=== PATIENT | female | born 1945 | race Caucasian/White ===

== ENCOUNTER 2017-04-16 16:27 | Inpatient (IN) | payer OTHER ==
--- NOTE | 2017-04-16 17:25 | PDOC ---
History of Present Illness <Antonette Ponce - Last Filed: 04/16/17 21:09> - History of Present Illness Initial Comments: 04/16/17 18:34 71 year old female with a PMHx of asthma, IDDM, HTN, HLD, GERD, hypothyroidism, chronic low back pain, spinal surgery x 3, total abdominal hysterectomy presents to the ED with urinary retention, diarrhea and low back pain for 2 days. Patient reports intermittent fevers. Patient took Tylenol with no relief. Denies chest pain, SOB. Denies nausea, vomiting, constipation. Denies dysuria, hematuria. Denies tobacco use. No known allergies. <Ariela Baca - Last Filed: 04/16/17 23:09> - General Chief Complaint: Urinary Problem Stated Complaint: DIARRHEA/URINARY PROBLEM Time Seen by Provider: 04/16/17 17:24 Past History - Past Medical History Anemia: No Asthma: Yes (2012) Cancer: No Cardiac Disorders: No CVA: Yes (2013,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") COPD: No CHF: No Dementia: No Diabetes: Yes GI Disorders: No Disorders: No HTN: Yes Hypercholesterolemia: No Liver Disease: No Psychiatric Problems: Yes (dementia, depression) Suicide Attempt (Hx): No Seizures: No Thyroid Disease: Yes - Surgical History Abdominal Surgery: No Appendectomy: No Cardiac Surgery: No Cholecystectomy: No Lung Surgery: No Neurologic Surgery: No Orthopedic Surgery: Yes ("BACK SURGERY" STATED BY PT) - Reproductive History Therapeutic (s) & number: No - Psycho/Social/Smoking Cessation Hx Anxiety: No Suicidal Ideation: No Smoking Status: No Smoking History: Never smoked Have you smoked in the past 12 months: No Number of Cigarettes Smoked Daily: 0 Information on smoking cessation initiated: No Hx Alcohol Use: No Drug/Substance Use Hx: No Substance Use Type: None Hx Substance Use Treatment: No <Antonette Ponce - Last Filed: 04/16/17 21:09> <Ariela Baca - Last Filed: 04/16/17 23:09> - Past Medical History Allergies/Adverse Reactions: Allergies Allergy/AdvReac Type Severity Reaction Status Date / Time No Known Drug Allergies Allergy Verified 04/16/17 17:06 Home Medications: Ambulatory Orders Aspirin [ASA -] 81 mg PO DAILY 05/02/16 Buspirone HCl [Buspar -] 5 mg PO BID 05/02/16 Calcium Carbonate/Vitamin D2 [Calcium Oys Shell 250 mg Tab] 1 each PO Q12H 05/02 Escitalopram Oxalate [Lexapro -] 10 mg PO DAILY 05/02/16 Gabapentin 1,200 mg PO HS 05/02/16 Gabapentin 600 mg PO BID 05/02/16 Glimepiride [Amaryl -] 4 mg PO BID 05/02/16 Hydrocodone/Acetaminophen [[place] 7.5-325 Tablet] 1 each PO BID PRN 05/02/16 Insulin Aspart [Novolog] 0 unit SQ ACHS PRN 05/02/16 Levothyroxine [Synthroid -] 50 mcg PO DAILY 05/02/16 Metoprolol Succinate [Toprol XL -] 25 mg PO DAILY 05/02/16 Montelukast Na [Singulair -] 10 mg PO HS 05/02/16 [place]-3 Acid Ethyl Esters 1 gm PO TID 05/02/16 Omeprazole 20 mg PO DAILY 05/02/16 Sennosides [Senna Concentrate] 17.2 mg PO DAILY 05/02/16 Sitagliptin Phosphate [Januvia] 100 mg PO DAILY 05/02/16 Trazodone HCl 200 mg PO HS 05/02/16 Insulin Glargine,Hum.rec.anlog [Lantus (10mL VIAL) -] 25 units SQ BID #10 ml Review of Systems - Review of Systems Comments:: 04/16/17 18:34 CONSTITUTIONAL: Present: fever Absent: chills, diaphoresis, generalized weakness, malaise, loss of appetite HEENT: Absent: rhinorrhea, nasal congestion, throat pain, throat swelling, difficulty swallowing, mouth swelling, ear pain, eye pain, visual changes CARDIOVASCULAR: Absent: chest pain, syncope, palpitations, irregular heart rate, lightheadedness , peripheral edema RESPIRATORY: Absent: cough, shortness of breath, dyspnea with exertion, orthopnea, wheezing, stridor, hemoptysis GASTROINTESTINAL: Present: diarrhea Absent: abdominal pain, abdominal distension, nausea, vomiting, constipation, melena, hematochezia GENITOURINARY: Present: urinary retention Absent: dysuria, frequency, urgency, hematuria, flank pain, genital pain MUSCULOSKELETAL: Present: left sided low back pain above hip Absent: myalgia, arthralgia, joint swelling SKIN: Absent: rash, itching, pallor HEMATOLOGIC/IMMUNOLOGIC: Absent: easy bleeding, easy bruising, lymphadenopathy, frequent infections ENDOCRINE: Absent: unexplained weight gain, unexplained weight loss, heat intolerance, cold intolerance NEUROLOGIC: Absent: headache, focal weakness or paresthesias, dizziness, unsteady gait, seizure, mental status changes, bladder or bowel incontinence PSYCHIATRIC: Absent: anxiety, depression, suicidal or homicidal ideation, hallucinations. <BacaLoriAriela Brittani - Last Filed: 04/16/17 23:09> *Physical Exam - Vital Signs Last Vital Signs Temp Pulse Resp BP Pulse Ox 98.2 F 93 H 16 154/87 98 04/16/17 16:59 04/16/17 16:59 04/16/17 16:59 04/16/17 16:59 04/16/17 16:59 <KrisAntonette Tonya - Last Filed: 04/16/17 21:09> - Vital Signs Last Vital Signs Temp Pulse Resp BP Pulse Ox 98.2 F 93 H 16 154/87 98 04/16/17 16:59 04/16/17 16:59 04/16/17 16:59 04/16/17 16:59 04/16/17 16:59 - Physical Exam Comments: 04/16/17 18:35 GENERAL: Well developed, well nourished. Awake and alert. No acute distress. HEENT: Normocephalic, atraumatic. PERRLA, EOMI. No conjunctival pallor. Sclera are non- icteric. Moist mucous membranes. Oropharynx is clear. NECK: Supple. Full ROM. No JVD. Carotid pulses 2+ and symmetric, without bruits. No thyromegaly. No lymphadenopathy. CARDIOVASCULAR: Regular rate and rhythm. No murmurs, rubs, or gallops. Distal pulses are 2+ and symmetric. PULMONARY: Scant wheeze in the upper left lobe. No rales or rhonchi. ABDOMINAL: Protuberant but soft. Non-tender. No rebound or guarding. No organomegaly. Normoactive bowel sounds. MUSCULOSKELETAL Left back pain above left hip. Normal range of motion at all joints. No bony deformities. No CVA tenderness. EXTREMITIES: Trace pitting edema. No cyanosis. No clubbing. No calf tenderness. SKIN: Warm and dry. Normal capillary refill. No rashes. No jaundice. NEUROLOGICAL: Alert, awake, appropriate. Cranial nerves 2-12 intact. No deficits to light touch and temperature in face, upper extremities and lower extremities. No motor deficits in the in face, upper extremities and lower extremities. Normoreflexic in the upper and lower extremities. Normal speech. Toes are downgoing bilaterally. PSYCHIATRIC: Cooperative. Good eye contact. Appropriate mood and affect. <Ariela Baca - Last Filed: 04/16/17 23:09> ED Treatment Course - LABORATORY CBC & Chemistry Diagram: 04/16/17 18:35 04/16/17 18:35 <Antonette Ponce - Last Filed: 04/16/17 21:09> - LABORATORY CBC & Chemistry Diagram: 04/16/17 18:35 04/16/17 18:35 - RADIOLOGY Radiograph Interpretation: 04/16/17 23:08 Chest X-Ray Reported by Dr. Rich Woo Impression: No significant interval change or acute lung disease is present. <Ariela Baca - Last Filed: 04/16/17 23:09> *DC/Admit/Observation/Transfer - Discharge Dispostion Admit: Yes <Antonette Ponce - Last Filed: 04/16/17 21:09> - Attestations Scribe Attestion: 04/16/17 18:35 Documentation prepared by Ariela Baca, acting as medical director of hospice for Antonette Ponce MD. <Ariela Baca - Last Filed: 04/16/17 23:09> Diagnosis at time of Disposition: Hyponatremia Diabetes mellitus Qualifiers: Diabetes mellitus type: type 1 Diabetes mellitus complication status: with hyperglycemia Qualified Code(s): E10.65 - Type 1 diabetes mellitus with hyperglycemia Back pain Qualifiers: Back pain location: low back pain Chronicity: chronic Back pain laterality: left Sciatica presence: without sciatica Qualified Code(s): M54.5 - Low back pain - Referrals
[2017-04-16] MEDS ORDERED: SODIUM CHLORIDE 1,000 ML IV STA (17:38)
[2017-04-16] MEDS ORDERED: morphine CARPU-JECT 4 MG/1 ML DISP.SYRIN ONE (18:19)
[2017-04-16] MEDS ORDERED: morphine CARPU-JECT 2 MG/1 ML DISP.SYRIN IVPUSH ONE (18:35)
[2017-04-16 19:00] LABS: BASOPHIL 0.6 % (0-2.0); MCH 29.9 pg (25.7-33.7); MCHC 33.9 g/dl (32.0-36.0); MEAN CELL VOLUME 88.2 fl (80-96); MEAN PLT VOLUME 9.5 fl (7.5-11.1); NEUTROPHILS 73.7 % (42.8-82.8); PLATELET COUNT 160 K/MM3 (134-434); RDW 14.7 % (11.6-15.6); WHITE BLOOD COUNT 10.7 K/mm3 (4.0-10.0)
[2017-04-16 19:17] LABS: URINE APPEARANCE CLEAR; URINE BILIRUBIN NEGATIVE (NEGATIVE); URINE BLOOD 1+ (NEGATIVE); URINE COLOR STRAW; URINE GLUCOSE (UA) 3+ (NEGATIVE); URINE KETONE TRACE (NEGATIVE); URINE LEUK ESTERASE NEGATIVE (NEGATIVE); URINE NITRITE NEGATIVE (NEGATIVE); URINE UROBILINOGEN NEGATIVE mg/dL (0.2-1.0)
[2017-04-16 19:20] LABS: URINE PROTEIN 1+ (NEGATIVE)
[2017-04-16 19:23] LABS: ALBUMIN 4.1 g/dl (3.4-5.0); ANION GAP 10 (8-16); BILIRUBIN,TOTAL 0.5 mg/dL (0.2-1.0); CALCIUM 8.8 mg/dL (8.5-10.1); CO2 25 mmol/L (21-32); CREATININE 0.7 mg/dL (0.55-1.02); GLUCOSE,RANDOM 242 mg/dL (74-106); SGOT/AST 35 U/L (15-37); SGPT/ALT 41 U/L (12-78); TOT PROT 7.5 g/dl (6.4-8.2)
[2017-04-16 19:24] LABS: ALK PHOS 90 U/L (45-117)
[2017-04-16 19:27] LABS: URINE BACTERIA RARE /hpf (NONE SEEN); URINE RBC 1 /hpf (0-3); URINE WBC <1 /hpf (3-5)
[2017-04-16] MEDS ORDERED: GABAPENTIN 300 MG CAPSULE (FP) PO SCH (22:00)
[2017-04-16] MEDS: SODIUM CHLORIDE 1,000 ML IV SCH (22:00)
[2017-04-16] MEDS ORDERED: HEPARIN NA (PORCINE) 5,000 UNITS/ML 1ML VIAL ONE (22:58)
[2017-04-16] MEDS ORDERED: MONTELUKAST NA 10 MG TABLET ONE (22:58)
[2017-04-16] MEDS ORDERED: busPIRone HCL 5 MG TABLET ONE (22:59)
[2017-04-16] MEDS: MONTELUKAST NA 10 MG TABLET PO SCH (23:01)
[2017-04-16] MEDS: HEPARIN NA (PORCINE) 5,000 UNITS/ML 1ML VIAL SQ SCH (23:02)
[2017-04-16] MEDS: busPIRone HCL 5 MG TABLET PO SCH (23:02)
[2017-04-16] MEDS: OMEGA-3 ACID ETHYL ESTERS (FATTY-ACIDS) 1 GM CAPSULE (FP) PO SCH (23:47)
[2017-04-16] MEDS: traZODone HCL 100 MG TABLET (FP) PO SCH (23:47)
[2017-04-16] MEDS: GABAPENTIN 300 MG CAPSULE (FP) PO SCH (23:47)
[2017-04-16] MEDS: INSULIN SLIDING SCALE (NOVOLOG) 1 VIAL SQ SCH (23:48)
[2017-04-17] MEDS: oxyCODONE HCL 5 MG TABLET PO PRN ×2 (01:25→17:14)
[2017-04-17] MEDS: SODIUM CHLORIDE 1,000 ML IV SCH ×2 (01:25→09:42)
[2017-04-17] MEDS: ACETAMINOPHEN 325 MG TABLET (FP) PO PRN ×2 (01:26→17:14)
[2017-04-17 02:10] LABS: OSMOLALITY,SERUM 263 mosm/kg (278-305)
[2017-04-17 03:00] VITALS: BMI 26.6
[2017-04-17] MEDS: GLIMEPIRIDE 4 MG TABLET (FP) PO SCH ×2 (06:23→16:35)
[2017-04-17] MEDS: OMEGA-3 ACID ETHYL ESTERS (FATTY-ACIDS) 1 GM CAPSULE (FP) PO SCH ×3 (06:23→21:26)
[2017-04-17] MEDS: GABAPENTIN 300 MG CAPSULE (FP) PO SCH ×3 (06:25→21:28)
[2017-04-17] MEDS: sitaGLIPtin PHOSPHATE 100 MG TABLET (FP) PO SCH (06:25)
[2017-04-17] MEDS: PANTOPRAZOLE 20 MG TABLET (FP) PO SCH (06:26)
[2017-04-17] MEDS: LEVOTHYROXINE NA 50 MCG TABLET (FP) PO SCH (06:26)
[2017-04-17] MEDS: INSULIN SLIDING SCALE (NOVOLOG) 1 VIAL SQ SCH ×4 (06:26→21:26)
[2017-04-17] MEDS: INSULIN DETEMIR 100 UNITS/ML MDV SQ SCH ×2 (06:54→21:25)
[2017-04-17] MEDS ORDERED: INSULIN (NOVOLOG) ASPART 100 UNITS/ML 10ML VIAL ONE ×2 (06:57→11:02)
[2017-04-17 07:53] LABS: MCH 30.7 pg (25.7-33.7); MCHC 34.8 g/dl (32.0-36.0); MEAN CELL VOLUME 88.3 fl (80-96); MEAN PLT VOLUME 9.3 fl (7.5-11.1); PLATELET COUNT 140 K/MM3 (134-434); RDW 14.4 % (11.6-15.6); WHITE BLOOD COUNT 7.4 K/mm3 (4.0-10.0)
[2017-04-17 08:20] LABS: ALBUMIN 3.4 g/dl (3.4-5.0); ANION GAP 10 (8-16); CALCIUM 8.1 mg/dL (8.5-10.1); CO2 26 mmol/L (21-32); CREATININE 0.7 mg/dL (0.55-1.02); GLUCOSE,RANDOM 213 mg/dL (74-106); SGOT/AST 25 U/L (15-37); SGPT/ALT 30 U/L (12-78)
[2017-04-17 08:22] LABS: ALK PHOS 65 U/L (45-117); BILIRUBIN,TOTAL 0.4 mg/dL (0.2-1.0); TOT PROT 6.1 g/dl (6.4-8.2)
[2017-04-17] MEDS ORDERED: PT OWN MED DRAWER 7, Y5N ONE (09:29)
[2017-04-17] MEDS: ASPIRIN 81 MG CHEWABLE TABLETS PO SCH (09:42)
[2017-04-17] MEDS: METOPROLOL SUCCINATE 25 MG TAB.SR.24H (FP) PO SCH (09:42)
[2017-04-17] MEDS: ESCITALOPRAM OXALATE 10 MG TABLET (FP) PO SCH (09:42)
[2017-04-17] MEDS: HEPARIN NA (PORCINE) 5,000 UNITS/ML 1ML VIAL SQ SCH ×2 (09:43→21:27)
[2017-04-17] MEDS: CALCIUM 250MG/VIT-D 125 UNITS 1 COMBO TABLET PO SCH ×2 (09:43→21:29)
[2017-04-17] MEDS: busPIRone HCL 5 MG TABLET PO SCH ×2 (09:43→21:27)
[2017-04-17] MEDS ORDERED: DESMOPRESSIN ACETATE 4 MCG/ML AMP IVPB ONE (09:54)
[2017-04-17] MEDS ORDERED: DEXTROSE 5%-WATER - 1,000 ML IV ONE (10:00)
--- NOTE | 2017-04-17 10:02 | CON.NEP ---
Consult Consult Specialty:: Nephrology (Oscar/Zane) Referred by:: Dr. Ferrera Reason for Consultation:: Hyponatremia - History of Present Illness Chief Complaint: Diarrhea History of Present Illness: This is a 71 year old woman with PMhx of Hypertension, Hyperlipidemia, Depression?, Chronic Hyponatremia who presented with complaints of Diarrhea, lower back pain and found to have Na of 119. Pt had been seen in the past for hyponatremia but previous low was 124. Pt denies excessive water intake and is aware of her hyponatremia. Pt is awake and alert and has no symptoms of hyponatremia. No seizures witnessed. Pt s/p NS in the ED and overnight. No SOB, Chest pain, Fever, chills, N/V. Pt reports diarrhea x 2 days at home. No diuretics listed on the medical record. 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 Cardio/Vascular: Yes: HTN Pulmonary: Yes: Asthma Gastrointestinal: Yes: GERD Renal/: Yes: Other (hyponatremia) Psych: Yes: Depression Endocrine: Yes: Diabetes Mellitus, Hypothyroidism - Alcohol/Substance Use Hx Alcohol Use: No - Smoking History Smoking history: Never smoked Have you smoked in the past 12 months: No Aproximately how many cigarettes per day: 0 Home Medications - Allergies Allergies/Adverse Reactions: Allergies Allergy/AdvReac Type Severity Reaction Status Date / Time No Known Drug Allergies Allergy Verified 04/16/17 17:06 - Home Medications Home Medications: Ambulatory Orders Aspirin [ASA -] 81 mg PO DAILY 05/02/16 Buspirone HCl [Buspar -] 5 mg PO BID 05/02/16 Calcium Carbonate/Vitamin D2 [Calcium Oys Shell 250 mg Tab] 1 each PO Q12H 05/02 Escitalopram Oxalate [Lexapro -] 10 mg PO DAILY 05/02/16 Gabapentin 1,200 mg PO HS 05/02/16 Gabapentin 600 mg PO BID 05/02/16 Glimepiride [Amaryl -] 4 mg PO BID 05/02/16 Hydrocodone/Acetaminophen [[place] 7.5-325 Tablet] 1 each PO BID PRN 05/02/16 Insulin Aspart [Novolog] 0 unit SQ ACHS PRN 05/02/16 Levothyroxine [Synthroid -] 50 mcg PO DAILY 05/02/16 Metoprolol Succinate [Toprol XL -] 25 mg PO DAILY 05/02/16 Montelukast Na [Singulair -] 10 mg PO HS 05/02/16 [place]-3 Acid Ethyl Esters 1 gm PO TID 05/02/16 Omeprazole 20 mg PO DAILY 05/02/16 Sennosides [Senna Concentrate] 17.2 mg PO DAILY 05/02/16 Sitagliptin Phosphate [Januvia] 100 mg PO DAILY 05/02/16 Trazodone HCl 200 mg PO HS 05/02/16 Insulin Glargine,Hum.rec.anlog [Lantus (10mL VIAL) -] 25 units SQ BID #10 ml Family Disease History - Family Disease History Family History: Unremarkable Review of Systems - Review of Systems Constitutional: denies: Chills, Lethargy, Loss of Appetite Eyes: reports: No Symptoms HENT: reports: No Symptoms Neck: reports: No Symptoms Cardiovascular: denies: Chest Pain, Edema, Palpitations, Shortness of Breath Respiratory: denies: Cough, Exercise Intolerance, Hemoptysis, Orthopnea, PND, SOB, SOB on Exertion Gastrointestinal: reports: Abdominal Pain, Diarrhea. denies: Constipation, Melena, Nausea, Vomiting Blood Genitourinary: reports: No Symptoms Musculoskeletal: reports: No Symptoms Integumentary: reports: No Symptoms Neurological: reports: No Symptoms Endocrine: reports: No Symptoms Psychiatric: reports: No Symptoms Nephrology Consult - Height Height: 5 ft 5 in - Weight Weight: 160 lb - BMI Body Mass Index (BMI): 26.6 - Lab Results CBC,BMP: CBC, BMP 04/17/17 05:35 04/17/17 05:35 Anion Gap: Anion Gap Anion Gap 10 (8-16) 04/17/17 05:35 - Imaging Chest X-ray: Report Reviewed - Physical Examination Vital Signs: Vital Signs Temperature 98.2 F 04/17/17 08:50 Pulse Rate 85 04/17/17 08:50 Respiratory Rate 18 04/17/17 08:50 Blood Pressure 132/58 04/17/17 08:50 O2 Sat by Pulse Oximetry (%) 95 04/17/17 01:00 Constitutional: Yes: No Distress, Calm Eyes: Yes: Conjunctiva Clear HENT: Yes: Atraumatic, Normocephalic Neck: Yes: Supple Cardiovascular: Yes: Regular Rate and Rhythm, S1, S2. No: JVD, Murmur, Rub Respiratory: Yes: Regular, CTA Bilaterally Gastrointestinal: Yes: Normal Bowel Sounds, Soft, Abdomen, Obese. No: Tenderness Renal/: No: Anuria, Bladder Distention, CVA Tenderness - Left, CVA Tenderness - Right, Carter Present Edema: No Neurological: Yes: Alert, Oriented Problem List - Problems (1) Hyponatremia Code(s): E87.1 - HYPO-OSMOLALITY AND HYPONATREMIA (2) Diarrhea Code(s): R19.7 - DIARRHEA, UNSPECIFIED (3) Hypothyroidism Code(s): E03.9 - HYPOTHYROIDISM, UNSPECIFIED (4) Proteinuria Code(s): R80.9 - PROTEINURIA, UNSPECIFIED (5) Hematuria Code(s): R31.9 - HEMATURIA, UNSPECIFIED Assessment/Plan 71 year old woman with PMhx of Hypertension, Hyperlipidemia, Depression?, Chronic Hyponatremia who presented with complaints of Diarrhea, lower back pain and found to have Na of 119. #Acute on Chronic hyponatremia Etiology appears to be hypovolemic hyponatremia given rapid correction with NS Urine studies show ADH release given high urine Na Pt on Lexapro and Trazadone but which can contribute to SIADH Pt serum na improved by 11 in 12 hours putting pt at risk for osmotic demyelination syndrome will need to relower serum Na to ~126-128 by 6pm will give D5W 900cc over 2 hours give DDAVP 2mcg repeat Na at 1 pm and 6pm Fluid restriction fo 1L daily because of chronic hyponatremia no indication for 3% saline Check TSH, Cortisol levels #Diarrhea Etiology unclear work up as per primary #Hematuria/Proteinuriea Repeat UA and UPCR in AM Thank you Will follow Austen Degroot DO
--- NOTE | 2017-04-17 11:40 | HP ---
Admitting History and Physical - Primary Care Physician PCP: Mary Alice Carlson - Admission Chief Complaint: I couldnt urinate History of Present Illness: Ms Vu is a 71 year old female who complains of difficulty urinating and diarrhea. She says they both started 2 days ago. She says that the stool is mainly liquid and she has to go frequently. She says she was having difficulty urinating but no pain. She has not had excess intake of fluid secondary to this. She denies fevers, chills, lightheadedness, dizziness, chest pain, shortness of breath, nausea, vomiting, or swelling. 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 Cardiovascular: Yes: HTN Pulmonary: Yes: Asthma Gastrointestinal: Yes: GERD Renal/: Yes: Other (hyponatremia) Psych: Yes: Depression Endocrine: Yes: Diabetes Mellitus, Hypothyroidism - Advance Directives Advance Directives: Yes: Health Care Proxy - Smoking History Smoking history: Never smoked Have you smoked in the past 12 months: No Aproximately how many cigarettes per day: 0 - Alcohol/Substance Use Hx Alcohol Use: No History of Substance Use: reports: None - Social History ADL: Independent History of Recent Travel: No Home Medications - Allergies Allergies/Adverse Reactions: Allergies Allergy/AdvReac Type Severity Reaction Status Date / Time No Known Drug Allergies Allergy Verified 04/16/17 17:06 - Home Medications Home Medications: Ambulatory Orders Aspirin [ASA -] 81 mg PO DAILY 05/02/16 Buspirone HCl [Buspar -] 5 mg PO BID 05/02/16 Calcium Carbonate/Vitamin D2 [Calcium Oys Shell 250 mg Tab] 1 each PO Q12H 05/02 Escitalopram Oxalate [Lexapro -] 10 mg PO DAILY 05/02/16 Gabapentin 1,200 mg PO HS 05/02/16 Gabapentin 600 mg PO BID 05/02/16 Glimepiride [Amaryl -] 4 mg PO BID 05/02/16 Hydrocodone/Acetaminophen [[place] 7.5-325 Tablet] 1 each PO BID PRN 05/02/16 Insulin Aspart [Novolog] 0 unit SQ ACHS PRN 05/02/16 Levothyroxine [Synthroid -] 50 mcg PO DAILY 05/02/16 Metoprolol Succinate [Toprol XL -] 25 mg PO DAILY 05/02/16 Montelukast Na [Singulair -] 10 mg PO HS 05/02/16 [place]-3 Acid Ethyl Esters 1 gm PO TID 05/02/16 Omeprazole 20 mg PO DAILY 05/02/16 Sennosides [Senna Concentrate] 17.2 mg PO DAILY 05/02/16 Sitagliptin Phosphate [Januvia] 100 mg PO DAILY 05/02/16 Trazodone HCl 200 mg PO HS 05/02/16 Insulin Glargine,Hum.rec.anlog [Lantus (10mL VIAL) -] 25 units SQ BID #10 ml Family Disease History - Family Disease History Family History: Unremarkable Review of Systems Findings/Remarks: Full review of systems obtained, as per HPI and otherwise negative Physical Examination Vital Signs: Vital Signs Temperature 98.2 F 04/17/17 08:50 Pulse Rate 85 04/17/17 08:50 Respiratory Rate 18 04/17/17 08:50 Blood Pressure 132/58 04/17/17 08:50 O2 Sat by Pulse Oximetry (%) 95 04/17/17 01:00 Constitutional: Yes: Well Nourished, No Distress, Calm Eyes: Yes: Conjunctiva Clear, EOM Intact, PERRL HENT: Yes: Atraumatic, Normocephalic Cardiovascular: Yes: Regular Rate and Rhythm. No: Gallop, Murmur, Rub Respiratory: Yes: Regular, CTA Bilaterally. No: Rales, Rhonchi, Wheezes Gastrointestinal: Yes: Normal Bowel Sounds, Soft. No: Distention, Tenderness Extremities: Yes: WNL Edema: No Labs: CBC, BMP 04/17/17 05:35 04/17/17 05:35 Imaging - Results Chest X-ray: Report Reviewed, Image Reviewed Problem List - Problems (1) Hyponatremia Assessment/Plan: -patient presents with hyponatremia -corrected by NS, hypovolemic hyponatremia -seen by nephrology and note reviewed -concern for overcorrection -DDAVP and D5W to be administered -fluid restriction Code(s): E87.1 - HYPO-OSMOLALITY AND HYPONATREMIA (2) Diarrhea Assessment/Plan: -suspect most likely viral -currently no further bowel movements -order stool studies Code(s): R19.7 - DIARRHEA, UNSPECIFIED (3) Diabetes mellitus Assessment/Plan: -continue januvia, amaryl, and levemir -may elevate since receiving D5W Code(s): E11.9 - TYPE 2 DIABETES MELLITUS WITHOUT COMPLICATIONS Qualifiers: Diabetes mellitus type: type 1 Diabetes mellitus complication status: with hyperglycemia Qualified Code(s): E10.65 - Type 1 diabetes mellitus with hyperglycemia (4) Hypothyroidism Assessment/Plan: -continue synthroid Code(s): E03.9 - HYPOTHYROIDISM, UNSPECIFIED (5) HTN (hypertension) Assessment/Plan: -continue toprol xl Code(s): I10 - ESSENTIAL (PRIMARY) HYPERTENSION
--- NOTE | 2017-04-17 13:03 | EKG ---
Test Reason : Blood Pressure : / mmHG Vent. Rate : 087 BPM Atrial Rate : 087 BPM P-R Int : 166 ms QRS Dur : 076 ms QT Int : 404 ms P-R-T Axes : 052 006 047 degrees QTc Int : 486 ms NORMAL SINUS RHYTHM NORMAL ECG WHEN COMPARED WITH ECG OF 02-MAY-2016 11:29, NO SIGNIFICANT CHANGE WAS FOUND Confirmed by MARV VIDAL MD ([id number]) on 04/17/2017 1:02:32 PM Referred By: Confirmed By:MARV VIDAL MD
[2017-04-17 14:01] LABS: ANION GAP 11 (8-16); CALCIUM 8.5 mg/dL (8.5-10.1); CO2 24 mmol/L (21-32); CREATININE 0.8 mg/dL (0.55-1.02)
[2017-04-17 14:44] LABS: GLUCOSE,RANDOM 350 mg/dL (74-106)
[2017-04-17 17:05] LABS: ANION GAP 12 (8-16); CALCIUM 8.5 mg/dL (8.5-10.1); CO2 25 mmol/L (21-32); CREATININE 0.8 mg/dL (0.55-1.02); GLUCOSE,RANDOM 286 mg/dL (74-106)
[2017-04-17] MEDS: traZODone HCL 100 MG TABLET (FP) PO SCH (21:26)
[2017-04-17] MEDS: SENNOSIDES 8.6MG TABLET (FP) PO SCH (21:29)
[2017-04-17] MEDS: MONTELUKAST NA 10 MG TABLET PO SCH (21:29)
[2017-04-18] MEDS: sitaGLIPtin PHOSPHATE 100 MG TABLET (FP) PO SCH (06:34)
[2017-04-18] MEDS: OMEGA-3 ACID ETHYL ESTERS (FATTY-ACIDS) 1 GM CAPSULE (FP) PO SCH ×3 (06:34→22:12)
[2017-04-18] MEDS: GABAPENTIN 300 MG CAPSULE (FP) PO SCH ×3 (06:34→22:12)
[2017-04-18] MEDS: GLIMEPIRIDE 4 MG TABLET (FP) PO SCH ×2 (06:34→17:31)
[2017-04-18] MEDS: PANTOPRAZOLE 20 MG TABLET (FP) PO SCH (06:35)
[2017-04-18] MEDS: INSULIN SLIDING SCALE (NOVOLOG) 1 VIAL SQ SCH ×4 (06:35→22:17)
[2017-04-18] MEDS: LEVOTHYROXINE NA 50 MCG TABLET (FP) PO SCH (06:35)
[2017-04-18] MEDS: INSULIN DETEMIR 100 UNITS/ML MDV SQ SCH ×2 (06:35→22:13)
[2017-04-18 07:56] LABS: BASOPHIL 0.6 % (0-2.0); EOSINOPHIL 2.4 % (0-4.5); MCH 30.7 pg (25.7-33.7); MCHC 34.5 g/dl (32.0-36.0); MEAN PLT VOLUME 9.3 fl (7.5-11.1); NEUTROPHILS 60.5 % (42.8-82.8); PLATELET COUNT 125 K/MM3 (134-434); RDW 14.8 % (11.6-15.6)
[2017-04-18 08:21] LABS: ANION GAP 11 (8-16); CALCIUM 8.7 mg/dL (8.5-10.1); CO2 23 mmol/L (21-32); CREATININE 0.6 mg/dL (0.55-1.02); GLUCOSE,RANDOM 218 mg/dL (74-106); MAGNESIUM 1.7 mg/dL (1.8-2.4); PHOSPHOROUS 3.1 mg/dL (2.5-4.9)
[2017-04-18] MEDS ORDERED: SODIUM CHLORIDE 1,000 ML IV SCH (10:00)
[2017-04-18] MEDS: HEPARIN NA (PORCINE) 5,000 UNITS/ML 1ML VIAL SQ SCH ×2 (10:49→22:15)
[2017-04-18] MEDS: ASPIRIN 81 MG CHEWABLE TABLETS PO SCH (10:49)
[2017-04-18] MEDS: ESCITALOPRAM OXALATE 10 MG TABLET (FP) PO SCH (10:49)
[2017-04-18] MEDS: METOPROLOL SUCCINATE 25 MG TAB.SR.24H (FP) PO SCH (10:50)
[2017-04-18] MEDS: CALCIUM 250MG/VIT-D 125 UNITS 1 COMBO TABLET PO SCH ×2 (10:52→22:11)
[2017-04-18] MEDS: busPIRone HCL 5 MG TABLET PO SCH ×2 (10:52→22:10)
--- NOTE | 2017-04-18 11:18 | PN ---
Progress Note (short form) - Note Progress Note: Renal Follow up for Hyponatremia Pt seen and examined at the bedside awake and alert no sob, chest pain, abd pain, N/V/D has a mild NAQVI, and cough Vital Signs Temperature 97.6 F 04/18/17 06:00 Pulse Rate 84 04/18/17 06:00 Respiratory Rate 20 04/18/17 06:00 Blood Pressure 134/76 04/18/17 06:00 O2 Sat by Pulse Oximetry (%) 96 04/17/17 20:45 Intake & Output 04/15/17 04/16/17 04/17/17 04/18/17 23:59 23:59 23:59 23:59 Intake Total 1495 120 Output Total 350 Balance 1145 120 Weight 160 lb 160 lb Gen: NAD, awake and alert CVS: RRR, No M/R Lungs: CTA Abd: soft NT/ND ext: no edema CBC, BMP 04/18/17 06:00 04/18/17 06:00 Current Medications Acetaminophen (Tylenol -) 325 mg PO Q4H PRN PRN Reason: PAIN Stop: 04/19/17 22:46 Last Admin: 04/17/17 17:14 Dose: 325 mg Aspirin (Asa -) 81 mg PO DAILY [facility] Last Admin: 04/18/17 10:49 Dose: 81 mg Buspirone HCl (Buspar -) 5 mg PO BID [facility] Last Admin: 04/18/17 10:52 Dose: 5 mg Calcium/Vitamin D (Oscal 250 Mg+D -) 1 tab PO BID [facility] Last Admin: 04/18/17 10:52 Dose: 1 tab Escitalopram Oxalate (Lexapro -) 10 mg PO DAILY [facility] Last Admin: 04/18/17 10:49 Dose: 10 mg Gabapentin (Neurontin -) 1,200 mg PO HS [facility] Last Admin: 04/17/17 21:28 Dose: 1,200 mg Gabapentin (Neurontin -) 600 mg PO BIDAC [facility] Last Admin: 04/18/17 06:34 Dose: 600 mg Glimepiride (Amaryl -) 4 mg PO BIDAC [facility] Last Admin: 04/18/17 06:34 Dose: 4 mg Heparin Sodium (Porcine) (Heparin -) 5,000 unit SQ BID [facility] Last Admin: 04/18/17 10:49 Dose: 5,000 unit Sodium Chloride (Normal Saline -) 1,000 mls @ 50 mls/hr IV ASDIR [facility] Stop: 04/19/17 09:55 Insulin Aspart (Novolog Vial Sliding Scale -) 1 vial SQ ACHS [facility] PRN Reason: Protocol Last Admin: 04/18/17 06:35 Dose: 2 units Insulin Detemir (Levemir Vial) 25 units SQ BID@07,22 [facility] Last Admin: 04/18/17 06:35 Dose: 25 unit Levothyroxine Sodium (Synthroid -) 50 mcg PO DAILY@0700 [facility] Last Admin: 04/18/17 06:35 Dose: 50 mcg Metoprolol Succinate (Toprol Xl -) 25 mg PO DAILY [facility] Last Admin: 04/18/17 10:50 Dose: 25 mg Montelukast Sodium (Singulair -) 10 mg PO [facility] Last Admin: 04/17/17 21:29 Dose: 10 mg [id number] Ethyl Esters (Lovaza -) 1 gm PO TID [facility] Last Admin: 04/18/17 06:34 Dose: 1 gm Oxycodone HCl (Roxicodone -) 5 mg PO Q4H PRN PRN Reason: PAIN Last Admin: 04/17/17 17:14 Dose: 5 mg Pantoprazole Sodium (Protonix -) 20 mg PO AM [facility] Last Admin: 04/18/17 06:35 Dose: 20 mg Senna (Senna -) 2 tab PO [facility] Last Admin: 04/17/17 21:29 Dose: 2 tab Sitagliptin Phosphate (Januvia -) 100 mg PO DAILY@0700 [facility] Last Admin: 04/18/17 06:34 Dose: 100 mg Sodium Chloride (Sodium Chloride Tablet -) 1 gm PO BID [facility] Trazodone HCl (Desyrel -) 200 mg PO [facility] Last Admin: 04/17/17 21:26 Dose: 200 mg A/P 71 year old woman with PMhx of Hypertension, Hyperlipidemia, Depression?, Chronic Hyponatremia who presented with complaints of Diarrhea, lower back pain and found to have Na of 119. #Acute on Chronic hyponatremia Etiology appears to be hypovolemic hyponatremia given rapid correction with NS but pt likey with component of excess ADH release given downtrending of NA Intial Urine studies show ADH release given high urine Na Pt on Lexapro and Trazadone but which can contribute to SIADH Restart NS at 50cc per hour and start salt tabs 1g BID Trend Na Q8H no acute indication for 3% saline at this time Repeat urine studies today Austen Estevez DO Problem List - Problems (1) Hyponatremia Code(s): E87.1 - HYPO-OSMOLALITY AND HYPONATREMIA (2) Diarrhea Code(s): R19.7 - DIARRHEA, UNSPECIFIED (3) Hypothyroidism Code(s): E03.9 - HYPOTHYROIDISM, UNSPECIFIED (4) Proteinuria Code(s): R80.9 - PROTEINURIA, UNSPECIFIED (5) Hematuria Code(s): R31.9 - HEMATURIA, UNSPECIFIED
[2017-04-18] MEDS ORDERED: INSULIN (NOVOLOG) ASPART 100 UNITS/ML 10ML VIAL ONE ×2 (11:52→21:08)
[2017-04-18] MEDS: SODIUM CHLORIDE 1 GM TABLET PO SCH ×2 (12:55→22:10)
[2017-04-18 13:40] LABS: URINE APPEARANCE CLOUDY; URINE BILIRUBIN NEGATIVE (NEGATIVE); URINE BLOOD NEGATIVE (NEGATIVE); URINE COLOR DKYELLOW; URINE GLUCOSE (UA) 2+ (NEGATIVE); URINE KETONE NEGATIVE (NEGATIVE); URINE NITRITE NEGATIVE (NEGATIVE); URINE PROTEIN NEGATIVE (NEGATIVE); URINE UROBILINOGEN NEGATIVE mg/dL (0.2-1.0)
[2017-04-18 13:45] LABS: URINE LEUK ESTERASE 2+ (NEGATIVE)
[2017-04-18 13:49] LABS: URINE BACTERIA MANY /hpf (NONE SEEN); URINE MUCUS FEW; URINE RBC 2 /hpf (0-3); URINE WBC 23 /hpf (3-5)
--- NOTE | 2017-04-18 16:41 | PN ---
Progress Note, Physician Chief Complaint: Ms Vu is without complaint. No cp, sob, n/v. - Current Medication List Current Medications: Active Medications Acetaminophen (Tylenol -) 325 mg PO Q4H PRN PRN Reason: PAIN Stop: 04/19/17 22:46 Last Admin: 04/17/17 17:14 Dose: 325 mg Aspirin (Asa -) 81 mg PO DAILY [facility] Last Admin: 04/18/17 10:49 Dose: 81 mg Buspirone HCl (Buspar -) 5 mg PO BID [facility] Last Admin: 04/18/17 10:52 Dose: 5 mg Calcium/Vitamin D (Oscal 250 Mg+D -) 1 tab PO BID [facility] Last Admin: 04/18/17 10:52 Dose: 1 tab Escitalopram Oxalate (Lexapro -) 10 mg PO DAILY [facility] Last Admin: 04/18/17 10:49 Dose: 10 mg Gabapentin (Neurontin -) 1,200 mg PO HS [facility] Last Admin: 04/17/17 21:28 Dose: 1,200 mg Gabapentin (Neurontin -) 600 mg PO BIDAC [facility] Last Admin: 04/18/17 06:34 Dose: 600 mg Glimepiride (Amaryl -) 4 mg PO BIDAC [facility] Last Admin: 04/18/17 06:34 Dose: 4 mg Heparin Sodium (Porcine) (Heparin -) 5,000 unit SQ BID [facility] Last Admin: 04/18/17 10:49 Dose: 5,000 unit Sodium Chloride (Normal Saline -) 1,000 mls @ 50 mls/hr IV ASDIR [facility] Stop: 04/19/17 09:55 Last Admin: 04/18/17 11:50 Dose: 50 mls/hr Insulin Aspart (Novolog Vial Sliding Scale -) 1 vial SQ ACHS [facility] PRN Reason: Protocol Last Admin: 04/18/17 11:53 Dose: 4 units Insulin Detemir (Levemir Vial) 25 units SQ BID@07,22 [facility] Last Admin: 04/18/17 06:35 Dose: 25 unit Levothyroxine Sodium (Synthroid -) 50 mcg PO DAILY@0700 [facility] Last Admin: 04/18/17 06:35 Dose: 50 mcg Metoprolol Succinate (Toprol Xl -) 25 mg PO DAILY [facility] Last Admin: 04/18/17 10:50 Dose: 25 mg Montelukast Sodium (Singulair -) 10 mg PO HS [facility] Last Admin: 04/17/17 21:29 Dose: 10 mg Gqacp-4-Tbkr Ethyl Esters (Lovaza -) 1 gm PO TID [facility] Last Admin: 04/18/17 13:00 Dose: 1 gm Oxycodone HCl (Roxicodone -) 5 mg PO Q4H PRN PRN Reason: PAIN Last Admin: 04/17/17 17:14 Dose: 5 mg Pantoprazole Sodium (Protonix -) 20 mg PO AM [facility] Last Admin: 04/18/17 06:35 Dose: 20 mg Senna (Senna -) 2 tab PO HS [facility] Last Admin: 04/17/17 21:29 Dose: 2 tab Sitagliptin Phosphate (Januvia -) 100 mg PO DAILY@0700 [facility] Last Admin: 04/18/17 06:34 Dose: 100 mg Sodium Chloride (Sodium Chloride Tablet -) 1 gm PO BID [facility] Last Admin: 04/18/17 12:55 Dose: 1 gm Trazodone HCl (Desyrel -) 200 mg PO [facility] Last Admin: 04/17/17 21:26 Dose: 200 mg - Objective Vital Signs: Vital Signs Temperature 99.2 F 04/18/17 15:15 Pulse Rate 88 04/18/17 15:15 Respiratory Rate 20 04/18/17 15:15 Blood Pressure 165/90 04/18/17 15:15 O2 Sat by Pulse Oximetry (%) 96 04/18/17 09:00 Constitutional: Yes: Well Nourished, No Distress, Calm Cardiovascular: Yes: Regular Rate and Rhythm. No: Gallop, Murmur, Rub Respiratory: Yes: Regular, CTA Bilaterally. No: Rales, Rhonchi, Wheezes Gastrointestinal: Yes: Normal Bowel Sounds, Soft. No: Distention, Tenderness Extremities: Yes: WNL Edema: No Labs: CBC, BMP 04/18/17 06:00 04/18/17 06:00 Problem List - Problems (1) Hyponatremia Code(s): E87.1 - HYPO-OSMOLALITY AND HYPONATREMIA (2) Diarrhea Code(s): R19.7 - DIARRHEA, UNSPECIFIED (3) Diabetes mellitus Code(s): E11.9 - TYPE 2 DIABETES MELLITUS WITHOUT COMPLICATIONS Qualifiers: Diabetes mellitus type: type 1 Diabetes mellitus complication status: with hyperglycemia Qualified Code(s): E10.65 - Type 1 diabetes mellitus with hyperglycemia (4) Hypothyroidism Code(s): E03.9 - HYPOTHYROIDISM, UNSPECIFIED (5) HTN (hypertension) Code(s): I10 - ESSENTIAL (PRIMARY) HYPERTENSION Assessment/Plan (1) Hyponatremia Assessment/Plan: -hypovolemic hyponatremia -over corrected with IVF on admission -reversed, now at 123 -case d/w nephrology -begin salt tablets -NS -monitor Code(s): E87.1 - HYPO-OSMOLALITY AND HYPONATREMIA (2) Diarrhea Assessment/Plan: -currently resolved Code(s): R19.7 - DIARRHEA, UNSPECIFIED (3) Diabetes mellitus Assessment/Plan: -continue januvia, amaryl, and levemir -monitor, D5W stopped Code(s): E11.9 - TYPE 2 DIABETES MELLITUS WITHOUT COMPLICATIONS Qualifiers: Diabetes mellitus type: type 1 Diabetes mellitus complication status: with hyperglycemia Qualified Code(s): E10.65 - Type 1 diabetes mellitus with hyperglycemia (4) Hypothyroidism Assessment/Plan: -continue synthroid Code(s): E03.9 - HYPOTHYROIDISM, UNSPECIFIED (5) HTN (hypertension) Assessment/Plan: -continue toprol xl Code(s): I10 - ESSENTIAL (PRIMARY) HYPERTENSION
[2017-04-18] MEDS: ACETAMINOPHEN 325 MG TABLET (FP) PO PRN (19:00)
[2017-04-18] MEDS: oxyCODONE HCL 5 MG TABLET PO PRN (19:01)
[2017-04-18] MEDS ORDERED: traZODone HCL 50 MG TABLET (FP) ONE (21:07)
[2017-04-18] MEDS: traZODone HCL 100 MG TABLET (FP) PO SCH (22:10)
[2017-04-18] MEDS: SENNOSIDES 8.6MG TABLET (FP) PO SCH (22:14)
[2017-04-18] MEDS: MONTELUKAST NA 10 MG TABLET PO SCH (22:14)
[2017-04-19] MEDS: sitaGLIPtin PHOSPHATE 100 MG TABLET (FP) PO SCH (06:46)
[2017-04-19] MEDS: GABAPENTIN 300 MG CAPSULE (FP) PO SCH ×3 (06:46→21:40)
[2017-04-19] MEDS: INSULIN DETEMIR 100 UNITS/ML MDV SQ SCH ×2 (06:46→21:48)
[2017-04-19] MEDS: LEVOTHYROXINE NA 50 MCG TABLET (FP) PO SCH (06:46)
[2017-04-19] MEDS: OMEGA-3 ACID ETHYL ESTERS (FATTY-ACIDS) 1 GM CAPSULE (FP) PO SCH ×3 (06:46→21:39)
[2017-04-19] MEDS: GLIMEPIRIDE 4 MG TABLET (FP) PO SCH ×2 (06:46→17:38)
[2017-04-19] MEDS: PANTOPRAZOLE 20 MG TABLET (FP) PO SCH (06:47)
[2017-04-19] MEDS: INSULIN SLIDING SCALE (NOVOLOG) 1 VIAL SQ SCH ×4 (06:47→21:47)
[2017-04-19] MEDS ORDERED: INSULIN (NOVOLOG) ASPART 100 UNITS/ML 10ML VIAL ONE ×3 (06:53→20:41)
[2017-04-19 08:22] LABS: ANION GAP 8 (8-16); CALCIUM 8.5 mg/dL (8.5-10.1); CO2 26 mmol/L (21-32); CREATININE 0.7 mg/dL (0.55-1.02); GLUCOSE,RANDOM 253 mg/dL (74-106); MAGNESIUM 1.8 mg/dL (1.8-2.4); PHOSPHOROUS 3.3 mg/dL (2.5-4.9)
[2017-04-19 08:24] LABS: BASOPHIL 0.5 % (0-2.0); EOSINOPHIL 2.6 % (0-4.5); MCH 30.6 pg (25.7-33.7); MCHC 34.1 g/dl (32.0-36.0); MEAN CELL VOLUME 89.8 fl (80-96); MEAN PLT VOLUME 9.8 fl (7.5-11.1); NEUTROPHILS 59.2 % (42.8-82.8); PLATELET COUNT 119 K/MM3 (134-434); RDW 14.1 % (11.6-15.6); WHITE BLOOD COUNT 4.6 K/mm3 (4.0-10.0)
[2017-04-19] MEDS: ASPIRIN 81 MG CHEWABLE TABLETS PO SCH (11:14)
[2017-04-19] MEDS: METOPROLOL SUCCINATE 25 MG TAB.SR.24H (FP) PO SCH (11:14)
[2017-04-19] MEDS: ESCITALOPRAM OXALATE 10 MG TABLET (FP) PO SCH (11:14)
[2017-04-19] MEDS: SODIUM CHLORIDE 1 GM TABLET PO SCH ×2 (11:15→21:41)
[2017-04-19] MEDS: CALCIUM 250MG/VIT-D 125 UNITS 1 COMBO TABLET PO SCH ×2 (11:15→21:35)
[2017-04-19] MEDS: busPIRone HCL 5 MG TABLET PO SCH ×2 (11:16→21:42)
[2017-04-19] MEDS: HEPARIN NA (PORCINE) 5,000 UNITS/ML 1ML VIAL SQ SCH ×2 (11:17→21:38)
[2017-04-19] MEDS ORDERED: guaiFENesin/D-METHORPHAN HB 10 ML UNIT-DOSE CUPS PO PRN (12:14)
--- NOTE | 2017-04-19 12:18 | PN ---
Progress Note, Physician Chief Complaint: Ms Vu complains of coughing, says it is productive. no cp, sob, n/v - Current Medication List Current Medications: Active Medications Acetaminophen (Tylenol -) 325 mg PO Q4H PRN PRN Reason: PAIN Stop: 04/19/17 22:46 Last Admin: 04/18/17 19:00 Dose: 325 mg Aspirin (Asa -) 81 mg PO DAILY [facility] Last Admin: 04/19/17 11:14 Dose: 81 mg Buspirone HCl (Buspar -) 5 mg PO BID [facility] Last Admin: 04/19/17 11:16 Dose: 5 mg Calcium/Vitamin D (Oscal 250 Mg+D -) 1 tab PO BID [facility] Last Admin: 04/19/17 11:15 Dose: 1 tab Cephalexin HCl (Keflex -) 500 mg PO BID [facility] Stop: 04/23/17 22:01 Escitalopram Oxalate (Lexapro -) 10 mg PO DAILY [facility] Last Admin: 04/19/17 11:14 Dose: 10 mg Gabapentin (Neurontin -) 1,200 mg PO HS [facility] Last Admin: 04/18/17 22:12 Dose: 1,200 mg Gabapentin (Neurontin -) 600 mg PO BIDAC [facility] Last Admin: 04/19/17 06:46 Dose: 600 mg Glimepiride (Amaryl -) 4 mg PO BIDAC [facility] Last Admin: 04/19/17 06:46 Dose: 4 mg Guaifenesin (Robitussin Dm -) 10 ml PO Q6H PRN PRN Reason: COUGH Heparin Sodium (Porcine) (Heparin -) 5,000 unit SQ BID [facility] Last Admin: 04/19/17 11:17 Dose: 5,000 unit Insulin Aspart (Novolog Vial Sliding Scale -) 1 vial SQ ACHS [facility] PRN Reason: Protocol Last Admin: 04/19/17 06:47 Dose: 4 units Insulin Detemir (Levemir Vial) 30 units SQ BID@07,22 [facility] Lactobacillus Acidophilus (Bacid -) 1 tab PO DAILY [facility] Levothyroxine Sodium (Synthroid -) 50 mcg PO DAILY@0700 [facility] Last Admin: 04/19/17 06:46 Dose: 50 mcg Metoprolol Succinate (Toprol Xl -) 25 mg PO DAILY [facility] Last Admin: 04/19/17 11:14 Dose: 25 mg Montelukast Sodium (Singulair -) 10 mg PO [facility] Last Admin: 04/18/17 22:14 Dose: 10 mg Zkoyr-7-Tnxp Ethyl Esters (Lovaza -) 1 gm PO TID [facility] Last Admin: 04/19/17 06:46 Dose: 1 gm Oxycodone HCl (Roxicodone -) 5 mg PO Q4H PRN PRN Reason: PAIN Last Admin: 04/18/17 19:01 Dose: 5 mg Pantoprazole Sodium (Protonix -) 20 mg PO AM [facility] Last Admin: 04/19/17 06:47 Dose: 20 mg Senna (Senna -) 2 tab PO [facility] Last Admin: 04/18/17 22:14 Dose: 2 tab Sitagliptin Phosphate (Januvia -) 100 mg PO DAILY@0700 [facility] Last Admin: 04/19/17 06:46 Dose: 100 mg Sodium Chloride (Sodium Chloride Tablet -) 1 gm PO BID [facility] Last Admin: 04/19/17 11:15 Dose: 1 gm Trazodone HCl (Desyrel -) 200 mg PO [facility] Last Admin: 04/18/17 22:10 Dose: 200 mg - Objective Vital Signs: Vital Signs Temperature 98.3 F 04/18/17 22:00 Pulse Rate 84 04/18/17 22:00 Respiratory Rate 20 04/18/17 22:00 Blood Pressure 161/74 04/18/17 22:00 O2 Sat by Pulse Oximetry (%) 97 04/18/17 21:00 Constitutional: Yes: Well Nourished, No Distress, Calm Cardiovascular: Yes: Regular Rate and Rhythm. No: Gallop, Murmur, Rub Respiratory: Yes: Regular, Cough, Other (difficult to hear breath sounds as patient coughs with every breath). No: Rales, Rhonchi, Wheezes Gastrointestinal: Yes: Normal Bowel Sounds, Soft. No: Distention, Tenderness Extremities: Yes: WNL Edema: No Labs: CBC, BMP 04/19/17 06:10 04/19/17 06:10 Problem List - Problems (1) Hyponatremia Code(s): E87.1 - HYPO-OSMOLALITY AND HYPONATREMIA (2) Diarrhea Code(s): R19.7 - DIARRHEA, UNSPECIFIED (3) Diabetes mellitus Code(s): E11.9 - TYPE 2 DIABETES MELLITUS WITHOUT COMPLICATIONS Qualifiers: Diabetes mellitus type: type 1 Diabetes mellitus complication status: with hyperglycemia Qualified Code(s): E10.65 - Type 1 diabetes mellitus with hyperglycemia (4) Hypothyroidism Code(s): E03.9 - HYPOTHYROIDISM, UNSPECIFIED (5) HTN (hypertension) Code(s): I10 - ESSENTIAL (PRIMARY) HYPERTENSION Assessment/Plan (1) Hyponatremia Assessment/Plan: -case d/w nephrology -continue IVF and salt tablets -recheck in afternoon -if continues to increase, continue salt tablets and IVF -if stable, stop IVF -possible discharge tomorrow Code(s): E87.1 - HYPO-OSMOLALITY AND HYPONATREMIA (2) Diarrhea Assessment/Plan: -currently resolved Code(s): R19.7 - DIARRHEA, UNSPECIFIED (3) Diabetes mellitus Assessment/Plan: -continue januvia, amaryl, -increase levemir today Code(s): E11.9 - TYPE 2 DIABETES MELLITUS WITHOUT COMPLICATIONS Qualifiers: Diabetes mellitus type: type 1 Diabetes mellitus complication status: with hyperglycemia Qualified Code(s): E10.65 - Type 1 diabetes mellitus with hyperglycemia (4) Hypothyroidism Assessment/Plan: -continue synthroid Code(s): E03.9 - HYPOTHYROIDISM, UNSPECIFIED (5) HTN (hypertension) Assessment/Plan: -continue toprol xl Code(s): I10 - ESSENTIAL (PRIMARY) HYPERTENSION (7) UTI -begin keflex (8) Cough -chest x-ray -robitussin prn
--- NOTE | 2017-04-19 12:31 | PN ---
Progress Note (short form) - Note Progress Note: Renal Follow up for Hyponatremia Pt seen and examined at the bedside reports some cough and congestion in throat no fever, chills no confusion, lethargy, seizures Vital Signs Temperature 98.3 F 04/18/17 22:00 Pulse Rate 84 04/18/17 22:00 Respiratory Rate 20 04/18/17 22:00 Blood Pressure 161/74 04/18/17 22:00 O2 Sat by Pulse Oximetry (%) 97 04/18/17 21:00 Intake & Output 04/16/17 04/17/17 04/18/17 04/19/17 23:59 23:59 23:59 23:59 Intake Total 1495 270 600 Output Total 350 800 Balance 1145 -530 600 Weight 160 lb 160 lb Gen: NAD, awake and alert CVS: RRR, No M/R Lungs: CTA Abd: soft NT/ND ext: no edema CBC, BMP 04/19/17 06:10 04/19/17 06:10 Laboratory Tests 04/19/17 06:10 Calcium 8.5 Phosphorus 3.3 Magnesium 1.8 Current Medications Acetaminophen (Tylenol -) 325 mg PO Q4H PRN PRN Reason: PAIN Stop: 04/19/17 22:46 Last Admin: 04/18/17 19:00 Dose: 325 mg Aspirin (Asa -) 81 mg PO DAILY [facility] Last Admin: 04/19/17 11:14 Dose: 81 mg Buspirone HCl (Buspar -) 5 mg PO BID [facility] Last Admin: 04/19/17 11:16 Dose: 5 mg Calcium/Vitamin D (Oscal 250 Mg+D -) 1 tab PO BID [facility] Last Admin: 04/19/17 11:15 Dose: 1 tab Cephalexin HCl (Keflex -) 500 mg PO BID [facility] Stop: 04/23/17 22:01 Escitalopram Oxalate (Lexapro -) 10 mg PO DAILY [facility] Last Admin: 04/19/17 11:14 Dose: 10 mg Gabapentin (Neurontin -) 1,200 mg PO HS [facility] Last Admin: 04/18/17 22:12 Dose: 1,200 mg Gabapentin (Neurontin -) 600 mg PO BIDAC [facility] Last Admin: 04/19/17 06:46 Dose: 600 mg Glimepiride (Amaryl -) 4 mg PO BIDAC [facility] Last Admin: 04/19/17 06:46 Dose: 4 mg Guaifenesin (Robitussin Dm -) 10 ml PO Q6H PRN PRN Reason: COUGH Heparin Sodium (Porcine) (Heparin -) 5,000 unit SQ BID [facility] Last Admin: 04/19/17 11:17 Dose: 5,000 unit Insulin Aspart (Novolog Vial Sliding Scale -) 1 vial SQ ACHS [facility] PRN Reason: Protocol Last Admin: 04/19/17 06:47 Dose: 4 units Insulin Detemir (Levemir Vial) 30 units SQ BID@ [facility] Lactobacillus Acidophilus (Bacid -) 1 tab PO DAILY [facility] Levothyroxine Sodium (Synthroid -) 50 mcg PO DAILY@0700 [facility] Last Admin: 04/19/17 06:46 Dose: 50 mcg Metoprolol Succinate (Toprol Xl -) 25 mg PO DAILY [facility] Last Admin: 04/19/17 11:14 Dose: 25 mg Montelukast Sodium (Singulair -) 10 mg PO [facility] Last Admin: 04/18/17 22:14 Dose: 10 mg Eisqg-7-Ilkl Ethyl Esters (Lovaza -) 1 gm PO TID [facility] Last Admin: 04/19/17 06:46 Dose: 1 gm Oxycodone HCl (Roxicodone -) 5 mg PO Q4H PRN PRN Reason: PAIN Last Admin: 04/18/17 19:01 Dose: 5 mg Pantoprazole Sodium (Protonix -) 20 mg PO AM [facility] Last Admin: 04/19/17 06:47 Dose: 20 mg Senna (Senna -) 2 tab PO [facility] Last Admin: 04/18/17 22:14 Dose: 2 tab Sitagliptin Phosphate (Januvia -) 100 mg PO DAILY@0700 [facility] Last Admin: 04/19/17 06:46 Dose: 100 mg Sodium Chloride (Sodium Chloride Tablet -) 1 gm PO BID [facility] Last Admin: 04/19/17 11:15 Dose: 1 gm Trazodone HCl (Desyrel -) 200 mg PO [facility] Last Admin: 04/18/17 22:10 Dose: 200 mg A/P 71 year old woman with PMhx of Hypertension, Hyperlipidemia, Depression?, Chronic Hyponatremia who presented with complaints of Diarrhea, lower back pain and found to have Na of 119. 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
[2017-04-19] MEDS: CEPHALEXIN MONOHYDRATE 500 MG CAPSULE (UD) PO SCH ×2 (13:04→21:39)
[2017-04-19] MEDS: LACTOBACILLUS ACIDOPHILUS 1 EACH TAB (FP) PO SCH (13:04)
[2017-04-19 19:42] LABS: ANION GAP 8 (8-16); CALCIUM 8.7 mg/dL (8.5-10.1); CO2 25 mmol/L (21-32); CREATININE 0.8 mg/dL (0.55-1.02)
[2017-04-19 20:05] LABS: GLUCOSE,RANDOM 321 mg/dL (74-106)
[2017-04-19] MEDS ORDERED: traZODone HCL 50 MG TABLET (FP) ONE (20:44)
[2017-04-19] MEDS ORDERED: PT OWN MED DRAWER 7, Y5N ONE (20:45)
[2017-04-19] MEDS: traZODone HCL 100 MG TABLET (FP) PO SCH (21:37)
[2017-04-19] MEDS: SENNOSIDES 8.6MG TABLET (FP) PO SCH (21:40)
[2017-04-19] MEDS: MONTELUKAST NA 10 MG TABLET PO SCH (21:41)
[2017-04-19] MEDS ORDERED: MICONAZOLE NITRATE 2% VAGINAL CREAM 45 GM TUBE VG SCH (22:00)
[2017-04-19] MEDS ORDERED: NYSTATIN/TRIAMCINOLONE TOPICAL CREAM 15 GM TUBE TP SCH (22:00)
[2017-04-19] MEDS: oxyCODONE HCL 5 MG TABLET PO PRN (22:33)
[2017-04-19] MEDS: ACETAMINOPHEN 325 MG TABLET (FP) PO PRN (22:35)
[2017-04-20] MEDS ORDERED: PT OWN MED DRAWER 7, Y5N ONE ×3 (06:04→17:00)
[2017-04-20] MEDS: GLIMEPIRIDE 4 MG TABLET (FP) PO SCH (06:51)
[2017-04-20] MEDS: OMEGA-3 ACID ETHYL ESTERS (FATTY-ACIDS) 1 GM CAPSULE (FP) PO SCH ×2 (06:51→14:59)
[2017-04-20] MEDS: sitaGLIPtin PHOSPHATE 100 MG TABLET (FP) PO SCH (06:51)
[2017-04-20] MEDS: LEVOTHYROXINE NA 50 MCG TABLET (FP) PO SCH (06:51)
[2017-04-20] MEDS: INSULIN SLIDING SCALE (NOVOLOG) 1 VIAL SQ SCH ×2 (06:52→12:16)
[2017-04-20] MEDS: GABAPENTIN 300 MG CAPSULE (FP) PO SCH (06:52)
[2017-04-20] MEDS: PANTOPRAZOLE 20 MG TABLET (FP) PO SCH (06:52)
[2017-04-20] MEDS: INSULIN DETEMIR 100 UNITS/ML MDV SQ SCH (06:53)
[2017-04-20 07:42] LABS: BASOPHIL 0.5 % (0-2.0); EOSINOPHIL 2.8 % (0-4.5); MCH 30.5 pg (25.7-33.7); MEAN CELL VOLUME 89.7 fl (80-96); MEAN PLT VOLUME 9.3 fl (7.5-11.1); NEUTROPHILS 59.8 % (42.8-82.8); PLATELET COUNT 122 K/MM3 (134-434); RDW 14.7 % (11.6-15.6); WHITE BLOOD COUNT 6.2 K/mm3 (4.0-10.0)
[2017-04-20 08:06] LABS: ANION GAP 10 (8-16); CO2 29 mmol/L (21-32); CREATININE 0.8 mg/dL (0.55-1.02); GLUCOSE,RANDOM 226 mg/dL (74-106); MAGNESIUM 2.1 mg/dL (1.8-2.4); PHOSPHOROUS 3.4 mg/dL (2.5-4.9)
[2017-04-20] MEDS ORDERED: IBUPROFEN 600 MG TABLET (FP) PO ONE (10:07)
[2017-04-20] MEDS: LACTOBACILLUS ACIDOPHILUS 1 EACH TAB (FP) PO SCH (10:30)
[2017-04-20] MEDS: SODIUM CHLORIDE 1 GM TABLET PO SCH (10:30)
[2017-04-20] MEDS: CEPHALEXIN MONOHYDRATE 500 MG CAPSULE (UD) PO SCH (10:30)
[2017-04-20] MEDS: ESCITALOPRAM OXALATE 10 MG TABLET (FP) PO SCH (10:30)
[2017-04-20] MEDS: METOPROLOL SUCCINATE 25 MG TAB.SR.24H (FP) PO SCH (10:30)
[2017-04-20] MEDS: ASPIRIN 81 MG CHEWABLE TABLETS PO SCH (10:30)
[2017-04-20] MEDS: HEPARIN NA (PORCINE) 5,000 UNITS/ML 1ML VIAL SQ SCH (10:31)
[2017-04-20] MEDS: CALCIUM 250MG/VIT-D 125 UNITS 1 COMBO TABLET PO SCH (10:31)
[2017-04-20] MEDS: busPIRone HCL 5 MG TABLET PO SCH (10:31)
--- NOTE | 2017-04-20 10:37 | PN ---
Progress Note (short form) - Note Progress Note: Renal Follow up for Hyponatremia Pt seen and examined at the bedside complains of discomfort in the neck and left check no fever, chills, N/V/D no confusion, lethargy or weakness Vital Signs Temperature 98.1 F 04/20/17 10:27 Pulse Rate 83 04/20/17 10:27 Respiratory Rate 18 04/20/17 10:27 Blood Pressure 116/55 04/20/17 10:27 O2 Sat by Pulse Oximetry (%) 97 04/19/17 21:00 Intake & Output 04/17/17 04/18/17 04/19/17 04/20/17 23:59 23:59 23:59 23:59 Intake Total 0611 405 1693 150 Output Total 350 800 Balance 1145 -530 1100 150 Weight 160 lb Gen: NAD, awake and alert CVS: RRR, No M/R Lungs: CTA Abd: soft NT/ND ext: no edema CBC, BMP 04/20/17 06:00 04/20/17 06:00 Laboratory Tests 04/20/17 06:00 Calcium 9.0 Phosphorus 3.4 Magnesium 2.1 Current Medications Aspirin (Asa -) 81 mg PO DAILY [facility] Last Admin: 04/19/17 11:14 Dose: 81 mg Buspirone HCl (Buspar -) 5 mg PO BID [facility] Last Admin: 04/19/17 21:42 Dose: 5 mg Calcium/Vitamin D (Oscal 250 Mg+D -) 1 tab PO BID [facility] Last Admin: 04/19/17 21:35 Dose: 1 tab Cephalexin HCl (Keflex -) 500 mg PO BID [facility] Stop: 04/23/17 22:01 Last Admin: 04/19/17 21:39 Dose: 500 mg Escitalopram Oxalate (Lexapro -) 10 mg PO DAILY [facility] Last Admin: 04/19/17 11:14 Dose: 10 mg Gabapentin (Neurontin -) 1,200 mg PO HS [facility] Last Admin: 04/19/17 21:40 Dose: 1,200 mg Gabapentin (Neurontin -) 600 mg PO BIDAC [facility] Last Admin: 04/20/17 06:52 Dose: 600 mg Glimepiride (Amaryl -) 4 mg PO BIDAC [facility] Last Admin: 04/20/17 06:51 Dose: 4 mg Guaifenesin (Robitussin Dm -) 10 ml PO Q6H PRN PRN Reason: COUGH Heparin Sodium (Porcine) (Heparin -) 5,000 unit SQ BID [facility] Last Admin: 04/19/17 21:38 Dose: 5,000 unit Insulin Aspart (Novolog Vial Sliding Scale -) 1 vial SQ ACHS [facility] PRN Reason: Protocol Last Admin: 04/20/17 06:52 Dose: 2 units Insulin Detemir (Levemir Vial) 30 units SQ BID@07,22 [facility] Last Admin: 04/20/17 06:53 Dose: 30 units Lactobacillus Acidophilus (Bacid -) 1 tab PO DAILY [facility] Last Admin: 04/19/17 13:04 Dose: 1 tab Levothyroxine Sodium (Synthroid -) 50 mcg PO DAILY@0700 [facility] Last Admin: 04/20/17 06:51 Dose: 50 mcg Metoprolol Succinate (Toprol Xl -) 25 mg PO DAILY [facility] Last Admin: 04/19/17 11:14 Dose: 25 mg Miconazole Nitrate (Monistat-7 Vaginal Cream -) 1 applic VG [facility] Stop: 04/25/17 22:01 Last Admin: 04/19/17 22:28 Dose: 1 applic Montelukast Sodium (Singulair -) 10 mg PO [facility] Last Admin: 04/19/17 21:41 Dose: 10 mg Gnejf-1-Frch Ethyl Esters (Lovaza -) 1 gm PO TID [facility] Last Admin: 04/20/17 06:51 Dose: 1 gm Oxycodone HCl (Roxicodone -) 5 mg PO Q4H PRN PRN Reason: PAIN Last Admin: 04/19/17 22:33 Dose: 5 mg Pantoprazole Sodium (Protonix -) 20 mg PO AM [facility] Last Admin: 04/20/17 06:52 Dose: 20 mg Senna (Senna -) 2 tab PO [facility] Last Admin: 04/19/17 21:40 Dose: 2 tab Sitagliptin Phosphate (Januvia -) 100 mg PO DAILY@0700 [facility] Last Admin: 04/20/17 06:51 Dose: 100 mg Sodium Chloride (Sodium Chloride Tablet -) 1 gm PO BID [facility] Last Admin: 04/19/17 21:41 Dose: 1 gm Trazodone HCl (Desyrel -) 200 mg PO [facility] Last Admin: 04/19/17 21:37 Dose: 200 mg A/P 71 year old woman with PMhx of Hypertension, Hyperlipidemia, Depression?, Chronic Hyponatremia who presented with complaints of Diarrhea, lower back pain and found to have Na of 119. #Acute on Chronic hyponatremia Serum sodium improved and stable continue Salt tabs BID as pt with evidence of excessive ADH release even after hypovolemia corrected Trend na daily Austen Degroot DO Problem List - Problems (1) Hyponatremia Code(s): E87.1 - HYPO-OSMOLALITY AND HYPONATREMIA (2) Diarrhea Code(s): R19.7 - DIARRHEA, UNSPECIFIED (3) Hypothyroidism Code(s): E03.9 - HYPOTHYROIDISM, UNSPECIFIED (4) Proteinuria Code(s): R80.9 - PROTEINURIA, UNSPECIFIED (5) Hematuria Code(s): R31.9 - HEMATURIA, UNSPECIFIED
--- NOTE | 2017-04-20 11:16 | PN ---
Progress Note, Physician History of Present Illness: Notes pain to left neck, coughing, sinus congestion. Started on keflex for UTI yesterday. Sodium continues to improve on blood work - Current Medication List Current Medications: Active Medications Aspirin (Asa -) 81 mg PO DAILY [facility] Last Admin: 04/20/17 10:30 Dose: 81 mg Buspirone HCl (Buspar -) 5 mg PO BID [facility] Last Admin: 04/20/17 10:31 Dose: 5 mg Calcium/Vitamin D (Oscal 250 Mg+D -) 1 tab PO BID [facility] Last Admin: 04/20/17 10:31 Dose: 1 tab Cephalexin HCl (Keflex -) 500 mg PO BID [facility] Stop: 04/23/17 22:01 Last Admin: 04/20/17 10:30 Dose: 500 mg Escitalopram Oxalate (Lexapro -) 10 mg PO DAILY [facility] Last Admin: 04/20/17 10:30 Dose: 10 mg Gabapentin (Neurontin -) 1,200 mg PO HS [facility] Last Admin: 04/19/17 21:40 Dose: 1,200 mg Gabapentin (Neurontin -) 600 mg PO BIDAC [facility] Last Admin: 04/20/17 06:52 Dose: 600 mg Glimepiride (Amaryl -) 4 mg PO BIDAC [facility] Last Admin: 04/20/17 06:51 Dose: 4 mg Guaifenesin (Robitussin Dm -) 10 ml PO Q6H PRN PRN Reason: COUGH Heparin Sodium (Porcine) (Heparin -) 5,000 unit SQ BID [facility] Last Admin: 04/20/17 10:31 Dose: 5,000 unit Insulin Aspart (Novolog Vial Sliding Scale -) 1 vial SQ [facility] PRN Reason: Protocol Last Admin: 04/20/17 06:52 Dose: 2 units Insulin Detemir (Levemir Vial) 30 units SQ BID@07,22 [facility] Last Admin: 04/20/17 06:53 Dose: 30 units Lactobacillus Acidophilus (Bacid -) 1 tab PO DAILY [facility] Last Admin: 04/20/17 10:30 Dose: 1 tab Levothyroxine Sodium (Synthroid -) 50 mcg PO DAILY@0700 [facility] Last Admin: 04/20/17 06:51 Dose: 50 mcg Metoprolol Succinate (Toprol Xl -) 25 mg PO DAILY [facility] Last Admin: 08/05/17 10:30 Dose: 25 mg Miconazole Nitrate (Monistat-7 Vaginal Cream -) 1 applic VG [facility] Stop: 04/25/17 22:01 Last Admin: 04/19/17 22:28 Dose: 1 applic Montelukast Sodium (Singulair -) 10 mg PO [facility] Last Admin: 04/19/17 21:41 Dose: 10 mg Succw-4-Rhgm Ethyl Esters (Lovaza -) 1 gm PO TID [facility] Last Admin: 04/20/17 06:51 Dose: 1 gm Oxycodone HCl (Roxicodone -) 5 mg PO Q4H PRN PRN Reason: PAIN Last Admin: 04/19/17 22:33 Dose: 5 mg Pantoprazole Sodium (Protonix -) 20 mg PO AM [facility] Last Admin: 04/20/17 06:52 Dose: 20 mg Senna (Senna -) 2 tab PO [facility] Last Admin: 04/19/17 21:40 Dose: 2 tab Sitagliptin Phosphate (Januvia -) 100 mg PO DAILY@0700 [facility] Last Admin: 04/20/17 06:51 Dose: 100 mg Sodium Chloride (Sodium Chloride Tablet -) 1 gm PO BID [facility] Last Admin: 04/20/17 10:30 Dose: 1 gm Trazodone HCl (Desyrel -) 200 mg PO [facility] Last Admin: 04/19/17 21:37 Dose: 200 mg - Objective Vital Signs: Vital Signs Temperature 98.1 F 04/20/17 10:27 Pulse Rate 83 04/20/17 10:27 Respiratory Rate 18 04/20/17 10:27 Blood Pressure 116/55 04/20/17 10:27 O2 Sat by Pulse Oximetry (%) 97 04/19/17 21:00 Neck: Yes: Tenderness (left neck, more so posteriorly, ?adenopathy felt) Cardiovascular: Yes: Regular Rate and Rhythm, S1, S2. No: Murmur Respiratory: Yes: Regular, CTA Bilaterally. No: Rales, Rhonchi, Wheezes Gastrointestinal: Yes: Normal Bowel Sounds, Soft. No: Distention, Tenderness Edema: No Labs: CBC, BMP 04/20/17 06:00 04/20/17 06:00 Assessment/Plan Current Active Problems Back pain (Acute)/ neck pain Diabetes mellitus (Acute) Diarrhea (Acute) HTN (hypertension) (Acute) Hematuria (Acute) Hyponatremia (Acute) Hypothyroidism (Acute) Proteinuria (Acute) -check xray neck, US soft tissue (?r/o mass) -discussed with patient's dtr that pain may due to tender adenopathy from recent illness (possible viral infection with sinus congestion, recent diarrhea) -if xray and ultrasound without acute findings, can d/c home today
--- NOTE | 2017-04-20 14:40 | DS ---
Physical Examination Vital Signs: Vital Signs Temperature 98.1 F 04/20/17 10:27 Pulse Rate 83 04/20/17 10:27 Respiratory Rate 18 04/20/17 10:27 Blood Pressure 116/55 04/20/17 10:27 O2 Sat by Pulse Oximetry (%) 97 04/20/17 10:33 Labs: CBC, BMP 04/20/17 06:00 04/20/17 06:00 Discharge Summary Reason For Visit: HYPONATREMIA, DIABETES MELLITUS, BACK PAIN Current Active Problems Back pain (Acute) Diabetes mellitus (Acute) Diarrhea (Acute) HTN (hypertension) (Acute) Hematuria (Acute) Hyponatremia (Acute) Hypothyroidism (Acute) Proteinuria (Acute) Hospital Course: (see note from earlier today) -71 yo female presented with diarrhea, malaise, found to have hyponatremia (119 mmol/L). Hyponatremia likely due to volume depletion as well as some chronic hyponatremia, improved with IVF, starting NaCl tabs as well. Found to have UTI and started on Keflex, also noting sinus congestion and some neck apin ( negative xrays and US of neck to r/o mass). Likely a lot of her symptoms ( malaise, diarrhea, sinus congestion) viral related. To be discharged today with NaCl tabs, to f/u in office for follow-up of hyponatremia Condition: Fair - Instructions Referrals: Mary Alice Carlson MD [Primary Care Provider] - Disposition: HOME - Home Medications Comprehensive Discharge Medication List: Ambulatory Orders Aspirin [ASA -] 81 mg PO DAILY 05/02/16 Buspirone HCl [Buspar -] 5 mg PO BID 05/02/16 Calcium Carbonate/Vitamin D2 [Calcium Oys Shell 250 mg Tab] 1 each PO Q12H 05/02 Escitalopram Oxalate [Lexapro -] 10 mg PO DAILY 05/02/16 Gabapentin 1,200 mg PO HS 05/02/16 Gabapentin 600 mg PO BID 05/02/16 Glimepiride [Amaryl -] 4 mg PO BID 05/02/16 Hydrocodone/Acetaminophen [[place] 7.5-325 Tablet] 1 each PO BID PRN 05/02/16 Insulin Aspart [Novolog] 0 unit SQ ACHS PRN 05/02/16 Levothyroxine [Synthroid -] 50 mcg PO DAILY 05/02/16 Metoprolol Succinate [Toprol XL -] 25 mg PO DAILY 05/02/16 Montelukast Na [Singulair -] 10 mg PO HS 05/02/16 [place]-3 Acid Ethyl Esters 1 gm PO TID 05/02/16 Omeprazole 20 mg PO DAILY 05/02/16 Sennosides [Senna Concentrate] 17.2 mg PO DAILY 05/02/16 Sitagliptin Phosphate [Januvia] 100 mg PO DAILY 05/02/16 Trazodone HCl 200 mg PO HS 05/02/16 Insulin Glargine,Hum.rec.anlog [Lantus (10mL VIAL) -] 25 units SQ BID #10 ml Acetaminophen [Tylenol .Regular Strength -] 325 mg PO Q4H PRN #0 tablet Cephalexin Monohydrate [Keflex -] 500 mg PO BID #18 cap 04/20/17 Guaifenesin Dm [Robitussin Dm -] 10 ml PO Q6H PRN #240 ml 04/20/17 Miconazole Nitrate [Monistat-7 -] 1 applic VG HS tube 04/20/17 Sodium Chloride Tablet - 1 gm PO BID #60 tablet 04/20/17
[2017-04-20 15:16] VITALS: BP 132/58; PULSE 88; TEMP 97.5
== END 2017-04-20 17:30 | disposition home or self-care (01) | DRG 641 ==
LOC: JER 16:27 → JERBED 21:10 → J7W 04-17 00:50
PROVIDERS: ADMIT Specialist; ATTEND Specialist
DX: E87.1 Hypo-osmolality and hyponatremia (principal); N39.0 Urinary tract infection, site not specified; I10 Essential (primary) hypertension; R31.9 Hematuria, unspecified; E03.9 Hypothyroidism, unspecified; R80.9 Proteinuria, unspecified; E78.5 Hyperlipidemia, unspecified; R19.7 Diarrhea, unspecified; K21.9 Gastro-esophageal reflux disease without esophagitis; M54.5 Low back pain; E86.9 Volume depletion, unspecified; Z79.4 Long term (current) use of insulin
CPT/HCPCS: 36415; 71010-TC; 72050-TC; 76536-TC; 80048; 80053; 81003; 81015; 82533; 82570; 83735; 83930; 83935; 84100; 84133; 84156; 84300; 84443; 85025; 85027; 85730; 87086; 87186; 93005; 93010; 97116-GP; 97161-GP; 99284-25; J1644; J2597

== ENCOUNTER 2017-04-28 14:46 | Inpatient (IN) | payer OTHER ==
[2017-04-28] MEDS ORDERED: SODIUM CHLORIDE 500 ML IV STA ×2 (15:30→16:26)
--- NOTE | 2017-04-28 15:36 | PDOC ---
History of Present Illness - General Chief Complaint: Urinary Problem Stated Complaint: URINE RETENTION, BLEEDING Time Seen by Provider: 04/28/17 15:14 History Source: Patient, Family - History of Present Illness Timing/Duration: reports: constant Past History - Past Medical History Allergies/Adverse Reactions: Allergies Allergy/AdvReac Type Severity Reaction Status Date / Time No Known Drug Allergies Allergy Verified 04/28/17 15:05 Home Medications: Ambulatory Orders Aspirin [ASA -] 81 mg PO DAILY 05/02/16 Buspirone HCl [Buspar -] 5 mg PO BID 05/02/16 Escitalopram Oxalate [Lexapro -] 10 mg PO DAILY 05/02/16 Gabapentin 1,200 mg PO HS 05/02/16 Gabapentin 600 mg PO TID 05/02/16 Glimepiride [Amaryl -] 4 mg PO BID 05/02/16 Hydrocodone/Acetaminophen [[place] 7.5-325 Tablet] 1 each PO BID PRN 05/02/16 Insulin Aspart [Novolog] 0 unit SQ ACHS PRN 05/02/16 [place]-3 Acid Ethyl Esters 1 gm PO TID 05/02/16 Omeprazole 20 mg PO DAILY 05/02/16 Sitagliptin Phosphate [Januvia] 100 mg PO DAILY 05/02/16 Trazodone HCl 200 mg PO HS 05/02/16 Insulin Glargine,Hum.rec.anlog [Lantus (10mL VIAL) -] 25 units SQ BID #10 ml Sodium Chloride Tablet - 1 gm PO BID #60 tablet 04/20/17 Levothyroxine Sodium [Levo-T] 50 mcg PO DAILY 04/28/17 Anemia: No Asthma: Yes (2012) Cancer: No Cardiac Disorders: No CVA: Yes (2013,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") COPD: No CHF: No Dementia: No Diabetes: Yes GI Disorders: No Disorders: No HTN: Yes Hypercholesterolemia: No Liver Disease: No Psychiatric Problems: Yes (dementia, depression) Suicide Attempt (Hx): No Seizures: No Thyroid Disease: Yes - Surgical History Abdominal Surgery: No Appendectomy: No Cardiac Surgery: No Cholecystectomy: No Lung Surgery: No Neurologic Surgery: No Orthopedic Surgery: Yes ("BACK SURGERY" STATED BY PT) - Reproductive History Therapeutic (s) & number: No - Psycho/Social/Smoking Cessation Hx Anxiety: No Suicidal Ideation: No Smoking Status: No Smoking History: Never smoked Have you smoked in the past 12 months: No Number of Cigarettes Smoked Daily: 0 Hx Alcohol Use: No Drug/Substance Use Hx: No Substance Use Type: None Hx Substance Use Treatment: No Review of Systems - Review of Systems Constitutional: Yes: Malaise. No: Chills, Fever ABD/GI: No: Nausea, Vomiting : Yes: Hematuria, Other (retention). No: Flank Pain Musculoskeletal: Yes: Back Pain *Physical Exam - Vital Signs Last Vital Signs Temp Pulse Resp BP Pulse Ox 98.4 F 98 H 16 169/85 97 04/28/17 15:01 04/28/17 15:01 04/28/17 15:01 04/28/17 15:01 04/28/17 15:01 - Physical Exam General Appearance: Yes: Appropriately Dressed. No: Apparent Distress HEENT: positive: Normal Voice Neck: positive: Supple Respiratory/Chest: positive: Lungs Clear, Normal Breath Sounds. negative: Respiratory Distress Cardiovascular: positive: Regular Rate, S1, S2 Gastrointestinal/Abdominal: positive: Normal Bowel Sounds, Tender (mild ttp to suprapubic area), Soft. negative: Distended, Guarding, Rebound Musculoskeletal: negative: CVA Tenderness Integumentary: positive: Dry, Warm Neurologic: positive: Fully Oriented, Alert, Normal Mood/Affect ED Treatment Course - LABORATORY CBC & Chemistry Diagram: 04/28/17 15:35 04/28/17 15:35 Medical Decision Making - Medical Decision Making 04/28/17 15:36 71 yo F, h/o depression, hypothyroid, hypertension, hyperlipidemia, GERD, insulin-dependent diabetic, chronic lower back pain, status post multiple spinal surgeries, hysterectomy, chronic hyponatremia, currently on NaCl here with urinary retention. Patient reports that since yesterday has had very little urine output and now having some suprapubic discomfort and does not feel well. As per patient's daughter, noticed some ? hematuria today. Patient denies flank pain, nausea, vomiting, fever or chills. Of note, patient was recently admitted for acute on chronic hyponatremia and was seen by renal who deemed source to be hypovolemic hyponatremia and notes that patient is on lexapro and trazodone which can contribute to SIADH and plan was to send patient home on NACL tabs and gave pt instructions for fluid restriction. At the time, patient also had some urinary retention w/ hematuria, was diagnosed with UTI and treated with Keflex. Of note, urine culture was positive for Klebsiella oxytoca which was ramos-sensitive and only resistant to ampicillin. See exam Urinary retention w/ malaise Recently tx for UTI (keflex sen on ucx) H/o chronic hyponatremia, on NACL tabs w/ fluid restriction Stable in ED and appears slightly dry Possibly worsening hyponatremia/dehydration vs recurrent uti -IVF -labs -ua -anticipate admission 04/28/17 16:17 NA 120. Pt denies AMS, headache, dizziness, visual changes or n/v. IVF in progress. Ua neg for le or nit. Ucx sent. Will admit at this time 04/28/17 16:44 04/28/17 16:49 04/28/17 17:45 Case d/w hospitalist service who recommend admitting pt to Dr Coulter *DC/Admit/Observation/Transfer Diagnosis at time of Disposition: Hyponatremia, Urinary retention - Discharge Dispostion Condition at time of disposition: Fair Admit: Yes - Referrals
[2017-04-28 15:42] LABS: BASOPHIL 0.8 % (0-2.0); EOSINOPHIL 1.6 % (0-4.5); MCH 31.2 pg (25.7-33.7); MEAN PLT VOLUME 10.2 fl (7.5-11.1); NEUTROPHILS 79.8 % (42.8-82.8); PLATELET COUNT 161 K/MM3 (134-434); RDW 14.3 % (11.6-15.6); WHITE BLOOD COUNT 10.8 K/mm3 (4.0-10.0)
[2017-04-28 15:51] LABS: PH,URINE 5.5 (5.0-8.0); URINE APPEARANCE CLEAR; URINE BILIRUBIN NEGATIVE (NEGATIVE); URINE BLOOD 3+ (NEGATIVE); URINE COLOR LT. YELLOW; URINE GLUCOSE (UA) 3+ (NEGATIVE); URINE KETONE NEGATIVE (NEGATIVE); URINE LEUK ESTERASE NEGATIVE (NEGATIVE); URINE NITRITE NEGATIVE (NEGATIVE); URINE UROBILINOGEN 0.2 mg/dL (0.2-1.0)
[2017-04-28 15:54] LABS: URINE PROTEIN 1+ (NEGATIVE)
[2017-04-28 15:55] LABS: URINE RBC 9 /hpf (0-3); URINE WBC 6 /hpf (3-5)
[2017-04-28 16:06] LABS: ALBUMIN 4.4 g/dl (3.4-5.0); BILIRUBIN,TOTAL 0.7 mg/dL (0.2-1.0); CALCIUM 9.6 mg/dL (8.5-10.1); CO2 26 mmol/L (21-32); CREATININE 0.8 mg/dL (0.55-1.02); GLUCOSE,RANDOM 294 mg/dL (74-106); SGOT/AST 18 U/L (15-37); SGPT/ALT 33 U/L (12-78); TOT PROT 7.9 g/dl (6.4-8.2)
[2017-04-28 16:09] LABS: ALK PHOS 92 U/L (45-117); CPK 168 IU/L (26-192); TROPONIN I < 0.02 ng/ml (0.00-0.05)
[2017-04-28 16:13] LABS: ANION GAP 10 (8-16)
[2017-04-28] MEDS ORDERED: PATIENT'S OWN MEDICATION (NON-FORMULARY) (Hydrocodone/Acetaminophen [Norco 7.5-325 Tablet] PO PRN (20:19)
[2017-04-28] MEDS ORDERED: ACETAMINOPHEN 325 MG TABLET (FP) PO PRN (20:22)
[2017-04-28 21:35] LABS: ANION GAP 10 (8-16); CALCIUM 9.5 mg/dL (8.5-10.1); CO2 27 mmol/L (21-32); CREATININE 0.7 mg/dL (0.55-1.02); GLUCOSE,RANDOM 263 mg/dL (74-106)
[2017-04-28] MEDS ORDERED: traZODone HCL 50 MG TABLET (FP) ONE (21:44)
[2017-04-28] MEDS: GABAPENTIN 300 MG CAPSULE (FP) PO SCH (21:53)
[2017-04-28] MEDS ORDERED: PATIENT'S OWN MEDICATION (NON-FORMULARY) (Insulin Glargine,Hum.Rec.Anlog 25 UNITS) SQ SCH (22:00)
[2017-04-28] MEDS: CEFTRIAXONE 50 ML IVPB SCH (22:00)
[2017-04-28] MEDS: oxyCODONE HCL 5 MG TABLET PO PRN (22:16)
[2017-04-28] MEDS: METOPROLOL SUCCINATE 25 MG TAB.SR.24H (FP) PO SCH (22:16)
[2017-04-28] MEDS: traZODone HCL 100 MG TABLET (FP) PO SCH (22:45)
[2017-04-28] MEDS: INSULIN SLIDING SCALE (NOVOLOG) 1 VIAL SQ SCH (23:02)
[2017-04-28] MEDS: SODIUM CHLORIDE 1 GM TABLET PO SCH (23:03)
[2017-04-28] MEDS: OMEGA-3 ACID ETHYL ESTERS (FATTY-ACIDS) 1 GM CAPSULE (FP) PO SCH (23:04)
[2017-04-28] MEDS: busPIRone HCL 5 MG TABLET PO SCH (23:04)
[2017-04-29] MEDS: OMEGA-3 ACID ETHYL ESTERS (FATTY-ACIDS) 1 GM CAPSULE (FP) PO SCH ×3 (06:04→22:13)
[2017-04-29] MEDS: GABAPENTIN 300 MG CAPSULE (FP) PO SCH ×3 (06:04→22:12)
[2017-04-29] MEDS: LEVOTHYROXINE NA 50 MCG TABLET (FP) PO SCH (06:13)
[2017-04-29] MEDS: GLIMEPIRIDE 4 MG TABLET (FP) PO SCH ×2 (06:13→17:13)
[2017-04-29] MEDS: sitaGLIPtin PHOSPHATE 100 MG TABLET (FP) PO SCH (06:13)
[2017-04-29] MEDS: INSULIN SLIDING SCALE (NOVOLOG) 1 VIAL SQ SCH ×4 (06:15→22:15)
[2017-04-29] MEDS: INSULIN DETEMIR 100 UNITS/ML MDV SQ SCH ×2 (06:51→17:09)
[2017-04-29] MEDS ORDERED: INSULIN (NOVOLOG) ASPART 100 UNITS/ML 10ML VIAL ONE (07:05)
[2017-04-29 07:59] LABS: BASOPHIL 0.4 % (0-2.0); EOSINOPHIL 3.1 % (0-4.5); MCH 30.5 pg (25.7-33.7); MCHC 34.6 g/dl (32.0-36.0); MEAN CELL VOLUME 88.2 fl (80-96); MEAN PLT VOLUME 9.6 fl (7.5-11.1); NEUTROPHILS 66.9 % (42.8-82.8); PLATELET COUNT 156 K/MM3 (134-434); RDW 14.4 % (11.6-15.6); WHITE BLOOD COUNT 7.9 K/mm3 (4.0-10.0)
[2017-04-29 08:11] LABS: ANION GAP 8 (8-16); CALCIUM 9.1 mg/dL (8.5-10.1); CO2 27 mmol/L (21-32)
[2017-04-29 08:19] LABS: CREATININE 0.7 mg/dL (0.55-1.02); GLUCOSE,RANDOM 192 mg/dL (74-106)
[2017-04-29] MEDS: oxyCODONE HCL 5 MG TABLET PO PRN (08:47)
[2017-04-29] MEDS: ACETAMINOPHEN 325 MG TABLET (FP) PO PRN (08:48)
--- NOTE | 2017-04-29 09:48 | CONSULT ---
Consultation: REQUESTING PROVIDER: CONSULT REQUEST: We have been asked to medically evaluate this patient for ( Nephrology). HISTORY OF PRESENT ILLNESS: History obtained from her daughter 71 yo F, h/o depression, hypothyroid, hypertension, hyperlipidemia, GERD, insulin-dependent diabetic, chronic lower back pain, chronic hyponatremia on NaCl came to hospital with a complaint of urinary retention and haematuria. Patient daughter states that she has a urinary problem from many weeks some time she passes urine normally and some time she had difficulty in passing urine. since yesterday has had very little urine output and now having some suprapubic discomfort and does not feel well. Yesterday she has also seen some blood in urine blood it got clear after getting IV fluid s in ED. She also reports that she was discharged from hospital on 04/20 for same problem ie hyponatremia and UTI. Patient daughter also states that yesterday when she called her mother many times and she didn't respond to it and she just kept on staring a wall. Denies flank pain, nausea, vomiting, diarrhoea, fever or chills. Denies cheat pain, sob. At the time, patient also had some urinary retention w/ hematuria, was diagnosed with UTI and treated with Keflex. PMH: depression, hypothyroidsm, hld, gerd, iddm, hyponatremia, ch back pain PSH: multiple spinal surgeries, hystrectomy Family: father: skin cancer grand mother: breast cancer. Allergies: NKDA Social: non smoker, non alcoholic REVIEW OF SYSTEMS: CONSTITUTIONAL: Absent: fever, chills, diaphoresis, generalized weakness, malaise, loss of appetite, weight change HEENT: Absent: rhinorrhea, nasal congestion, throat pain, throat swelling, CARDIOVASCULAR: Absent: chest pain, syncope, palpitations, peripheral edema RESPIRATORY: Absent: cough, shortness of breath, orthopnea, GASTROINTESTINAL: Present: abdominal discomfort Absent: abdominal pain, abdominal distension, nausea, vomiting, diarrhea, constipation, melena, hematochezia MUSCULOSKELETAL: Absent: myalgia, arthralgia, joint swelling, back pain, neck pain PHYSICAL EXAMINATION Vital Signs - 24 hr 04/28/17 04/28/17 04/28/17 17:21 19:30 21:40 Temperature 97.4 F L 97.8 F Pulse Rate 92 H 92 H Pulse Rate [ 88 Apical] Respiratory 20 20 20 Rate Blood Pressure 187/88 177/102 Blood Pressure 150/80 [Right Arm] O2 Sat by Pulse 98 Oximetry (%) 04/28/17 04/29/17 04/29/17 23:00 00:41 05:50 Temperature Pulse Rate 74 74 Pulse Rate [ Apical] Respiratory 18 18 Rate Blood Pressure 124/62 155/80 Blood Pressure [Right Arm] O2 Sat by Pulse 98 Oximetry (%) 04/29/17 06:00 Temperature 96.3 F L Pulse Rate 70 Pulse Rate [ Apical] Respiratory 18 Rate Blood Pressure 140/68 Blood Pressure [Right Arm] O2 Sat by Pulse Oximetry (%) GENERAL: Awake, alert, HEAD: Normal with no signs of trauma. EYES: Pupils equal, round and reactive to light, EARS, NOSE, THROAT: Moist mucous membranes. NECK: Normal range of motion, no JVD, LUNGS: Breath sounds equal, clear to auscultation bilaterally. No wheezes, and no crackles. No accessory muscle use. HEART: Regular rate and rhythm, normal S1 and S2 ABDOMEN: Soft, nontender, not distended, normoactive bowel sounds, no guarding, no rebound, no masses. No hepatomegaly or splenomegaly. UPPER EXTREMITIES: 2+ pulses, warm, well-perfused. No cyanosis. LOWER EXTREMITIES: warm, No calf tenderness. No peripheral edema. SKIN: Warm, dry, Laboratory Results - last 24 hr 04/28/17 04/28/17 04/29/17 20:45 22:59 05:44 WBC RBC Hgb Hct MCV MCH MCHC RDW Plt Count MPV Neutrophils % Lymphocytes % Monocytes % Eosinophils % Basophils % Sodium 126 L Potassium 4.3 Chloride 89 L Carbon Dioxide 27 Anion Gap 10 BUN 6 L D Creatinine 0.7 POC Glucometer 234 209 Random Glucose 263 H Calcium 9.5 B-Natriuretic Peptide 04/29/17 04/29/17 06:00 06:00 WBC 7.9 RBC 4.09 Hgb 12.5 Hct 36.1 MCV 88.2 MCH 30.5 MCHC 34.6 RDW 14.4 Plt Count 156 MPV 9.6 Neutrophils % 66.9 Lymphocytes % 22.1 D Monocytes % 7.5 Eosinophils % 3.1 D Basophils % 0.4 Sodium 128 L Potassium 3.8 Chloride 93 L Carbon Dioxide 27 Anion Gap 8 BUN 9 D Creatinine 0.7 POC Glucometer Random Glucose 192 H D Calcium 9.1 B-Natriuretic Peptide 115.10 CBCD WBC 7.9 K/mm3 (4.0-10.0) 04/29/17 06:00 RBC 4.09 M/mm3 (3.60-5.2) 04/29/17 06:00 Hgb 12.5 GM/dL (10.7-15.3) 04/29/17 06:00 Hct 36.1 % (32.4-45.2) 04/29/17 06:00 MCV 88.2 fl (80-96) 04/29/17 06:00 MCHC 34.6 g/dl (32.0-36.0) 04/29/17 06:00 RDW 14.4 % (11.6-15.6) 04/29/17 06:00 Plt Count 156 K/MM3 (134-434) 04/29/17 06:00 MPV 9.6 fl (7.5-11.1) 04/29/17 06:00 CMP Sodium 128 mmol/L (136-145) L 04/29/17 06:00 Potassium 3.8 mmol/L (3.5-5.1) 04/29/17 06:00 Chloride 93 mmol/L (98-107) L 04/29/17 06:00 Carbon Dioxide 27 mmol/L (21-32) 04/29/17 06:00 Anion Gap 8 (8-16) 04/29/17 06:00 BUN 9 mg/dL (7-18) D 04/29/17 06:00 Creatinine 0.7 mg/dL (0.55-1.02) 04/29/17 06:00 Creat Clearance w eGFR > 60 (>60) 04/28/17 15:35 Random Glucose 192 mg/dL (74-106) H D 04/29/17 06:00 Calcium 9.1 mg/dL (8.5-10.1) 04/29/17 06:00 Total Bilirubin 0.7 mg/dL (0.2-1.0) D 04/28/17 15:35 AST 18 U/L (15-37) D 04/28/17 15:35 ALT 33 U/L (12-78) 04/28/17 15:35 Alkaline Phosphatase 92 U/L (45-117) D 04/28/17 15:35 Total Protein 7.9 g/dl (6.4-8.2) D 04/28/17 15:35 Albumin 4.4 g/dl (3.4-5.0) D 04/28/17 15:35 CARDIAC ENZYMES Creatine Kinase 168 IU/L (26-192) 04/28/17 15:35 Troponin I < 0.02 ng/ml (0.00-0.05) 04/28/17 15:35 Active Medications Generic Name Dose Route Start Last Admin Trade Name Freq PRN Reason Stop Dose Admin Acetaminophen 650 mg 04/28/17 20:22 Tylenol - PO Q6H PRN FEVER OR PAIN Acetaminophen 325 mg 04/28/17 20:59 04/29/17 08:48 Tylenol - PO 325 mg BID PRN Administration PAIN Aspirin 81 mg 04/29/17 10:00 Asa - PO DAILY SERGIO Buspirone HCl 5 mg 04/28/17 22:00 04/28/17 23:04 Buspar - PO 5 mg BID SERGIO Administration Escitalopram Oxalate 10 mg 04/29/17 10:00 Lexapro - PO DAILY SERGIO Gabapentin 600 mg 04/28/17 22:00 04/29/17 06:04 Neurontin - PO 600 mg TID SERGIO Administration Glimepiride 4 mg 04/29/17 07:00 04/29/17 06:13 Amaryl - PO 4 mg BIDI SERGIO Administration Ceftriaxone Sodium 50 mls @ 100 mls/hr 04/28/17 21:00 04/28/17 22:00 Rocephin 1gm Ivpb (Pre-Docked) IVPB 100 mls/hr DAILY SERGIO Administration Insulin Aspart 1 vial 04/28/17 22:00 04/29/17 06:15 Novolog Vial Sliding Scale - SQ 4 units ACHS SERGIO Administration Protocol Insulin Detemir 25 units 04/29/17 07:00 04/29/17 06:51 Levemir Vial SQ 22 units BIDI SERGIO Administration Levothyroxine Sodium 50 mcg 04/29/17 07:00 04/29/17 06:13 Synthroid - PO 50 mcg ACBK SERGIO Administration Metoprolol Succinate 25 mg 04/28/17 22:15 04/28/17 22:16 Toprol Xl - PO 25 mg BID SERGIO Administration [id number] Ethyl Esters 1 gm 04/28/17 22:00 04/29/17 06:04 Lovaza - PO 1 gm TID SERGIO Administration Oxycodone HCl 5 mg 04/28/17 20:58 04/29/17 08:47 Roxicodone - PO 5 mg BID PRN Administration PAIN Pantoprazole Sodium 20 mg 04/29/17 10:00 Protonix - PO DAILY SERGIO Sitagliptin Phosphate 100 mg 04/29/17 07:00 04/29/17 06:13 Januvia - PO 100 mg ACBK SERGIO Administration Sodium Chloride 1 gm 04/28/17 22:00 04/28/17 23:03 Sodium Chloride Tablet - PO 1 gm BID SERGIO Administration Trazodone HCl 200 mg 04/28/17 22:00 04/28/17 22:45 Desyrel - PO 200 mg HS SERGIO Administration ASSESSMENT/PLAN: Hyponatremia Urinary retention Chronic back pain Depression Hypothyroidsm HLD GERD IDDM Plan: Get urine osmolality serum osmolality,urine electrolytes, renal and bladder scan. Sr sodium improved from 120 to 128, Patient has recived 1L of NS in ER and is on NaCl 1gm bid. Trazadone and lexapro can contribute SIADH. Restrict free water intake to 1 L. Monitor intake and output. Last TSH from 04/17 is 2.12 and T4 1.65. on synthroid 50mcg daily Serum cortisole 7.8 from 04/17 urine culture pending. Dispo: We will continue to follow the patient. Thank you for this consultative opportunity. Visit type - Emergency Visit Emergency Visit: Yes ED Registration Date: 04/28/17 Care time: The patient presented to the Emergency Department on the above date and was hospitalized for further evaluation of their emergent condition. - New Patient This patient is new to me today: Yes Date on this admission: 04/29/17 - Critical Care Critical Care patient: No
[2017-04-29] MEDS ORDERED: PATIENT'S OWN MEDICATION (NON-FORMULARY) (Omeprazole 20 MG) PO SCH (10:00)
[2017-04-29] MEDS ORDERED: PT OWN MED DRAWER 7, Y5N ONE ×2 (10:01→21:22)
[2017-04-29] MEDS: METOPROLOL SUCCINATE 25 MG TAB.SR.24H (FP) PO SCH ×2 (10:04→22:14)
[2017-04-29] MEDS: PANTOPRAZOLE 20 MG TABLET (FP) PO SCH (10:04)
[2017-04-29] MEDS: ESCITALOPRAM OXALATE 10 MG TABLET (FP) PO SCH (10:04)
[2017-04-29] MEDS: ASPIRIN 81 MG CHEWABLE TABLETS PO SCH (10:04)
[2017-04-29] MEDS: SODIUM CHLORIDE 1 GM TABLET PO SCH ×2 (10:05→22:14)
[2017-04-29] MEDS: CEFTRIAXONE 50 ML IVPB SCH (10:05)
[2017-04-29] MEDS: busPIRone HCL 5 MG TABLET PO SCH ×2 (10:06→22:13)
[2017-04-29 11:35] LABS: OSMOLALITY,SERUM 270 mosm/kg (278-305)
--- NOTE | 2017-04-29 12:12 | HP ---
Admitting History and Physical - Primary Care Physician PCP: Mary Alice Carlson - Admission Chief Complaint: My sodium is low History of Present Illness: Ms Vu is a 71 year old female who comes in with blood in her urine and was found to have hyponatremia. She was recently discharged after being treated for hyponatremia and UTI. She says she was at home and doing well, however she noted some blood in her urine and she came in to have it evaluated. She denies fevers, chills, lightheadedness, dizziness, chest pain, shortness of breath, nausea, vomiting, abdominal pain, diarrhea, constipation, pain or difficulty urinating, or swelling. She says the hematuria has resolved and now she feels tired. She says she feels depressed and has had decreased appetite History Source: Patient Limitations to Obtaining History: No Limitations - Past Medical History [employer]INE [employer]: Yes: CVA, Dementia Cardiovascular: Yes: HTN Pulmonary: Yes: Asthma Gastrointestinal: Yes: GERD Renal/: Yes: Other (hyponatremia) Psych: Yes: Depression Endocrine: Yes: Diabetes Mellitus, Hypothyroidism - Smoking History Smoking history: Never smoked Have you smoked in the past 12 months: No Aproximately how many cigarettes per day: 0 - Alcohol/Substance Use Hx Alcohol Use: No History of Substance Use: reports: None - Social History ADL: Independent History of Recent Travel: No Home Medications - Allergies Allergies/Adverse Reactions: Allergies Allergy/AdvReac Type Severity Reaction Status Date / Time No Known Drug Allergies Allergy Verified 04/28/17 15:05 - Home Medications Home Medications: Ambulatory Orders Aspirin [ASA -] 81 mg PO DAILY 05/02/16 Buspirone HCl [Buspar -] 5 mg PO BID 05/02/16 Escitalopram Oxalate [Lexapro -] 10 mg PO DAILY 05/02/16 Gabapentin 1,200 mg PO HS 05/02/16 Gabapentin 600 mg PO TID 05/02/16 Glimepiride [Amaryl -] 4 mg PO BID 05/02/16 Hydrocodone/Acetaminophen [[place] 7.5-325 Tablet] 1 each PO BID PRN 05/02/16 Insulin Aspart [Novolog] 0 unit SQ ACHS PRN 05/02/16 [place]-3 Acid Ethyl Esters 1 gm PO TID 05/02/16 Omeprazole 20 mg PO DAILY 05/02/16 Sitagliptin Phosphate [Januvia] 100 mg PO DAILY 05/02/16 Trazodone HCl 200 mg PO HS 05/02/16 Insulin Glargine,Hum.rec.anlog [Lantus (10mL VIAL) -] 25 units SQ BID #10 ml Sodium Chloride Tablet - 1 gm PO BID #60 tablet 04/20/17 Levothyroxine Sodium [Levo-T] 50 mcg PO DAILY 04/28/17 Family Disease History - Family Disease History Family History: Unremarkable Review of Systems Findings/Remarks: full review of systems obtained, as per HPI and otherwise negative Physical Examination Vital Signs: Vital Signs Temperature 35.7 C L 04/29/17 06:00 Pulse Rate 70 04/29/17 06:00 Respiratory Rate 18 04/29/17 06:00 Blood Pressure 140/68 04/29/17 06:00 O2 Sat by Pulse Oximetry (%) 98 04/28/17 23:00 Constitutional: Yes: Well Nourished, No Distress, Calm Eyes: Yes: Conjunctiva Clear, EOM Intact, PERRL HENT: Yes: Atraumatic, Normocephalic Cardiovascular: Yes: Regular Rate and Rhythm. No: Gallop, Murmur, Rub Respiratory: Yes: Regular, CTA Bilaterally. No: Rales, Rhonchi, Wheezes Gastrointestinal: Yes: Normal Bowel Sounds, Soft. No: Distention, Tenderness Extremities: Yes: WNL Edema: No Labs: CBC, BMP 04/29/17 06:00 04/29/17 06:00 Imaging - Results Chest X-ray: Report Reviewed, Image Reviewed Ultrasound: Report Reviewed Problem List - Problems (1) Hyponatremia Assessment/Plan: -patient presents with hyponatremia -was taking salt tablets as prescribed -however had increase po intake -received IVF, now stopped -continue salt tablets -nephrology following -sodium improving Code(s): E87.1 - HYPO-OSMOLALITY AND HYPONATREMIA (2) Hematuria Assessment/Plan: -currently patient says resolved -monitor urine -follow up urine cultures -if urine culture positive, continue rocephin -if negative, stop rocephin -urine RBCs minimal Code(s): R31.9 - HEMATURIA, UNSPECIFIED (3) Diabetes mellitus Assessment/Plan: -continue januvia, levemir, and amaryl Code(s): E11.9 - TYPE 2 DIABETES MELLITUS WITHOUT COMPLICATIONS Qualifiers: Diabetes mellitus type: type 1 Diabetes mellitus complication status: with hyperglycemia Qualified Code(s): E10.65 - Type 1 diabetes mellitus with hyperglycemia (4) HTN (hypertension) Assessment/Plan: -continue toprol xl -controlled Code(s): I10 - ESSENTIAL (PRIMARY) HYPERTENSION (5) Hypothyroidism Assessment/Plan: -continue synthroid Code(s): E03.9 - HYPOTHYROIDISM, UNSPECIFIED (6) Depression Assessment/Plan: -consult psychiatry -continue trazadone and lexapro currently Code(s): F32.9 - MAJOR DEPRESSIVE DISORDER, SINGLE EPISODE, UNSPECIFIED
[2017-04-29 12:49] LABS: ANION GAP 11 (8-16); CALCIUM 9.2 mg/dL (8.5-10.1); CO2 26 mmol/L (21-32); CREATININE 0.7 mg/dL (0.55-1.02); GLUCOSE,RANDOM 199 mg/dL (74-106)
[2017-04-29 16:00] VITALS: BMI 28.4
--- NOTE | 2017-04-29 16:00 | CON.NEP ---
Consult Consult Specialty:: Nephrology Referred by:: Dr. Coulter Reason for Consultation:: Hyponatremia - History of Present Illness Chief Complaint: Urianry Retention History of Present Illness: This is a 71 year old woman with PMhx of Depression, Hypothyrodism, Hypertension , Hyperlipidemia, GERD, IDDM, Hx of Hyponatremia who presents with complaints of uinary retention and hematuriea who was found to have a serum Na of 120. Pt was seen with the manager medical writing. - History Source History Provided By: Patient Limitations to Obtaining History: No Limitations - Past Medical History KILNMAN: Yes: CVA, Dementia Cardio/Vascular: Yes: HTN Pulmonary: Yes: Asthma Gastrointestinal: Yes: GERD Renal/: Yes: Other (hyponatremia) Psych: Yes: Depression Endocrine: Yes: Diabetes Mellitus, Hypothyroidism - Alcohol/Substance Use Hx Alcohol Use: No History of Substance Use: reports: None - Smoking History Smoking history: Never smoked Have you smoked in the past 12 months: No Aproximately how many cigarettes per day: 0 - Social History ADL: Independent History of Recent Travel: No Home Medications - Allergies Allergies/Adverse Reactions: Allergies Allergy/AdvReac Type Severity Reaction Status Date / Time No Known Drug Allergies Allergy Verified 04/28/17 15:05 - Home Medications Home Medications: Ambulatory Orders Aspirin [ASA -] 81 mg PO DAILY 05/02/16 Buspirone HCl [Buspar -] 5 mg PO BID 05/02/16 Escitalopram Oxalate [Lexapro -] 10 mg PO DAILY 05/02/16 Gabapentin 1,200 mg PO HS 05/02/16 Gabapentin 600 mg PO TID 05/02/16 Glimepiride [Amaryl -] 4 mg PO BID 05/02/16 Hydrocodone/Acetaminophen [[place] 7.5-325 Tablet] 1 each PO BID PRN 05/02/16 Insulin Aspart [Novolog] 0 unit SQ ACHS PRN 05/02/16 [place]-3 Acid Ethyl Esters 1 gm PO TID 05/02/16 Omeprazole 20 mg PO DAILY 05/02/16 Sitagliptin Phosphate [Januvia] 100 mg PO DAILY 05/02/16 Trazodone HCl 200 mg PO HS 05/02/16 Insulin Glargine,Hum.rec.anlog [Lantus (10mL VIAL) -] 25 units SQ BID #10 ml 08/ 19/16 Sodium Chloride Tablet - 1 gm PO BID #60 tablet 04/20/17 Levothyroxine Sodium [Levo-T] 50 mcg PO DAILY 04/28/17 Family Disease History - Family Disease History Family History: Unremarkable Review of Systems - Review of Systems Constitutional: reports: Lethargy, Loss of Appetite, Malaise Eyes: reports: No Symptoms HENT: reports: No Symptoms Neck: reports: No Symptoms Cardiovascular: reports: No Symptoms Respiratory: reports: No Symptoms Gastrointestinal: reports: No Symptoms Genitourinary: reports: Hematuria Musculoskeletal: reports: No Symptoms Integumentary: reports: No Symptoms Neurological: reports: No Symptoms Endocrine: reports: No Symptoms Psychiatric: reports: Depression Nephrology Consult - Height Height: 5 ft 2 in - Weight Weight: 155 lb 8 oz - BMI Body Mass Index (BMI): 28.4 - Lab Results CBC,BMP: CBC, BMP 04/29/17 06:00 04/29/17 12:00 Anion Gap: Anion Gap Anion Gap 11 (8-16) 04/29/17 12:00 - Imaging Chest X-ray: Report Reviewed - Physical Examination Vital Signs: Vital Signs Temperature 97.5 F L 04/29/17 14:31 Pulse Rate 72 04/29/17 14:31 Respiratory Rate 20 04/29/17 14:31 Blood Pressure 114/48 04/29/17 14:31 O2 Sat by Pulse Oximetry (%) 98 04/28/17 23:00 Constitutional: Yes: No Distress Eyes: Yes: Conjunctiva Clear HENT: Yes: Atraumatic Neck: Yes: Supple Cardiovascular: Yes: Regular Rate and Rhythm, S1, S2. No: JVD, Murmur, Rub Respiratory: Yes: Regular, CTA Bilaterally Gastrointestinal: Yes: Normal Bowel Sounds, Soft. No: Tenderness Extremities: No: Cold, Cool, Cyanosis Edema: No Problem List - Problems (1) Depression Code(s): F32.9 - MAJOR DEPRESSIVE DISORDER, SINGLE EPISODE, UNSPECIFIED (2) Hyponatremia Code(s): E87.1 - HYPO-OSMOLALITY AND HYPONATREMIA (3) Urinary retention Code(s): R33.9 - RETENTION OF URINE, UNSPECIFIED (4) Abdominal pain Code(s): R10.9 - UNSPECIFIED ABDOMINAL PAIN (5) Diabetes mellitus Code(s): E11.9 - TYPE 2 DIABETES MELLITUS WITHOUT COMPLICATIONS Qualifiers: Diabetes mellitus type: type 1 Diabetes mellitus complication status: with hyperglycemia Qualified Code(s): E10.65 - Type 1 diabetes mellitus with hyperglycemia (6) HTN (hypertension) Code(s): I10 - ESSENTIAL (PRIMARY) HYPERTENSION (7) Hematuria Code(s): R31.9 - HEMATURIA, UNSPECIFIED (8) Hyponatremia Code(s): E87.1 - HYPO-OSMOLALITY AND HYPONATREMIA Assessment/Plan 71 year old woman with PMhx of Depression, Hypothyrodism, Hypertension, Hyperlipidemia, GERD, IDDM, Hx of Hyponatremia who presents with complaints of uinary retention and hematuriea who was found to have a serum Na of 120. #Hypovolemic hyponatremia Serum na improved from 120 to 128 with IVF pt currently off IVF Urine studies s/p IVF repletion showed a high urine na and high urine osm that is consistent with excess adh release pt is on trazadone and lexapro that can contribute to siadh repeat Na level this evening f/u repeat tsh levels free water restriction of 1L daily off IVF at the present time #Depression pt with anoxreix and reports deep sadness all the time depression and poor oral intake can contribute to poor solute intake and hypvolemic hyponatremia recommend psych evaluation #Hypertension continue metoprolol BP is at goal #Hematuria/Urinary Retention f/u urine culture Thank you Austen Degroot DO
--- NOTE | 2017-04-29 17:29 | CONSULT ---
Consult - text type - Consultation Consultation Note: Neurology HPI: The patient is a is a 71 year old female who comes in with reported blood in her urine and was found to have hyponatremia. She was recently discharged after being treated for hyponatremia and UTI. She says she was at home and doing well , however she noted some blood in her urine and she came in to have it evaluated. She denies fevers, chills, lightheadedness, dizziness, chest pain, shortness of breath, nausea, vomiting, abdominal pain, diarrhea, constipation, pain or difficulty urinating, or swelling. She says the hematuria has resolved and now she feels tired. She says she feels depressed and has had decreased appetite. She accompanied at bedside with her daughter and recently had seen another neurologist, Dr. Paul. They would like to change their care and there was question of possible Parkinson's symptoms as the patient has a flat affect and the daughter was concerned about jerking movements she had seen. - Past Medical History [employer]USEUM [employer]: Yes: CVA, Dementia Cardiovascular: Yes: HTN Pulmonary: Yes: Asthma Gastrointestinal: Yes: GERD Renal/: Yes: Other (hyponatremia) Psych: Yes: Depression Endocrine: Yes: Diabetes Mellitus, Hypothyroidism - Smoking History Smoking history: Never smoked Have you smoked in the past 12 months: No Aproximately how many cigarettes per day: 0 - Alcohol/Substance Use Hx Alcohol Use: No History of Substance Use: reports: None - Social History ADL: Independent History of Recent Travel: No Home Medications - Allergies Allergies/Adverse Reactions: Allergies Allergy/AdvReac Type Severity Reaction Status Date / Time No Known Drug Allergies Allergy Verified 04/28/17 15:05 - Home Medications Home Medications: Ambulatory Orders Aspirin [ASA -] 81 mg PO DAILY 05/02/16 Buspirone HCl [Buspar -] 5 mg PO BID 05/02/16 Escitalopram Oxalate [Lexapro -] 10 mg PO DAILY 05/02/16 Gabapentin 1,200 mg PO HS 05/02/16 Gabapentin 600 mg PO TID 05/02/16 Glimepiride [Amaryl -] 4 mg PO BID 05/02/16 Hydrocodone/Acetaminophen [[place] 7.5-325 Tablet] 1 each PO BID PRN 05/02/16 Insulin Aspart [Novolog] 0 unit SQ ACHS PRN 05/02/16 [place]-3 Acid Ethyl Esters 1 gm PO TID 05/02/16 Omeprazole 20 mg PO DAILY 05/02/16 Sitagliptin Phosphate [Januvia] 100 mg PO DAILY 05/02/16 Trazodone HCl 200 mg PO HS 05/02/16 Insulin Glargine,Hum.rec.anlog [Lantus (10mL VIAL) -] 25 units SQ BID #10 ml Sodium Chloride Tablet - 1 gm PO BID #60 tablet 04/20/17 Levothyroxine Sodium [Levo-T] 50 mcg PO DAILY 04/28/17 Family Disease History - Family Disease History Family History: Unremarkable Review of Systems Findings/Remarks: full review of systems obtained, as per HPI and otherwise negative Physical Examination Vital Signs: Vital Signs Temperature 35.7 C L 04/29/17 06:00 Pulse Rate 70 04/29/17 06:00 Respiratory Rate 18 04/29/17 06:00 Blood Pressure 140/68 04/29/17 06:00 O2 Sat by Pulse Oximetry (%) 98 04/28/17 23:00 Constitutional: Yes: Well Nourished, No Distress, Calm Eyes: Yes: Conjunctiva Clear, EOM Intact, PERRL HENT: Yes: Atraumatic, Normocephalic Cardiovascular: Yes: Regular Rate and Rhythm. No: Gallop, Murmur, Rub Respiratory: Yes: Regular, CTA Bilaterally. No: Rales, Rhonchi, Wheezes Gastrointestinal: Yes: Normal Bowel Sounds, Soft. No: Distention, Tenderness Extremities: Yes: WNL Edema: No Labs: CBCD WBC 7.9 K/mm3 (4.0-10.0) 04/29/17 06:00 RBC 4.09 M/mm3 (3.60-5.2) 04/29/17 06:00 Hgb 12.5 GM/dL (10.7-15.3) 04/29/17 06:00 Hct 36.1 % (32.4-45.2) 04/29/17 06:00 MCV 88.2 fl (80-96) 04/29/17 06:00 MCHC 34.6 g/dl (32.0-36.0) 04/29/17 06:00 RDW 14.4 % (11.6-15.6) 04/29/17 06:00 Plt Count 156 K/MM3 (134-434) 04/29/17 06:00 MPV 9.6 fl (7.5-11.1) 04/29/17 06:00 CMP Sodium 128 mmol/L (136-145) L 04/29/17 12:00 Potassium 3.9 mmol/L (3.5-5.1) 04/29/17 12:00 Chloride 91 mmol/L (98-107) L 04/29/17 12:00 Carbon Dioxide 26 mmol/L (21-32) 04/29/17 12:00 Anion Gap 11 (8-16) 04/29/17 12:00 BUN 12 mg/dL (7-18) D 04/29/17 12:00 Creatinine 0.7 mg/dL (0.55-1.02) 04/29/17 12:00 Creat Clearance w eGFR > 60 (>60) 04/28/17 15:35 Calcium 9.2 mg/dL (8.5-10.1) 04/29/17 12:00 Total Bilirubin 0.7 mg/dL (0.2-1.0) D 04/28/17 15:35 AST 18 U/L (15-37) D 04/28/17 15:35 ALT 33 U/L (12-78) 04/28/17 15:35 Alkaline Phosphatase 92 U/L (45-117) D 04/28/17 15:35 Total Protein 7.9 g/dl (6.4-8.2) D 04/28/17 15:35 Albumin 4.4 g/dl (3.4-5.0) D 04/28/17 15:35 Imaging 71 year old female who comes in with reported blood in her urine and was found to have hyponatremia. She was recently discharged after being treated for hyponatremia and UTI. She says she was at home and doing well, however she noted some blood in her urine and she came in to have it evaluated. She denies fevers, chills, lightheadedness, dizziness, chest pain, shortness of breath, nausea, vomiting, abdominal pain, diarrhea, constipation, pain or difficulty urinating, or swelling. She says the hematuria has resolved and now she feels tired. She says she feels depressed and has had decreased appetite. She accompanied at bedside with her daughter and recently had seen another neurologist, Dr. Paul. They would like to change their care and there was question of possible Parkinson's symptoms as the patient has a flat affect and the daughter was concerned about jerking movements she had seen. Recommend treatment of acute active issues. Correct hyponatremia- salt tabs, d/c fluids, nephro follow up. Would address possile depression- psych consult, on Trazadone and Lexapro. Would also address possible UTI and hypothyroidism. Any of these can present with symptoms of fatigue, minimal movement, and would prefer more thorough evaluation for Parkinson's as outpatient.
[2017-04-29] MEDS ORDERED: traZODone HCL 50 MG TABLET (FP) ONE (21:21)
[2017-04-29] MEDS: traZODone HCL 100 MG TABLET (FP) PO SCH (22:13)
[2017-04-29] MEDS: POLYETHYLENE GLYCOL 3350 119 GM BTL PO SCH (22:14)
[2017-04-30] MEDS: OMEGA-3 ACID ETHYL ESTERS (FATTY-ACIDS) 1 GM CAPSULE (FP) PO SCH ×3 (06:43→22:51)
[2017-04-30] MEDS: GLIMEPIRIDE 4 MG TABLET (FP) PO SCH ×2 (06:43→17:37)
[2017-04-30] MEDS: sitaGLIPtin PHOSPHATE 100 MG TABLET (FP) PO SCH (06:43)
[2017-04-30] MEDS: LEVOTHYROXINE NA 50 MCG TABLET (FP) PO SCH (06:43)
[2017-04-30] MEDS: GABAPENTIN 300 MG CAPSULE (FP) PO SCH ×3 (06:43→22:52)
[2017-04-30] MEDS: INSULIN SLIDING SCALE (NOVOLOG) 1 VIAL SQ SCH ×4 (06:48→22:56)
[2017-04-30] MEDS: INSULIN DETEMIR 100 UNITS/ML MDV SQ SCH ×2 (06:49→17:38)
[2017-04-30 08:28] LABS: BASOPHIL 0.4 % (0-2.0); EOSINOPHIL 3.2 % (0-4.5); MCH 30.6 pg (25.7-33.7); MCHC 34.2 g/dl (32.0-36.0); MEAN CELL VOLUME 89.6 fl (80-96); MEAN PLT VOLUME 9.3 fl (7.5-11.1); NEUTROPHILS 66.3 % (42.8-82.8); PLATELET COUNT 142 K/MM3 (134-434); RDW 14.4 % (11.6-15.6); WHITE BLOOD COUNT 7.4 K/mm3 (4.0-10.0)
[2017-04-30 08:53] LABS: MAGNESIUM 1.8 mg/dL (1.8-2.4)
[2017-04-30 08:55] LABS: PHOSPHOROUS 3.7 mg/dL (2.5-4.9)
[2017-04-30] MEDS ORDERED: PT OWN MED DRAWER 7, Y5N ONE ×3 (09:06→22:47)
[2017-04-30] MEDS: METOPROLOL SUCCINATE 25 MG TAB.SR.24H (FP) PO SCH ×2 (09:15→22:52)
[2017-04-30] MEDS: ESCITALOPRAM OXALATE 10 MG TABLET (FP) PO SCH (09:15)
[2017-04-30] MEDS: PANTOPRAZOLE 20 MG TABLET (FP) PO SCH (09:16)
[2017-04-30] MEDS: ASPIRIN 81 MG CHEWABLE TABLETS PO SCH (09:16)
[2017-04-30] MEDS: SODIUM CHLORIDE 1 GM TABLET PO SCH ×2 (09:16→22:52)
[2017-04-30] MEDS: POLYETHYLENE GLYCOL 3350 119 GM BTL PO SCH ×2 (09:17→22:52)
[2017-04-30] MEDS: CEFTRIAXONE 50 ML IVPB SCH (09:17)
[2017-04-30] MEDS: busPIRone HCL 5 MG TABLET PO SCH ×2 (09:17→22:52)
--- NOTE | 2017-04-30 09:52 | PN ---
Progress Note (short form) - Note Progress Note: Neurology HPI: The patient is a is a 71 year old female who comes in with reported blood in her urine and was found to have hyponatremia. She was recently discharged after being treated for hyponatremia and UTI. She says she was at home and doing well , however she noted some blood in her urine and she came in to have it evaluated. She denies fevers, chills, lightheadedness, dizziness, chest pain, shortness of breath, nausea, vomiting, abdominal pain, diarrhea, constipation, pain or difficulty urinating, or swelling. She says the hematuria has resolved and now she feels tired. She says she feels depressed and has had decreased appetite. She accompanied at bedside with her daughter and recently had seen another neurologist, Dr. Paul. They would like to change their care and there was question of possible Parkinson's symptoms as the patient has a flat affect and the daughter was concerned about jerking movements she had seen. No jerking or abnormal motor activity seen during my visit. Patient stable appearing and without new complaints. Active Medications Acetaminophen (Tylenol -) 650 mg PO Q6H PRN PRN Reason: FEVER OR PAIN Last Admin: 04/29/17 19:22 Dose: 650 mg Acetaminophen (Tylenol -) 325 mg PO BID PRN PRN Reason: PAIN Last Admin: 04/29/17 08:48 Dose: 325 mg Aspirin (Asa -) 81 mg PO DAILY [facility] Last Admin: 04/30/17 09:16 Dose: 81 mg Buspirone HCl (Buspar -) 5 mg PO BID [facility] Last Admin: 04/30/17 09:17 Dose: 5 mg Escitalopram Oxalate (Lexapro -) 10 mg PO DAILY [facility] Last Admin: 04/30/17 09:15 Dose: 10 mg Gabapentin (Neurontin -) 600 mg PO TID [facility] Last Admin: 04/30/17 06:43 Dose: 600 mg Glimepiride (Amaryl -) 4 mg PO BIDI [facility] Last Admin: 04/30/17 06:43 Dose: 4 mg Ceftriaxone Sodium (Rocephin 1gm Ivpb (Pre-Docked)) 50 mls @ 100 mls/hr IVPB DAILY [facility] Last Admin: 04/30/17 09:17 Dose: 100 mls/hr Insulin Aspart (Novolog Vial Sliding Scale -) 1 vial SQ ACHS [facility] PRN Reason: Protocol Last Admin: 04/30/17 06:48 Dose: 2 units Insulin Detemir (Levemir Vial) 25 units SQ BIDI [facility] Last Admin: 04/30/17 06:49 Dose: 25 units Levothyroxine Sodium (Synthroid -) 50 mcg PO ACBK [facility] Last Admin: 04/30/17 06:43 Dose: 50 mcg Metoprolol Succinate (Toprol Xl -) 25 mg PO BID [facility] Last Admin: 04/30/17 09:15 Dose: 25 mg [id number] Ethyl Esters (Lovaza -) 1 gm PO TID [facility] Last Admin: 04/30/17 06:43 Dose: 1 gm Oxycodone HCl (Roxicodone -) 5 mg PO BID PRN PRN Reason: PAIN Last Admin: 04/29/17 08:47 Dose: 5 mg Pantoprazole Sodium (Protonix -) 20 mg PO DAILY [facility] Last Admin: 04/30/17 09:16 Dose: 20 mg Polyethylene Glycol (Miralax (For Daily Use) -) 17 gm PO BID [facility] Last Admin: 04/30/17 09:17 Dose: 17 gm Sitagliptin Phosphate (Januvia -) 100 mg PO ACBK [facility] Last Admin: 04/30/17 06:43 Dose: 100 mg Sodium Chloride (Sodium Chloride Tablet -) 1 gm PO BID [facility] Last Admin: 04/30/17 09:16 Dose: 1 gm Trazodone HCl (Desyrel -) 200 mg PO HS [facility] Last Admin: 04/29/17 22:13 Dose: 200 mg Physical Examination Vital Signs Temperature 98.0 F 04/30/17 06:00 Pulse Rate 72 04/30/17 06:00 Respiratory Rate 18 04/30/17 06:00 Blood Pressure 124/92 04/30/17 06:00 O2 Sat by Pulse Oximetry (%) 98 04/29/17 21:00 Constitutional: Yes: Well Nourished, No Distress, Calm Eyes: Yes: Conjunctiva Clear, EOM Intact, PERRL HENT: Yes: Atraumatic, Normocephalic Cardiovascular: Yes: Regular Rate and Rhythm. No: Gallop, Murmur, Rub Respiratory: Yes: Regular, CTA Bilaterally. No: Rales, Rhonchi, Wheezes Gastrointestinal: Yes: Normal Bowel Sounds, Soft. No: Distention, Tenderness Extremities: Yes: WNL Edema: c Neuro: [facility] *LIVE* Consult (text) Patient Name: SANDY FOREMAN Date of : 1945 Patient Status: Inpatient Attending Provider: Alen Coulter Date: 04/29/17 17:23 Initialization Date: 04/29/17 17:23 Consult - text type - Consultation Consultation Note: Neurology HPI: The patient is a is a 71 year old female who comes in with reported blood in her urine and was found to have hyponatremia. She was recently discharged after being treated for hyponatremia and UTI. She says she was at home and doing well , however she noted some blood in her urine and she came in to have it evaluated. She denies fevers, chills, lightheadedness, dizziness, chest pain, shortness of breath, nausea, vomiting, abdominal pain, diarrhea, constipation, pain or difficulty urinating, or swelling. She says the hematuria has resolved and now she feels tired. She says she feels depressed and has had decreased appetite. She accompanied at bedside with her daughter and recently had seen another neurologist, Dr. Paul. They would like to change their care and there was question of possible Parkinson's symptoms as the patient has a flat affect and the daughter was concerned about jerking movements she had seen. 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 Cardiovascular: Yes: HTN Pulmonary: Yes: Asthma Gastrointestinal: Yes: GERD Renal/: Yes: Other (hyponatremia) Psych: Yes: Depression Endocrine: Yes: Diabetes Mellitus, Hypothyroidism - Smoking History Smoking history: Never smoked Have you smoked in the past 12 months: No Aproximately how many cigarettes per day: 0 - Alcohol/Substance Use Hx Alcohol Use: No History of Substance Use: reports: None - Social History ADL: Independent History of Recent Travel: No Home Medications - Allergies Allergies/Adverse Reactions: Allergies Allergy/AdvReac Type Severity Reaction Status Date / Time No Known Drug Allergies Allergy Verified 04/28/17 15:05 - Home Medications Home Medications: Ambulatory Orders Aspirin [ASA -] 81 mg PO DAILY 05/02/16 Buspirone HCl [Buspar -] 5 mg PO BID 05/02/16 Escitalopram Oxalate [Lexapro -] 10 mg PO DAILY 05/02/16 Gabapentin 1,200 mg PO HS 05/02/16 Gabapentin 600 mg PO TID 05/02/16 Glimepiride [Amaryl -] 4 mg PO BID 05/02/16 Hydrocodone/Acetaminophen [[place] 7.5-325 Tablet] 1 each PO BID PRN 05/02/16 Insulin Aspart [Novolog] 0 unit SQ ACHS PRN 05/02/16 [place]-3 Acid Ethyl Esters 1 gm PO TID 05/02/16 Omeprazole 20 mg PO DAILY 05/02/16 Sitagliptin Phosphate [Januvia] 100 mg PO DAILY 05/02/16 Trazodone HCl 200 mg PO HS 05/02/16 Insulin Glargine,Hum.rec.anlog [Lantus (10mL VIAL) -] 25 units SQ BID #10 ml Sodium Chloride Tablet - 1 gm PO BID #60 tablet 04/20/17 Levothyroxine Sodium [Levo-T] 50 mcg PO DAILY 04/28/17 Family Disease History - Family Disease History Family History: Unremarkable Review of Systems Findings/Remarks: full review of systems obtained, as per HPI and otherwise negative Physical Examination Vital Signs: Vital Signs Temperature 35.7 C L 04/29/17 06:00 Pulse Rate 70 04/29/17 06:00 Respiratory Rate 18 04/29/17 06:00 Blood Pressure 140/68 04/29/17 06:00 O2 Sat by Pulse Oximetry (%) 98 04/28/17 23:00 Constitutional: Yes: Well Nourished, No Distress, Calm Eyes: Yes: Conjunctiva Clear, EOM Intact, PERRL HENT: Yes: Atraumatic, Normocephalic Cardiovascular: Yes: Regular Rate and Rhythm. No: Gallop, Murmur, Rub Respiratory: Yes: Regular, CTA Bilaterally. No: Rales, Rhonchi, Wheezes Gastrointestinal: Yes: Normal Bowel Sounds, Soft. No: Distention, Tenderness Extremities: Yes: WNL Edema: No Labs: [facility] *LIVE* Consult (text) Patient Name: SANDY FOREMAN Date of : 1945 Patient Status: Inpatient Attending Provider: Alen Coulter Date: 04/29/17 17:23 Initialization Date: 04/29/17 17:23 Consult - text type - Consultation Consultation Note: Neurology HPI: The patient is a is a 71 year old female who comes in with reported blood in her urine and was found to have hyponatremia. She was recently discharged after being treated for hyponatremia and UTI. She says she was at home and doing well , however she noted some blood in her urine and she came in to have it evaluated. She denies fevers, chills, lightheadedness, dizziness, chest pain, shortness of breath, nausea, vomiting, abdominal pain, diarrhea, constipation, pain or difficulty urinating, or swelling. She says the hematuria has resolved and now she feels tired. She says she feels depressed and has had decreased appetite. She accompanied at bedside with her daughter and recently had seen another neurologist, Dr. Paul. They would like to change their care and there was question of possible Parkinson's symptoms as the patient has a flat affect and the daughter was concerned about jerking movements she had seen. 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 Cardiovascular: Yes: HTN Pulmonary: Yes: Asthma Gastrointestinal: Yes: GERD Renal/: Yes: Other (hyponatremia) Psych: Yes: Depression Endocrine: Yes: Diabetes Mellitus, Hypothyroidism - Smoking History Smoking history: Never smoked Have you smoked in the past 12 months: No Aproximately how many cigarettes per day: 0 - Alcohol/Substance Use Hx Alcohol Use: No History of Substance Use: reports: None - Social History ADL: Independent History of Recent Travel: No Home Medications - Allergies Allergies/Adverse Reactions: Allergies Allergy/AdvReac Type Severity Reaction Status Date / Time No Known Drug Allergies Allergy Verified 04/28/17 15:05 - Home Medications Home Medications: Ambulatory Orders Aspirin [ASA -] 81 mg PO DAILY 05/02/16 Buspirone HCl [Buspar -] 5 mg PO BID 05/02/16 Escitalopram Oxalate [Lexapro -] 10 mg PO DAILY 05/02/16 Gabapentin 1,200 mg PO HS 05/02/16 Gabapentin 600 mg PO TID 05/02/16 Glimepiride [Amaryl -] 4 mg PO BID 05/02/16 Hydrocodone/Acetaminophen [[place] 7.5-325 Tablet] 1 each PO BID PRN 05/02/16 Insulin Aspart [Novolog] 0 unit SQ ACHS PRN 05/02/16 [place]-3 Acid Ethyl Esters 1 gm PO TID 05/02/16 Omeprazole 20 mg PO DAILY 05/02/16 Sitagliptin Phosphate [Januvia] 100 mg PO DAILY 05/02/16 Trazodone HCl 200 mg PO HS 05/02/16 Insulin Glargine,Hum.rec.anlog [Lantus (10mL VIAL) -] 25 units SQ BID #10 ml Sodium Chloride Tablet - 1 gm PO BID #60 tablet 04/20/17 Levothyroxine Sodium [Levo-T] 50 mcg PO DAILY 04/28/17 Family Disease History - Family Disease History Family History: Unremarkable Review of Systems Findings/Remarks: full review of systems obtained, as per HPI and otherwise negative Physical Examination Vital Signs: Vital Signs Temperature 35.7 C L 04/29/17 06:00 Pulse Rate 70 04/29/17 06:00 Respiratory Rate 18 04/29/17 06:00 Blood Pressure 140/68 04/29/17 06:00 O2 Sat by Pulse Oximetry (%) 98 04/28/17 23:00 Constitutional: Yes: Well Nourished, No Distress, Calm Eyes: Yes: Conjunctiva Clear, EOM Intact, PERRL HENT: Yes: Atraumatic, Normocephalic Cardiovascular: Yes: Regular Rate and Rhythm. No: Gallop, Murmur, Rub Respiratory: Yes: Regular, CTA Bilaterally. No: Rales, Rhonchi, Wheezes Gastrointestinal: Yes: Normal Bowel Sounds, Soft. No: Distention, Tenderness Extremities: Yes: WNL Edema: No Neuro: CN intact, no speech deficits, moving all extremities equally, sensory intact, no cogwheeling, finger to nose normal, no abnormal movements CBCD WBC 7.9 K/mm3 (4.0-10.0) 04/29/17 06:00 RBC 4.09 M/mm3 (3.60-5.2) 04/29/17 06:00 Hgb 12.5 GM/dL (10.7-15.3) 04/29/17 06:00 Hct 36.1 % (32.4-45.2) 04/29/17 06:00 MCV 88.2 fl (80-96) 04/29/17 06:00 MCHC 34.6 g/dl (32.0-36.0) 04/29/17 06:00 RDW 14.4 % (11.6-15.6) 04/29/17 06:00 Plt Count 156 K/MM3 (134-434) 04/29/17 06:00 MPV 9.6 fl (7.5-11.1) 04/29/17 06:00 CMP Sodium 128 mmol/L (136-145) L 04/29/17 12:00 Potassium 3.9 mmol/L (3.5-5.1) 04/29/17 12:00 Chloride 91 mmol/L (98-107) L 04/29/17 12:00 Carbon Dioxide 26 mmol/L (21-32) 04/29/17 12:00 Anion Gap 11 (8-16) 04/29/17 12:00 BUN 12 mg/dL (7-18) D 04/29/17 12:00 Creatinine 0.7 mg/dL (0.55-1.02) 04/29/17 12:00 Creat Clearance w eGFR > 60 (>60) 04/28/17 15:35 Calcium 9.2 mg/dL (8.5-10.1) 04/29/17 12:00 Total Bilirubin 0.7 mg/dL (0.2-1.0) D 04/28/17 15:35 AST 18 U/L (15-37) D 04/28/17 15:35 ALT 33 U/L (12-78) 04/28/17 15:35 Alkaline Phosphatase 92 U/L (45-117) D 04/28/17 15:35 Total Protein 7.9 g/dl (6.4-8.2) D 04/28/17 15:35 Albumin 4.4 g/dl (3.4-5.0) D 04/28/17 15:35 Imaging 71 year old female who comes in with reported blood in her urine and was found to have hyponatremia. She was recently discharged after being treated for hyponatremia and UTI. She says she was at home and doing well, however she noted some blood in her urine and she came in to have it evaluated. She denies fevers, chills, lightheadedness, dizziness, chest pain, shortness of breath, nausea, vomiting, abdominal pain, diarrhea, constipation, pain or difficulty urinating, or swelling. She says the hematuria has resolved and now she feels tired. She says she feels depressed and has had decreased appetite. She accompanied at bedside with her daughter and recently had seen another neurologist, Dr. Paul. They would like to change their care and there was question of possible Parkinson's symptoms as the patient has a flat affect and the daughter was concerned about jerking movements she had seen. Recommend treatment of acute active issues. Correct hyponatremia- salt tabs, d/c fluids, nephro follow up. Would address possile depression- psych consult, on Trazadone and Lexapro. Would also address possible UTI and hypothyroidism. Any of these can present with symptoms of fatigue, minimal movement, and would prefer more thorough evaluation for Parkinson's as outpatient. Neurologically stable at this time
[2017-04-30 10:31] LABS: ANION GAP 11 (8-16); CALCIUM 8.7 mg/dL (8.5-10.1); CO2 24 mmol/L (21-32); CREATININE 0.7 mg/dL (0.55-1.02); GLUCOSE,RANDOM 150 mg/dL (74-106)
[2017-04-30] MEDS: oxyCODONE HCL 5 MG TABLET PO PRN (11:40)
[2017-04-30] MEDS: ACETAMINOPHEN 325 MG TABLET (FP) PO PRN (11:40)
--- NOTE | 2017-04-30 12:30 | PN ---
Physical Exam: SUBJECTIVE: Patient seen and examined. Lying comfortably in chair. Denies diziness, chest pain, sob. States she had finished her full breakfast. Her Sr Na has improved . OBJECTIVE: Vital Signs Period Temp Pulse Resp BP Sys/Up Pulse Ox Last 24 Hr 97.5 F-98.2 F 72-74 18-20 114-153/48-92 98 GENERAL: Awake, alert, HEAD: Normal with no signs of trauma. EYES: Pupils equal, round and reactive to light, EARS, NOSE, THROAT: Moist mucous membranes. NECK: Normal range of motion, no JVD, LUNGS: Breath sounds equal, clear to auscultation bilaterally. No wheezes, and no crackles. No accessory muscle use. HEART: Regular rate and rhythm, normal S1 and S2 ABDOMEN: Soft, nontender, not distended, normoactive bowel sounds, no guarding, no rebound, no masses. No hepatomegaly or splenomegaly. UPPER EXTREMITIES: 2+ pulses, warm, well-perfused. No cyanosis. LOWER EXTREMITIES: warm, No calf tenderness. No peripheral edema. SKIN: Warm, dry, Laboratory Results - last 24 hr 04/29/17 04/29/17 04/29/17 10:30 10:30 10:30 WBC RBC Hgb Hct MCV MCH MCHC RDW Plt Count MPV Neutrophils % Lymphocytes % Monocytes % Eosinophils % Basophils % Sodium Potassium Chloride Carbon Dioxide Anion Gap BUN Creatinine POC Glucometer Random Glucose Serum Osmolality Cancelled Calcium Phosphorus Magnesium Urine Protein Urine Osmolality 556 D Ur Random Sodium Cancelled Ur Random Potassium Cancelled Ur Random Chloride Cancelled Ur Random Urea Nitrogn Urine Creatinine Cancelled 04/29/17 04/29/17 04/29/17 10:30 12:00 12:19 WBC RBC Hgb Hct MCV MCH MCHC RDW Plt Count MPV Neutrophils % Lymphocytes % Monocytes % Eosinophils % Basophils % Sodium 128 L Potassium 3.9 Chloride 91 L Carbon Dioxide 26 Anion Gap 11 BUN 12 D Creatinine 0.7 POC Glucometer 190 Random Glucose 199 H Serum Osmolality Calcium 9.2 Phosphorus Magnesium Urine Protein 33 Urine Osmolality Ur Random Sodium 58 Ur Random Potassium 35.4 Ur Random Chloride 48 Ur Random Urea Nitrogn 775 Urine Creatinine 110.0 04/29/17 04/29/17 04/29/17 17:06 18:30 22:07 WBC RBC Hgb Hct MCV MCH MCHC RDW Plt Count MPV Neutrophils % Lymphocytes % Monocytes % Eosinophils % Basophils % Sodium 127 L Potassium Chloride Carbon Dioxide Anion Gap BUN Creatinine POC Glucometer 208 162 Random Glucose Serum Osmolality Calcium Phosphorus Magnesium Urine Protein Urine Osmolality Ur Random Sodium Ur Random Potassium Ur Random Chloride Ur Random Urea Nitrogn Urine Creatinine 04/30/17 04/30/17 04/30/17 06:46 08:05 08:05 WBC 7.4 RBC 3.78 Hgb 11.6 Hct 33.9 MCV 89.6 MCH 30.6 MCHC 34.2 RDW 14.4 Plt Count 142 MPV 9.3 Neutrophils % 66.3 Lymphocytes % 22.4 Monocytes % 7.7 Eosinophils % 3.2 Basophils % 0.4 Sodium 131 L Potassium 4.0 Chloride 96 L Carbon Dioxide 24 Anion Gap 11 BUN 13 Creatinine 0.7 POC Glucometer 172 Random Glucose 150 H D Serum Osmolality Calcium 8.7 Phosphorus 3.7 Magnesium 1.8 Urine Protein Urine Osmolality Ur Random Sodium Ur Random Potassium Ur Random Chloride Ur Random Urea Nitrogn Urine Creatinine 04/30/17 04/30/17 08:05 11:31 WBC RBC Hgb Hct MCV MCH MCHC RDW Plt Count MPV Neutrophils % Lymphocytes % Monocytes % Eosinophils % Basophils % Sodium Cancelled Potassium Cancelled Chloride Cancelled Carbon Dioxide Cancelled Anion Gap Cancelled BUN Cancelled Creatinine Cancelled POC Glucometer 221 Random Glucose Cancelled Serum Osmolality Calcium Cancelled Phosphorus Magnesium Urine Protein Urine Osmolality Ur Random Sodium Ur Random Potassium Ur Random Chloride Ur Random Urea Nitrogn Urine Creatinine Active Medications Generic Name Dose Route Start Last Admin Trade Name Olvinq PRN Reason Stop Dose Admin Acetaminophen 650 mg 04/28/17 20:22 04/29/17 19:22 Tylenol - PO 650 mg Q6H PRN Administration FEVER OR PAIN Acetaminophen 325 mg 04/28/17 20:59 04/30/17 11:40 Tylenol - PO 325 mg BID PRN Administration PAIN Aspirin 81 mg 04/29/17 10:00 04/30/17 09:16 Asa - PO 81 mg DAILY [facility] Administration Buspirone HCl 5 mg 04/28/17 22:00 04/30/17 09:17 Buspar - PO 5 mg BID [facility] Administration Escitalopram Oxalate 10 mg 04/29/17 10:00 04/30/17 09:15 Lexapro - PO 10 mg DAILY [facility] Administration Gabapentin 600 mg 04/28/17 22:00 04/30/17 06:43 Neurontin - PO 600 mg TID [facility] Administration Glimepiride 4 mg 04/29/17 07:00 04/30/17 06:43 Amaryl - PO 4 mg BIDI [facility] Administration Ceftriaxone Sodium 50 mls @ 100 mls/hr 04/28/17 21:00 04/30/17 09:17 Rocephin 1gm Ivpb (Pre-Docked) IVPB 100 mls/hr DAILY [facility] Administration Insulin Aspart 1 vial 04/28/17 22:00 04/30/17 11:39 Novolog Vial Sliding Scale - SQ 4 units ACHS [facility] Administration Protocol Insulin Detemir 25 units 04/29/17 07:00 04/30/17 06:49 Levemir Vial SQ 25 units BIDI [facility] Administration Levothyroxine Sodium 50 mcg 04/29/17 07:00 04/30/17 06:43 Synthroid - PO 50 mcg ACBK [facility] Administration Metoprolol Succinate 25 mg 04/28/17 22:15 04/30/17 09:15 Toprol Xl - PO 25 mg BID [facility] Administration [id number]-3-[id number] Ethyl Esters 1 gm 04/28/17 22:00 04/30/17 06:43 Lovaza - PO 1 gm TID [facility] Administration Oxycodone HCl 5 mg 04/28/17 20:58 04/30/17 11:40 Roxicodone - PO 5 mg BID PRN Administration PAIN Pantoprazole Sodium 20 mg 04/29/17 10:00 04/30/17 09:16 Protonix - PO 20 mg DAILY [facility] Administration Polyethylene Glycol 17 gm 04/29/17 22:00 04/30/17 09:17 Miralax (For Daily Use) - PO 17 gm BID [facility] Administration Sitagliptin Phosphate 100 mg 04/29/17 07:00 04/30/17 06:43 Januvia - PO 100 mg ACBK [facility] Administration Sodium Chloride 1 gm 04/28/17 22:00 04/30/17 09:16 Sodium Chloride Tablet - PO 1 gm BID [facility] Administration Trazodone HCl 200 mg 04/28/17 22:00 04/29/17 22:13 Desyrel - PO 200 mg HS [facility] Administration Intake & Output 04/27/17 04/28/17 04/29/17 04/30/17 23:59 23:59 23:59 23:59 Intake Total 1050 540 215 Balance 1050 540 215 Weight 157 lb 5 oz 155 lb 8 oz 154 lb ASSESSMENT/PLAN: Hyponatremia Urinary retention Chronic back pain Depression Hypothyroidsm HLD GERD IDDM Plan: Has high urine osmo and low serum osmo, 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 Sr Sodium improved to 131, patient is responding o fluid restriction and salt tabs 1gm bid. Restrict free water intake to 1 L. Monitor intake and output. Consider psychiatry consult to adjust trazadone and lexapro. Visit type - Emergency Visit Emergency Visit: Yes ED Registration Date: 04/28/17 Care time: The patient presented to the Emergency Department on the above date and was hospitalized for further evaluation of their emergent condition. - New Patient This patient is new to me today: No - Critical Care Critical Care patient: No
--- NOTE | 2017-04-30 13:41 | PN ---
Progress Note (short form) - Note Progress Note: Renal Follow up for Hyponatremia Pt seen and examined at the bedside no acute complaints no sob, chest pain, N/V/D no confusion or lethargy, no seizures Vital Signs Temperature 98.0 F 04/30/17 06:00 Pulse Rate 72 04/30/17 06:00 Respiratory Rate 18 04/30/17 06:00 Blood Pressure 124/92 04/30/17 06:00 O2 Sat by Pulse Oximetry (%) 98 04/29/17 21:00 Intake & Output 04/27/17 04/28/17 04/29/17 04/30/17 23:59 23:59 23:59 23:59 Intake Total 1050 540 215 Balance 1050 540 215 Weight 157 lb 5 oz 155 lb 8 oz 154 lb Gen: NAD, awake and alert CVS: RRR, No M/R Lungs: CTA Abd: soft NT/ND Ext: No edema, clubbing or edema Neuro: AAOx3 CBC, BMP 04/30/17 08:05 04/30/17 08:05 Current Medications Acetaminophen (Tylenol -) 650 mg PO Q6H PRN PRN Reason: FEVER OR PAIN Last Admin: 04/29/17 19:22 Dose: 650 mg Acetaminophen (Tylenol -) 325 mg PO BID PRN PRN Reason: PAIN Last Admin: 04/30/17 11:40 Dose: 325 mg Aspirin (Asa -) 81 mg PO DAILY [facility] Last Admin: 04/30/17 09:16 Dose: 81 mg Buspirone HCl (Buspar -) 5 mg PO BID [facility] Last Admin: 04/30/17 09:17 Dose: 5 mg Escitalopram Oxalate (Lexapro -) 10 mg PO DAILY [facility] Last Admin: 04/30/17 09:15 Dose: 10 mg Gabapentin (Neurontin -) 600 mg PO TID [facility] Last Admin: 04/30/17 06:43 Dose: 600 mg Glimepiride (Amaryl -) 4 mg PO BIDI [facility] Last Admin: 04/30/17 06:43 Dose: 4 mg Insulin Aspart (Novolog Vial Sliding Scale -) 1 vial SQ ACHS [facility] PRN Reason: Protocol Last Admin: 04/30/17 11:39 Dose: 4 units Insulin Detemir (Levemir Vial) 25 units SQ BIDI [facility] Last Admin: 04/30/17 06:49 Dose: 25 units Levothyroxine Sodium (Synthroid -) 50 mcg PO ACBK [facility] Last Admin: 04/30/17 06:43 Dose: 50 mcg Metoprolol Succinate (Toprol Xl -) 25 mg PO BID [facility] Last Admin: 04/30/17 09:15 Dose: 25 mg [id number]-5-[id number] Ethyl Esters (Lovaza -) 1 gm PO TID [facility] Last Admin: 04/30/17 06:43 Dose: 1 gm Oxycodone HCl (Roxicodone -) 5 mg PO BID PRN PRN Reason: PAIN Last Admin: 04/30/17 11:40 Dose: 5 mg Pantoprazole Sodium (Protonix -) 20 mg PO DAILY [facility] Last Admin: 04/30/17 09:16 Dose: 20 mg Polyethylene Glycol (Miralax (For Daily Use) -) 17 gm PO BID [facility] Last Admin: 04/30/17 09:17 Dose: 17 gm Sitagliptin Phosphate (Januvia -) 100 mg PO ACBK [facility] Last Admin: 04/30/17 06:43 Dose: 100 mg Sodium Chloride (Sodium Chloride Tablet -) 1 gm PO BID [facility] Last Admin: 04/30/17 09:16 Dose: 1 gm Trazodone HCl (Desyrel -) 200 mg PO HS [facility] Last Admin: 04/29/17 22:13 Dose: 200 mg A/P 71 year old woman with PMhx of Depression, Hypothyrodism, Hypertension, Hyperlipidemia, GERD, IDDM, Hx of Hyponatremia who presents with complaints of uinary retention and hematuriea who was found to have a serum Na of 120. #Hypovolemic hyponatremia Serum Na improved at a appropriate rate continue salt tabs BID free water restriction of 1L daily on Lexapro and trazdone which can cause excess adh release Psych follow up for possible adjustment of meds Austen Degroot DO Problem List - Problems (1) Depression Code(s): F32.9 - MAJOR DEPRESSIVE DISORDER, SINGLE EPISODE, UNSPECIFIED (2) Hyponatremia Code(s): E87.1 - HYPO-OSMOLALITY AND HYPONATREMIA (3) Urinary retention Code(s): R33.9 - RETENTION OF URINE, UNSPECIFIED (4) Abdominal pain Code(s): R10.9 - UNSPECIFIED ABDOMINAL PAIN (5) Diabetes mellitus Code(s): E11.9 - TYPE 2 DIABETES MELLITUS WITHOUT COMPLICATIONS Qualifiers: Diabetes mellitus type: type 1 Diabetes mellitus complication status: with hyperglycemia Qualified Code(s): E10.65 - Type 1 diabetes mellitus with hyperglycemia (6) HTN (hypertension) Code(s): I10 - ESSENTIAL (PRIMARY) HYPERTENSION (7) Hematuria Code(s): R31.9 - HEMATURIA, UNSPECIFIED (8) Hyponatremia Code(s): E87.1 - HYPO-OSMOLALITY AND HYPONATREMIA
--- NOTE | 2017-04-30 14:21 | PN ---
Progress Note, Physician Chief Complaint: Ms Vu says she is feeling better today. No cp, sob, n/v. With chronic leg pain that is unchanged. - Current Medication List Current Medications: Active Medications Acetaminophen (Tylenol -) 650 mg PO Q6H PRN PRN Reason: FEVER OR PAIN Last Admin: 04/29/17 19:22 Dose: 650 mg Acetaminophen (Tylenol -) 325 mg PO BID PRN PRN Reason: PAIN Last Admin: 04/30/17 11:40 Dose: 325 mg Aspirin (Asa -) [address] [facility] Last Admin: 04/30/17 09:16 Dose: 81 mg Buspirone HCl (Buspar -) [address] [facility] Last Admin: 04/30/17 09:17 Dose: 5 mg Escitalopram Oxalate (Lexapro -) [address] [facility] Last Admin: 04/30/17 09:15 Dose: 10 mg Gabapentin (Neurontin -) [address] [facility] Last Admin: 04/30/17 06:43 Dose: 600 mg Glimepiride (Amaryl -) [address] [facility] Last Admin: 04/30/17 06:43 Dose: 4 mg Insulin Aspart (Novolog Vial Sliding Scale -) [address] [facility] PRN Reason: Protocol Last Admin: 04/30/17 11:39 Dose: 4 units Insulin Detemir (Levemir Vial) [address] [facility] Last Admin: 04/30/17 06:49 Dose: 25 units Levothyroxine Sodium (Synthroid -) [address] [facility] Last Admin: 04/30/17 06:43 Dose: 50 mcg Metoprolol Succinate (Toprol Xl -) [address] [facility] Last Admin: 04/30/17 09:15 Dose: 25 mg Sovab-1-Eljw Ethyl Esters (Lovaza -) [address] [facility] Last Admin: 04/30/17 06:43 Dose: 1 gm Oxycodone HCl (Roxicodone -) 5 mg PO BID PRN PRN Reason: PAIN Last Admin: 04/30/17 11:40 Dose: 5 mg Pantoprazole Sodium (Protonix -) [address] [facility] Last Admin: 04/30/17 09:16 Dose: 20 mg Polyethylene Glycol (Miralax (For Daily Use) -) [address] [facility] Last Admin: 04/30/17 09:17 Dose: 17 gm Sitagliptin Phosphate (Januvia -) [address] [facility] Last Admin: 04/30/17 06:43 Dose: 100 mg Sodium Chloride (Sodium Chloride Tablet -) [address] [facility] Last Admin: 04/30/17 09:16 Dose: 1 gm Trazodone HCl (Desyrel -) [address] [facility] Last Admin: 04/29/17 22:13 Dose: 200 mg - Objective Vital Signs: Vital Signs Temperature 36.7 C 04/30/17 06:00 Pulse Rate 72 04/30/17 06:00 Respiratory Rate 18 04/30/17 06:00 Blood Pressure 124/92 04/30/17 06:00 O2 Sat by Pulse Oximetry (%) 98 04/29/17 21:00 Constitutional: Yes: Well Nourished, No Distress, Calm Cardiovascular: Yes: Regular Rate and Rhythm. No: Gallop, Murmur, Rub Respiratory: Yes: Regular, CTA Bilaterally. No: Rales, Rhonchi, Wheezes Gastrointestinal: Yes: Normal Bowel Sounds, Soft. No: Distention, Tenderness Extremities: Yes: WNL Edema: No Labs: CBC, BMP 04/30/17 08:05 04/30/17 08:05 Problem List - Problems (1) Hyponatremia Code(s): E87.1 - HYPO-OSMOLALITY AND HYPONATREMIA (2) Hematuria Code(s): R31.9 - HEMATURIA, UNSPECIFIED (3) Diabetes mellitus Code(s): E11.9 - TYPE 2 DIABETES MELLITUS WITHOUT COMPLICATIONS Qualifiers: Diabetes mellitus type: type 1 Diabetes mellitus complication status: with hyperglycemia Qualified Code(s): E10.65 - Type 1 diabetes mellitus with hyperglycemia (4) HTN (hypertension) Code(s): I10 - ESSENTIAL (PRIMARY) HYPERTENSION (5) Hypothyroidism Code(s): E03.9 - HYPOTHYROIDISM, UNSPECIFIED (6) Depression Code(s): F32.9 - MAJOR DEPRESSIVE DISORDER, SINGLE EPISODE, UNSPECIFIED Assessment/Plan (1) Hyponatremia Assessment/Plan: -sodium improving -nephrology following -continue salt tablets and fluid restriction Code(s): E87.1 - HYPO-OSMOLALITY AND HYPONATREMIA (2) Hematuria Assessment/Plan: -resolved -no UTI -stop rocephin -unclear if true hematuria, if recurs would benefit from outpatient urology consult Code(s): R31.9 - HEMATURIA, UNSPECIFIED (3) Diabetes mellitus Assessment/Plan: -continue januvia, levemir, and amaryl Code(s): E11.9 - TYPE 2 DIABETES MELLITUS WITHOUT COMPLICATIONS Qualifiers: Diabetes mellitus type: type 1 Diabetes mellitus complication status: with hyperglycemia Qualified Code(s): E10.65 - Type 1 diabetes mellitus with hyperglycemia (4) HTN (hypertension) Assessment/Plan: -continue toprol xl -controlled Code(s): I10 - ESSENTIAL (PRIMARY) HYPERTENSION (5) Hypothyroidism Assessment/Plan: -continue synthroid Code(s): E03.9 - HYPOTHYROIDISM, UNSPECIFIED (6) Depression Assessment/Plan: -consult psychiatry -continue trazadone and lexapro currently Code(s): F32.9 - MAJOR DEPRESSIVE DISORDER, SINGLE EPISODE, UNSPECIFIED
[2017-04-30] MEDS ORDERED: INSULIN DETEMIR 100 UNITS/ML MDV SQ ONE (17:46)
[2017-04-30] MEDS ORDERED: INSULIN (NOVOLOG) ASPART 100 UNITS/ML 10ML VIAL ONE (18:23)
[2017-04-30] MEDS ORDERED: INSULIN (NOVOLOG MIX 70/30) 100 UNITS/ML MDV SQ ONE (18:23)
[2017-04-30] MEDS ORDERED: traZODone HCL 50 MG TABLET (FP) ONE (22:42)
[2017-04-30] MEDS: traZODone HCL 100 MG TABLET (FP) PO SCH (22:52)
[2017-05-01] MEDS ORDERED: PT OWN MED DRAWER 7, Y5N ONE ×3 (06:12→14:38)
[2017-05-01] MEDS: GABAPENTIN 300 MG CAPSULE (FP) PO SCH ×2 (06:26→14:42)
[2017-05-01] MEDS: GLIMEPIRIDE 4 MG TABLET (FP) PO SCH (06:26)
[2017-05-01] MEDS: OMEGA-3 ACID ETHYL ESTERS (FATTY-ACIDS) 1 GM CAPSULE (FP) PO SCH ×2 (06:26→14:42)
[2017-05-01] MEDS: INSULIN SLIDING SCALE (NOVOLOG) 1 VIAL SQ SCH ×2 (06:26→12:04)
[2017-05-01] MEDS: sitaGLIPtin PHOSPHATE 100 MG TABLET (FP) PO SCH (06:26)
[2017-05-01] MEDS: LEVOTHYROXINE NA 50 MCG TABLET (FP) PO SCH (06:26)
[2017-05-01] MEDS: INSULIN DETEMIR 100 UNITS/ML MDV SQ SCH (06:27)
[2017-05-01 07:36] LABS: BASOPHIL 0.5 % (0-2.0); EOSINOPHIL 3.4 % (0-4.5); MCH 30.4 pg (25.7-33.7); MCHC 33.8 g/dl (32.0-36.0); MEAN CELL VOLUME 89.8 fl (80-96); MEAN PLT VOLUME 9.6 fl (7.5-11.1); NEUTROPHILS 65.2 % (42.8-82.8); PLATELET COUNT 135 K/MM3 (134-434); RDW 14.7 % (11.6-15.6); WHITE BLOOD COUNT 6.3 K/mm3 (4.0-10.0)
[2017-05-01 07:59] LABS: ANION GAP 10 (8-16); CO2 26 mmol/L (21-32); CREATININE 0.7 mg/dL (0.55-1.02); GLUCOSE,RANDOM 257 mg/dL (74-106); PHOSPHOROUS 3.3 mg/dL (2.5-4.9)
--- NOTE | 2017-05-01 08:59 | CON.PSY ---
Psychiatry Consult Chief Complaint: Patient finished her breakfast. I feel ok now. Patient is on three psych meds. Symptoms: reports: Depressed Mood, Anhedonia - Previous Psychiatric Treatment Outpatient: Less than 6 mos ago Inpatient: None - Previous Substance Abuse Treatment Outpatient: None Inpatient: None - Reason for Previous Treatment Reason for Previous Treatment: Major Depression - Current Medications Current Medications: Active Medications Acetaminophen (Tylenol -) 650 mg PO Q6H PRN PRN Reason: FEVER OR PAIN Last Admin: 04/29/17 19:22 Dose: 650 mg Acetaminophen (Tylenol -) 325 mg PO BID PRN PRN Reason: PAIN Last Admin: 04/30/17 11:40 Dose: 325 mg Aspirin (Asa -) 81 mg PO DAILY [facility] Last Admin: 04/30/17 09:16 Dose: 81 mg Buspirone HCl (Buspar -) 5 mg PO BID [facility] Last Admin: 04/30/17 22:52 Dose: 5 mg Escitalopram Oxalate (Lexapro -) 10 mg PO DAILY [facility] Last Admin: 04/30/17 09:15 Dose: 10 mg Gabapentin (Neurontin -) 600 mg PO TID [facility] Last Admin: 05/01/17 06:26 Dose: 600 mg Glimepiride (Amaryl -) 4 mg PO BIDI [facility] Last Admin: 05/01/17 06:26 Dose: 4 mg Insulin Aspart (Novolog Vial Sliding Scale -) 1 vial SQ ACHS [facility] PRN Reason: Protocol Last Admin: 05/01/17 06:26 Dose: 6 units Insulin Detemir (Levemir Vial) 25 units SQ BIDI [facility] Last Admin: 05/01/17 06:27 Dose: 25 units Levothyroxine Sodium (Synthroid -) 50 mcg PO ACBK [facility] Last Admin: 05/01/17 06:26 Dose: 50 mcg Metoprolol Succinate (Toprol Xl -) 25 mg PO BID [facility] Last Admin: 04/30/17 22:52 Dose: 25 mg Tcxoi-7-Rozz Ethyl Esters (Lovaza -) 1 gm PO TID [facility] Last Admin: 05/01/17 06:26 Dose: 1 gm Oxycodone HCl (Roxicodone -) 5 mg PO BID PRN PRN Reason: PAIN Last Admin: 04/30/17 11:40 Dose: 5 mg Pantoprazole Sodium (Protonix -) 20 mg PO DAILY [facility] Last Admin: 04/30/17 09:16 Dose: 20 mg Polyethylene Glycol (Miralax (For Daily Use) -) 17 gm PO BID [facility] Last Admin: 04/30/17 22:52 Dose: 17 gm Sitagliptin Phosphate (Januvia -) 100 mg PO ACBK [facility] Last Admin: 05/01/17 06:26 Dose: 100 mg Sodium Chloride (Sodium Chloride Tablet -) 1 gm PO BID [facility] Last Admin: 04/30/17 22:52 Dose: 1 gm Trazodone HCl (Desyrel -) 200 mg PO HS [facility] Last Admin: 04/30/17 22:52 Dose: 200 mg - Allergies Allergies: Allergies Allergy/AdvReac Type Severity Reaction Status Date / Time No Known Drug Allergies Allergy Verified 04/28/17 15:05 - Current Living Status Usual Living Arrangement: Alone - Current Mental Status Evaluation Appearance: Well Groomed Attitude: Cooperative - Affect Affect: Full Range Appropriateness: Appropriate to Content - Mood Mood: Euthymic - Speech/Language Expressive: Coherent - Psychomotor Activity Psychomotor Activity: Normal - Thought Process Thought Process: Intact - Thought Content Hallucinations: Absent Delusions: Absent - Self Perception Self Perception: No Impairment - Cognition Attention: Alert Orientation: Time Memory, Short Term: 2/3 Memory, Remote with Promptin/3 - Concentration Serial Sevens Intact: No Simple Calculations Intact: No - Abstraction Proverb Interpretation: Intact Judgement: Intact - Insight Insight: Intact - Impulse Control Impulse Control: Good Control - Suicidal Ideation Suicidal Ideation: No - Homicidal Ideation Homicidal Ideation: No Assessment/Plan 1) No need to Change Psych n\meds here. 2) Follow up with her pvt psych for psych med adjustment. 3) Continue with [facility] psych Meds. 4) D/C home when stable.
--- NOTE | 2017-05-01 09:06 | PN ---
Physical Exam: SUBJECTIVE: Patient seen and examined. Sitting comfortably in bed no new complaints. Sr sodium increased to 133. OBJECTIVE: Vital Signs Period Temp Pulse Resp BP Sys/Up Pulse Ox Last 24 Hr 97.3 F-98.6 F 78-83 18-22 109-146/59-73 98-98 GENERAL: Awake, alert, HEAD: Normal with no signs of trauma. EYES: Pupils equal, round and reactive to light, EARS, NOSE, THROAT: Moist mucous membranes. NECK: Normal range of motion, no JVD, LUNGS: Breath sounds equal, clear to auscultation bilaterally. No wheezes, and no crackles. No accessory muscle use. HEART: Regular rate and rhythm, normal S1 and S2 ABDOMEN: Soft, nontender, not distended, normoactive bowel sounds, no guarding, no rebound, no masses. No hepatomegaly or splenomegaly. UPPER EXTREMITIES: 2+ pulses, warm, well-perfused. No cyanosis. LOWER EXTREMITIES: warm, No calf tenderness. No peripheral edema. SKIN: Warm, dry, Laboratory Results - last 24 hr 04/30/17 04/30/17 04/30/17 08:05 08:05 11:31 WBC RBC Hgb Hct MCV MCH MCHC RDW Plt Count MPV Neutrophils % Lymphocytes % Monocytes % Eosinophils % Basophils % Sodium 131 L Cancelled Potassium 4.0 Cancelled Chloride 96 L Cancelled Carbon Dioxide 24 Cancelled Anion Gap 11 Cancelled BUN 13 Cancelled Creatinine 0.7 Cancelled POC Glucometer 221 Random Glucose 150 H D Cancelled Calcium 8.7 Cancelled Phosphorus 3.7 Magnesium 1.8 04/30/17 04/30/17 05/01/17 17:31 22:55 05:28 WBC RBC Hgb Hct MCV MCH MCHC RDW Plt Count MPV Neutrophils % Lymphocytes % Monocytes % Eosinophils % Basophils % Sodium Potassium Chloride Carbon Dioxide Anion Gap BUN Creatinine POC Glucometer 237 232 271 Random Glucose Calcium Phosphorus Magnesium 05/01/17 05/01/17 06:10 06:10 WBC 6.3 RBC 3.65 Hgb 11.1 Hct 32.8 MCV 89.8 MCH 30.4 MCHC 33.8 RDW 14.7 Plt Count 135 MPV 9.6 Neutrophils % 65.2 Lymphocytes % 22.7 Monocytes % 8.2 Eosinophils % 3.4 Basophils % 0.5 Sodium 133 L Potassium 4.4 Chloride 97 L Carbon Dioxide 26 Anion Gap 10 BUN 13 Creatinine 0.7 POC Glucometer Random Glucose 257 H D Calcium 9.0 Phosphorus 3.3 Magnesium 2.0 Active Medications Generic Name Dose Route Start Last Admin Trade Name Rochelle PRN Reason Stop Dose Admin Acetaminophen 650 mg 04/28/17 20:22 04/29/17 19:22 Tylenol - PO 650 mg Q6H PRN Administration FEVER OR PAIN Acetaminophen 325 mg 04/28/17 20:59 04/30/17 11:40 Tylenol - PO 325 mg BID PRN Administration PAIN Aspirin 81 mg 04/29/17 10:00 04/30/17 09:16 Asa - PO 81 mg DAILY [facility] Administration Buspirone HCl 5 mg 04/28/17 22:00 04/30/17 22:52 Buspar - PO 5 mg BID [facility] Administration Escitalopram Oxalate 10 mg 04/29/17 10:00 04/30/17 09:15 Lexapro - PO 10 mg DAILY [facility] Administration Gabapentin 600 mg 04/28/17 22:00 05/01/17 06:26 Neurontin - PO 600 mg TID [facility] Administration Glimepiride 4 mg 04/29/17 07:00 05/01/17 06:26 Amaryl - PO 4 mg BIDI [facility] Administration Insulin Aspart 1 vial 04/28/17 22:00 05/01/17 06:26 Novolog Vial Sliding Scale - SQ 6 units ACHS [facility] Administration Protocol Insulin Detemir 25 units 04/29/17 07:00 05/01/17 06:27 Levemir Vial SQ 25 units BIDI [facility] Administration Levothyroxine Sodium 50 mcg 04/29/17 07:00 05/01/17 06:26 Synthroid - PO 50 mcg ACBK [facility] Administration Metoprolol Succinate 25 mg 04/28/17 22:15 04/30/17 22:52 Toprol Xl - PO 25 mg BID [facility] Administration Clnes-5-Pqdr Ethyl Esters 1 gm 04/28/17 22:00 05/01/17 06:26 Lovaza - PO 1 gm TID [facility] Administration Oxycodone HCl 5 mg 04/28/17 20:58 04/30/17 11:40 Roxicodone - PO 5 mg BID PRN Administration PAIN Pantoprazole Sodium 20 mg 04/29/17 10:00 04/30/17 09:16 Protonix - PO 20 mg DAILY [facility] Administration Polyethylene Glycol 17 gm 04/29/17 22:00 04/30/17 22:52 Miralax (For Daily Use) - PO 17 gm BID [facility] Administration Sitagliptin Phosphate 100 mg 04/29/17 07:00 05/01/17 06:26 Januvia - PO 100 mg ACBK [facility] Administration Sodium Chloride 1 gm 04/28/17 22:00 04/30/17 22:52 Sodium Chloride Tablet - PO 1 gm BID [facility] Administration Trazodone HCl 200 mg 04/28/17 22:00 04/30/17 22:52 Desyrel - PO 200 mg HS [facility] Administration ASSESSMENT/PLAN: Hyponatremia Urinary retention Chronic back pain Depression Hypothyroidsm HLD GERD IDDM Plan: Sr Sodium improved to 133, patient is responding on fluid restriction and salt tabs 1gm bid. Restrict free water intake to 1 L. Monitor intake and output. Psychiatry consult appreciated. Visit type - Emergency Visit Emergency Visit: Yes ED Registration Date: 04/28/17 Care time: The patient presented to the Emergency Department on the above date and was hospitalized for further evaluation of their emergent condition. - New Patient This patient is new to me today: No - Critical Care Critical Care patient: No
--- NOTE | 2017-05-01 10:02 | PN ---
Progress Note (short form) - Note Progress Note: Neurology HPI: The patient is a is a 71 year old female who comes in with reported blood in her urine and was found to have hyponatremia. She was recently discharged after being treated for hyponatremia and UTI. She says she was at home and doing well , however she noted some blood in her urine and she came in to have it evaluated. She denies fevers, chills, lightheadedness, dizziness, chest pain, shortness of breath, nausea, vomiting, abdominal pain, diarrhea, constipation, pain or difficulty urinating, or swelling. She says the hematuria has resolved and now she feels tired. She says she feels depressed and has had decreased appetite. She Patient seen for possible Parkinson's symptoms as the patient has a flat affect and the daughter was concerned about jerking movements she had seen. No jerking or abnormal motor activity seen during my visit. Patient stable appearing and without new complaints. Still with flat affect but no cogwheeling rigidity at this time. Active Medications Acetaminophen (Tylenol -) 650 mg PO Q6H PRN PRN Reason: FEVER OR PAIN Last Admin: 04/29/17 19:22 Dose: 650 mg Acetaminophen (Tylenol -) 325 mg PO BID PRN PRN Reason: PAIN Last Admin: 04/30/17 11:40 Dose: 325 mg Aspirin (Asa -) 81 mg PO DAILY [facility] Last Admin: 04/30/17 09:16 Dose: 81 mg Buspirone HCl (Buspar -) 5 mg PO BID [facility] Last Admin: 04/30/17 22:52 Dose: 5 mg Escitalopram Oxalate (Lexapro -) 10 mg PO DAILY [facility] Last Admin: 04/30/17 09:15 Dose: 10 mg Gabapentin (Neurontin -) 600 mg PO TID [facility] Last Admin: 05/01/17 06:26 Dose: 600 mg Glimepiride (Amaryl -) 4 mg PO BIDI [facility] Last Admin: 05/01/17 06:26 Dose: 4 mg Insulin Aspart (Novolog Vial Sliding Scale -) 1 vial SQ ACHS [facility] PRN Reason: Protocol Last Admin: 05/01/17 06:26 Dose: 6 units Insulin Detemir (Levemir Vial) 25 units SQ BIDI [facility] Last Admin: 05/01/17 06:27 Dose: 25 units Levothyroxine Sodium (Synthroid -) 50 mcg PO ACBK [facility] Last Admin: 05/01/17 06:26 Dose: 50 mcg Metoprolol Succinate (Toprol Xl -) 25 mg PO BID [facility] Last Admin: 04/30/17 22:52 Dose: 25 mg Bbchi-0-Rgjn Ethyl Esters (Lovaza -) 1 gm PO TID [facility] Last Admin: 05/01/17 06:26 Dose: 1 gm Oxycodone HCl (Roxicodone -) 5 mg PO BID PRN PRN Reason: PAIN Last Admin: 04/30/17 11:40 Dose: 5 mg Pantoprazole Sodium (Protonix -) 20 mg PO DAILY [facility] Last Admin: 04/30/17 09:16 Dose: 20 mg Polyethylene Glycol (Miralax (For Daily Use) -) 17 gm PO BID [facility] Last Admin: 04/30/17 22:52 Dose: 17 gm Sitagliptin Phosphate (Januvia -) 100 mg PO ACBK [facility] Last Admin: 05/01/17 06:26 Dose: 100 mg Sodium Chloride (Sodium Chloride Tablet -) 1 gm PO BID [facility] Last Admin: 04/30/17 22:52 Dose: 1 gm Trazodone HCl (Desyrel -) 200 mg PO HS [facility] Last Admin: 04/30/17 22:52 Dose: 200 mg Physical Examination Vital Signs Temperature 97.4 F L 05/01/17 06:00 Pulse Rate 78 05/01/17 06:00 Respiratory Rate 18 05/01/17 06:00 Blood Pressure 146/60 05/01/17 06:00 O2 Sat by Pulse Oximetry (%) 98 04/30/17 21:00 Constitutional: Yes: Well Nourished, No Distress, Calm Eyes: Yes: Conjunctiva Clear, EOM Intact, PERRL HENT: Yes: Atraumatic, Normocephalic Cardiovascular: Yes: Regular Rate and Rhythm. No: Gallop, Murmur, Rub Respiratory: Yes: Regular, CTA Bilaterally. No: Rales, Rhonchi, Wheezes Gastrointestinal: Yes: Normal Bowel Sounds, Soft. No: Distention, Tenderness Extremities: Yes: WNL Edema: No Labs: CBCD WBC 6.3 K/mm3 (4.0-10.0) 05/01/17 06:10 RBC 3.65 M/mm3 (3.60-5.2) 05/01/17 06:10 Hgb 11.1 GM/dL (10.7-15.3) 05/01/17 06:10 Hct 32.8 % (32.4-45.2) 05/01/17 06:10 MCV 89.8 fl (80-96) 05/01/17 06:10 MCHC 33.8 g/dl (32.0-36.0) 05/01/17 06:10 RDW 14.7 % (11.6-15.6) 05/01/17 06:10 Plt Count 135 K/MM3 (134-434) 05/01/17 06:10 MPV 9.6 fl (7.5-11.1) 05/01/17 06:10 CMP Sodium 133 mmol/L (136-145) L 05/01/17 06:10 Potassium 4.4 mmol/L (3.5-5.1) 05/01/17 06:10 Chloride 97 mmol/L (98-107) L 05/01/17 06:10 Carbon Dioxide 26 mmol/L (21-32) 05/01/17 06:10 Anion Gap 10 (8-16) 05/01/17 06:10 BUN 13 mg/dL (7-18) 05/01/17 06:10 Creatinine 0.7 mg/dL (0.55-1.02) 05/01/17 06:10 Creat Clearance w eGFR > 60 (>60) 04/28/17 15:35 Calcium 9.0 mg/dL (8.5-10.1) 05/01/17 06:10 Total Bilirubin 0.7 mg/dL (0.2-1.0) D 04/28/17 15:35 AST 18 U/L (15-37) D 04/28/17 15:35 ALT 33 U/L (12-78) 04/28/17 15:35 Alkaline Phosphatase 92 U/L (45-117) D 04/28/17 15:35 Total Protein 7.9 g/dl (6.4-8.2) D 04/28/17 15:35 Albumin 4.4 g/dl (3.4-5.0) D 04/28/17 15:35 Imaging 71 year old female who comes in with reported blood in her urine and was found to have hyponatremia. She was recently discharged after being treated for hyponatremia and UTI. She says she was at home and doing well, however she noted some blood in her urine and she came in to have it evaluated. She denies fevers, chills, lightheadedness, dizziness, chest pain, shortness of breath, nausea, vomiting, abdominal pain, diarrhea, constipation, pain or difficulty urinating, or swelling. She says the hematuria has resolved and now she feels tired. She says she feels depressed and has had decreased appetite. She Patient seen for possible Parkinson's symptoms as the patient has a flat affect and the daughter was concerned about jerking movements she had seen. No jerking or abnormal motor activity seen during my visit. Patient stable appearing and without new complaints. Still with flat affect but no cogwheeling rigidity at this time. Continued treatment of acute active issues. Correct hyponatremia- salt tabs, d/c fluids, nephro follow up. Would address possile depression- psych consult, on Trazadone and Lexapro. Possible UTI and hypothyroidism. Any of these can present with symptoms of fatigue, minimal movement, and would prefer more thorough evaluation for Parkinson's as outpatient.
[2017-05-01 10:13] VITALS: TEMP 97.8
[2017-05-01] MEDS: SODIUM CHLORIDE 1 GM TABLET PO SCH (10:18)
[2017-05-01] MEDS: METOPROLOL SUCCINATE 25 MG TAB.SR.24H (FP) PO SCH (10:18)
[2017-05-01] MEDS: ESCITALOPRAM OXALATE 10 MG TABLET (FP) PO SCH (10:18)
[2017-05-01] MEDS: PANTOPRAZOLE 20 MG TABLET (FP) PO SCH (10:18)
[2017-05-01] MEDS: busPIRone HCL 5 MG TABLET PO SCH (10:19)
[2017-05-01] MEDS: ASPIRIN 81 MG CHEWABLE TABLETS PO SCH (10:20)
[2017-05-01] MEDS: POLYETHYLENE GLYCOL 3350 119 GM BTL PO SCH (11:50)
--- NOTE | 2017-05-01 14:01 | PN ---
Progress Note (short form) - Note Progress Note: Renal Follow up for Hyponatremia Pt seen and examined at the bedside no acute complaints denies any confusion, lethargy or weakness Vital Signs Temperature 97.8 F 05/01/17 10:07 Pulse Rate 75 05/01/17 10:07 Respiratory Rate 20 05/01/17 10:07 Blood Pressure 132/74 05/01/17 10:07 O2 Sat by Pulse Oximetry (%) 98 04/30/17 21:00 Gen: NAD, awake and alert CVS: RRR, No M/R Lungs: CTA Abd: soft NT/ND Ext: No edema, clubbing or edema Neuro: AAOx3 CBC, BMP 05/01/17 06:10 05/01/17 06:10 Current Medications Acetaminophen (Tylenol -) 650 mg PO Q6H PRN PRN Reason: FEVER OR PAIN Last Admin: 04/29/17 19:22 Dose: 650 mg Acetaminophen (Tylenol -) 325 mg PO BID PRN PRN Reason: PAIN Last Admin: 04/30/17 11:40 Dose: 325 mg Aspirin (Asa -) 81 mg PO DAILY [facility] Last Admin: 05/01/17 10:20 Dose: 81 mg Buspirone HCl (Buspar -) 5 mg PO BID [facility] Last Admin: 05/01/17 10:19 Dose: 5 mg Escitalopram Oxalate (Lexapro -) 10 mg PO DAILY [facility] Last Admin: 05/01/17 10:18 Dose: 10 mg Gabapentin (Neurontin -) 600 mg PO TID [facility] Last Admin: 05/01/17 06:26 Dose: 600 mg Glimepiride (Amaryl -) 4 mg PO BIDI [facility] Last Admin: 05/01/17 06:26 Dose: 4 mg Insulin Aspart (Novolog Vial Sliding Scale -) 1 vial SQ ACHS [facility] PRN Reason: Protocol Last Admin: 05/01/17 12:04 Dose: 6 units Insulin Detemir (Levemir Vial) 25 units SQ BIDI [facility] Last Admin: 05/01/17 06:27 Dose: 25 units Levothyroxine Sodium (Synthroid -) 50 mcg PO ACBK [facility] Last Admin: 05/01/17 06:26 Dose: 50 mcg Metoprolol Succinate (Toprol Xl -) 25 mg PO BID [facility] Last Admin: 05/01/17 10:18 Dose: 25 mg Vxuxb-6-Tpbn Ethyl Esters (Lovaza -) 1 gm PO TID [facility] Last Admin: 05/01/17 06:26 Dose: 1 gm Oxycodone HCl (Roxicodone -) 5 mg PO BID PRN PRN Reason: PAIN Last Admin: 04/30/17 11:40 Dose: 5 mg Pantoprazole Sodium (Protonix -) 20 mg PO DAILY [facility] Last Admin: 05/01/17 10:18 Dose: 20 mg Polyethylene Glycol (Miralax (For Daily Use) -) 17 gm PO BID [facility] Last Admin: 05/01/17 11:50 Dose: 17 gm Sitagliptin Phosphate (Januvia -) 100 mg PO ACBK [facility] Last Admin: 05/01/17 06:26 Dose: 100 mg Sodium Chloride (Sodium Chloride Tablet -) 1 gm PO BID [facility] Last Admin: 05/01/17 10:18 Dose: 1 gm Trazodone HCl (Desyrel -) 200 mg PO HS [facility] Last Admin: 04/30/17 22:52 Dose: 200 mg A/P 71 year old woman with PMhx of Depression, Hypothyrodism, Hypertension, Hyperlipidemia, GERD, IDDM, Hx of Hyponatremia who presents with complaints of uinary retention and hematuriea who was found to have a serum Na of 120. #Hypovolemic hyponatremia Serum Na is improved and stable would continue salt tabs BID as pt is being continued on psych meds that increase probability of SIADH Continue fluid restriction, if Na > 135 can be more liberal with fluid intake Austen Degroot DO Problem List - Problems (1) Depression Code(s): F32.9 - MAJOR DEPRESSIVE DISORDER, SINGLE EPISODE, UNSPECIFIED (2) Hyponatremia Code(s): E87.1 - HYPO-OSMOLALITY AND HYPONATREMIA (3) Urinary retention Code(s): R33.9 - RETENTION OF URINE, UNSPECIFIED (4) Abdominal pain Code(s): R10.9 - UNSPECIFIED ABDOMINAL PAIN (5) Diabetes mellitus Code(s): E11.9 - TYPE 2 DIABETES MELLITUS WITHOUT COMPLICATIONS Qualifiers: Diabetes mellitus type: type 1 Diabetes mellitus complication status: with hyperglycemia Qualified Code(s): E10.65 - Type 1 diabetes mellitus with hyperglycemia (6) HTN (hypertension) Code(s): I10 - ESSENTIAL (PRIMARY) HYPERTENSION (7) Hematuria Code(s): R31.9 - HEMATURIA, UNSPECIFIED (8) Hyponatremia Code(s): E87.1 - HYPO-OSMOLALITY AND HYPONATREMIA
--- NOTE | 2017-05-01 14:40 | DS ---
Physical Examination Vital Signs: Vital Signs Temperature 36.6 C 05/01/17 10:07 Pulse Rate 75 05/01/17 10:07 Respiratory Rate 20 05/01/17 10:07 Blood Pressure 132/74 05/01/17 10:07 O2 Sat by Pulse Oximetry (%) 98 04/30/17 21:00 Constitutional: Yes: Well Nourished, No Distress, Calm Cardiovascular: Yes: Regular Rate and Rhythm. No: Gallop, Murmur, Rub Respiratory: Yes: Regular, CTA Bilaterally. No: Rales, Rhonchi, Wheezes Gastrointestinal: Yes: Normal Bowel Sounds, Soft. No: Distention, Tenderness Extremities: Yes: WNL Edema: No Labs: CBC, BMP 05/01/17 06:10 05/01/17 06:10 Discharge Summary Reason For Visit: HYPONATREMIA Current Active Problems Depression (Acute) Hyponatremia (Acute) Urinary retention (Acute) Hospital Course: (1) Hyponatremia Code(s): E87.1 - HYPO-OSMOLALITY AND HYPONATREMIA (2) Hematuria Code(s): R31.9 - HEMATURIA, UNSPECIFIED (3) Diabetes mellitus Code(s): E11.9 - TYPE 2 DIABETES MELLITUS WITHOUT COMPLICATIONS Qualifiers: Diabetes mellitus type: type 1 Diabetes mellitus complication status: with hyperglycemia Qualified Code(s): E10.65 - Type 1 diabetes mellitus with hyperglycemia (4) HTN (hypertension) Code(s): I10 - ESSENTIAL (PRIMARY) HYPERTENSION (5) Hypothyroidism Code(s): E03.9 - HYPOTHYROIDISM, UNSPECIFIED (6) Depression Code(s): F32.9 - MAJOR DEPRESSIVE DISORDER, SINGLE EPISODE, UNSPECIFIED Ms Vu is a veyr pleasant 71 year old female who came in with concern for hematuria and was found to be hyponatremic. She was admitted to the hospital. No evidence of hematuria was seen while she was here. She was seen by nephrology and continued on her salt tablets and placed on a fluid restriction. She was seen for depression by psychiatry, no adjustment of her medications were performed here. She was seen by neurology for concern for Parkinsons disease, contined work up as an outpatient. Currently her sodium is stable and she is safe for discharge home with follow up. 35 minutes spent in preparation of this discharge Condition: Fair - Instructions Diet, Activity, Other Instructions: 1L fluid restriction. Otherwise resume previous diet and activity Referrals: Austen Degroot MD [Staff Physician] - Mary Alice Carlson MD [Primary Care Provider] - Disposition: VNS/HOME HEALTH CARE - Home Medications Comprehensive Discharge Medication List: Ambulatory Orders Aspirin [ASA -] 81 mg PO DAILY 05/02/16 Buspirone HCl [Buspar -] 5 mg PO BID 05/02/16 Escitalopram Oxalate [Lexapro -] 10 mg PO DAILY 05/02/16 Gabapentin 600 mg PO TID 05/02/16 Glimepiride [Amaryl -] 4 mg PO BID 05/02/16 Hydrocodone/Acetaminophen [[place] 7.5-325 Tablet] 1 each PO BID PRN 05/02/16 Insulin Aspart [Novolog] 0 unit SQ ACHS PRN 05/02/16 [place]-3 Acid Ethyl Esters 1 gm PO TID 05/02/16 Omeprazole 20 mg PO DAILY 05/02/16 Sitagliptin Phosphate [Januvia] 100 mg PO DAILY 05/02/16 Trazodone HCl 200 mg PO HS 05/02/16 Insulin Glargine,Hum.rec.anlog [Lantus (10mL VIAL) -] 25 units SQ BID #10 ml Sodium Chloride Tablet - 1 gm PO BID #60 tablet 04/20/17 Levothyroxine Sodium [Levo-T] 50 mcg PO DAILY 04/28/17 Metoprolol Succinate [Toprol XL -] 25 mg PO BID #60 tab.sr 05/01/17
[2017-05-01 15:40] VITALS: BP 144/64; PULSE 86
--- NOTE | 2017-05-01 16:50 | EKG ---
Test Reason : Blood Pressure : / mmHG Vent. Rate : 090 BPM Atrial Rate : 090 BPM P-R Int : 194 ms QRS Dur : 080 ms QT Int : 386 ms P-R-T Axes : 062 013 039 degrees QTc Int : 472 ms NORMAL SINUS RHYTHM NORMAL ECG WHEN COMPARED WITH ECG OF 16-APR-2017 22:54, NO SIGNIFICANT CHANGE WAS FOUND Confirmed by AMILCAR ESQUEDA MD ([id number]) on 05/01/2017 4:50:12 PM Referred By: Confirmed By:AMILCAR ESQUEDA MD
== END 2017-05-01 16:57 | disposition home health service (06) | DRG 641 ==
LOC: JER 14:46 → JERBED 16:48 → UNDOADMIN 16:54 → JERBED 16:54 → J5S 19:39
PROVIDERS: ADMIT Internal Medicine; ATTEND Internal Medicine
DX: E87.1 Hypo-osmolality and hyponatremia (principal); R33.9 Retention of urine, unspecified; R31.9 Hematuria, unspecified; E11.9 Type 2 diabetes mellitus without complications; Z79.4 Long term (current) use of insulin; E03.9 Hypothyroidism, unspecified; J45.909 Unspecified asthma, uncomplicated; I69.398 Other sequelae of cerebral infarction; I10 Essential (primary) hypertension; F03.90 Unspecified dementia, unspecified severity, without behavioral disturbance, psychotic disturbance, mood disturbance, and anxiety; F32.9 Major depressive disorder, single episode, unspecified; E78.00 Pure hypercholesterolemia, unspecified; G89.29 Other chronic pain; M54.5 Low back pain; K21.9 Gastro-esophageal reflux disease without esophagitis; E86.1 Hypovolemia
CPT/HCPCS: 36415; 71010-TC; 76775-TC; 80048; 80053; 81003; 81015; 82436; 82553; 82570; 83735; 83880; 83930; 83935; 84100; 84133; 84156; 84295; 84300; 84484; 84540; 85025; 87086; 93005; 93010; 99283-25

== ENCOUNTER 2017-05-12 15:04 | Emergency (ER) | payer OTHER ==
[2017-05-12 15:14] VITALS: BP 139/89; PULSE 91; TEMP 98.4; BMI 26.1
--- NOTE | 2017-05-12 15:32 | PDOC ---
History of Present Illness - General History Source: Patient, Family - History of Present Illness Initial Comments: 05/12/17 15:53 The patient is a 71 year old female, with a significant past medical history of diabetes mellitus, hypertension, hypothyroidism, hyponatremia, asthma, CVA, and dementia who presents to the emergency department complaining of diarrhea beginning last night. The patients daughter is present and helping to communicate for the patient. She reports the patient had one episode of non bloody diarrhea last night and was noted to be more confused than her baseline. She reports associated symptoms of left lower quadrant abdominal pain. She denies recent nausea or vomit. She denies recent fevers, chills, headache or dizziness. She denies recent chest pain or shortness of breath. Allergies: NKA <Luis A Prado - Last Filed: 05/12/17 16:00> <Aba Cai - Last Filed: 05/12/17 18:56> - General Chief Complaint: Diarrhea Stated Complaint: DIARRHEA Time Seen by Provider: 05/12/17 15:31 Past History <Luis A Prado - Last Filed: 05/12/17 16:00> - Past Medical History Anemia: No Asthma: Yes Cancer: No Cardiac Disorders: No CVA: Yes (2013,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") COPD: No CHF: No Dementia: Yes Diabetes: Yes GI Disorders: No Disorders: No HTN: Yes Hypercholesterolemia: No Liver Disease: No Psychiatric Problems: Yes (dementia, depression) Suicide Attempt (Hx): No Seizures: No Thyroid Disease: Yes - Surgical History Abdominal Surgery: No Appendectomy: No Cardiac Surgery: No Cholecystectomy: No Lung Surgery: No Neurologic Surgery: No Orthopedic Surgery: Yes ("BACK SURGERY" STATED BY PT) - Reproductive History Therapeutic (s) & number: No - Psycho/Social/Smoking Cessation Hx Anxiety: No Suicidal Ideation: No Smoking Status: No Smoking History: Never smoked Have you smoked in the past 12 months: No Number of Cigarettes Smoked Daily: 0 Hx Alcohol Use: No Drug/Substance Use Hx: No Substance Use Type: None Hx Substance Use Treatment: No <Aba Cai - Last Filed: 05/12/17 18:56> - Past Medical History Allergies/Adverse Reactions: Allergies Allergy/AdvReac Type Severity Reaction Status Date / Time No Known Drug Allergies Allergy Verified 05/12/17 15:14 Home Medications: Ambulatory Orders Aspirin [ASA -] 81 mg PO DAILY 05/02/16 Buspirone HCl [Buspar -] 5 mg PO BID 05/02/16 Escitalopram Oxalate [Lexapro -] 10 mg PO DAILY 05/02/16 Gabapentin 600 mg PO TID 05/02/16 Glimepiride [Amaryl -] 4 mg PO BID 05/02/16 Hydrocodone/Acetaminophen [[place] 7.5-325 Tablet] 1 each PO BID PRN 05/02/16 Insulin Aspart [Novolog] 0 unit SQ ACHS PRN 05/02/16 [place]-3 Acid Ethyl Esters 1 gm PO TID 05/02/16 Omeprazole 20 mg PO DAILY 05/02/16 Trazodone HCl 200 mg PO HS 05/02/16 Insulin Glargine,Hum.rec.anlog [Lantus (10mL VIAL) -] 25 units SQ BID #10 ml Sodium Chloride Tablet - 1 gm PO BID #60 tablet 04/20/17 Levothyroxine Sodium [Levo-T] 50 mcg PO DAILY 04/28/17 Metoprolol Succinate [Toprol XL -] 25 mg PO BID #60 tab.sr 05/01/17 Review of Systems - Review of Systems Comments:: 05/12/17 15:54 GENERAL/CONSTITUTIONAL: No fever or chills. No weakness. HEAD, EYES, EARS, NOSE AND THROAT: No change in vision. No ear pain or discharge. No sore throat. CARDIOVASCULAR: No chest pain or shortness of breath. RESPIRATORY: No cough, wheezing, or hemoptysis. GASTROINTESTINAL: +Left lower quadrant abdominal pain.+Diarrhea. No nausea, vomiting. GENITOURINARY: No dysuria, frequency, or change in urination. MUSCULOSKELETAL: No joint or muscle swelling or pain. No neck or back pain. SKIN: No rash NEUROLOGIC: No headache, vertigo, loss of consciousness, or change in strength/ sensation. ENDOCRINE: No increased thirst. No abnormal weight change. HEMATOLOGIC/LYMPHATIC: No anemia, easy bleeding, or history of blood clots. ALLERGIC/IMMUNOLOGIC: No hives or skin allergy. <Luis A Prado - Last Filed: 05/12/17 16:00> *Physical Exam - Vital Signs Last Vital Signs Temp Pulse Resp BP Pulse Ox 98.4 F 91 H 20 139/89 96 05/12/17 15:11 05/12/17 15:11 05/12/17 15:11 05/12/17 15:11 05/12/17 15:11 - Physical Exam Comments: 05/12/17 15:55 GENERAL: Awake, alert, and oriented, in no acute distress HEAD: No signs of trauma EYES: PERRLA, EOMI, sclera anicteric, conjunctiva clear ENT: Auricles normal inspection, hearing grossly normal, nares patent, oropharynx clear without exudates. Moist mucosa NECK: Normal ROM, supple, no lymphadenopathy, JVD, or masses LUNGS: Breath sounds equal, clear to auscultation bilaterally. No wheezes, and no crackles HEART: Regular rate and rhythm, normal S1 and S2, no murmurs, rubs or gallops ABDOMEN: +Left lower quadrant abdominal tenderness. Soft, normoactive bowel sounds. No guarding, no rebound. No masses EXTREMITIES: Normal range of motion, no edema. No clubbing or cyanosis. No cords, erythema, or tenderness NEUROLOGICAL: Cranial nerves II through XII grossly intact. Normal speech. SKIN: Warm, Dry, normal turgor, no rashes or lesions noted. <Luis A Prado - Last Filed: 05/12/17 16:00> - Vital Signs Last Vital Signs Temp Pulse Resp BP Pulse Ox 98.4 F 91 H 20 139/89 96 05/12/17 15:11 05/12/17 15:11 05/12/17 15:11 05/12/17 15:11 05/12/17 15:11 <Aba Cai - Last Filed: 05/12/17 18:56> ED Treatment Course - LABORATORY CBC & Chemistry Diagram: 05/12/17 16:00 05/12/17 16:00 <Aba Cai - Last Filed: 05/12/17 18:56> *DC/Admit/Observation/Transfer - Attestations Scribe Attestion: 05/12/17 15:58 Documentation prepared by Luis A Prado, acting as medical safety director for Aba Cai DO. <Luis A Prado - Last Filed: 05/12/17 16:00> - Discharge Dispostion Admit: No - Attestations Physician Attestion: 05/12/17 15:31 I, Dr. Aba Cai, attest that this document has been prepared under my direction and personally reviewed by me in its entirety. I further attest, that it accurately reflects all work, treatment, procedures and medical decision -making performed by me. <Aba Cai - Last Filed: 05/12/17 18:56> Diagnosis at time of Disposition: Gastroenteritis, Diarrhea in adult patient, Chronic hyponatremia - Discharge Dispostion Disposition: HOME Condition at time of disposition: Unchanged/Unknown - Patient Instructions Printed Discharge Instructions: DI for Diarrhea and Traveler's Diarrhea -- Adult Additional Instructions: All of Mrs Vu's tests are normal.... Let the diarrhea run it's course. Follow up with her doctor tomorrow. Return to us if worse or new symptoms occur. Best- Dr. Aba Cai
[2017-05-12] MEDS ORDERED: SODIUM CHLORIDE 1,000 ML IV STA (15:46)
[2017-05-12 16:16] LABS: BASOPHIL 0.5 % (0-2.0); EOSINOPHIL 1.6 % (0-4.5); MCH 30.6 pg (25.7-33.7); MCHC 34.1 g/dl (32.0-36.0); MEAN CELL VOLUME 89.8 fl (80-96); MEAN PLT VOLUME 9.7 fl (7.5-11.1); NEUTROPHILS 75.9 % (42.8-82.8); PLATELET COUNT 172 K/MM3 (134-434); RDW 14.2 % (11.6-15.6); WHITE BLOOD COUNT 8.4 K/mm3 (4.0-10.0)
[2017-05-12 16:37] LABS: URINE APPEARANCE CLEAR; URINE BILIRUBIN NEGATIVE (NEGATIVE); URINE BLOOD NEGATIVE (NEGATIVE); URINE COLOR STRAW; URINE GLUCOSE (UA) 2+ (NEGATIVE); URINE KETONE NEGATIVE (NEGATIVE); URINE LEUK ESTERASE TRACE (NEGATIVE); URINE NITRITE NEGATIVE (NEGATIVE); URINE PROTEIN NEGATIVE (NEGATIVE); URINE UROBILINOGEN NEGATIVE mg/dL (0.2-1.0)
[2017-05-12 16:38] LABS: URINE RBC <1 /hpf (0-3); URINE WBC 1 /hpf (3-5)
[2017-05-12 16:38] LABS: INR 1.17 (0.82-1.09); PROTHROMBIN TIME (PATIENT) 12.9 SEC (9.98-11.88)
[2017-05-12 16:43] LABS: ALBUMIN 4.1 g/dl (3.4-5.0); ANION GAP 8 (8-16); BILIRUBIN,TOTAL 0.5 mg/dL (0.2-1.0); CALCIUM 9.5 mg/dL (8.5-10.1); CO2 26 mmol/L (21-32); CREATININE 0.8 mg/dL (0.55-1.02); GLUCOSE,RANDOM 208 mg/dL (74-106); SGOT/AST 29 U/L (15-37); SGPT/ALT 34 U/L (12-78); TOT PROT 7.4 g/dl (6.4-8.2)
[2017-05-12 16:44] LABS: ALK PHOS 78 U/L (45-117)
== END 2017-05-12 19:33 | disposition home or self-care (01) ==
LOC: JER 15:04
PROC: 3E0337Z Introduction of Electrolytic and Water Balance Substance into Peripheral Vein, Percutaneous Approach (ICD-10-PCS; principal; 2017-05-12)
DX: K52.9 Noninfective gastroenteritis and colitis, unspecified (principal); E87.1 Hypo-osmolality and hyponatremia; I10 Essential (primary) hypertension; E03.9 Hypothyroidism, unspecified; E11.9 Type 2 diabetes mellitus without complications; J45.909 Unspecified asthma, uncomplicated; Z86.73 Personal history of transient ischemic attack (TIA), and cerebral infarction without residual deficits
CPT/HCPCS: 36415; 74177-TC; 80053; 81003; 81015; 83690; 85025; 85610; 87086; 99282-25

== ENCOUNTER 2017-05-22 08:43 | Inpatient (IN) | payer OTHER ==
--- NOTE | 2017-05-22 09:18 | PDOC ---
History of Present Illness - General History Source: Patient, Family (daughter ) Exam Limitations: No Limitations - History of Present Illness Initial Comments: 05/22/17 09:55 The patient is a 71 year old female with significant past medical history of chronic hyponatremia, hypertension, hyperlipidemia, diabetes, peripheral neuropathy, CVA, chronic lower back pain, s/p multiple spinal surgeries, asthma and UTIs who presents to the ED for less than 24 hours of a diffuse headache. Patient describes her headache as crunching sensation that is worse on the left side and radiates down the left side of the neck. She denies photophobia, dizziness, or changes in vision. Denies falling or head trauma. Daughter, at bedside, reports patient contacted her last night complaining of a headache and informed her that she was unable to sleep throughout the night due to her severe headache. Daughter also reports patient taking 4 excedrin and 2 tylenol throughout the night for her headache without any improvement. Patient also has complaints of dysuria, left flank pain and suprapubic pain for the past 3 days. Denies hematuria, urgency, or frequency. She also reports some nausea and diarrhea, but denies any vomiting. Daughter states patient has a history of chronic hyponatremia and UTIs, which she has been admitted for in the past. She is currently no longer on NaCl tabs since her last discharge. The patient denies fever, chills, diaphoresis, cough, SOB, chest pain, and palpitations. Allergies: NKDA Social History: Lives at home alone. No alcohol, tobacco, or drug use reported. Past Surgical History: s/p multiple spinal surgeries, hysterectomy PCP: Dr. Yokasta Loving <Violet Arroyo - Last Filed: 05/22/17 12:17> <Nithya Mckeon - Last Filed: 05/22/17 12:28> - General Chief Complaint: Headache Stated Complaint: HEADACHES Time Seen by Provider: 05/22/17 09:17 Past History <Violet Arroyo - Last Filed: 05/22/17 12:17> - Past Medical History Anemia: No Asthma: Yes Cancer: No Cardiac Disorders: No CVA: Yes (2013,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") COPD: No CHF: No Dementia: No Diabetes: Yes GI Disorders: No Disorders: No HTN: Yes Hypercholesterolemia: Yes Liver Disease: No Psychiatric Problems: Yes (dementia, depression) Suicide Attempt (Hx): No Seizures: Yes Thyroid Disease: Yes - Surgical History Abdominal Surgery: No Appendectomy: No Cardiac Surgery: No Cholecystectomy: No Lung Surgery: No Neurologic Surgery: No Orthopedic Surgery: Yes ("BACK SURGERY" STATED BY PT) - Reproductive History Therapeutic (s) & number: No - Psycho/Social/Smoking Cessation Hx Anxiety: No Suicidal Ideation: No Smoking Status: No Smoking History: Never smoked Have you smoked in the past 12 months: No Number of Cigarettes Smoked Daily: 0 Information on smoking cessation initiated: No Hx Alcohol Use: No Drug/Substance Use Hx: No Substance Use Type: None Hx Substance Use Treatment: No <Nithya Mckeon - Last Filed: 05/22/17 12:28> - Past Medical History Allergies/Adverse Reactions: Allergies Allergy/AdvReac Type Severity Reaction Status Date / Time No Known Drug Allergies Allergy Verified 05/22/17 08:51 Home Medications: Ambulatory Orders Aspirin [ASA -] 81 mg PO DAILY 05/02/16 Buspirone HCl [Buspar -] 5 mg PO BID 05/02/16 Escitalopram Oxalate [Lexapro -] 10 mg PO DAILY 05/02/16 Gabapentin 600 mg PO TID 05/02/16 Glimepiride [Amaryl -] 4 mg PO BID 05/02/16 Hydrocodone/Acetaminophen [[place] 7.5-325 Tablet] 1 each PO BID PRN 05/02/16 Insulin Aspart [Novolog] 0 unit SQ ACHS PRN 05/02/16 [place]-3 Acid Ethyl Esters 1 gm PO TID 05/02/16 Omeprazole 20 mg PO DAILY 05/02/16 Trazodone HCl 200 mg PO HS 05/02/16 Insulin Glargine,Hum.rec.anlog [Lantus (10mL VIAL) -] 25 units SQ BID #10 ml Sodium Chloride Tablet - 1 gm PO BID #60 tablet 04/20/17 Levothyroxine Sodium [Levo-T] 50 mcg PO DAILY 04/28/17 Metoprolol Succinate [Toprol XL -] 25 mg PO BID #60 tab.sr 05/01/17 Review of Systems - Review of Systems Able to Perform ROS?: Yes Comments:: 05/22/17 09:55 GENERAL/CONSTITUTIONAL: No fever or chills. No weakness. HEAD, EYES, EARS, NOSE AND THROAT: No change in vision. No ear pain or discharge. No sore throat. CARDIOVASCULAR: No chest pain or shortness of breath. RESPIRATORY: No cough, wheezing, or hemoptysis. GASTROINTESTINAL: +suprapubic pain, nausea, diarrhea No vomiting or constipation. GENITOURINARY: +left flank pain, dysuria No frequency or change in urination. MUSCULOSKELETAL: +left sided neck pain No joint or muscle swelling or pain. No back pain. SKIN: No rash NEUROLOGIC: +diffuse headache No vertigo, loss of consciousness, or change in strength/sensation. ENDOCRINE: No increased thirst. No abnormal weight change. HEMATOLOGIC/LYMPHATIC: No anemia, easy bleeding, or history of blood clots. ALLERGIC/IMMUNOLOGIC: No hives or skin allergy. <DinaViolet - Last Filed: 05/22/17 12:17> *Physical Exam - Vital Signs Last Vital Signs Temp Pulse Resp BP Pulse Ox 98.9 F 94 H 18 127/84 99 05/22/17 08:45 05/22/17 08:45 05/22/17 08:45 05/22/17 08:45 05/22/17 08:45 - Physical Exam Comments: 05/22/17 09:56 GENERAL: Awake, alert, and fully oriented, in no acute distress HEAD: No signs of trauma EYES: PERRLA, EOMI, sclera anicteric, conjunctiva clear ENT: Auricles normal inspection, hearing grossly normal, nares patent, oropharynx clear without exudates. Moist mucosa NECK: Normal ROM, supple, no lymphadenopathy, JVD, or masses, no meningeal signs LUNGS: Breath sounds equal, clear to auscultation bilaterally. No wheezes, and no crackles HEART: Regular rate and rhythm, normal S1 and S2, no murmurs, rubs or gallops ABDOMEN: Soft, nontender, normoactive bowel sounds. No guarding, no rebound. No masses MUSCULOSKELETAL: Left CVA tenderness EXTREMITIES: Normal range of motion, no edema. No clubbing or cyanosis. No cords, erythema, or tenderness NEUROLOGICAL: Alert, awake, appropriate. Cranial nerves 2-12 intact. No deficits to light touch and temperature in face, upper extremities and lower extremities. No motor deficits in the in face, upper extremities and lower extremities. Normoreflexic in the upper and lower extremities. Normal speech. SKIN: Warm, Dry, normal turgor, no rashes or lesions noted. <DinaViolet - Last Filed: 05/22/17 12:17> - Vital Signs Last Vital Signs Temp Pulse Resp BP Pulse Ox 98.9 F 94 H 18 127/84 99 05/22/17 08:45 05/22/17 08:45 05/22/17 08:45 05/22/17 08:45 05/22/17 08:45 <Nithya Mckeon - Last Filed: 05/22/17 12:28> Heart Score/ECG Review - ECG Intrepretation Comment:: 05/22/17 10:24 sinus at 81, nl axis, nl interval, mild lvh, no acute st/t wave findings, qtc 473 <Nithya Mckeon - Last Filed: 05/22/17 12:28> ED Treatment Course - LABORATORY CBC & Chemistry Diagram: 05/22/17 10:36 05/22/17 10:21 - RADIOLOGY Radiograph Interpretation: 05/22/17 11:22 CT/HEAD CT WITHOUT CONTRAST Radiologist's Impression: Findings. Serial axial images of the brain were obtained from foramen magnum to the cranial vertex without intravenous contrast. The CSF spaces are age-appropriate. There is no evidence of acute subarachnoid hemorrhage, acute intra-axial or extra-axial fluid collection consistent with subdural or epidural hematoma. No mass effect, midline shift, acute ischemic changes, herniation or edema is present. Normal qureshi matter white matter differentiation. The cortical sulci, sylvian fissures, perimesencephalic cisterns are not effaced. Examination of the bone windows show no fracture. The visualized paranasal sinuses and mastoid air cells are clear. Thickened calvarium with hyperostosis frontalis interna. Stable appearance of dural based calcification in the right anterior middle cranial fossa along the greater wing of sphenoid sinus may represent a small meningioma. Impression. No evidence of acute intracranial hemorrhage, edema, midline shift, mass effect, or skull fracture. No CT evidence of acute territorial infarction. <Violet Arroyo - Last Filed: 05/22/17 12:17> - LABORATORY CBC & Chemistry Diagram: 05/22/17 10:36 05/22/17 10:21 <Nithya Mckeon - Last Filed: 05/22/17 12:28> Medical Decision Making - Medical Decision Making 05/22/17 11:[address] Gladys Tinoco (via office) Awaiting call back 05/22/17 12:10 Second call placed to Dr. Tinoco (via office) and patient's case was discussed. 05/22/17 12:[address] Austen Degroot Awaiting call back 05/22/17 12:18 Patient's case discussed with Dr. Degroot <Violet Arroyo - Last Filed: 05/22/17 12:17> - Medical Decision Making 05/22/17 10:20 a/p: 71yo female with hx of hyponatremia, noncompliance, now with urinary freq/ dysuria/naqvi -CT head given age and lack of improvement of OTC meds -no meningeal signs and pt is nontoxic in appearance -no ttp over temporal artery -will check labs - hx of hyponatremia and not taking salt tabs -hx of UTI and now with dysuria x 3 days - will check UA and Ucx -iv meds for NAQVI. -ekg -reassess -pt will most likely need admission, but will currently monitor on tele 05/22/17 12:[address] Tinoco who accepts pt to service. Pt with sodium of 119. Requests neuro and seizure precautions. Requests q4 hour bmp. requests nephro Dr. Degroot 05/22/17 12:15 pt will be admitted to tele 05/22/17 12:[address] Degroot who will see the patient in consult <Nithya Mckeon - Last Filed: 05/22/17 12:28> *DC/Admit/Observation/Transfer - Attestations Scribe Attestion: 05/22/17 09:56 Documentation prepared by Violet Arroyo, acting as medical technician for Nithya Mckeon DO, MD/. <Violet Arroyo - Last Filed: 05/22/17 12:17> - Discharge Dispostion Admit: Yes - Attestations Physician Attestion: 05/22/17 10:20 I, Dr. Nithya Kurkowski, DO, attest that this document has been prepared under my direction and personally reviewed by me in its entirety. I further attest, that it accurately reflects all work, treatment, procedures and medical decision -making performed by me. <Nithya Mckeon - Last Filed: 05/22/17 12:28> Diagnosis at time of Disposition: Hyponatremia syndrome - Discharge Dispostion Condition at time of disposition: Guarded - Referrals Referrals: Yokasta Loving [Primary Care Provider] -
[2017-05-22] MEDS ORDERED: ACETAMINOPHEN 325 MG TABLET (FP) PO ONE (09:34)
[2017-05-22] MEDS ORDERED: METOCLOPRAMIDE HCL INJECTION 10 MG/2 ML VIAL IVPB ONE (09:37)
[2017-05-22] MEDS ORDERED: diphenhydrAMINE HCL 25 MG CAPSULE (FP) PO ONE ×2 (09:37→10:09)
[2017-05-22] MEDS ORDERED: ACETAMINOPHEN 325 MG TABLET (FP) ONE (09:37)
[2017-05-22] MEDS ORDERED: METOCLOPRAMIDE HCL INJECTION 10 MG/2 ML VIAL ONE (10:08)
[2017-05-22 10:58] LABS: URINE APPEARANCE CLEAR; URINE BILIRUBIN NEGATIVE (NEGATIVE); URINE BLOOD NEGATIVE (NEGATIVE); URINE COLOR STRAW; URINE GLUCOSE (UA) 3+ (NEGATIVE); URINE KETONE NEGATIVE (NEGATIVE); URINE LEUK ESTERASE NEGATIVE (NEGATIVE); URINE NITRITE NEGATIVE (NEGATIVE); URINE PROTEIN NEGATIVE (NEGATIVE); URINE UROBILINOGEN NEGATIVE mg/dL (0.2-1.0)
[2017-05-22 10:59] LABS: BASOPHIL 0.4 % (0-2.0); EOSINOPHIL 2.4 % (0-4.5); MCH 29.8 pg (25.7-33.7); MCHC 34.1 g/dl (32.0-36.0); MEAN CELL VOLUME 87.4 fl (80-96); MEAN PLT VOLUME 9.8 fl (7.5-11.1); NEUTROPHILS 74.8 % (42.8-82.8); PLATELET COUNT 176 K/MM3 (134-434); RDW 14.3 % (11.6-15.6); WHITE BLOOD COUNT 7.3 K/mm3 (4.0-10.0)
[2017-05-22] MEDS ORDERED: MAGNESIUM SULF 50% (8.12 MEQ/2 ML-1 GM VIAL) IVPB ONE (11:18)
[2017-05-22] MEDS ORDERED: GABAPENTIN 300 MG CAPSULE (FP) PO ONE (11:23)
[2017-05-22] MEDS ORDERED: busPIRone HCL 5 MG TABLET PO ONE (11:23)
[2017-05-22 11:25] LABS: ALBUMIN 4.2 g/dl (3.4-5.0); ANION GAP 10 (8-16); BILIRUBIN,TOTAL 0.7 mg/dL (0.2-1.0); CALCIUM 9.3 mg/dL (8.5-10.1); CO2 28 mmol/L (21-32); CREATININE 0.7 mg/dL (0.55-1.02); GLUCOSE,RANDOM 263 mg/dL (74-106); SGOT/AST 21 U/L (15-37); SGPT/ALT 40 U/L (12-78); TOT PROT 7.7 g/dl (6.4-8.2)
[2017-05-22 11:26] LABS: ALK PHOS 88 U/L (45-117)
[2017-05-22] MEDS ORDERED: MAGNESIUM SULF 50% (8.12 MEQ/2 ML-1 GM VIAL) ONE (11:29)
[2017-05-22] MEDS ORDERED: GABAPENTIN 100 MG CAPSULE (FP) ONE (11:30)
[2017-05-22] MEDS ORDERED: busPIRone HCL 5 MG TABLET ONE (11:30)
[2017-05-22] MEDS ORDERED: SODIUM CHLORIDE 0.9% 1000 ML INFUS.BAG IV ONE (11:37)
[2017-05-22] MEDS ORDERED: KETOROLAC TROMETHAMINE 15 MG/ML VIAL IVPUSH ONE (13:04)
[2017-05-22] MEDS ORDERED: KETOROLAC TROMETHAMINE 15 MG/ML VIAL ONE (14:22)
--- NOTE | 2017-05-22 14:57 | EKG ---
Test Reason : Blood Pressure : / mmHG Vent. Rate : 081 BPM Atrial Rate : 081 BPM P-R Int : 166 ms QRS Dur : 080 ms QT Int : 408 ms P-R-T Axes : 055 -01 038 degrees QTc Int : 473 ms NORMAL SINUS RHYTHM NORMAL ECG WHEN COMPARED WITH ECG OF 28-APR-2017 16:15, NO SIGNIFICANT CHANGE WAS FOUND Confirmed by MARV VIDAL MD ([id number]) on 05/22/2017 2:57:05 PM Referred By: Confirmed By:MARV VIDAL MD
[2017-05-22] MEDS ORDERED: DOCUSATE SODIUM 100 MG CAPSULE (FP) PO PRN (15:09)
[2017-05-22] MEDS ORDERED: ACETAMINOPHEN 325 MG TABLET (FP) PO PRN (15:09)
[2017-05-22 15:19] VITALS: BMI 12.0
--- NOTE | 2017-05-22 15:31 | CON.NEP ---
Consult Consult Specialty:: Nephrology (Oscar/Zane) Referred by:: Dr. Alford Reason for Consultation:: Hyponatremia - History of Present Illness Chief Complaint: Headaches History of Present Illness: This is a 71 year old woman that is known to our service with PMhx of Hypnatremia, Depression, Hypertension, DM, Peripheal Neuropathy, Chronic Lower back pain, Asthma, UTI's presented with complaints of headaches and found to have serum na of 119. Pt was seen by our service on a prior admission for hypantremia that resolved with isotonic saline and salt tabs. Pt was discharged on salt tabs but stopped taking it a because she was having headaches. Daughter who is at the bedside reports that she has been eatting poorly. Denies excessive water intake. No N/V, confusion, seizures, lethargy or weakness. - History Source History Provided By: Patient, Family Member Limitations to Obtaining History: No Limitations - Past Medical History [employer]ING [employer]: Yes: CVA, Dementia Cardio/Vascular: Yes: HTN Pulmonary: Yes: Asthma Gastrointestinal: Yes: GERD Renal/: Yes: Other (hyponatremia) Psych: Yes: Depression Endocrine: Yes: Diabetes Mellitus, Hypothyroidism - Alcohol/Substance Use Hx Alcohol Use: No History of Substance Use: reports: None - Smoking History Smoking history: Never smoked Have you smoked in the past 12 months: No Aproximately how many cigarettes per day: 0 - Social History Usual Living Arrangement: Alone ADL: Independent History of Recent Travel: No Home Medications - Allergies Allergies/Adverse Reactions: Allergies Allergy/AdvReac Type Severity Reaction Status Date / Time No Known Drug Allergies Allergy Verified 05/22/17 08:51 - Home Medications Home Medications: Ambulatory Orders Aspirin [ASA -] 81 mg PO DAILY 05/02/16 Buspirone HCl [Buspar -] 5 mg PO BID 05/02/16 Escitalopram Oxalate [Lexapro -] 10 mg PO DAILY 05/02/16 Gabapentin 600 mg PO TID 05/02/16 Glimepiride [Amaryl -] 4 mg PO BID 05/02/16 Hydrocodone/Acetaminophen [[place] 7.5-325 Tablet] 1 each PO BID PRN 05/02/16 Insulin Aspart [Novolog] 0 unit SQ ACHS PRN 05/02/16 [place]-3 Acid Ethyl Esters 1 gm PO TID 05/02/16 Omeprazole 20 mg PO DAILY 05/02/16 Trazodone HCl 200 mg PO HS 05/02/16 Insulin Glargine,Hum.rec.anlog [Lantus (10mL VIAL) -] 25 units SQ BID #10 ml Sodium Chloride Tablet - 1 gm PO BID #60 tablet 04/20/17 Levothyroxine Sodium [Levo-T] 50 mcg PO DAILY 04/28/17 Metoprolol Succinate [Toprol XL -] 25 mg PO BID #60 tab.sr 05/01/17 Family Disease History - Family Disease History Family History: Unremarkable Review of Systems - Review of Systems Constitutional: reports: Loss of Appetite, Malaise Eyes: reports: No Symptoms HENT: reports: No Symptoms Neck: reports: No Symptoms Cardiovascular: reports: No Symptoms Respiratory: reports: No Symptoms Gastrointestinal: reports: No Symptoms Genitourinary: reports: No Symptoms Musculoskeletal: reports: No Symptoms Integumentary: reports: No Symptoms Neurological: reports: Headache Endocrine: reports: No Symptoms Hematology/Lymphatic: reports: No Symptoms Nephrology Consult - Height Height: 5 ft 5 in - Weight Weight: 72 lb 9.2 oz - BMI Body Mass Index (BMI): 12.0 - Lab Results Anion Gap: Anion Gap Anion Gap 10 (8-16) 05/22/17 10:21 - Imaging Cat Scan: Report Reviewed - Physical Examination Vital Signs: Vital Signs Temperature 98.9 F 05/22/17 08:45 Pulse Rate 75 05/22/17 12:18 Respiratory Rate 18 05/22/17 12:18 Blood Pressure 150/78 05/22/17 12:18 O2 Sat by Pulse Oximetry (%) 98 05/22/17 14:32 Constitutional: Yes: Well Nourished, No Distress Eyes: Yes: Conjunctiva Clear HENT: Yes: Atraumatic Neck: Yes: Supple, Trachea Midline Cardiovascular: Yes: Regular Rate and Rhythm Respiratory: Yes: Regular, CTA Bilaterally Gastrointestinal: Yes: Normal Bowel Sounds, Soft, Abdomen, Obese Renal/: No: Bladder Distention Edema: No Neurological: Yes: Alert, Oriented. No: Seizure Problem List - Problems (1) Hyponatremia syndrome Code(s): E87.1 - HYPO-OSMOLALITY AND HYPONATREMIA (2) Depression Code(s): F32.9 - MAJOR DEPRESSIVE DISORDER, SINGLE EPISODE, UNSPECIFIED (3) HTN (hypertension) Code(s): I10 - ESSENTIAL (PRIMARY) HYPERTENSION (4) Headache Code(s): R51 - HEADACHE Assessment/Plan 71 year old woman that is known to our service with PMhx of Hypnatremia, Depression, Hypertension, DM, Peripheal Neuropathy, Chronic Lower back pain, Asthma, UTI's presented with complaints of headaches and found to have serum na of 119. #Acute on Chronic hyponatremia Etiology likely SIADH given urien Na > 20 Check serum OSM, Urine OSM Repeat TSH and Cortisol levels currently getting IVF, will repeat Na levels this evening to monitor trend start salt tabs BID Goal rate of correction is ~8 in 24 hours fluid restriction of 1L daily #Headaches CT head negative ? relate to hyponatremia (pt was getting NAQVI when still taking salt tabs so unclear) Consider neurology evaluation Pain control supportive care #Hypertension Continue metorprolol #Depression continue Lexapro, Buspar seen by psych last admission, no changes made Thank you Will follow Austen Degroot DO Current Medications Acetaminophen (Tylenol -) 650 mg PO Q6H PRN PRN Reason: FEVER OR PAIN Aspirin (Ecotrin -) 81 mg PO DAILY [facility] Buspirone HCl (Buspar -) 5 mg PO BID [facility] Docusate Sodium (Colace -) 100 mg PO BID PRN PRN Reason: CONSTIPATION Escitalopram Oxalate (Lexapro -) 10 mg PO DAILY [facility] Gabapentin (Neurontin -) 600 mg PO BID [facility] Glimepiride (Amaryl -) 4 mg PO DAILY@0700 [facility] Insulin Aspart (Novolog Vial Sliding Scale -) 1 vial SQ ACHS [facility] PRN Reason: Protocol Insulin Detemir (Levemir Vial) 25 units SQ HS [facility] Levothyroxine Sodium (Synthroid -) 50 mcg PO DAILY@0700 [facility] Metoprolol Succinate (Toprol Xl -) 25 mg PO BID [facility] Oxycodone HCl (Roxicodone -) 5 mg PO Q6H PRN PRN Reason: PAIN Pantoprazole Sodium (Protonix -) 40 mg PO DAILY [facility] Trazodone HCl (Desyrel -) 200 mg PO HS [facility]
[2017-05-22] MEDS: SODIUM CHLORIDE 1 GM TABLET PO SCH ×2 (17:29→21:36)
[2017-05-22] MEDS: INSULIN SLIDING SCALE (NOVOLOG) 1 VIAL SQ SCH ×2 (18:19→21:36)
[2017-05-22 18:52] LABS: ANION GAP 10 (8-16); CALCIUM 8.9 mg/dL (8.5-10.1); CO2 27 mmol/L (21-32); CREATININE 0.6 mg/dL (0.55-1.02); GLUCOSE,RANDOM 195 mg/dL (74-106)
[2017-05-22] MEDS: traZODone HCL 100 MG TABLET (FP) PO SCH (21:34)
[2017-05-22] MEDS: busPIRone HCL 5 MG TABLET PO SCH (21:35)
[2017-05-22] MEDS: oxyCODONE HCL 5 MG TABLET PO PRN (21:35)
[2017-05-22] MEDS: INSULIN DETEMIR 100 UNITS/ML MDV SQ SCH (21:35)
[2017-05-22] MEDS: METOPROLOL SUCCINATE 25 MG TAB.SR.24H (FP) PO SCH (21:35)
[2017-05-22] MEDS: GABAPENTIN 300 MG CAPSULE (FP) PO SCH (21:36)
[2017-05-23] MEDS: GLIMEPIRIDE 4 MG TABLET (FP) PO SCH (06:20)
[2017-05-23] MEDS: INSULIN SLIDING SCALE (NOVOLOG) 1 VIAL SQ SCH ×4 (06:21→22:34)
[2017-05-23] MEDS: LEVOTHYROXINE NA 50 MCG TABLET (FP) PO SCH (06:22)
[2017-05-23 08:14] LABS: MCH 30.3 pg (25.7-33.7); MCHC 34.8 g/dl (32.0-36.0); MEAN CELL VOLUME 87.1 fl (80-96); MEAN PLT VOLUME 9.5 fl (7.5-11.1); PLATELET COUNT 140 K/MM3 (134-434); RDW 14.4 % (11.6-15.6); WHITE BLOOD COUNT 5.6 K/mm3 (4.0-10.0)
[2017-05-23 09:00] LABS: ANION GAP 11 (8-16); CALCIUM 8.9 mg/dL (8.5-10.1); CO2 25 mmol/L (21-32); CREATININE 0.8 mg/dL (0.55-1.02); GLUCOSE,RANDOM 237 mg/dL (74-106)
[2017-05-23 09:45] LABS: CHOLESTEROL 112 mg/dL (50-200)
[2017-05-23] MEDS ORDERED: ESCITALOPRAM OXALATE 10 MG TABLET (FP) PO SCH (10:00)
--- NOTE | 2017-05-23 10:04 | HP ---
Admitting History and Physical - Primary Care Physician PCP: Gladys Tinoco - Admission Chief Complaint: HEADACHE/ACUTE HYPONATREMIA History of Present Illness: The patient is a 71 year old female with significant past medical history of chronic hyponatremia, hypertension, hyperlipidemia, diabetes, peripheral neuropathy, CVA, chronic lower back pain, s/p multiple spinal surgeries, asthma and UTIs who presents to the ED for less than 24 hours of a diffuse headache. Patient describes her headache as crunching sensation that is worse on the left side and radiates down the left side of the neck. She denies photophobia, dizziness, or changes in vision. Denies falling or head trauma. Daughter, at bedside, reports patient contacted her last night complaining of a headache and informed her that she was unable to sleep throughout the night due to her severe headache. Daughter also reports patient taking 4 excedrin and 2 tylenol throughout the night for her headache without any improvement. Patient also has complaints of dysuria, left flank pain and suprapubic pain for the past 3 days. Denies hematuria, urgency, or frequency. She also reports some nausea and diarrhea, but denies any vomiting. Daughter states patient has a history of chronic hyponatremia and UTIs, which she has been admitted for in the past. She is currently no longer on NaCl tabs since her last discharge. The patient denies fever, chills, diaphoresis, cough, SOB, chest pain, and palpitations. 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 Cardiovascular: Yes: HTN Pulmonary: Yes: Asthma Gastrointestinal: Yes: GERD Renal/: Yes: Other (hyponatremia) Psych: Yes: Depression Endocrine: Yes: Diabetes Mellitus, Hypothyroidism - Smoking History Smoking history: Never smoked Have you smoked in the past 12 months: No Aproximately how many cigarettes per day: 0 - Alcohol/Substance Use Hx Alcohol Use: No History of Substance Use: reports: None - Social History ADL: Independent History of Recent Travel: No Home Medications - Allergies Allergies/Adverse Reactions: Allergies Allergy/AdvReac Type Severity Reaction Status Date / Time No Known Drug Allergies Allergy Verified 05/22/17 08:51 - Home Medications Home Medications: Ambulatory Orders Aspirin [ASA -] 81 mg PO DAILY 05/02/16 Buspirone HCl [Buspar -] 5 mg PO BID 05/02/16 Escitalopram Oxalate [Lexapro -] 10 mg PO DAILY 05/02/16 Gabapentin 600 mg PO TID 05/02/16 Glimepiride [Amaryl -] 4 mg PO BID 05/02/16 Hydrocodone/Acetaminophen [[place] 7.5-325 Tablet] 1 each PO BID PRN 05/02/16 Insulin Aspart [Novolog] 0 unit SQ ACHS PRN 05/02/16 [place]-3 Acid Ethyl Esters 1 gm PO TID 05/02/16 Omeprazole 20 mg PO DAILY 05/02/16 Trazodone HCl 200 mg PO HS 05/02/16 Insulin Glargine,Hum.rec.anlog [Lantus (10mL VIAL) -] 25 units SQ BID #10 ml Sodium Chloride Tablet - 1 gm PO BID #60 tablet 04/20/17 Levothyroxine Sodium [Levo-T] 50 mcg PO DAILY 04/28/17 Metoprolol Succinate [Toprol XL -] 25 mg PO BID #60 tab.sr 05/01/17 Review of Systems - Review of Systems Constitutional: reports: Loss of Appetite, Weakness Eyes: reports: No Symptoms HENT: reports: No Symptoms Neck: reports: No Symptoms Cardiovascular: reports: No Symptoms Respiratory: reports: No Symptoms Gastrointestinal: reports: No Symptoms Genitourinary: reports: No Symptoms Musculoskeletal: reports: No Symptoms Integumentary: reports: No Symptoms Neurological: reports: No Symptoms Endocrine: reports: No Symptoms Hematology/Lymphatic: reports: No Symptoms Psychiatric: reports: No Symptoms Physical Examination Vital Signs: Vital Signs Temperature 98.0 F 05/23/17 01:14 Pulse Rate 80 05/23/17 06:19 Respiratory Rate 20 05/23/17 06:19 Blood Pressure 165/82 05/23/17 06:19 O2 Sat by Pulse Oximetry (%) 97 05/22/17 21:00 Constitutional: Yes: Mild Distress Eyes: Yes: WNL HENT: Yes: WNL Neck: Yes: WNL Cardiovascular: Yes: WNL Respiratory: Yes: WNL Gastrointestinal: Yes: WNL Renal/: Yes: WNL Musculoskeletal: Yes: WNL Extremities: Yes: WNL Edema: No Peripheral Pulses WNL: Yes Integumentary: Yes: WNL Wound/Incision: Yes: Clean/Dry Neurological: Yes: WNL ...Motor Strength: WNL Psychiatric: Yes: WNL Labs: CBC, BMP 05/23/17 07:00 05/23/17 07:00 Imaging - Results Chest X-ray: Report Reviewed Problem List - Problems (1) Headache Code(s): R51 - HEADACHE (2) Hyponatremia syndrome Code(s): E87.1 - HYPO-OSMOLALITY AND HYPONATREMIA (3) Diabetes mellitus Code(s): E11.9 - TYPE 2 DIABETES MELLITUS WITHOUT COMPLICATIONS Qualifiers: Diabetes mellitus type: type 1 Diabetes mellitus complication status: with hyperglycemia Qualified Code(s): E10.65 - Type 1 diabetes mellitus with hyperglycemia Assessment/Plan NA+ LEVELS FOLLOW Q4HRS SEIZURE AND NEURO CHECKS A1C 7.8 MONITOR BGM DIABETIC DIET AND DIETARY CONSULT NA TABS OUTPATIENT WILL NEED WEEKLY FOLLOW UP DEPRESSION? NO SUICIDAL OR HOMICIDAL THOUGHTS
--- NOTE | 2017-05-23 10:06 | PN ---
Progress Note (short form) - Note Progress Note: WILL HAVE PSYCHIATRY SEE PATIENT FOR DEPRESSION SCREENING ON MEDS BUT NOT COMPLIANT Problem List - Problems (1) Headache Code(s): R51 - HEADACHE (2) Hyponatremia syndrome Code(s): E87.1 - HYPO-OSMOLALITY AND HYPONATREMIA (3) Diabetes mellitus Code(s): E11.9 - TYPE 2 DIABETES MELLITUS WITHOUT COMPLICATIONS Qualifiers: Diabetes mellitus type: type 1 Diabetes mellitus complication status: with hyperglycemia Qualified Code(s): E10.65 - Type 1 diabetes mellitus with hyperglycemia
[2017-05-23] MEDS: ASPIRIN COATED 81 MG TABLET.EC PO SCH (10:53)
[2017-05-23] MEDS: GABAPENTIN 300 MG CAPSULE (FP) PO SCH ×2 (10:53→22:22)
[2017-05-23] MEDS: busPIRone HCL 5 MG TABLET PO SCH ×2 (10:53→22:22)
[2017-05-23] MEDS: PANTOPRAZOLE 40 MG TABLET (FP) PO SCH (10:54)
[2017-05-23] MEDS: METOPROLOL SUCCINATE 25 MG TAB.SR.24H (FP) PO SCH ×2 (10:54→22:22)
[2017-05-23] MEDS ORDERED: PT OWN MED DRAWER 7, Y5N ONE ×2 (10:55→22:14)
[2017-05-23] MEDS: SODIUM CHLORIDE 1 GM TABLET PO SCH ×2 (10:56→22:22)
[2017-05-23] MEDS ORDERED: INSULIN (NOVOLOG) ASPART 100 UNITS/ML 10ML VIAL ONE ×2 (12:09→22:32)
[2017-05-23] MEDS: oxyCODONE HCL 5 MG TABLET PO PRN (12:33)
--- NOTE | 2017-05-23 16:35 | CON.PSY ---
Psychiatry Consult Chief Complaint: patient appears depressed with flat affect. History of chronic medical conditions. Symptoms: reports: Depressed Mood - Previous Psychiatric Treatment Outpatient: Less than 6 mos ago Inpatient: None - Previous Substance Abuse Treatment Outpatient: None - Reason for Previous Treatment Reason for Previous Treatment: Major Depression - Current Medications Current Medications: Active Medications Acetaminophen (Tylenol -) 650 mg PO Q6H PRN PRN Reason: FEVER OR PAIN Aspirin (Ecotrin -) 81 mg PO DAILY [facility] Last Admin: 05/23/17 10:53 Dose: 81 mg Buspirone HCl (Buspar -) 5 mg PO BID [facility] Last Admin: 05/23/17 10:53 Dose: 5 mg Docusate Sodium (Colace -) 100 mg PO BID PRN PRN Reason: CONSTIPATION Escitalopram Oxalate (Lexapro -) 10 mg PO DAILY [facility] Last Admin: 05/23/17 10:53 Dose: 10 mg Gabapentin (Neurontin -) 600 mg PO BID [facility] Last Admin: 05/23/17 10:53 Dose: 600 mg Glimepiride (Amaryl -) 4 mg PO DAILY@0700 [facility] Last Admin: 05/23/17 06:20 Dose: 4 mg Insulin Aspart (Novolog Vial Sliding Scale -) 1 vial SQ [facility] PRN Reason: Protocol Last Admin: 05/23/17 12:09 Dose: 4 units Insulin Detemir (Levemir Vial) 25 units SQ [facility] Last Admin: 05/22/17 21:35 Dose: 25 units Levothyroxine Sodium (Synthroid -) 50 mcg PO DAILY@0700 [facility] Last Admin: 05/23/17 06:22 Dose: 50 mcg Metoprolol Succinate (Toprol Xl -) 25 mg PO BID [facility] Last Admin: 05/23/17 10:54 Dose: 25 mg Oxycodone HCl (Roxicodone -) 5 mg PO Q6H PRN PRN Reason: PAIN Last Admin: 05/23/17 12:33 Dose: 5 mg Pantoprazole Sodium (Protonix -) 40 mg PO DAILY [facility] Last Admin: 05/23/17 10:54 Dose: 40 mg Sodium Chloride (Sodium Chloride Tablet -) 1 gm PO BID [facility] Last Admin: 05/23/17 10:56 Dose: 1 gm Trazodone HCl (Desyrel -) 200 mg PO [facility] Last Admin: 05/22/17 21:34 Dose: 200 mg - Allergies Allergies: Allergies Allergy/AdvReac Type Severity Reaction Status Date / Time No Known Drug Allergies Allergy Verified 05/22/17 08:51 - Current Living Status Usual Living Arrangement: Alone - Current Mental Status Evaluation Appearance: Well Groomed Attitude: Cooperative - Affect Affect: Constrictive Appropriateness: Appropriate to Content - Mood Mood: Depressed - Speech/Language Expressive: Coherent - Psychomotor Activity Psychomotor Activity: Slowed - Thought Process Thought Process: Circumstantial - Thought Content Hallucinations: Absent Delusions: Absent - Self Perception Self Perception: No Impairment - Cognition Attention: Alert Orientation: Time Memory, Immediate Recall: Intact Memory, Remote: Intact - Concentration Serial Sevens Intact: No Simple Calculations Intact: No - Abstraction Judgement: Minimally Impaired - Insight Insight: Intact - Impulse Control Impulse Control: Minimally Impaired - Suicidal Ideation Suicidal Ideation: No - Homicidal Ideation Homicidal Ideation: No Assessment/Plan will evaluate psych meds.
[2017-05-23] MEDS ORDERED: traZODone HCL 50 MG TABLET (FP) ONE (22:13)
[2017-05-23] MEDS: traZODone HCL 100 MG TABLET (FP) PO SCH (22:22)
[2017-05-23] MEDS: INSULIN DETEMIR 100 UNITS/ML MDV SQ SCH (22:29)
[2017-05-24] MEDS: LEVOTHYROXINE NA 50 MCG TABLET (FP) PO SCH (06:47)
[2017-05-24] MEDS: GLIMEPIRIDE 4 MG TABLET (FP) PO SCH (06:47)
[2017-05-24] MEDS: INSULIN SLIDING SCALE (NOVOLOG) 1 VIAL SQ SCH ×3 (06:47→16:16)
[2017-05-24 07:30] LABS: MCH 30.5 pg (25.7-33.7); MCHC 34.4 g/dl (32.0-36.0); MEAN CELL VOLUME 88.8 fl (80-96); MEAN PLT VOLUME 9.6 fl (7.5-11.1); PLATELET COUNT 146 K/MM3 (134-434); RDW 14.4 % (11.6-15.6); WHITE BLOOD COUNT 6.3 K/mm3 (4.0-10.0)
[2017-05-24 07:57] LABS: ANION GAP 10 (8-16); CALCIUM 8.9 mg/dL (8.5-10.1); CO2 24 mmol/L (21-32); CREATININE 0.7 mg/dL (0.55-1.02); GLUCOSE,RANDOM 248 mg/dL (74-106)
--- NOTE | 2017-05-24 10:28 | DS ---
Physical Examination Vital Signs: Vital Signs Temperature 97.8 F 05/24/17 06:00 Pulse Rate 77 05/24/17 06:00 Respiratory Rate 20 05/24/17 06:00 Blood Pressure 150/83 05/24/17 06:00 O2 Sat by Pulse Oximetry (%) 98 05/23/17 21:00 Constitutional: Yes: No Distress Eyes: Yes: WNL HENT: Yes: WNL Neck: Yes: WNL Cardiovascular: Yes: WNL Respiratory: Yes: WNL Gastrointestinal: Yes: WNL Renal/: Yes: WNL Musculoskeletal: Yes: WNL Extremities: Yes: WNL Edema: No Peripheral Pulses WNL: Yes Integumentary: Yes: WNL Wound/Incision: Yes: Clean/Dry Neurological: Yes: WNL ...Motor Strength: WNL Psychiatric: Yes: WNL Labs: CBC, BMP 05/24/17 05:35 05/24/17 05:35 Discharge Summary Reason For Visit: HYPONATREMIA Current Active Problems Headache (Acute) Hyponatremia syndrome (Acute) Procedures: Principal: LABS/XRAYS Other Procedures: HEAD CT SCAN Hospital Course: ADMITTED FOR HYPONATREMIA, PATIENT WAS NOT COMPLIANT WITH HER SODIUM TABLETS OUTPATIENT. PSYCHIATRY CALLED, WILL NEED OUTPATIENT FOLLOW UP. SHE IS IN NO DANGER TO HERSELF OR OTHERS, NO SUICIDAL OR HOMICIDAL THOUGHT PATTERN. WILL DC HOME NOW THAT SODIUM LEVEL IMPROVED, HOME NURSING SERVICE. Condition: Improved - Instructions Diet, Activity, Other Instructions: DIABETIC DIET SEE DR LOVING IN 3 DAYS FOR LAB CHECK Referrals: Yokasta Loving [Primary Care Provider] - Disposition: VNS/HOME HEALTH CARE - Home Medications Comprehensive Discharge Medication List: Ambulatory Orders Aspirin [ASA -] 81 mg PO DAILY 05/02/16 Buspirone HCl [Buspar -] 5 mg PO BID 05/02/16 Escitalopram Oxalate [Lexapro -] 10 mg PO DAILY 05/02/16 Gabapentin 600 mg PO TID 05/02/16 Glimepiride [Amaryl -] 4 mg PO BID 05/02/16 Hydrocodone/Acetaminophen [[employer] 7.5-325 Tablet] 1 each PO BID PRN 05/02/16 Insulin Aspart [Novolog] 0 unit SQ ACHS PRN 05/02/16 [place]-3 Acid Ethyl Esters 1 gm PO TID 05/02/16 Omeprazole 20 mg PO DAILY 05/02/16 Trazodone HCl 200 mg PO HS 05/02/16 Insulin Glargine,Hum.rec.anlog [Lantus (10mL VIAL) -] 25 units SQ BID #10 ml Sodium Chloride Tablet - 1 gm PO BID #60 tablet 04/20/17 Levothyroxine Sodium [Levo-T] 50 mcg PO DAILY 04/28/17 Metoprolol Succinate [Toprol XL -] 25 mg PO BID #60 tab.sr 05/01/17 Acetaminophen [Tylenol .Regular Strength -] 650 mg PO Q6H PRN #0 tablet
[2017-05-24] MEDS: METOPROLOL SUCCINATE 25 MG TAB.SR.24H (FP) PO SCH (10:56)
[2017-05-24] MEDS: ASPIRIN COATED 81 MG TABLET.EC PO SCH (10:56)
[2017-05-24] MEDS: GABAPENTIN 300 MG CAPSULE (FP) PO SCH (10:56)
[2017-05-24] MEDS: busPIRone HCL 5 MG TABLET PO SCH (10:56)
[2017-05-24] MEDS: PANTOPRAZOLE 40 MG TABLET (FP) PO SCH (10:56)
[2017-05-24] MEDS: SODIUM CHLORIDE 1 GM TABLET PO SCH (10:57)
[2017-05-24] MEDS: oxyCODONE HCL 5 MG TABLET PO PRN (17:34)
[2017-05-24 18:48] VITALS: BP 135/62; PULSE 62; TEMP 97.5
== END 2017-05-24 19:04 | disposition home health service (06) | DRG 641 ==
LOC: JER 08:43 → JERBED 12:13 → J4W 15:17
PROVIDERS: ADMIT Family Medicine; ATTEND Family Medicine
DX: E87.1 Hypo-osmolality and hyponatremia (principal); G40.89 Other seizures; Z68.1 Body mass index [BMI] 19.9 or less, adult; I10 Essential (primary) hypertension; E78.5 Hyperlipidemia, unspecified; E11.42 Type 2 diabetes mellitus with diabetic polyneuropathy; E11.65 Type 2 diabetes mellitus with hyperglycemia; M54.5 Low back pain; J45.909 Unspecified asthma, uncomplicated; R33.8 Other retention of urine; G44.89 Other headache syndrome; K21.9 Gastro-esophageal reflux disease without esophagitis; F03.90 Unspecified dementia, unspecified severity, without behavioral disturbance, psychotic disturbance, mood disturbance, and anxiety; F32.9 Major depressive disorder, single episode, unspecified; E03.9 Hypothyroidism, unspecified; Z86.73 Personal history of transient ischemic attack (TIA), and cerebral infarction without residual deficits; Z87.440 Personal history of urinary (tract) infections; Z91.19 Patient's noncompliance with other medical treatment and regimen
CPT/HCPCS: 36415; 70450-TC; 80048; 80053; 80061; 81003; 82436; 83036; 83721; 84133; 84300; 85025; 85027; 85651; 86140; 87086; 93005; 93010; 99285-25

== ENCOUNTER 2017-05-28 11:51 | Inpatient (IN) | payer OTHER ==
[2017-05-28 11:55] VITALS: BMI 26.6
[2017-05-28] MEDS ORDERED: ACETAMINOPHEN 1000 MG/100 ML VIAL (NON FORMULARY) IVPB ONE (12:41)
[2017-05-28] MEDS ORDERED: ACETAMINOPHEN INJECTION 100 ML IVPB ONE (12:55)
[2017-05-28 12:56] LABS: BASOPHIL 0.5 % (0-2.0); EOSINOPHIL 1.7 % (0-4.5); MCH 30.1 pg (25.7-33.7); MCHC 35.4 g/dl (32.0-36.0); MEAN CELL VOLUME 85.1 fl (80-96); NEUTROPHILS 76.5 % (42.8-82.8); PLATELET COUNT 170 K/MM3 (134-434); RDW 14.4 % (11.6-15.6); WHITE BLOOD COUNT 7.2 K/mm3 (4.0-10.0)
[2017-05-28] MEDS ORDERED: SODIUM CHLORIDE 1,000 ML IV STA ×2 (12:58→15:08)
[2017-05-28 13:35] LABS: CREATININE 0.7 mg/dL (0.55-1.02); GLUCOSE,RANDOM 214 mg/dL (74-106)
[2017-05-28 13:36] LABS: ALBUMIN 4.1 g/dl (3.4-5.0); ANION GAP 11 (8-16); BILIRUBIN,TOTAL 0.6 mg/dL (0.2-1.0); CALCIUM 9.4 mg/dL (8.5-10.1); CO2 35 mmol/L (21-32); MAGNESIUM 1.5 mg/dL (1.8-2.4); SGOT/AST 27 U/L (15-37); SGPT/ALT 37 U/L (12-78); TOT PROT 7.6 g/dl (6.4-8.2)
[2017-05-28 13:37] LABS: ALK PHOS 79 U/L (45-117)
--- NOTE | 2017-05-28 13:49 | PDOC ---
History of Present Illness - General Chief Complaint: Pain Stated Complaint: ABD PAIN/VOMITING/DIARRHEA Time Seen by Provider: 05/28/17 12:39 History Source: Patient Exam Limitations: No Limitations - History of Present Illness Travel History: No Initial Comments: 05/28/17 14:02 71-year-old female presents to the ED with complaints of nausea vomiting diarrhea since last evening. Patient states has had no fever, chills, chest pain or shortness of breath. Patient does state pain to the left lower quadrant and was able take her morning meds this morning but unsure if she vomited them up shortly thereafter. Patient states was recently discharged here from [facility] secondary to hyponatremia. Patient denies recent change in diet or medications since discharge. Timing/Duration: reports: intermittent Quality: reports: moderate, cramping Abdominal Pain Onset Location: reports: LLQ Pain Radiation: reports: no radiation Activities at Onset: reports: none Aggravating Factors: improves with: None Alleviating Factors: improves with: None Past History - Travel Traveled outside of the country in the last 30 days: No Close contact w/someone who was outside of country & ill: No - Past Medical History Allergies/Adverse Reactions: Allergies Allergy/AdvReac Type Severity Reaction Status Date / Time No Known Drug Allergies Allergy Verified 05/28/17 11:55 Home Medications: Ambulatory Orders Aspirin [ASA -] 81 mg PO DAILY 05/02/16 Buspirone HCl [Buspar -] 5 mg PO BID 05/02/16 Escitalopram Oxalate [Lexapro -] 10 mg PO DAILY 05/02/16 Gabapentin 600 mg PO TID 05/02/16 Glimepiride [Amaryl -] 4 mg PO BID 05/02/16 Hydrocodone/Acetaminophen [[place] 7.5-325 Tablet] 1 each PO BID PRN 05/02/16 Insulin Aspart [Novolog] 0 unit SQ ACHS PRN 05/02/16 [place]-3 Acid Ethyl Esters 1 gm PO TID 05/02/16 Omeprazole 20 mg PO DAILY 05/02/16 Trazodone HCl 200 mg PO HS 05/02/16 Insulin Glargine,Hum.rec.anlog [Lantus (10mL VIAL) -] 25 units SQ BID #10 ml Sodium Chloride Tablet - 1 gm PO BID #60 tablet 04/20/17 Levothyroxine Sodium [Levo-T] 50 mcg PO DAILY 04/28/17 Metoprolol Succinate [Toprol XL -] 25 mg PO BID #60 tab.sr 05/01/17 Acetaminophen [Tylenol .Regular Strength -] 650 mg PO Q6H PRN #0 tablet Anemia: No Asthma: Yes Cancer: No Cardiac Disorders: No CVA: Yes (2013,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") COPD: No CHF: No Dementia: No Diabetes: Yes GI Disorders: No Disorders: No HTN: Yes Hypercholesterolemia: Yes Liver Disease: No Psychiatric Problems: Yes (dementia, depression) Suicide Attempt (Hx): No Seizures: Yes Thyroid Disease: Yes - Surgical History Abdominal Surgery: No Appendectomy: No Cardiac Surgery: No Cholecystectomy: No Lung Surgery: No Neurologic Surgery: No Orthopedic Surgery: Yes ("BACK SURGERY" STATED BY PT) - Reproductive History Therapeutic (s) & number: No - Psycho/Social/Smoking Cessation Hx Anxiety: No Suicidal Ideation: No Smoking Status: No Smoking History: Never smoked Have you smoked in the past 12 months: No Number of Cigarettes Smoked Daily: 0 Information on smoking cessation initiated: No Hx Alcohol Use: No Drug/Substance Use Hx: No Substance Use Type: None Hx Substance Use Treatment: No Patient Lives Alone: No Lives with/in: home health aide Comments:: 05/28/17 14:04 Review of Systems - Review of Systems Able to Perform ROS?: Yes Constitutional: Yes: Loss of Appetite HEENTM: No: Symptoms Reported Respiratory: No: Symptoms reported Cardiac (ROS): No: Symptoms Reported ABD/GI: Yes: Diarrhea, Nausea, Poor Appetite, Poor Fluid Intake, Vomiting, Abdominal cramping : Yes: Dysuria. No: Flank Pain Musculoskeletal: No: Symptoms Reported Integumentary: No: Symptoms Reported Neurological: No: Symptoms reported Endocrine: No: Symptoms Reported Hematologic/Lymphatic: No: Symptoms Reported *Physical Exam - Vital Signs Last Vital Signs Temp Pulse Resp BP Pulse Ox 98.7 F 88 18 166/82 98 05/28/17 11:53 05/28/17 13:05/28/17 13:09 05/28/17 13:05/28/17 11:53 - Physical Exam General Appearance: Yes: Nourished, Appropriately Dressed. No: Apparent Distress HEENT: positive: Pharynx Normal. negative: Pale Conjunctivae Neck: positive: Supple Respiratory/Chest: positive: Lungs Clear, Normal Breath Sounds. negative: Respiratory Distress, Accessory Muscle Use Cardiovascular: positive: Regular Rhythm, Regular Rate (88 on monitor). negative: Murmur Gastrointestinal/Abdominal: positive: Normal Bowel Sounds, Soft, Tenderness ( left lower quadrant). negative: Distended, Guarding, Rebound Musculoskeletal: negative: CVA Tenderness Extremity: positive: Normal Capillary Refill. negative: Pedal Edema Integumentary: positive: Normal Color, Warm, Moist Neurologic: positive: Motor Strength 5/5 (ambulatory) ED Treatment Course - LABORATORY CBC & Chemistry Diagram: 05/28/17 12:45 05/28/17 12:45 - ADDITIONAL ORDERS Additional order review: 05/28/17 12:45 RBC 4.12 MCV 85.1 MCHC 35.4 RDW 14.4 MPV 9.0 Neutrophils % 76.5 Lymphocytes % 15.0 Monocytes % 6.3 Eosinophils % 1.7 Basophils % 0.5 - Medications Given in the ED: ED Medications Discontinued Medications Generic Name Dose Route Start Last Admin Trade Name Freq PRN Reason Stop Dose Admin Acetaminophen 1,000 mg 05/28/17 12:41 05/28/17 13:07 Ofirmev Injection - IVPB 05/28/17 12:42 1,000 mg ONCE ONE Administration Medical Decision Making - Medical Decision Making 05/28/17 14:05 Patient complains of nausea vomiting abdominal pain and dysuria. Patient recently discharged for hyponatremia. Patient examined had left lower quadrant tenderness. Patient ordered for labs including lactic acid blood cultures magnesium and if urine analysis shows a urinary tract infection, I will defer imaging. If negative will order a CT with by mouth contrast to rule out diverticulitis/ colitis. 05/28/17 15:07 Selected Entries 05/28/17 13:09 Pulse Rate [ 88 Right Radial] Blood Pressure 166/82 [Left Arm] Laboratory Tests 05/28/17 05/28/17 12:45 12:45 Sodium 126 L Chloride 80 L D Carbon Dioxide 35 H D BUN 6 L D Creatinine 0.7 Creat Clearance w eGFR > 60 Random Glucose 214 H Lactic Acid 3.3 H* Magnesium 1.5 L D AST 27 D ALT 37 05/28/17 14:09 Patient will receive 2 g of magnesium. Case to be discussed with Dr. Tinoco for admission. patient ordered for second bag of IV fluid and repeat lactic 05/28/17 15:09 Case discussed with patient's PCP who recommended admission and will consult shortly. Patient ordered for 0.5 of Dilaudid secondary to complaints of frontal and generalized throbbing pressure in her head. Patient did have an abdominal CT done on the that showed no acute findings. Patient also had a head CT done on May 22 with negative findings. *DC/Admit/Observation/Transfer Diagnosis at time of Disposition: Hyponatremia, Hypomagnesemia Diarrhea Qualifiers: Diarrhea type: unspecified type Qualified Code(s): R19.7 - Diarrhea, unspecified Abdominal pain Qualifiers: Abdominal location: left lower quadrant Qualified Code(s): R10.32 - Left lower quadrant pain - Discharge Dispostion Admit: Yes
[2017-05-28 13:51] LABS: URINE APPEARANCE CLEAR; URINE BILIRUBIN NEGATIVE (NEGATIVE); URINE BLOOD NEGATIVE (NEGATIVE); URINE COLOR STRAW; URINE GLUCOSE (UA) 2+ (NEGATIVE); URINE KETONE NEGATIVE (NEGATIVE); URINE LEUK ESTERASE NEGATIVE (NEGATIVE); URINE NITRITE NEGATIVE (NEGATIVE); URINE UROBILINOGEN NEGATIVE mg/dL (0.2-1.0)
[2017-05-28 13:52] LABS: URINE PROTEIN 1+ (NEGATIVE)
[2017-05-28 13:56] LABS: URINE RBC <1 /hpf (0-3); URINE WBC 1 /hpf (3-5)
--- NOTE | 2017-05-28 13:58 | PDOC ---
*Physical Exam - Vital Signs Last Vital Signs Temp Pulse Resp BP Pulse Ox 98.7 F 88 18 166/82 98 05/28/17 11:53 05/28/17 13:09 05/28/17 13:09 05/28/17 13:09 05/28/17 11:53 ED Treatment Course - LABORATORY CBC & Chemistry Diagram: 05/29/17 06:47 05/30/17 06:00 - ADDITIONAL ORDERS Additional order review: Laboratory Results 05/28/17 05/28/17 12:53 12:45 Sodium 126 L Potassium 3.5 D Chloride 80 L D Carbon Dioxide 35 H D Anion Gap 11 BUN 6 L D Creatinine 0.7 Creat Clearance w eGFR > 60 Random Glucose 214 H Calcium 9.4 Magnesium 1.5 L D Total Bilirubin 0.6 AST 27 D ALT 37 Alkaline Phosphatase 79 Total Protein 7.6 Albumin 4.1 Urine Color Straw Urine Appearance Clear Urine pH 9.0 H D Urine Protein 1+ H Urine Glucose (UA) 2+ H Urine Ketones Negative Urine Blood Negative Urine Nitrite Negative Urine Bilirubin Negative Urine Urobilinogen Negative 05/28/17 12:45 RBC 4.12 MCV 85.1 MCHC 35.4 RDW 14.4 MPV 9.0 Neutrophils % 76.5 Lymphocytes % 15.0 Monocytes % 6.3 Eosinophils % 1.7 Basophils % 0.5 - Medications Given in the ED: ED Medications Discontinued Medications Generic Name Dose Route Start Last Admin Trade Name Freq PRN Reason Stop Dose Admin Acetaminophen 1,000 mg 05/28/17 12:41 05/28/17 13:07 Ofirmev Injection - IVPB 05/28/17 12:42 1,000 mg ONCE ONE Administration Sodium Chloride 1,000 mls @ 1,000 mls/hr 05/28/17 12:58 05/28/17 13:07 Normal Saline - IV 05/28/17 13:57 1,000 mls/hr ASDIR STA Administration Medical Decision Making - Medical Decision Making 05/28/17 13:58 Pt seen by the Advanced Practice Provider under my direct supervision Ancillary studies reviewed I agree with plan as outlined by the Advanced Practice Provider CELENA Urias *DC/Admit/Observation/Transfer Diagnosis at time of Disposition: Hyponatremia, Diarrhea, Abdominal pain, Hypomagnesemia - Discharge Dispostion Disposition: VNS/HOME HEALTH CARE Condition at time of disposition: Improved
[2017-05-28] MEDS ORDERED: MAGNESIUM SULF 50% (8.12 MEQ/2 ML-1 GM VIAL) IVPB ONE (14:07)
[2017-05-28] MEDS ORDERED: MAGNESIUM SULF 50% (8.12 MEQ/2 ML-1 GM VIAL) ONE (14:25)
[2017-05-28] MEDS ORDERED: HYDROmorphone HCL CARPU-JECT 2 MG/1 ML DISP.SYRIN IVPUSH ONE (14:41)
[2017-05-28] MEDS ORDERED: HYDROmorphone HCL CARPU-JECT 1 MG/1 ML DISP.SYRIN ONE (15:03)
[2017-05-28 15:25] LABS: VENOUS BLOOD GAS HCO3 33.1 meq/L (19-25); VENOUS PH 7.47 (7.32-7.42)
[2017-05-28] MEDS ORDERED: ONDANSETRON 4 MG/2 ML VIAL IVPB PRN (16:24)
[2017-05-28] MEDS ORDERED: SODIUM CHLORIDE NASAL SPRAY 44 ML BOTTLE NS PRN (16:44)
--- NOTE | 2017-05-28 16:49 | HP ---
Admitting History and Physical - Primary Care Physician PCP: Gladys Tinoco - Admission Chief Complaint: NAUSEA AND VOMITING/HYPONATREMIA History of Present Illness: 71-year-old female presents to the ED with complaints of nausea vomiting diarrhea since last evening. Patient states has had no fever, chills, chest pain or shortness of breath. Patient does state pain to the left lower quadrant and was able take her morning meds this morning but unsure if she vomited them up shortly thereafter. Patient states was recently discharged here from [facility] secondary to hyponatremia. Patient denies recent change in diet or medications since discharge. 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 Cardiovascular: Yes: HTN Pulmonary: Yes: Asthma Gastrointestinal: Yes: GERD Renal/: Yes: Other (hyponatremia) Psych: Yes: Anxiety, Depression Endocrine: Yes: Diabetes Mellitus, Hypothyroidism - Smoking History Smoking history: Never smoked Have you smoked in the past 12 months: No Aproximately how many cigarettes per day: 0 - Alcohol/Substance Use Hx Alcohol Use: No History of Substance Use: reports: None - Social History ADL: Independent History of Recent Travel: No Home Medications - Allergies Allergies/Adverse Reactions: Allergies Allergy/AdvReac Type Severity Reaction Status Date / Time No Known Drug Allergies Allergy Verified 05/28/17 11:55 - Home Medications Home Medications: Ambulatory Orders Aspirin [ASA -] 81 mg PO DAILY 05/02/16 Buspirone HCl [Buspar -] 5 mg PO BID 05/02/16 Escitalopram Oxalate [Lexapro -] 10 mg PO DAILY 05/02/16 Gabapentin 600 mg PO TID 05/02/16 Glimepiride [Amaryl -] 4 mg PO BID 05/02/16 Hydrocodone/Acetaminophen [[place] 7.5-325 Tablet] 1 each PO BID PRN 05/02/16 Insulin Aspart [Novolog] 0 unit SQ ACHS PRN 05/02/16 [place]-3 Acid Ethyl Esters 1 gm PO TID 05/02/16 Omeprazole 20 mg PO DAILY 05/02/16 Trazodone HCl 200 mg PO HS 05/02/16 Insulin Glargine,Hum.rec.anlog [Lantus (10mL VIAL) -] 25 units SQ BID #10 ml Sodium Chloride Tablet - 1 gm PO BID #60 tablet 04/20/17 Levothyroxine Sodium [Levo-T] 50 mcg PO DAILY 04/28/17 Metoprolol Succinate [Toprol XL -] 25 mg PO BID #60 tab.sr 05/01/17 Acetaminophen [Tylenol .Regular Strength -] 650 mg PO Q6H PRN #0 tablet Review of Systems - Review of Systems Constitutional: reports: Lethargy, Weakness Eyes: reports: No Symptoms HENT: reports: No Symptoms Neck: reports: No Symptoms Cardiovascular: reports: No Symptoms Respiratory: reports: Cough, SOB Gastrointestinal: reports: No Symptoms Genitourinary: reports: No Symptoms Musculoskeletal: reports: No Symptoms Integumentary: reports: No Symptoms Neurological: reports: Pre-Existing Deficit, Other Endocrine: reports: No Symptoms Hematology/Lymphatic: reports: No Symptoms Psychiatric: reports: Anxiety, Depression, Panic Physical Examination Vital Signs: Vital Signs Temperature 98.8 F 05/28/17 13:57 Pulse Rate 78 05/28/17 15:55 Respiratory Rate 18 05/28/17 15:55 Blood Pressure 157/64 05/28/17 15:55 O2 Sat by Pulse Oximetry (%) 97 05/28/17 15:55 Constitutional: Yes: Mild Distress Eyes: Yes: WNL HENT: Yes: Nasal Congestion Neck: Yes: WNL Cardiovascular: Yes: WNL Respiratory: Yes: WNL Gastrointestinal: Yes: WNL Renal/: Yes: WNL Musculoskeletal: Yes: WNL Extremities: Yes: WNL Edema: No Peripheral Pulses WNL: Yes Integumentary: Yes: WNL Wound/Incision: Yes: Clean/Dry Neurological: Yes: WNL ...Motor Strength: WNL Psychiatric: Yes: Agitated, Other (ANXIOUS) Problem List - Problems (1) Abdominal pain Code(s): R10.9 - UNSPECIFIED ABDOMINAL PAIN Qualifiers: Abdominal location: left lower quadrant Qualified Code(s): R10.32 - Left lower quadrant pain (2) Diarrhea Code(s): R19.7 - DIARRHEA, UNSPECIFIED Qualifiers: Diarrhea type: unspecified type Qualified Code(s): R19.7 - Diarrhea, unspecified (3) Hypomagnesemia Code(s): E83.42 - HYPOMAGNESEMIA (4) Hyponatremia Code(s): E87.1 - HYPO-OSMOLALITY AND HYPONATREMIA (5) Chronic hyponatremia Code(s): E87.1 - HYPO-OSMOLALITY AND HYPONATREMIA (6) Depression Code(s): F32.9 - MAJOR DEPRESSIVE DISORDER, SINGLE EPISODE, UNSPECIFIED Qualifiers: Depression Type: other depression Qualified Code(s): F32.89 - Other specified depressive episodes (7) Diabetes mellitus Code(s): E11.9 - TYPE 2 DIABETES MELLITUS WITHOUT COMPLICATIONS Qualifiers: Diabetes mellitus type: type 2 (8) Hypothyroidism Code(s): E03.9 - HYPOTHYROIDISM, UNSPECIFIED Qualifiers: Hypothyroidism type: unspecified Qualified Code(s): E03.9 - Hypothyroidism, unspecified Assessment/Plan PPI AND LEXAPRO CAN CAUSE HYPONATREMIA WILL DISCUSS WITH DR BULLOCK FROM RENAL IVF SODIUM MG REPLETED ZOFRAN AND REGLAN PSYCHIATRY EVAL LORATADINE FLONASE FOR NASAL CONGESTION
[2017-05-28] MEDS: LORATADINE 10 MG TABLET PO SCH (17:43)
[2017-05-28] MEDS: METOCLOPRAMIDE HCL 10 MG TABLET (FP) PO SCH ×2 (17:43→21:14)
[2017-05-28] MEDS: INSULIN SLIDING SCALE (NOVOLOG) 1 VIAL SQ SCH ×2 (17:43→21:13)
[2017-05-28] MEDS: ACETAMINOPHEN 325 MG TABLET (FP) PO PRN (17:46)
[2017-05-28] MEDS ORDERED: METOPROLOL SUCCINATE 25 MG TAB.SR.24H (FP) PO ONE (17:52)
--- NOTE | 2017-05-28 17:57 | CON.NEP ---
Consult Consult Specialty:: Nephrology Referred by:: Dr. Mcarthur Reason for Consultation:: Hyponatremia/Lactic acidosis - History of Present Illness Chief Complaint: Nausea and Vomiting History of Present Illness: 71 year old woman that is known to our service with PMhx of Hypnatremia, Depression, Hypertension, DM, Peripheal Neuropathy, Chronic Lower back pain, Asthma, UTI's presented with N/V and found to have Na of 126. 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 Cardio/Vascular: Yes: HTN Pulmonary: Yes: Asthma Gastrointestinal: Yes: GERD Renal/: Yes: Other (hyponatremia) Psych: Yes: Anxiety, Depression Endocrine: Yes: Diabetes Mellitus, Hypothyroidism - Alcohol/Substance Use Hx Alcohol Use: No History of Substance Use: reports: None - Smoking History Smoking history: Never smoked Have you smoked in the past 12 months: No Aproximately how many cigarettes per day: 0 - Social History Usual Living Arrangement: Alone ADL: Independent History of Recent Travel: No Home Medications - Allergies Allergies/Adverse Reactions: Allergies Allergy/AdvReac Type Severity Reaction Status Date / Time No Known Drug Allergies Allergy Verified 05/28/17 11:55 - Home Medications Home Medications: Ambulatory Orders Aspirin [ASA -] 81 mg PO DAILY 05/02/16 Buspirone HCl [Buspar -] 5 mg PO BID 05/02/16 Escitalopram Oxalate [Lexapro -] 10 mg PO DAILY 05/02/16 Gabapentin 600 mg PO TID 05/02/16 Glimepiride [Amaryl -] 4 mg PO BID 05/02/16 Hydrocodone/Acetaminophen [[place] 7.5-325 Tablet] 1 each PO BID PRN 05/02/16 Insulin Aspart [Novolog] 0 unit SQ ACHS PRN 05/02/16 [place]-3 Acid Ethyl Esters 1 gm PO TID 05/02/16 Omeprazole 20 mg PO DAILY 05/02/16 Trazodone HCl 200 mg PO HS 05/02/16 Insulin Glargine,Hum.rec.anlog [Lantus (10mL VIAL) -] 25 units SQ BID #10 ml Sodium Chloride Tablet - 1 gm PO BID #60 tablet 04/20/17 Levothyroxine Sodium [Levo-T] 50 mcg PO DAILY 04/28/17 Metoprolol Succinate [Toprol XL -] 25 mg PO BID #60 tab.sr 05/01/17 Acetaminophen [Tylenol .Regular Strength -] 650 mg PO Q6H PRN #0 tablet Nephrology Consult - Height Height: 5 ft 5 in - Weight Weight: 160 lb 0.008 oz - BMI Body Mass Index (BMI): 26.6 - Lab Results Anion Gap: Anion Gap Anion Gap 11 (8-16) 05/28/17 12:45 - Physical Examination Vital Signs: Vital Signs Temperature 97.9 F 05/28/17 17:53 Pulse Rate 78 05/28/17 17:53 Respiratory Rate 18 05/28/17 17:53 Blood Pressure 181/99 05/28/17 17:53 O2 Sat by Pulse Oximetry (%) 97 05/28/17 15:55 Assessment/Plan 71 year old woman that is known to our service with PMhx of Hypnatremia, Depression, Hypertension, DM, Peripheal Neuropathy, Chronic Lower back pain, Asthma, UTI's presented with N/V and found to have Na of 126. #Acute Hyponatrmia (hx of several episodes of hyponatremia in the past) related to siadh vs. volume depletion (pt responded to NS on 2 previous admissions) Pt was not taking salt tabs at home s/p discharge Check urine studiees s/p IVF in the ED restart NS at 84cc per hour Trend Na Q12h no indication for hypertenonic saline at this time Thank you Austen Degroot DO
[2017-05-28] MEDS ORDERED: INSULIN (NOVOLOG) ASPART 100 UNITS/ML 10ML VIAL ONE (18:00)
[2017-05-28] MEDS ORDERED: PT OWN MED DRAWER 7, Y5N ONE ×3 (18:02→23:33)
[2017-05-28 21:04] LABS: ANION GAP 7 (8-16); CALCIUM 8.7 mg/dL (8.5-10.1); CO2 31 mmol/L (21-32); CREATININE 0.7 mg/dL (0.55-1.02); GLUCOSE,RANDOM 178 mg/dL (74-106)
[2017-05-28] MEDS: SODIUM CHLORIDE 1,000 ML IV SCH (21:08)
[2017-05-28] MEDS: busPIRone HCL 10 MG TABLET (FP) PO SCH (21:09)
[2017-05-28] MEDS: traZODone HCL 50 MG TABLET (FP) PO SCH (21:10)
[2017-05-28] MEDS: FLUTICASONE PROP 0.05% 16 GM NASAL SPRAY NS SCH (21:11)
[2017-05-28] MEDS: INSULIN DETEMIR 100 UNITS/ML MDV SQ SCH (21:11)
[2017-05-28] MEDS: HEPARIN NA (PORCINE) 5,000 UNITS/ML 1ML VIAL SQ SCH (21:11)
[2017-05-28] MEDS: GABAPENTIN 300 MG CAPSULE (FP) PO SCH (21:13)
[2017-05-28] MEDS: PANTOPRAZOLE SODIUM 40 MG in SODIUM CHLORIDE 100 ML IVPB SCH (21:13)
[2017-05-28] MEDS: hydrOXYzine HCL 25 MG TABLET (FP) PO SCH (21:43)
[2017-05-28] MEDS ORDERED: traMADol HCL 50 MG TABLET PO PRN (23:48)
[2017-05-29] MEDS ORDERED: INSULIN DETEMIR 100 UNITS/ML MDV SQ ONE (05:58)
[2017-05-29] MEDS: INSULIN SLIDING SCALE (NOVOLOG) 1 VIAL SQ SCH ×4 (06:11→21:46)
[2017-05-29] MEDS: GLIMEPIRIDE 4 MG TABLET (FP) PO SCH (06:13)
[2017-05-29] MEDS: LEVOTHYROXINE NA 50 MCG TABLET (FP) PO SCH (06:13)
[2017-05-29] MEDS: METOCLOPRAMIDE HCL 10 MG TABLET (FP) PO SCH ×4 (06:13→21:46)
[2017-05-29 08:08] LABS: MCH 30.4 pg (25.7-33.7); MCHC 35.1 g/dl (32.0-36.0); MEAN CELL VOLUME 86.6 fl (80-96); PLATELET COUNT 150 K/MM3 (134-434); RDW 14.3 % (11.6-15.6); WHITE BLOOD COUNT 6.2 K/mm3 (4.0-10.0)
[2017-05-29 08:18] LABS: ALBUMIN 3.6 g/dl (3.4-5.0); ANION GAP 7 (8-16); CO2 31 mmol/L (21-32); GLUCOSE,RANDOM 107 mg/dL (74-106)
[2017-05-29 08:24] LABS: ALK PHOS 59 U/L (45-117); BILIRUBIN,TOTAL 0.5 mg/dL (0.2-1.0); CREATININE 0.6 mg/dL (0.55-1.02); SGOT/AST 17 U/L (15-37); SGPT/ALT 29 U/L (12-78); TOT PROT 6.6 g/dl (6.4-8.2)
[2017-05-29] MEDS ORDERED: PT OWN MED DRAWER 7, Y5N ONE ×2 (10:11→16:44)
[2017-05-29] MEDS: GABAPENTIN 300 MG CAPSULE (FP) PO SCH ×2 (10:12→21:46)
[2017-05-29] MEDS: ESCITALOPRAM OXALATE 20 MG TABLET (FP) PO SCH (10:12)
[2017-05-29] MEDS: busPIRone HCL 10 MG TABLET (FP) PO SCH ×2 (10:13→21:52)
[2017-05-29] MEDS: LORATADINE 10 MG TABLET PO SCH (10:13)
[2017-05-29] MEDS: hydrOXYzine HCL 25 MG TABLET (FP) PO SCH ×2 (10:13→21:52)
[2017-05-29] MEDS: PANTOPRAZOLE SODIUM 40 MG in SODIUM CHLORIDE 100 ML IVPB SCH ×2 (10:14→21:47)
[2017-05-29] MEDS: METOPROLOL SUCCINATE 25 MG TAB.SR.24H (FP) PO SCH (10:14)
[2017-05-29] MEDS: SODIUM CHLORIDE 1,000 ML IV SCH ×2 (10:15→16:23)
[2017-05-29] MEDS: FLUTICASONE PROP 0.05% 16 GM NASAL SPRAY NS SCH ×2 (10:15→21:53)
[2017-05-29] MEDS: HEPARIN NA (PORCINE) 5,000 UNITS/ML 1ML VIAL SQ SCH ×2 (10:15→21:54)
[2017-05-29] MEDS: INSULIN DETEMIR 100 UNITS/ML MDV SQ SCH ×2 (10:29→21:54)
--- NOTE | 2017-05-29 11:09 | EKG ---
Test Reason : Blood Pressure : / mmHG Vent. Rate : 086 BPM Atrial Rate : 086 BPM P-R Int : 156 ms QRS Dur : 082 ms QT Int : 430 ms P-R-T Axes : 055 011 034 degrees QTc Int : 514 ms NORMAL SINUS RHYTHM PROLONGED QT ABNORMAL ECG WHEN COMPARED WITH ECG OF 22-MAY-2017 10:21, NO SIGNIFICANT CHANGE WAS FOUND Confirmed by MARV VIDAL MD ([id number]) on 05/29/2017 11:09:04 AM Referred By: Confirmed By:MARV VIDAL MD
[2017-05-29] MEDS ORDERED: INSULIN (NOVOLOG) ASPART 100 UNITS/ML 10ML VIAL ONE (12:07)
[2017-05-29] MEDS: ACETAMINOPHEN 325 MG TABLET (FP) PO PRN (12:10)
--- NOTE | 2017-05-29 16:14 | PN ---
Progress Note (short form) - Note Progress Note: Renal follow up for hyponatremia Pt seen and examined at the bedside no further N/V but continues to have headache no sob, chest pain, abd pain s/p IVF overnight Vital Signs Temperature 98.7 F 05/29/17 14:31 Pulse Rate 79 05/29/17 14:31 Respiratory Rate 20 05/29/17 14:31 Blood Pressure 141/64 05/29/17 14:31 O2 Sat by Pulse Oximetry (%) 97 05/29/17 09:00 Intake & Output 05/26/17 05/27/17 05/28/17 05/29/17 23:59 23:59 23:59 23:59 Intake Total 1832 Output Total 300 200 Balance -300 1632 Weight 160 lb 0.008 oz Gen: NAD, awake and alert CVS: RRR, No M/R Lungs: CTA, no rales or wheeze Abd: soft NT/ND Ext: No edema, clubbing or cyanosis Neuro: AAOX3, no focal defects CBC, BMP 05/29/17 06:47 05/29/17 13:00 Current Medications Acetaminophen (Tylenol -) 650 mg PO Q6H PRN PRN Reason: FEVER OR PAIN Last Admin: 05/29/17 12:10 Dose: 650 mg Buspirone HCl (Buspar -) 10 mg PO BID [facility] Last Admin: 05/29/17 10:13 Dose: 10 mg Escitalopram Oxalate (Lexapro -) 20 mg PO DAILY [facility] Last Admin: 05/29/17 10:12 Dose: 20 mg Fluticasone Propionate (Flonase -) 1 spray NS BID [facility] Last Admin: 05/29/17 10:15 Dose: 1 spray Gabapentin (Neurontin -) 600 mg PO BID [facility] Last Admin: 05/29/17 10:12 Dose: 600 mg Glimepiride (Amaryl -) 4 mg PO DAILY@0700 [facility] Last Admin: 05/29/17 06:13 Dose: 4 mg Heparin Sodium (Porcine) (Heparin -) 5,000 unit SQ BID [facility] Last Admin: 05/29/17 10:15 Dose: 5,000 unit Hydroxyzine HCl (Atarax -) 25 mg PO BID [facility] Last Admin: 05/29/17 10:13 Dose: 25 mg Pantoprazole Sodium 40 mg/ (Sodium Chloride) 100 mls @ 200 mls/hr IVPB BID [facility] Last Admin: 05/29/17 10:14 Dose: 200 mls/hr Insulin Aspart (Novolog Vial Sliding Scale -) 1 vial SQ [facility] PRN Reason: Protocol Last Admin: 05/29/17 12:11 Dose: 4 unit Insulin Detemir (Levemir Vial) 20 units SQ BID [facility] Last Admin: 05/29/17 10:29 Dose: 20 unit Levothyroxine Sodium (Synthroid -) 50 mcg PO DAILY@0700 [facility] Last Admin: 05/29/17 06:13 Dose: 50 mcg Loratadine (Claritin -) 10 mg PO DAILY [facility] Last Admin: 05/29/17 10:13 Dose: 10 mg Metoclopramide HCl (Reglan -) 10 mg PO ACHS [facility] Last Admin: 05/29/17 11:35 Dose: 10 mg Metoprolol Succinate (Toprol Xl -) 25 mg PO DAILY [facility] Last Admin: 05/29/17 10:14 Dose: 25 mg Ondansetron HCl (Zofran Injection) 4 mg IVPB Q6H PRN PRN Reason: NAUSEA Last Admin: 05/29/17 06:13 Dose: 4 mg Sodium Chloride ([place] Nasal [place] -) 2 spray NS TID PRN PRN Reason: NASAL CONGESTION Tramadol HCl (Ultram -) 50 mg PO Q8H PRN PRN Reason: PAIN Last Admin: 05/29/17 01:14 Dose: 50 mg Trazodone HCl (Desyrel -) 50 mg PO [facility] Last Admin: 05/28/17 21:10 Dose: 50 mg A/P 71 year old woman that is known to our service with PMhx of Hypnatremia, Depression, Hypertension, DM, Peripheal Neuropathy, Chronic Lower back pain, Asthma, UTI's presented with N/V and found to have Na of 126. #Acute Hyponatrmia (hx of several episodes of hyponatremia in the past) serum Na improved with IVF urine studies showed a high urine Na but a low urine OSM (indicating that the urine is dilute and there is low ADH activity) IVF held this am b/c Serum Na had corrected by 9 in less then 24 hours but repeat labs this afternoon show Na at goal levels will restart gentle IVF hydration Trend Na Q24hrs Thank you Austen Degroot DO
[2017-05-29] MEDS ORDERED: SODIUM CHLORIDE 1,000 ML IV SCH (16:15)
--- NOTE | 2017-05-29 17:58 | PN ---
Mental Health Exam - Mental Status Exam Alert and Oriented to: Time, Place, Person Cognitive Function: Grossly Intact Patient Appearance: Well Groomed Mood: Hopeful Affect: Appropriate, Mood Congruent Patient Behavior: Passive, Appropriate Speech Pattern: Clear Voice Loudness: Mildly Soft/Quiet Thought Process: Intact Thought Disorder: Not Present Hallucinations: None Suicidal Ideation: None Homicidal Ideation: None Insight/Judgement: Fair Sleep: Poorly (helpful with trazadone. ) Appetite: Fair Muscle strength/Tone: Mild Hypotonicity Gait/Station: Deferred
--- NOTE | 2017-05-29 18:03 | PN ---
Progress Note, Physician Chief Complaint: Called to see per rquest Dr Wick. for possible drug induced? acute hypo natraemia. History of Present Illness: Client is dana followed at [facility] by Dr Fabiola Ferrera per her daughter present on interview. Client is 71yo felale with history of depression HTN, non adherent with treatmet after last discharge. Appetite is good, observed eatig dinner by verse writer. Mod is euthymic, denies SI, HI, AH or VH. She is risk for SIADH due to female , her age and poly pharmacy. - Current Medication List Current Medications: Active Medications Acetaminophen (Tylenol -) 650 mg PO Q6H PRN PRN Reason: FEVER OR PAIN Last Admin: 05/29/17 12:10 Dose: 650 mg Buspirone HCl (Buspar -) 10 mg PO BID [facility] Last Admin: 05/29/17 10:13 Dose: 10 mg Escitalopram Oxalate (Lexapro -) 20 mg PO DAILY [facility] Last Admin: 05/29/17 10:12 Dose: 20 mg Fluticasone Propionate (Flonase -) 1 spray NS BID [facility] Last Admin: 05/29/17 10:15 Dose: 1 spray Gabapentin (Neurontin -) 600 mg PO BID [facility] Last Admin: 05/29/17 10:12 Dose: 600 mg Glimepiride (Amaryl -) 4 mg PO DAILY@0700 [facility] Last Admin: 05/29/17 06:13 Dose: 4 mg Heparin Sodium (Porcine) (Heparin -) 5,000 unit SQ BID [facility] Last Admin: 05/29/17 10:15 Dose: 5,000 unit Hydroxyzine HCl (Atarax -) 25 mg PO BID [facility] Last Admin: 05/29/17 10:13 Dose: 25 mg Pantoprazole Sodium 40 mg/ (Sodium Chloride) 100 mls @ 200 mls/hr IVPB BID [facility] Last Admin: 05/29/17 10:14 Dose: 200 mls/hr Sodium Chloride (Normal Saline -) 1,000 mls @ 60 mls/hr IV ASDIR [facility] Stop: 05/30/17 16:14 Last Admin: 05/29/17 16:23 Dose: 60 mls/hr Insulin Aspart (Novolog Vial Sliding Scale -) 1 vial SQ ACHS [facility] PRN Reason: Protocol Last Admin: 05/29/17 17:17 Dose: 4 unit Insulin Detemir (Levemir Vial) 20 units SQ BID [facility] Last Admin: 05/29/17 10:29 Dose: 20 unit Levothyroxine Sodium (Synthroid -) 50 mcg PO DAILY@0700 [facility] Last Admin: 05/29/17 06:13 Dose: 50 mcg Loratadine (Claritin -) 10 mg PO DAILY [facility] Last Admin: 05/29/17 10:13 Dose: 10 mg Metoclopramide HCl (Reglan -) 10 mg PO ACHS [facility] Last Admin: 05/29/17 16:39 Dose: 10 mg Metoprolol Succinate (Toprol Xl -) 25 mg PO DAILY [facility] Last Admin: 05/29/17 10:14 Dose: 25 mg Ondansetron HCl (Zofran Injection) 4 mg IVPB Q6H PRN PRN Reason: NAUSEA Last Admin: 05/29/17 06:13 Dose: 4 mg Sodium Chloride ([place] Nasal [place] -) 2 spray NS TID PRN PRN Reason: NASAL CONGESTION Tramadol HCl (Ultram -) 50 mg PO Q8H PRN PRN Reason: PAIN Last Admin: 05/29/17 01:14 Dose: 50 mg Trazodone HCl (Desyrel -) 50 mg PO HS [facility] Last Admin: 05/28/17 21:10 Dose: 50 mg - Objective Vital Signs: Vital Signs Temperature 98.7 F 05/29/17 14:31 Pulse Rate 79 05/29/17 14:31 Respiratory Rate 20 05/29/17 14:31 Blood Pressure 141/64 05/29/17 14:31 O2 Sat by Pulse Oximetry (%) 97 05/29/17 09:00 Psychiatric: Yes: WNL, Alert, Oriented Labs: CBC, BMP 05/29/17 06:47 05/29/17 13:00 Problem List - Problems (1) Hyponatremia Code(s): E87.1 - HYPO-OSMOLALITY AND HYPONATREMIA (2) Depression Code(s): F32.9 - MAJOR DEPRESSIVE DISORDER, SINGLE EPISODE, UNSPECIFIED Qualifiers: Depression Type: other depression Qualified Code(s): F32.89 - Other specified depressive episodes Assessment/Plan Plan to reduce dose of current Meds. Reduce lexapro to 10 mg per day as (1/2 daily adult dose in elderly is recomended) Continue trazadone 50 mg at night due to insomnia. Continue Gapapentin 600 mg po bid for pain? May reduce buspar to 5mg po bid. . Spoke with RN on floor and with daughter Zandra. . Follow up with [facility], have [facility] in [place] post discharge, Thanks for consult.
[2017-05-29] MEDS: traZODone HCL 50 MG TABLET (FP) PO SCH (21:46)
--- NOTE | 2017-05-30 02:33 | PN ---
Progress Note, Physician Chief Complaint: AWAKE ALERT FEELING BETTER DENIES CHEST PAIN NO SOB DEPRESSION STABLE AT THIS TIME - Current Medication List Current Medications: Active Medications Acetaminophen (Tylenol -) 650 mg PO Q6H PRN PRN Reason: FEVER OR PAIN Last Admin: 05/29/17 12:10 Dose: 650 mg Buspirone HCl (Buspar -) 10 mg PO BID [facility] Last Admin: 05/29/17 21:52 Dose: 10 mg Escitalopram Oxalate (Lexapro -) 20 mg PO DAILY [facility] Last Admin: 05/29/17 10:12 Dose: 20 mg Fluticasone Propionate (Flonase -) 1 spray NS BID [facility] Last Admin: 05/29/17 21:53 Dose: 1 spray Gabapentin (Neurontin -) 600 mg PO BID [facility] Last Admin: 05/29/17 21:46 Dose: 600 mg Glimepiride (Amaryl -) 4 mg PO DAILY@0700 [facility] Last Admin: 05/29/17 06:13 Dose: 4 mg Heparin Sodium (Porcine) (Heparin -) 5,000 unit SQ BID [facility] Last Admin: 05/29/17 21:54 Dose: 5,000 unit Hydroxyzine HCl (Atarax -) 25 mg PO BID [facility] Last Admin: 05/29/17 21:52 Dose: 25 mg Pantoprazole Sodium 40 mg/ (Sodium Chloride) 100 mls @ 200 mls/hr IVPB BID [facility] Last Admin: 05/29/17 21:47 Dose: 200 mls/hr Sodium Chloride (Normal Saline -) 1,000 mls @ 60 mls/hr IV ASDIR [facility] Stop: 05/30/17 16:14 Last Admin: 05/29/17 16:23 Dose: 60 mls/hr Insulin Aspart (Novolog Vial Sliding Scale -) 1 vial SQ ACHS [facility] PRN Reason: Protocol Last Admin: 05/29/17 21:46 Dose: 4 unit Insulin Detemir (Levemir Vial) 20 units SQ BID [facility] Last Admin: 05/29/17 21:54 Dose: 20 unit Levothyroxine Sodium (Synthroid -) 50 mcg PO DAILY@0700 [facility] Last Admin: 05/29/17 06:13 Dose: 50 mcg Loratadine (Claritin -) 10 mg PO DAILY [facility] Last Admin: 05/29/17 10:13 Dose: 10 mg Metoclopramide HCl (Reglan -) 10 mg PO ACHS [facility] Last Admin: 05/29/17 21:46 Dose: 10 mg Metoprolol Succinate (Toprol Xl -) 25 mg PO DAILY [facility] Last Admin: 05/29/17 10:14 Dose: 25 mg Ondansetron HCl (Zofran Injection) 4 mg IVPB Q6H PRN PRN Reason: NAUSEA Last Admin: 05/29/17 06:13 Dose: 4 mg Sodium Chloride ([place] Nasal [place] -) 2 spray NS TID PRN PRN Reason: NASAL CONGESTION Tramadol HCl (Ultram -) 50 mg PO Q8H PRN PRN Reason: PAIN Last Admin: 05/29/17 01:14 Dose: 50 mg Trazodone HCl (Desyrel -) [address] [facility] Last Admin: 05/29/17 21:46 Dose: 50 mg - Objective Vital Signs: Vital Signs Temperature 98.1 F 05/30/17 02:00 Pulse Rate 84 05/30/17 02:00 Respiratory Rate 20 05/30/17 02:00 Blood Pressure 156/80 05/30/17 02:00 O2 Sat by Pulse Oximetry (%) 97 05/29/17 09:00 Constitutional: Yes: No Distress Eyes: Yes: WNL HENT: Yes: WNL Neck: Yes: WNL Cardiovascular: Yes: WNL Respiratory: Yes: WNL Gastrointestinal: Yes: WNL Genitourinary: Yes: WNL Musculoskeletal: Yes: WNL Extremities: Yes: WNL Edema: No Peripheral Pulses WNL: Yes Integumentary: Yes: WNL Wound/Incision: Yes: Clean/Dry Neurological: Yes: WNL ...Motor Strength: WNL Psychiatric: Yes: WNL Labs: CBC, BMP 05/29/17 06:47 05/29/17 13:00 Problem List - Problems (1) Abdominal pain Code(s): R10.9 - UNSPECIFIED ABDOMINAL PAIN Qualifiers: Abdominal location: left lower quadrant Qualified Code(s): R10.32 - Left lower quadrant pain (2) Diarrhea Code(s): R19.7 - DIARRHEA, UNSPECIFIED Qualifiers: Diarrhea type: unspecified type Qualified Code(s): R19.7 - Diarrhea, unspecified (3) Hypomagnesemia Code(s): E83.42 - HYPOMAGNESEMIA (4) Hyponatremia Code(s): E87.1 - HYPO-OSMOLALITY AND HYPONATREMIA (5) Chronic hyponatremia Code(s): E87.1 - HYPO-OSMOLALITY AND HYPONATREMIA (6) Depression Code(s): F32.9 - MAJOR DEPRESSIVE DISORDER, SINGLE EPISODE, UNSPECIFIED Qualifiers: Depression Type: other depression Qualified Code(s): F32.89 - Other specified depressive episodes (7) Diabetes mellitus Code(s): E11.9 - TYPE 2 DIABETES MELLITUS WITHOUT COMPLICATIONS Qualifiers: Diabetes mellitus type: type 2 (8) Hypothyroidism Code(s): E03.9 - HYPOTHYROIDISM, UNSPECIFIED Qualifiers: Hypothyroidism type: unspecified Qualified Code(s): E03.9 - Hypothyroidism, unspecified Assessment/Plan MONITOR SODIUM LEVELS REEVALUATE MEDICATIONS WITH NEPHROLOGY SSRI AND PPI CAN CAUSE HYPONATREMIA REVIEW LABS PSYCHIATRY EVAL APPRECIATED
[2017-05-30] MEDS: GLIMEPIRIDE 4 MG TABLET (FP) PO SCH (06:41)
[2017-05-30] MEDS: LEVOTHYROXINE NA 50 MCG TABLET (FP) PO SCH (06:41)
[2017-05-30] MEDS: INSULIN SLIDING SCALE (NOVOLOG) 1 VIAL SQ SCH ×2 (06:41→12:36)
[2017-05-30] MEDS: METOCLOPRAMIDE HCL 10 MG TABLET (FP) PO SCH ×2 (06:43→10:48)
[2017-05-30] MEDS: SODIUM CHLORIDE 1,000 ML IV SCH (06:43)
[2017-05-30 08:28] LABS: ANION GAP 10 (8-16); CALCIUM 8.8 mg/dL (8.5-10.1); CO2 27 mmol/L (21-32); GLUCOSE,RANDOM 217 mg/dL (74-106)
[2017-05-30 08:29] LABS: CREATININE 0.7 mg/dL (0.55-1.02)
[2017-05-30] MEDS ORDERED: RANITIDINE HCL 150 MG TABLET (FP) PO SCH (10:00)
--- NOTE | 2017-05-30 10:46 | DS ---
Physical Examination Vital Signs: Vital Signs Temperature 98.2 F 05/30/17 06:00 Pulse Rate 87 05/30/17 06:00 Respiratory Rate 20 05/30/17 06:00 Blood Pressure 152/69 05/30/17 06:00 O2 Sat by Pulse Oximetry (%) 97 05/29/17 09:00 Findings/Remarks: AWAKE ALERT NAD Constitutional: Yes: No Distress Eyes: Yes: WNL HENT: Yes: WNL Neck: Yes: WNL Cardiovascular: Yes: WNL Respiratory: Yes: WNL Gastrointestinal: Yes: WNL Renal/: Yes: WNL Musculoskeletal: Yes: WNL Extremities: Yes: WNL Edema: No Peripheral Pulses WNL: Yes Integumentary: Yes: WNL Wound/Incision: Yes: Clean/Dry Neurological: Yes: WNL ...Motor Strength: WNL Psychiatric: Yes: Other Labs: CBC, BMP 05/29/17 06:47 05/30/17 06:00 Discharge Summary Reason For Visit: DIARRHEA Current Active Problems Abdominal pain (Acute) Diarrhea (Acute) Hypomagnesemia (Acute) Hyponatremia (Acute) Procedures: Principal: LABS Hospital Course: ADMITTED FOR ACUTE ON CHRONIC HYPONATREMIA/NAUSEA AND VOMITING, NASAL CONGESTION , REVIEWED MEDS WITH NEPHROLOGY, STOP OMEPRAZOLE, CHECK WITH PSYCHIATRY FOR SSRI INDUCED HYPONATREMIA, F/U PRIMARY DOCTOR IN 3 DAYS Condition: Improved - Instructions Diet, Activity, Other Instructions: DIABETIC DIET SEE DR LOVING IN 3 DAYS Referrals: Yokasta Loving [Primary Care Provider] - Disposition: VNS/HOME HEALTH CARE - Home Medications Comprehensive Discharge Medication List: Ambulatory Orders Aspirin [ASA -] 81 mg PO DAILY 05/02/16 Buspirone HCl [Buspar -] 5 mg PO BID 05/02/16 Escitalopram Oxalate [Lexapro -] 10 mg PO DAILY 05/02/16 Glimepiride [Amaryl -] 4 mg PO BID 05/02/16 Hydrocodone/Acetaminophen [[place] 7.5-325 Tablet] 1 each PO BID PRN 05/02/16 [place]-3 Acid Ethyl Esters 1 gm PO TID 05/02/16 Trazodone HCl 200 mg PO HS 05/02/16 Levothyroxine Sodium [Levo-T] 50 mcg PO DAILY 04/28/17 Metoprolol Succinate [Toprol XL -] 25 mg PO BID #60 tab.sr 05/01/17 Calcium (Oyster Shell) [Os-[place] 500MG -] 500 mg PO BID 05/29/17 Gabapentin 1,200 mg PO HS 05/29/17 Gabapentin 600 mg PO AM 05/29/17 Gabapentin 600 mg PO ASDIR MDD Take at 12nn 05/29/17 Montelukast Na [Singulair -] 10 mg IVPUSH ACHS 05/29/17 Sennosides [Senna -] 2 tab PO DAILY 05/29/17 Sitagliptin Phosphate [Januvia] 100 mg PO DAILY 05/29/17 Acetaminophen [Tylenol .Regular Strength -] 650 mg PO Q6H PRN #0 tablet Buspirone HCl [Buspar -] 10 mg PO BID tablet 05/30/17 Escitalopram Oxalate [Lexapro -] 20 mg PO DAILY tablet 05/30/17 Fluticasone Prop 0.05% Nasal [Flonase -] 1 spray NS BID #1 spray 05/30/17 Gabapentin [Neurontin -] 600 mg PO BID cap 05/30/17 Glimepiride [Amaryl -] 4 mg PO DAILY@0700 tablet 05/30/17 Hydroxyzine HCl [Atarax -] 25 mg PO BID #60 tablet 05/30/17 Levothyroxine [Synthroid -] 50 mcg PO DAILY@0700 tablet 05/30/17 Loratadine [Claritin -] 10 mg PO DAILY #30 tablet 05/30/17 Metoprolol Succinate [Toprol XL -] 25 mg PO DAILY tab 05/30/17 Ranitidine [Zantac -] 150 mg PO BID #60 tablet 05/30/17 Sodium Chloride Nasal [place] [[place] Nasal [place] -] 2 spray NS TID PRN #1 spray 05/30/17 Tramadol HCl [Ultram -] 50 mg PO Q8H PRN #0 tablet MDD 3 05/30/17 Trazodone HCl [Desyrel -] 50 mg PO HS tablet 05/30/17
[2017-05-30] MEDS: ESCITALOPRAM OXALATE 20 MG TABLET (FP) PO SCH (10:48)
[2017-05-30] MEDS: LORATADINE 10 MG TABLET PO SCH (10:48)
[2017-05-30] MEDS: GABAPENTIN 300 MG CAPSULE (FP) PO SCH (10:48)
[2017-05-30] MEDS: METOPROLOL SUCCINATE 25 MG TAB.SR.24H (FP) PO SCH (10:49)
[2017-05-30] MEDS: INSULIN DETEMIR 100 UNITS/ML MDV SQ SCH (10:49)
[2017-05-30] MEDS: HEPARIN NA (PORCINE) 5,000 UNITS/ML 1ML VIAL SQ SCH (10:49)
[2017-05-30] MEDS: FLUTICASONE PROP 0.05% 16 GM NASAL SPRAY NS SCH (10:53)
[2017-05-30] MEDS ORDERED: PT OWN MED DRAWER 7, Y5N ONE (10:53)
[2017-05-30] MEDS: hydrOXYzine HCL 25 MG TABLET (FP) PO SCH (10:54)
[2017-05-30] MEDS: busPIRone HCL 10 MG TABLET (FP) PO SCH (10:54)
[2017-05-30 11:35] VITALS: BP 167/72; PULSE 97; TEMP 98.6
[2017-05-30] MEDS ORDERED: SODIUM CHLORIDE 1 GM TABLET PO SCH (22:00)
== END 2017-05-30 12:37 | disposition home health service (06) | DRG 641 ==
LOC: JER 11:51 → JERBED 15:11 → OBSVTOIN 16:22 → J5S 16:26
PROVIDERS: ADMIT Family Medicine; ATTEND Family Medicine
DX: E87.1 Hypo-osmolality and hyponatremia (principal); G40.89 Other seizures; E83.42 Hypomagnesemia; R10.32 Left lower quadrant pain; J45.909 Unspecified asthma, uncomplicated; I69.398 Other sequelae of cerebral infarction; E78.00 Pure hypercholesterolemia, unspecified; F03.90 Unspecified dementia, unspecified severity, without behavioral disturbance, psychotic disturbance, mood disturbance, and anxiety; F32.9 Major depressive disorder, single episode, unspecified; R19.7 Diarrhea, unspecified; R11.2 Nausea with vomiting, unspecified; E03.9 Hypothyroidism, unspecified; G62.9 Polyneuropathy, unspecified; R51 Headache; Z91.14 Patient's other noncompliance with medication regimen
CPT/HCPCS: 36415; 80048; 80053; 81003; 81015; 82803; 83605; 83735; 83930; 83935; 84295; 84300; 85025; 85027; 87040; 87086; 93005; 93010; 99283-25; G0378; J1644

== ENCOUNTER 2017-06-03 06:41 | Inpatient (IN) | payer OTHER ==
[2017-06-03] MEDS ORDERED: ACETAMINOPHEN 325 MG TABLET (FP) PO ONE (07:46)
--- NOTE | 2017-06-03 07:48 | PDOC ---
History of Present Illness - General Chief Complaint: Injury Stated Complaint: FALL Time Seen by Provider: 06/03/17 07:16 History Source: Patient, Family Exam Limitations: No Limitations - History of Present Illness Initial Comments: 06/03/17 09:43 Patient is a 71-year-old female with past medical history of hypertension, insulin-dependent diabetes, hyponatremia, who presents to the emergency department today complaining of headache and lightheadedness. Patient states that when she woke this morning she felt lightheaded and she fell. She states that she fell on her left shoulder. Denies hitting her head but she is unsure as to why she fell. It is unclear if she lost consciousness. Patient is currently reporting headache and dizziness. She also endorses low back pain and left shoulder pain. She was seen at bedside with her daughter present. Daughter states that she has recently had bouts of hyponatremia was recently discharged from last week. Admitting diagnosis at that time was hyponatremia. Denies fevers , chills, recent illness, nausea, vomiting, diarrhea, cough, chest pain, frequency, urgency, dysuria. Past History - Travel Traveled outside of the country in the last 30 days: No Close contact w/someone who was outside of country & ill: No - Past Medical History Allergies/Adverse Reactions: Allergies Allergy/AdvReac Type Severity Reaction Status Date / Time No Known Drug Allergies Allergy Verified 06/03/17 06:55 Home Medications: Ambulatory Orders Gabapentin 600 mg PO ASDIR MDD Take at 12nn 05/29/17 Acetaminophen [Tylenol .Regular Strength -] 650 mg PO Q6H PRN #0 tablet Levothyroxine [Synthroid -] 50 mcg PO DAILY@0700 tablet 05/30/17 Metoprolol Succinate [Toprol XL -] 25 mg PO DAILY tab 05/30/17 Acetaminophen [Tylenol .Regular Strength -] 650 mg PO Q6H PRN #0 tablet Amlodipine Besylate [Norvasc -] 10 mg PO DAILY tablet 06/06/17 Aspirin Coated [Ecotrin -] 81 mg PO DAILY tab 06/06/17 Aspirin [ASA -] 81 mg PO DAILY #0 tab 06/06/17 Bupropion HCl [Wellbutrin Xl -] 150 mg PO DAILY tab 06/06/17 Calcium (Oyster Shell) [Os-Pasqu[place] 500MG -] 500 mg PO BID #0 cap 06/06/17 Gabapentin 1,200 mg PO HS #0 cap 06/06/17 Gabapentin [Neurontin -] 600 mg PO DAILY #0 cap 06/06/17 Gabapentin [Neurontin -] 600 mg PO TID cap 06/06/17 Glimepiride [Amaryl -] 4 mg PO BID #0 tab 06/06/17 Glimepiride [Amaryl -] 4 mg PO DAILY@0700 tablet 06/06/17 Levothyroxine [Synthroid -] 50 mcg PO DAILY@0700 tablet 06/06/17 Metoprolol Succinate [Toprol XL -] 25 mg PO DAILY tab 06/06/17 Montelukast Na [Singulair -] 10 mg IVPUSH ACHS #0 tab 06/06/17 Montelukast Na [Singulair -] 10 mg PO HS tablet 06/06/17 [place]-3 Acid Ethyl Esters 1 gm PO TID #0 cap 06/06/17 Oxycodone HCl [Roxicodone -] 5 mg PO Q6H PRN #0 tablet MDD 4 06/06/17 Sennosides [Senna -] 1 tab PO HS tablet 06/06/17 Sennosides [Senna -] 2 tab PO DAILY #0 tab 06/06/17 Sitagliptin Phosphate [Januvia -] 100 mg PO DAILY@0700 tab 06/06/17 Sitagliptin Phosphate [Januvia] 100 mg PO DAILY #0 tab 06/06/17 Sodium Chloride Tablet - 1 gm PO BID tablet 06/06/17 Anemia: No Asthma: Yes Cancer: No Cardiac Disorders: No CVA: Yes (2013,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") COPD: No CHF: No Dementia: No Diabetes: Yes GI Disorders: No Disorders: No HTN: Yes Hypercholesterolemia: Yes Liver Disease: No Psychiatric Problems: Yes (dementia, depression) Suicide Attempt (Hx): No Seizures: Yes Thyroid Disease: Yes - Surgical History Abdominal Surgery: No Appendectomy: No Cardiac Surgery: No Cholecystectomy: No Lung Surgery: No Neurologic Surgery: No Orthopedic Surgery: Yes ("BACK SURGERY" STATED BY PT) - Reproductive History Therapeutic (s) & number: No - Suicide/Smoking/Psychosocial Hx Anxiety: No Suicidal Ideation: No Smoking Status: No Smoking History: Never smoked Have you smoked in the past 12 months: No Number of Cigarettes Smoked Daily: 0 Hx Alcohol Use: No Drug/Substance Use Hx: No Substance Use Type: None Hx Substance Use Treatment: No Review of Systems - Review of Systems Able to Perform ROS?: Yes Is the patient limited German proficient: No Constitutional: No: Chills, Fever, Malaise, Weakness HEENTM: Yes: Blurred Vision (L eye), Recent change in vision (L eye). No: Double Vision, Hearing Loss Respiratory: No: Cough, Shortness of Breath, Wheezing Cardiac (ROS): No: Chest Pain, Lightheadedness, Palpitations, Chest Tightness ABD/GI: Yes: Nausea (started saturday; since resolved). No: Diarrhea, Vomiting : No: Burning, Dysuria, Discharge, Frequency Musculoskeletal: Yes: Muscle Pain (Left arm, left leg, left neck), Neck Pain ( left sided). No: Back Pain, Muscle Weakness Integumentary: No: Bruising, Rash, Sweating Neurological: Yes: Headache (L back of head), Dizziness. No: Numbness, Paresthesia, Pre-Existing Deficit, Weakness, Unsteady Gait Psychiatric: No: Anxiety, Depression, Frequent Crying All Other Systems: Reviewed and Negative *Physical Exam - Vital Signs Last Vital Signs Temp Pulse Resp BP Pulse Ox 97.9 F 78 18 164/80 98 06/03/17 06:52 06/03/17 06:52 06/03/17 06:52 06/03/17 06:52 06/03/17 07:37 - Physical Exam Comments: 06/03/17 09:59 GENERAL: Well developed, well nourished. Awake and alert to person and place but not time. In mild distress c/o pain. HEENT: Normocephalic, atraumatic. PERRLA, EOMI. No conjunctival pallor. Sclera are non- icteric. Moist mucous membranes. Oropharynx is clear. NECK: Supple. Full ROM. No JVD. Carotid pulses 2+ and symmetric, without bruits. No thyromegaly. No lymphadenopathy. CARDIOVASCULAR: Regular rate and rhythm. No murmurs, rubs, or gallops. Distal pulses are 2+ and symmetric. PULMONARY: No evidence of respiratory distress. Lungs clear to auscultation bilaterally. No wheezing, rales or rhonchi. ABDOMINAL: Soft. Non-tender. Non-distended. No rebound or guarding. No organomegaly. Normoactive bowel sounds. MUSCULOSKELETAL TTP of L arm and b/l Lower legs. Normal range of motion at all joints. No bony deformities. No CVA tenderness. EXTREMITIES: No cyanosis. No clubbing. No edema. No calf tenderness. SKIN: Warm and dry. Normal capillary refill. No rashes. No jaundice. NEUROLOGICAL: Alert, awake, appropriate. Cranial nerves 2-12 intact. No deficits to light touch and temperature in face, upper extremities and lower extremities. No motor deficits in the in face, upper extremities and lower extremities. Normoreflexic in the upper and lower extremities. Normal speech. Toes are down- going bilaterally. Gait is normal without ataxia. PSYCHIATRIC: Cooperative. Good eye contact. Appropriate mood and affect. ED Treatment Course - LABORATORY CBC & Chemistry Diagram: 06/04/17 06:00 06/06/17 07:00 - ADDITIONAL ORDERS Additional order review: Laboratory Results 06/03/17 06:49 POC Glucometer 170.78960 06/03/17 06:49 POC Glucometer 170.63296 - RADIOLOGY Radiology Studies Ordered: Category Date Time Status HEAD CT WITHOUT CONTRAST [CT] Stat CT Scan 06/03/17 07:44 Ordered ABDOMEN US [US] Stat Ultrasound 06/03/17 07:45 Ordered Medical Decision Making - Medical Decision Making 06/03/17 10:00 Patient is a 71-year-old female with past medical history of hypertension, insulin-dependent diabetes, hyponatremia, who presents to the emergency department today complaining of headache and lightheadedness. Given fall concerned for a trauma, we will obtain imaging at this time. Also obtain basic lab work hyponatremia is concerned dizziness. Patient also has history of enlarged spleen, we'll obtain further imaging to rule out bleed. 1.CBC, CMP, troponin, mag, phosphorus, PT/INR, PTT, UA, urine osmolarity, urine sodium. 2. Head CT, EKG, X-rays of left shoulder, chest, and lumbar spine, abdominal ultrasound 3.Tylenol 4.Re-evaluate 06/03/17 10:35 CMP is notable for an Na of 119, Cl of 81, Mag 1.7. Head CT wet read, unchanged. No lesions, bleed, acute intracranial process EKG: Rate 74, NSR, normal axis and intervals, no acute ST-T wave changes US: Fatty livers vs hepatocellular disease, splenomegaly, no bleed. Given the sodium level, will readmit to the hospital. 1st call to Dr. Tinoco. Pt. improved during her last visit with IV fluids. Will start normal saline 500ml. 06/03/17 10:[address] Tinoco, accepts the pt. *DC/Admit/Observation/Transfer Diagnosis at time of Disposition: Hyponatremia, Dizziness - Discharge Dispostion Disposition: RETIREMENT FACILITY Condition at time of disposition: Stable
--- NOTE | 2017-06-03 08:12 | PDOC ---
Attending Attestation - Resident Resident Name: SafiaDenia - ED Attending Attestation I have performed the following: I have examined & evaluated the patient, The case was reviewed & discussed with the resident, I agree w/resident's findings & plan, Exceptions are as noted - Medical Decision Making 06/03/17 08:08 Vital Signs Temp Pulse Resp BP Pulse Ox 97.9 F 78 18 164/80 98 06/03/17 06:52 06/03/17 06:52 06/03/17 06:52 06/03/17 06:52 06/03/17 07:37 71 year old female with past medical history of chronic hyponatremia, hypertension, hyperlipidemia, diabetes, peripheral neuropathy, CVA, chronic lower back pain status post multiple spinal surgeries, asthma, urinary tract infections presented with fall. The patient yesterday developed a tension-like headache that was constant. Today, patient attempted to go to the restroom but she tripped and fell let on her left side. Denies head trauma or loss of consciousness. States that she feels left shoulder pain. Patient also has a history of an enlarged spleen and the patient's family was concerned from the fall. Denies any recent fevers or chills. Patient feels generally weak and thinks she may be hyponatremic again. Differential includes hyponatremia, metabolic disarray, urinary tract infection , cardiac, neurologic. We'll obtain head CT, ultrasound the abdomen, labs including a sodium level, left shoulder x-ray. 06/03/17 09:55 CBC, BMP 06/03/17 08:00 06/03/17 08:00 CMP Sodium 119 mmol/L (136-145) L* D 06/03/17 08:00 Potassium 4.0 mmol/L (3.5-5.1) 06/03/17 08:00 Chloride 81 mmol/L (98-107) L D 06/03/17 08:00 Carbon Dioxide 26 mmol/L (21-32) 06/03/17 08:00 Anion Gap 12 (8-16) 06/03/17 08:00 BUN 6 mg/dL (7-18) L D 06/03/17 08:00 Creatinine 0.5 mg/dL (0.55-1.02) L D 06/03/17 08:00 Creat Clearance w eGFR > 60 (>60) 06/03/17 08:00 POC Glucometer [id number] UNITS (()) 06/03/17 06:49 Random Glucose 165 mg/dL (74-106) H D 06/03/17 08:00 Calcium 9.2 mg/dL (8.5-10.1) 06/03/17 08:00 Phosphorus 3.2 mg/dL (2.5-4.9) 06/03/17 08:00 Magnesium 1.7 mg/dL (1.8-2.4) L 06/03/17 08:00 Total Bilirubin 0.7 mg/dL (0.2-1.0) D 06/03/17 08:00 AST 26 U/L (15-37) D 06/03/17 08:00 ALT 36 U/L (12-78) D 06/03/17 08:00 Alkaline Phosphatase 79 U/L (45-117) D 06/03/17 08:00 Creatine Kinase 120 IU/L (26-192) 06/03/17 08:00 Troponin I < 0.02 ng/ml (0.00-0.05) 06/03/17 08:00 Total Protein 7.3 g/dl (6.4-8.2) 06/03/17 08:00 Albumin 4.1 g/dl (3.4-5.0) 06/03/17 08:00 Urine Test Results Urine Color Straw 06/03/17 08:00 Urine Appearance Clear 06/03/17 08:00 Urine pH 7.0 (5.0-8.0) D 06/03/17 08:00 Urine Protein Negative (NEGATIVE) 06/03/17 08:00 Urine Glucose (UA) Negative (NEGATIVE) 06/03/17 08:00 Urine Ketones Negative (NEGATIVE) 06/03/17 08:00 Urine Blood Negative (NEGATIVE) 06/03/17 08:00 Urine Nitrite Negative (NEGATIVE) 06/03/17 08:00 Urine Bilirubin Negative (NEGATIVE) 06/03/17 08:00 Pt noted with acute hyponatremia. On prior admission, according to nephrology, pt's hyponatremia improved with IVF. Will trial gentle IVF and reassess. Pt will need to be admitted <Daniel Johnson - Last Filed: 06/03/17 10:37> - HPI HPI: 06/03/17 08:39 The patient is a 71 year old female, with a significant past medical history of DM, peripheral neuropathy, CVA, Chronic back pain, Asthma, UTI who presents to the emergency department s/p fall. Patient states she developed a tension like headache, constant, with no associated weakness. Patient fell on her L side today when using the restroom. Patient denies LOC, head trauma. Patient was seen on 05/28/2017 for n/v/d. Patient labs revealed severe hyponatremia with sodium of 128. Patient was admitted and discharged on 2016. She denies chest pain, lightheadedness or dizziness. She denies fever, chills, abdominal pain, nausea, vomit, diarrhea or constipation. She denies dysuria, frequency, urgency or hematuria. - Physicial Exam PE: 06/03/17 08:39 GENERAL: Awake, alert, and fully oriented, in no acute distress HEAD: No signs of trauma EYES: PERRLA, EOMI, sclera anicteric, conjunctiva clear ENT: Auricles normal inspection, hearing grossly normal, nares patent, oropharynx clear without exudates. Moist mucosa NECK: Normal ROM, supple, no lymphadenopathy, JVD, or masses LUNGS: Breath sounds equal, clear to auscultation bilaterally. No wheezes, and no crackles HEART: Regular rate and rhythm, normal S1 and S2, no murmurs, rubs or gallops ABDOMEN: Soft, nontender, normoactive bowel sounds. No guarding, no rebound. No masses EXTREMITIES: Normal range of motion, no edema. No clubbing or cyanosis. No cords, erythema, or tenderness. + Mild L anterior shoulder tender to palpation with full ROM. No step off no gross deformities. NEUROLOGICAL: Cranial nerves II through XII grossly intact. Normal speech, normal gait SKIN: Warm, Dry, normal turgor, no rashes or lesions noted. - Medical Decision Making 06/03/17 08:39 Dr. Tinoco-- paged via phone answering service. Case discussed. 06/03/17 11:[address] Degroot overhead. Call returned. Case discussed with me Documentation prepared by Merissa Abraham, acting as medical secretary teacher for Daniel Johnson MD <Merissa Abraham - Last Filed: 06/03/17 11:33> Heart Score/ECG Review #1 ECG reviewed & interpreted by me at: 10:35 06/03/17 10:37 NSR 74, no std/pamela, normal axis, normal intervals, QTC 488 msec <Daniel Johnson - Last Filed: 06/03/17 10:37>
[2017-06-03 08:17] LABS: BASOPHIL 0.3 % (0-2.0); EOSINOPHIL 2.9 % (0-4.5); MCH 29.6 pg (25.7-33.7); MCHC 34.7 g/dl (32.0-36.0); MEAN CELL VOLUME 85.4 fl (80-96); MEAN PLT VOLUME 8.9 fl (7.5-11.1); NEUTROPHILS 68.8 % (42.8-82.8); PLATELET COUNT 186 K/MM3 (134-434); RDW 14.3 % (11.6-15.6); WHITE BLOOD COUNT 9.7 K/mm3 (4.0-10.0)
[2017-06-03 08:21] LABS: URINE APPEARANCE CLEAR; URINE BILIRUBIN NEGATIVE (NEGATIVE); URINE BLOOD NEGATIVE (NEGATIVE); URINE COLOR STRAW; URINE GLUCOSE (UA) NEGATIVE (NEGATIVE); URINE KETONE NEGATIVE (NEGATIVE); URINE NITRITE NEGATIVE (NEGATIVE); URINE PROTEIN NEGATIVE (NEGATIVE); URINE UROBILINOGEN NEGATIVE mg/dL (0.2-1.0)
[2017-06-03] MEDS ORDERED: ACETAMINOPHEN 325 MG TABLET (FP) ONE (08:23)
[2017-06-03 08:31] LABS: INR 1.19 (0.82-1.09); PROTHROMBIN TIME (PATIENT) 13.1 SEC (9.98-11.88)
[2017-06-03 08:38] LABS: ALBUMIN 4.1 g/dl (3.4-5.0); ANION GAP 12 (8-16); BILIRUBIN,TOTAL 0.7 mg/dL (0.2-1.0); CALCIUM 9.2 mg/dL (8.5-10.1); CO2 26 mmol/L (21-32); CREATININE 0.5 mg/dL (0.55-1.02); GLUCOSE,RANDOM 165 mg/dL (74-106); SGOT/AST 26 U/L (15-37); TOT PROT 7.3 g/dl (6.4-8.2)
[2017-06-03 08:41] LABS: CPK 120 IU/L (26-192); TROPONIN I < 0.02 ng/ml (0.00-0.05)
[2017-06-03 08:49] LABS: ALK PHOS 79 U/L (45-117); SGPT/ALT 36 U/L (12-78)
[2017-06-03 08:56] LABS: MAGNESIUM 1.7 mg/dL (1.8-2.4); PHOSPHOROUS 3.2 mg/dL (2.5-4.9)
[2017-06-03] MEDS ORDERED: SODIUM CHLORIDE 500 ML IV STA (09:56)
--- NOTE | 2017-06-03 11:30 | PDOC ---
*Physical Exam - Vital Signs Last Vital Signs Temp Pulse Resp BP Pulse Ox 97.9 F 78 18 164/80 98 06/03/17 06:52 06/03/17 06:52 06/03/17 06:52 06/03/17 06:52 06/03/17 07:37 ED Treatment Course - LABORATORY CBC & Chemistry Diagram: 06/03/17 08:00 06/03/17 08:00 - ADDITIONAL ORDERS Additional order review: Laboratory Results 06/03/17 06/03/17 06/03/17 10:24 08:16 08:00 PT with INR INR PTT (Actin FS) 32.1 Sodium Potassium Chloride Carbon Dioxide Anion Gap BUN Creatinine Creat Clearance w eGFR POC Glucometer Random Glucose Calcium Phosphorus Magnesium Total Bilirubin AST ALT Alkaline Phosphatase Creatine Kinase 120 Troponin I < 0.02 Total Protein Albumin Urine Color Urine Appearance Urine pH Urine Protein Urine Glucose (UA) Urine Ketones Urine Blood Urine Nitrite Urine Bilirubin Urine Urobilinogen Urine Osmolality 226 L D 06/03/17 06/03/17 06/03/17 08:00 08:00 08:00 PT with INR 13.10 H INR 1.19 H PTT (Actin FS) Sodium 119 L* D Potassium 4.0 Chloride 81 L D Carbon Dioxide 26 Anion Gap 12 BUN 6 L D Creatinine 0.5 L D Creat Clearance w eGFR > 60 POC Glucometer Random Glucose 165 H D Calcium 9.2 Phosphorus 3.2 Magnesium 1.7 L Total Bilirubin 0.7 D AST 26 D ALT 36 D Alkaline Phosphatase 79 D Creatine Kinase Troponin I Total Protein 7.3 Albumin 4.1 Urine Color Straw Urine Appearance Clear Urine pH 7.0 D Urine Protein Negative Urine Glucose (UA) Negative Urine Ketones Negative Urine Blood Negative Urine Nitrite Negative Urine Bilirubin Negative Urine Urobilinogen Negative Urine Osmolality 06/03/17 06:49 PT with INR INR PTT (Actin FS) Sodium Potassium Chloride Carbon Dioxide Anion Gap BUN Creatinine Creat Clearance w eGFR POC Glucometer 170.14891 Random Glucose Calcium Phosphorus Magnesium Total Bilirubin AST ALT Alkaline Phosphatase Creatine Kinase Troponin I Total Protein Albumin Urine Color Urine Appearance Urine pH Urine Protein Urine Glucose (UA) Urine Ketones Urine Blood Urine Nitrite Urine Bilirubin Urine Urobilinogen Urine Osmolality 06/03/17 06/03/17 08:00 06:49 RBC 4.15 MCV 85.4 MCHC 34.7 RDW 14.3 MPV 8.9 Neutrophils % 68.8 Lymphocytes % 20.0 D Monocytes % 8.0 Eosinophils % 2.9 Basophils % 0.3 POC Glucometer 170.79926 - RADIOLOGY Radiology Studies Ordered: Category Date Time Status CHEST - PA [RAD] Stat Radiology 06/03/17 08:02 Completed SHOULDER-LEFT [RAD] Stat Radiology 06/03/17 08:02 Completed SPINE-LUMBAR SACRAL [RAD] Stat Radiology 06/03/17 08:02 Completed - Medications Given in the ED: ED Medications Discontinued Medications Generic Name Dose Route Start Last Admin Trade Name Freq PRN Reason Stop Dose Admin Acetaminophen 650 mg 06/03/17 07:46 06/03/17 08:28 Tylenol - PO 06/03/17 07:47 650 mg ONCE ONE Administration Medical Decision Making - Medical Decision Making 06/03/17 11:29 CBC, BMP 06/03/17 08:00 06/03/17 08:00 CMP Sodium 119 mmol/L (136-145) L* D 06/03/17 08:00 Potassium 4.0 mmol/L (3.5-5.1) 06/03/17 08:00 Chloride 81 mmol/L (98-107) L D 06/03/17 08:00 Carbon Dioxide 26 mmol/L (21-32) 06/03/17 08:00 Anion Gap 12 (8-16) 06/03/17 08:00 BUN 6 mg/dL (7-18) L D 06/03/17 08:00 Creatinine 0.5 mg/dL (0.55-1.02) L D 06/03/17 08:00 Creat Clearance w eGFR > 60 (>60) 06/03/17 08:00 POC Glucometer 170.83913 UNITS (()) 06/03/17 06:49 Random Glucose 165 mg/dL (74-106) H D 06/03/17 08:00 Calcium 9.2 mg/dL (8.5-10.1) 06/03/17 08:00 Phosphorus 3.2 mg/dL (2.5-4.9) 06/03/17 08:00 Magnesium 1.7 mg/dL (1.8-2.4) L 06/03/17 08:00 Total Bilirubin 0.7 mg/dL (0.2-1.0) D 06/03/17 08:00 AST 26 U/L (15-37) D 06/03/17 08:00 ALT 36 U/L (12-78) D 06/03/17 08:00 Alkaline Phosphatase 79 U/L (45-117) D 06/03/17 08:00 Creatine Kinase 120 IU/L (26-192) 06/03/17 08:00 Troponin I < 0.02 ng/ml (0.00-0.05) 06/03/17 08:00 Total Protein 7.3 g/dl (6.4-8.2) 06/03/17 08:00 Albumin 4.1 g/dl (3.4-5.0) 06/03/17 08:00 Urine Test Results Urine Color Straw 06/03/17 08:00 Urine Appearance Clear 06/03/17 08:00 Urine pH 7.0 (5.0-8.0) D 06/03/17 08:00 Urine Protein Negative (NEGATIVE) 06/03/17 08:00 Urine Glucose (UA) Negative (NEGATIVE) 06/03/17 08:00 Urine Ketones Negative (NEGATIVE) 06/03/17 08:00 Urine Blood Negative (NEGATIVE) 06/03/17 08:00 Urine Nitrite Negative (NEGATIVE) 06/03/17 08:00 Urine Bilirubin Negative (NEGATIVE) 06/03/17 08:00 Labs reviewed. Hyponatremic. Head CT and xrays reviewed. No acute findings. Case discussed with Dr. Gladys Tinoco. Accepts under telemetry admission. He requests Dr. Zane Boyce for renal consultaiton. *DC/Admit/Observation/Transfer Diagnosis at time of Disposition: Hyponatremia, Dizziness - Discharge Dispostion Condition at time of disposition: Guarded Admit: Yes
[2017-06-03 13:37] VITALS: BMI 27.4
--- NOTE | 2017-06-03 13:51 | EKG ---
Test Reason : Blood Pressure : / mmHG Vent. Rate : 074 BPM Atrial Rate : 074 BPM P-R Int : 164 ms QRS Dur : 078 ms QT Int : 440 ms P-R-T Axes : 052 008 034 degrees QTc Int : 488 ms NORMAL SINUS RHYTHM NORMAL ECG WHEN COMPARED WITH ECG OF 28-MAY-2017 13:52, NO SIGNIFICANT CHANGE WAS FOUND Confirmed by DIANA PALM MD ([id number]) on 06/03/2017 1:50:33 PM Referred By: Confirmed By:DIANA PALM MD
--- NOTE | 2017-06-03 14:42 | CONSULT ---
Consultation: REQUESTING PROVIDER: Dr. Alford CONSULT SPECIALITY: NEPHROLOGY CONSULT REQUEST: We have been asked to medically evaluate this patient for hyponatremia. HISTORY OF PRESENT ILLNESS: 71 yr old woman with depression, history of chronic hyponatremia, presents to ED for headache, after falling yesterday in her home and was found to have sodium of 119. She fell in her home, denies LOC, head trauma, syncope. Says she has been taking her medications, including salt tablets, as prescribed since discharge. She recalls vitals taken by [facility]NS on Saturday and Saturday showed elevated blood pressure and she was given additional blood pressure pills, but she cannot say how high the pressures were and what additional medications she was given. denies fever, vision changes, fever, cough, chest pain, palpitations, dysuria chart reviewed for further information. Pmhx: chronic hyponatremia, HTN, HLD, DM, LE peripheral neuropathy, CVA, chronic lower back pain, asthma, multiple, UTI's surg hx: multiple spinal surgeries REVIEW OF SYSTEMS: CONSTITUTIONAL: Absent: fever, chills, diaphoresis, generalized weakness, malaise, loss of appetite, weight change HEENT: Absent: rhinorrhea, nasal congestion, throat pain, throat swelling, difficulty swallowing, mouth swelling, ear pain, eye pain, visual changes CARDIOVASCULAR: Absent: chest pain, syncope, palpitations, irregular heart rate, lightheadedness , peripheral edema RESPIRATORY: Absent: cough, shortness of breath, dyspnea with exertion, orthopnea, wheezing, stridor, hemoptysis GASTROINTESTINAL: Absent: abdominal pain, abdominal distension, nausea, vomiting, diarrhea, constipation, melena, hematochezia GENITOURINARY: Absent: dysuria, frequency, urgency, hesitancy, hematuria, flank pain, genital pain MUSCULOSKELETAL: Absent: myalgia, arthralgia, joint swelling, back pain, neck pain SKIN: Absent: rash, itching, pallor HEMATOLOGIC/IMMUNOLOGIC: Absent: easy bleeding, easy bruising, lymphadenopathy, frequent infections ENDOCRINE: Absent: unexplained weight gain, unexplained weight loss, heat intolerance, cold intolerance NEUROLOGIC: Present; headache Absent: focal weakness or paresthesias, dizziness, unsteady gait, seizure, mental status changes, bladder or bowel incontinence PSYCHIATRIC: Present:depression, Absent: anxiety, suicidal or homicidal ideation, hallucinations. PHYSICAL EXAMINATION Vital Signs - 24 hr 06/03/17 06/03/17 06/03/17 13:00 13:13 13:49 Temperature 98 F 98 F Pulse Rate 90 Pulse Rate [ 81 Apical] Respiratory 18 18 Rate Blood Pressure 154/74 Blood Pressure 155/76 [Right Arm] O2 Sat by Pulse 100 98 Oximetry (%) GENERAL: Awake, alert, and fully oriented, in no acute distress. HEAD: Normal with no signs of trauma. EYES: Pupils equal, round and reactive to light, extraocular movements intact, sclera anicteric, conjunctiva clear. EARS, NOSE, THROAT: Ears normal, nares patent, oropharynx clear without exudates. NECK: Normal range of motion, supple without lymphadenopathy, JVD, or masses. LUNGS: Breath sounds equal, clear to auscultation bilaterally. No wheezes, and no crackles. No accessory muscle use. HEART: Regular rate and rhythm, normal S1 and S2 without murmur, rub or gallop. ABDOMEN: Soft, nontender, mildly distended, normoactive bowel sounds, no guarding, no rebound, no masses. MUSCULOSKELETAL: Normal range of motion at all joints. No bony deformities or tenderness. No CVA tenderness. UPPER EXTREMITIES: 2+ radial pulses, warm, well-perfused. No cyanosis. No peripheral edema. LOWER EXTREMITIES: 1+ dp pulses, warm, well-perfused. No calf tenderness. No peripheral edema. b/l anterior legs ttp due to neuropathy NEUROLOGICAL: Normal speech. facial symmetry PSYCHIATRIC: Cooperative. Good eye contact. Appropriate mood and affect. SKIN: Warm, dry, normal turgor, no rashes or lesions noted. Laboratory Results - last 24 hr 06/03/17 06/03/17 06/03/17 06:49 08:00 08:00 WBC 9.7 D RBC 4.15 Hgb 12.3 D Hct 35.4 MCV 85.4 MCH 29.6 MCHC 34.7 RDW 14.3 Plt Count 186 D MPV 8.9 Neutrophils % 68.8 Lymphocytes % 20.0 D Monocytes % 8.0 Eosinophils % 2.9 Basophils % 0.3 PT with INR 13.10 H INR 1.19 H PTT (Actin FS) Sodium Potassium Chloride Carbon Dioxide Anion Gap BUN Creatinine Creat Clearance w eGFR POC Glucometer [phone] Random Glucose Calcium Phosphorus Magnesium Total Bilirubin AST ALT Alkaline Phosphatase Creatine Kinase Troponin I Total Protein Albumin Urine Color Urine Appearance Urine pH Urine Protein Urine Glucose (UA) Urine Ketones Urine Blood Urine Nitrite Urine Bilirubin Urine Urobilinogen Urine Osmolality 06/03/17 06/03/17 06/03/17 08:00 08:00 08:00 WBC RBC Hgb Hct MCV MCH MCHC RDW Plt Count MPV Neutrophils % Lymphocytes % Monocytes % Eosinophils % Basophils % PT with INR INR PTT (Actin FS) Sodium 119 L* D Potassium 4.0 Chloride 81 L D Carbon Dioxide 26 Anion Gap 12 BUN 6 L D Creatinine 0.5 L D Creat Clearance w eGFR > 60 POC Glucometer Random Glucose 165 H D Calcium 9.2 Phosphorus 3.2 Magnesium 1.7 L Total Bilirubin 0.7 D AST 26 D ALT 36 D Alkaline Phosphatase 79 D Creatine Kinase 120 Troponin I < 0.02 Total Protein 7.3 Albumin 4.1 Urine Color Straw Urine Appearance Clear Urine pH 7.0 D Urine Protein Negative Urine Glucose (UA) Negative Urine Ketones Negative Urine Blood Negative Urine Nitrite Negative Urine Bilirubin Negative Urine Urobilinogen Negative Urine Osmolality 06/03/17 06/03/17 08:16 10:24 WBC RBC Hgb Hct MCV MCH MCHC RDW Plt Count MPV Neutrophils % Lymphocytes % Monocytes % Eosinophils % Basophils % PT with INR INR PTT (Actin FS) 32.1 Sodium Potassium Chloride Carbon Dioxide Anion Gap BUN Creatinine Creat Clearance w eGFR POC Glucometer Random Glucose Calcium Phosphorus Magnesium Total Bilirubin AST ALT Alkaline Phosphatase Creatine Kinase Troponin I Total Protein Albumin Urine Color Urine Appearance Urine pH Urine Protein Urine Glucose (UA) Urine Ketones Urine Blood Urine Nitrite Urine Bilirubin Urine Urobilinogen Urine Osmolality 226 L D Ambulatory Orders Aspirin [ASA -] 81 mg PO DAILY 05/02/16 Glimepiride [Amaryl -] 4 mg PO BID 05/02/16 Hydrocodone/Acetaminophen [[place] 7.5-325 Tablet] 1 each PO BID PRN 05/02/16 [place]-3 Acid Ethyl Esters 1 gm PO TID 05/02/16 Calcium (Oyster Shell) [Os-Pasquale 500MG -] 500 mg PO BID 05/29/17 Gabapentin 1,200 mg PO HS 05/29/17 Gabapentin 600 mg PO ASDIR MDD Take at 12nn 05/29/17 Montelukast Na [Singulair -] 10 mg IVPUSH ACHS 05/29/17 Sennosides [Senna -] 2 tab PO DAILY 05/29/17 Sitagliptin Phosphate [Januvia] 100 mg PO DAILY 05/29/17 Acetaminophen [Tylenol .Regular Strength -] 650 mg PO Q6H PRN #0 tablet Buspirone HCl [Buspar -] 10 mg PO BID tablet 05/30/17 Levothyroxine [Synthroid -] 50 mcg PO DAILY@0700 tablet 05/30/17 Metoprolol Succinate [Toprol XL -] 25 mg PO DAILY tab 05/30/17 Escitalopram Oxalate [Lexapro -] 10 mg PO DAILY 06/03/17 Gabapentin [Neurontin -] 600 mg PO DAILY 06/03/17 Trazodone HCl [Desyrel -] 200 mg PO HS 06/03/17 ASSESSMENT/PLAN: 71 yr old woman with depression on SSRI's, chronic hyponatremia, DM, HTN presents with acute on chronic hyponatremia. #Acute on chronic hyponatremia - pending urine studies, serum uric acid for further evaluation - she has responded well to IVF with NS in the past, will continue the same now , NS @75cc/hr vs salt tabs and fluid restriction after sodium level is repeated in the evening(post-bolus of 500cc NS in ED) - no need for rapid correction with 3% NS currently #HTN - uncontrolled - Norvasc 5mg po daily - toprol XL 25mg po daily - Goal BP < 140/90 Dispo: We will continue to follow the patient. Thank you for this consultative opportunity. Visit type - Emergency Visit Emergency Visit: No - New Patient This patient is new to me today: Yes Date on this admission: 06/03/17 - Critical Care Critical Care patient: No
--- NOTE | 2017-06-03 17:21 | HP ---
Admitting History and Physical - Primary Care Physician PCP: Gladys Tinoco - Admission Chief Complaint: HYPONATREMIA/WEAKNESS/DEPRESSION History of Present Illness: Patient is a 71-year-old female with past medical history of hypertension, insulin-dependent diabetes, hyponatremia, who presents to the emergency department today complaining of headache and lightheadedness. Patient states that when she woke this morning she felt lightheaded and she fell. She states that she fell on her left shoulder. Denies hitting her head but she is unsure as to why she fell. It is unclear if she lost consciousness. Patient is currently reporting headache and dizziness. She also endorses low back pain and left shoulder pain. She was seen at bedside with her daughter present. Daughter states that she has recently had bouts of hyponatremia was recently discharged from last week. Admitting diagnosis at that time was hyponatremia. Denies fevers , chills, recent illness, nausea, vomiting, diarrhea, cough, chest pain, frequency, urgency, dysuria. 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 SPECIALIST: Yes: CVA, Dementia Cardiovascular: Yes: HTN Pulmonary: Yes: Asthma Gastrointestinal: Yes: GERD Renal/: Yes: Other (hyponatremia) ...: No Psych: Yes: Anxiety, Depression Endocrine: Yes: Diabetes Mellitus, Hypothyroidism - Smoking History Smoking history: Never smoked Have you smoked in the past 12 months: No Aproximately how many cigarettes per day: 0 - Alcohol/Substance Use Hx Alcohol Use: No History of Substance Use: reports: None - Social History ADL: Independent History of Recent Travel: No Home Medications - Allergies Allergies/Adverse Reactions: Allergies Allergy/AdvReac Type Severity Reaction Status Date / Time No Known Drug Allergies Allergy Verified 06/03/17 06:55 - Home Medications Home Medications: Ambulatory Orders Aspirin [ASA -] 81 mg PO DAILY 05/02/16 Glimepiride [Amaryl -] 4 mg PO BID 05/02/16 Hydrocodone/Acetaminophen [[place] 7.5-325 Tablet] 1 each PO BID PRN 05/02/16 [place]-3 Acid Ethyl Esters 1 gm PO TID 05/02/16 Calcium (Oyster Shell) [Os-Pasquale 500MG -] 500 mg PO BID 05/29/17 Gabapentin 1,200 mg PO HS 05/29/17 Gabapentin 600 mg PO ASDIR MDD Take at 12nn 05/29/17 Montelukast Na [Singulair -] 10 mg IVPUSH ACHS 05/29/17 Sennosides [Senna -] 2 tab PO DAILY 05/29/17 Sitagliptin Phosphate [Januvia] 100 mg PO DAILY 05/29/17 Acetaminophen [Tylenol .Regular Strength -] 650 mg PO Q6H PRN #0 tablet Buspirone HCl [Buspar -] 10 mg PO BID tablet 05/30/17 Levothyroxine [Synthroid -] 50 mcg PO DAILY@0700 tablet 05/30/17 Metoprolol Succinate [Toprol XL -] 25 mg PO DAILY tab 05/30/17 Escitalopram Oxalate [Lexapro -] 10 mg PO DAILY 06/03/17 Gabapentin [Neurontin -] 600 mg PO DAILY 06/03/17 Trazodone HCl [Desyrel -] 200 mg PO HS 06/03/17 Review of Systems - Review of Systems Constitutional: reports: Loss of Appetite, Weakness Eyes: reports: No Symptoms HENT: reports: No Symptoms Neck: reports: No Symptoms Cardiovascular: reports: No Symptoms Respiratory: reports: No Symptoms Gastrointestinal: reports: No Symptoms Genitourinary: reports: No Symptoms Musculoskeletal: reports: Joint Pain, Muscle Weakness Integumentary: reports: No Symptoms Neurological: reports: Headache Endocrine: reports: No Symptoms Hematology/Lymphatic: reports: No Symptoms Psychiatric: reports: No Symptoms Physical Examination Vital Signs: Vital Signs Temperature 98 F 06/03/17 13:13 Pulse Rate 90 06/03/17 13:13 Respiratory Rate 18 06/03/17 13:13 Blood Pressure 154/74 06/03/17 13:13 O2 Sat by Pulse Oximetry (%) 98 06/03/17 13:49 Constitutional: Yes: Anxious, Moderate Distress, Poor Hygeine Eyes: Yes: WNL HENT: Yes: WNL Neck: Yes: WNL Cardiovascular: Yes: WNL Respiratory: Yes: WNL Gastrointestinal: Yes: WNL Renal/: Yes: WNL Musculoskeletal: Yes: Muscle Weakness Extremities: Yes: Other Edema: No Peripheral Pulses WNL: Yes Integumentary: Yes: Other Wound/Incision: Yes: Other Neurological: Yes: Confusion, Pre-Existing Deficit, Unsteady Gait, Weakness ...Motor Strength: LLE, RLE Psychiatric: Yes: Agitated, Other Problem List - Problems (1) Abdominal pain Code(s): R10.9 - UNSPECIFIED ABDOMINAL PAIN Qualifiers: Abdominal location: left lower quadrant Qualified Code(s): R10.32 - Left lower quadrant pain (2) Dizziness Code(s): R42 - DIZZINESS AND GIDDINESS (3) Hyponatremia Code(s): E87.1 - HYPO-OSMOLALITY AND HYPONATREMIA (4) Back pain Code(s): M54.9 - DORSALGIA, UNSPECIFIED Qualifiers: Back pain location: low back pain Chronicity: chronic Back pain laterality: left Sciatica presence: without sciatica Qualified Code(s): M54.5 - Low back pain (5) Depression Code(s): F32.9 - MAJOR DEPRESSIVE DISORDER, SINGLE EPISODE, UNSPECIFIED Qualifiers: Depression Type: other depression Qualified Code(s): F32.89 - Other specified depressive episodes (6) Diabetes mellitus Code(s): E11.9 - TYPE 2 DIABETES MELLITUS WITHOUT COMPLICATIONS Qualifiers: Diabetes mellitus type: type 2 (7) Musculoskeletal pain Code(s): M79.1 - MYALGIA Assessment/Plan RENAL EVAL REPEAT LEVELS CMP NOW REPLETE NEEDED MONITOR IVF TO AVOID ACUTE PONTINE MYELITITS PSYCHIATRY EVAL AVOID SSRI AVOID PPI PT EVAL SNF PLACEMENT NEURO CHECKS/SEIZURE PRECAUTIONS/FALL RISKS
--- NOTE | 2017-06-03 17:46 | PN ---
Progress Note (short form) - Note Progress Note: Renal Follow up for Hyponatremai Pt seen on last admission for hyponatremia This is a 71 year old woman with PMhx of Chronic Hyponatremia, Depression, Hypertension, Peripheral Neuropathy who presented from home s/p fall and found to have Na of 119. Pt s/p IVF hydration last admission with correction of acute component of hyponatremia. Pt reports taking salt tabs at home. Daughter reports that he mothers BP was high at home. Denies excessive water intake. Vital Signs Temperature 98 F 06/03/17 13:13 Pulse Rate 90 06/03/17 13:13 Respiratory Rate 18 06/03/17 13:13 Blood Pressure 154/74 06/03/17 13:13 O2 Sat by Pulse Oximetry (%) 98 06/03/17 13:49 Intake & Output 05/31/17 06/01/17 06/02/17 06/03/17 23:59 23:59 23:59 23:59 Weight 165 lb Gen: NAD, awake and alert HEENT: Dry MM CVS: RRR, No M/R Lungs: CTA, no rales or wheeze Abd: soft NT/ND Ext: No edema, clubbing or cyanosis CBC, BMP 06/03/17 08:00 06/03/17 08:00 Current Medications Acetaminophen (Tylenol -) 650 mg PO Q6H PRN PRN Reason: FEVER OR PAIN Aspirin (Ecotrin -) 81 mg PO DAILY [facility] Gabapentin (Neurontin -) 600 mg PO TID [facility] Glimepiride (Amaryl -) 4 mg PO DAILY@0700 [facility] Levothyroxine Sodium (Synthroid -) 50 mcg PO DAILY@0700 [facility] Metoprolol Succinate (Toprol Xl -) 25 mg PO DAILY [facility] Montelukast Sodium (Singulair -) 10 mg PO HS [facility] Oxycodone HCl (Roxicodone -) 5 mg PO Q6H PRN PRN Reason: PAIN Senna (Senna -) 1 tab PO HS [facility] Sitagliptin Phosphate (Januvia -) 100 mg PO DAILY@0700 [facility] Trazodone HCl (Desyrel -) 200 mg PO HS [facility] A/p 71 year old woman with PMhx of Chronic Hyponatremia, Depression, Hypertension, Peripheral Neuropathy who presented from home s/p fall and found to have Na of 119. #Evolemic vs. hypovolemic hyponatremia Check Urine Na, Serum Uric acid Repeat Na levels now based on repeat levels, will start IVF vs. 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
[2017-06-03] MEDS ORDERED: SODIUM CHLORIDE 1,000 ML IV SCH (21:00)
[2017-06-03] MEDS ORDERED: traZODone HCL 50 MG TABLET (FP) ONE (21:00)
[2017-06-03] MEDS: SENNOSIDES 8.6MG TABLET (FP) PO SCH (21:07)
[2017-06-03] MEDS: GABAPENTIN 300 MG CAPSULE (FP) PO SCH (21:07)
[2017-06-03] MEDS: MONTELUKAST NA 10 MG TABLET PO SCH (21:07)
[2017-06-03] MEDS ORDERED: traZODone HCL 100 MG TABLET (FP) PO SCH (22:00)
[2017-06-03] MEDS: oxyCODONE HCL 5 MG TABLET PO PRN (22:59)
[2017-06-04] MEDS: ACETAMINOPHEN 325 MG TABLET (FP) PO PRN (01:02)
[2017-06-04] MEDS: GABAPENTIN 300 MG CAPSULE (FP) PO SCH ×3 (06:55→23:03)
[2017-06-04 08:28] LABS: MCH 30.1 pg (25.7-33.7); MCHC 34.9 g/dl (32.0-36.0); MEAN CELL VOLUME 86.1 fl (80-96); MEAN PLT VOLUME 9.5 fl (7.5-11.1); PLATELET COUNT 157 K/MM3 (134-434); RDW 14.4 % (11.6-15.6); WHITE BLOOD COUNT 7.5 K/mm3 (4.0-10.0)
[2017-06-04 09:07] LABS: ALK PHOS 70 U/L (45-117); ANION GAP 12 (8-16); BILIRUBIN,TOTAL 0.7 mg/dL (0.2-1.0); CO2 24 mmol/L (21-32); CREATININE 0.5 mg/dL (0.55-1.02); GLUCOSE,RANDOM 206 mg/dL (74-106); SGOT/AST 20 U/L (15-37); SGPT/ALT 31 U/L (12-78); THYROID STIMULATING HORMONE 2.45 uIU/ml (0.358-3.74); TOT PROT 7.2 g/dl (6.4-8.2)
[2017-06-04] MEDS ORDERED: POTASSIUM CHLORIDE TABS 20 MEQ TABLET.ER (FP) PO ONE (09:51)
[2017-06-04] MEDS ORDERED: amLODIPine BESYLATE 5 MG TABLET (FP) PO SCH (10:00)
[2017-06-04] MEDS ORDERED: PT OWN MED DRAWER 7, Y5N ONE ×2 (11:19→22:55)
[2017-06-04] MEDS: SODIUM CHLORIDE 1,000 ML IV SCH (11:28)
[2017-06-04] MEDS: METOPROLOL SUCCINATE 25 MG TAB.SR.24H (FP) PO SCH (11:30)
[2017-06-04] MEDS ORDERED: ONDANSETRON 4 MG/2 ML VIAL IVPB ONE (11:30)
[2017-06-04] MEDS: ASPIRIN COATED 81 MG TABLET.EC PO SCH (11:30)
[2017-06-04] MEDS: ONDANSETRON 4 MG/2 ML VIAL IVPB ONE ×2 (11:36→11:37)
[2017-06-04] MEDS: GLIMEPIRIDE 4 MG TABLET (FP) PO SCH (12:20)
[2017-06-04] MEDS: sitaGLIPtin PHOSPHATE 100 MG TABLET (FP) PO SCH (12:20)
--- NOTE | 2017-06-04 13:22 | PN ---
Progress Note (short form) - Note Progress Note: Renal Follow up for Hyponatremia Pt seen and examined at the bedside awake and alert + Nausea, no sob, chest pain, abd pain Vital Signs Temperature 98.7 F 06/04/17 10:00 Pulse Rate 92 H 06/04/17 10:00 Respiratory Rate 18 06/04/17 10:00 Blood Pressure 160/74 06/04/17 10:00 O2 Sat by Pulse Oximetry (%) 99 06/03/17 21:00 Intake & Output 06/01/17 06/02/17 06/03/17 06/04/17 23:59 23:59 23:59 23:59 Intake Total 880 420 Balance 880 420 Weight 165 lb Gen: NAD, awake and alert HEENT: Dry MM CVS: RRR, No M/R Lungs: CTA, no rales or wheeze Abd: soft NT/ND Ext: No edema, clubbing or cyanosis CBC, BMP 06/04/17 06:00 06/04/17 06:00 Current Medications Acetaminophen (Tylenol -) 650 mg PO Q6H PRN PRN Reason: FEVER OR PAIN Last Admin: 06/04/17 01:02 Dose: 650 mg Amlodipine Besylate (Norvasc -) 5 mg PO DAILY [facility] Last Admin: 06/04/17 11:30 Dose: 5 mg Aspirin (Ecotrin -) 81 mg PO DAILY [facility] Last Admin: 06/04/17 11:30 Dose: 81 mg Gabapentin (Neurontin -) 600 mg PO TID [facility] Last Admin: 06/04/17 06:55 Dose: Not Given Glimepiride (Amaryl -) 4 mg PO DAILY@0700 [facility] Last Admin: 06/04/17 12:20 Dose: 4 mg Sodium Chloride (Normal Saline -) 1,000 mls @ 42 mls/hr IV ASDIR [facility] Last Admin: 06/03/17 21:06 Dose: 42 mls/hr Sodium Chloride (Normal Saline -) 1,000 mls @ 75 mls/hr IV ASDIR [facility] Last Admin: 06/04/17 11:28 Dose: 75 mls/hr Levothyroxine Sodium (Synthroid -) 50 mcg PO DAILY@0700 [facility] Metoprolol Succinate (Toprol Xl -) 25 mg PO DAILY [facility] Last Admin: 06/04/17 11:30 Dose: 25 mg Montelukast Sodium (Singulair -) 10 mg PO [facility] Last Admin: 06/03/17 21:07 Dose: 10 mg Oxycodone HCl (Roxicodone -) 5 mg PO Q6H PRN PRN Reason: PAIN Last Admin: 06/03/17 22:59 Dose: 5 mg Senna (Senna -) 1 tab PO [facility] Last Admin: 06/03/17 21:07 Dose: 1 tab Sitagliptin Phosphate (Januvia -) 100 mg PO DAILY@0700 [facility] Last Admin: 06/04/17 12:20 Dose: 100 mg Trazodone HCl (Desyrel -) 200 mg PO [facility] Last Admin: 06/03/17 21:06 Dose: 200 mg A/p 71 year old woman with PMhx of Chronic Hyponatremia, Depression, Hypertension, Peripheral Neuropathy who presented from home s/p fall and found to have Na of 119. #Hyponatremia Serum uric acid was low (not consistent with fluid depletion) however pt with positive response to isotonic saline continue Ns at higher rate today repeat Na at 4pm Free water restriction of 1000cc per day antiemetics as needed pain control pt is off lexapro because of suspicion that it may be the etiology of SIADH Recommend psych follow up #Hypertension increase amlodipine to 10mg Daily (extra 5mg to be given today) continue Metoprolol Goal BP < 140/90 Austen Degroot DO
[2017-06-04] MEDS ORDERED: amLODIPine BESYLATE 5 MG TABLET (FP) PO ONE (13:45)
--- NOTE | 2017-06-04 13:52 | CON.PSY ---
Psychiatry Consult Chief Complaint: i came for low Sodium, its happening for a long time. - Previous Psychiatric Treatment Outpatient: Less than 6 mos ago Inpatient: None - Reason for Previous Treatment Reason for Previous Treatment: Major Depression - Current Medications Current Medications: Active Medications Acetaminophen (Tylenol -) 650 mg PO Q6H PRN PRN Reason: FEVER OR PAIN Last Admin: 06/04/17 01:02 Dose: 650 mg Amlodipine Besylate (Norvasc -) 10 mg PO DAILY [facility] Aspirin (Ecotrin -) 81 mg PO DAILY [facility] Last Admin: 06/04/17 11:30 Dose: 81 mg Gabapentin (Neurontin -) 600 mg PO TID [facility] Last Admin: 06/04/17 13:42 Dose: 600 mg Glimepiride (Amaryl -) 4 mg PO DAILY@0700 [facility] Last Admin: 06/04/17 12:20 Dose: 4 mg Sodium Chloride (Normal Saline -) 1,000 mls @ 75 mls/hr IV ASDIR [facility] Last Admin: 06/04/17 11:28 Dose: 75 mls/hr Levothyroxine Sodium (Synthroid -) 50 mcg PO DAILY@0700 [facility] Metoprolol Succinate (Toprol Xl -) 25 mg PO DAILY [facility] Last Admin: 06/04/17 11:30 Dose: 25 mg Montelukast Sodium (Singulair -) 10 mg PO [facility] Last Admin: 06/03/17 21:07 Dose: 10 mg Oxycodone HCl (Roxicodone -) 5 mg PO Q6H PRN PRN Reason: PAIN Last Admin: 06/03/17 22:59 Dose: 5 mg Senna (Senna -) 1 tab PO [facility] Last Admin: 06/03/17 21:07 Dose: 1 tab Sitagliptin Phosphate (Januvia -) 100 mg PO DAILY@0700 [facility] Last Admin: 06/04/17 12:20 Dose: 100 mg Trazodone HCl (Desyrel -) 200 mg PO [facility] Last Admin: 06/03/17 21:06 Dose: 200 mg - Allergies Allergies: Allergies Allergy/AdvReac Type Severity Reaction Status Date / Time No Known Drug Allergies Allergy Verified 06/03/17 06:55 - Current Living Status Usual Living Arrangement: With Significant Other - Current Mental Status Evaluation Appearance: Well Groomed Attitude: Guarded - Affect Affect: Constrictive Appropriateness: Appropriate to Content - Mood Mood: Euthymic - Speech/Language Expressive: Coherent - Psychomotor Activity Psychomotor Activity: Normal - Thought Process Thought Process: Intact - Thought Content Hallucinations: Absent Delusions: Absent - Self Perception Self Perception: No Impairment - Cognition Attention: Alert Orientation: Time Memory, Immediate Recall: Intact Memory, Short Term: 2/3 Memory, Remote with Promptin/3 - Concentration Serial Sevens Intact: No Simple Calculations Intact: No - Abstraction Proverb Interpretation: Intact Judgement: Minimally Impaired - Insight Insight: Intact - Impulse Control Impulse Control: Minimally Impaired - Suicidal Ideation Suicidal Ideation: No - Homicidal Ideation Homicidal Ideation: No Assessment/Plan 1) Anti DEpressants can cause Hyponatremia. She had been on Lexap[ro and [id number]. 2) recemmend discontinuing them and start Wellbutrin for depressioon.
--- NOTE | 2017-06-04 14:20 | PN ---
Progress Note, Physician Chief Complaint: NOTES REVIEWED PATIENT AWAKE IN BED FEELING TIRED AND WEAK SEEN BY PSYCHIATRY - Current Medication List Current Medications: Active Medications Acetaminophen (Tylenol -) 650 mg PO Q6H PRN PRN Reason: FEVER OR PAIN Last Admin: 06/04/17 01:02 Dose: 650 mg Amlodipine Besylate (Norvasc -) 10 mg PO DAILY [facility] Aspirin (Ecotrin -) 81 mg PO DAILY [facility] Last Admin: 06/04/17 11:30 Dose: 81 mg Bupropion HCl (Wellbutrin Xl -) 150 mg PO DAILY [facility] Gabapentin (Neurontin -) 600 mg PO TID [facility] Last Admin: 06/04/17 13:42 Dose: 600 mg Glimepiride (Amaryl -) 4 mg PO DAILY@0700 [facility] Last Admin: 06/04/17 12:20 Dose: 4 mg Sodium Chloride (Normal Saline -) 1,000 mls @ 75 mls/hr IV ASDIR [facility] Last Admin: 06/04/17 11:28 Dose: 75 mls/hr Levothyroxine Sodium (Synthroid -) 50 mcg PO DAILY@0700 [facility] Metoprolol Succinate (Toprol Xl -) 25 mg PO DAILY [facility] Last Admin: 06/04/17 11:30 Dose: 25 mg Montelukast Sodium (Singulair -) [address] [facility] Last Admin: 06/03/17 21:07 Dose: 10 mg Oxycodone HCl (Roxicodone -) 5 mg PO Q6H PRN PRN Reason: PAIN Last Admin: 06/03/17 22:59 Dose: 5 mg Senna (Senna -) [address] [facility] Last Admin: 06/03/17 21:07 Dose: 1 tab Sitagliptin Phosphate (Januvia -) 100 mg PO DAILY@0700 [facility] Last Admin: 06/04/17 12:20 Dose: 100 mg - Objective Vital Signs: Vital Signs Temperature 98.3 F 06/04/17 14:16 Pulse Rate 91 H 06/04/17 14:16 Respiratory Rate 20 06/04/17 14:16 Blood Pressure 153/70 06/04/17 14:16 O2 Sat by Pulse Oximetry (%) 99 06/03/17 21:00 Constitutional: Yes: Mild Distress Eyes: Yes: WNL HENT: Yes: WNL Neck: Yes: WNL Cardiovascular: Yes: WNL Respiratory: Yes: WNL Gastrointestinal: Yes: WNL Genitourinary: Yes: WNL Musculoskeletal: Yes: WNL Extremities: Yes: WNL Edema: No Peripheral Pulses WNL: Yes Integumentary: Yes: WNL Wound/Incision: Yes: Clean/Dry Neurological: Yes: WNL ...Motor Strength: WNL Psychiatric: Yes: Other Labs: CBC, BMP 06/04/17 06:00 06/04/17 06:00 INR, PTT INR 1.19 (0.82-1.09) H 06/03/17 08:00 Problem List - Problems (1) Abdominal pain Code(s): R10.9 - UNSPECIFIED ABDOMINAL PAIN Qualifiers: Abdominal location: left lower quadrant Qualified Code(s): R10.32 - Left lower quadrant pain (2) Dizziness Code(s): R42 - DIZZINESS AND GIDDINESS (3) Hyponatremia Code(s): E87.1 - HYPO-OSMOLALITY AND HYPONATREMIA (4) Back pain Code(s): M54.9 - DORSALGIA, UNSPECIFIED Qualifiers: Back pain location: low back pain Chronicity: chronic Back pain laterality: left Sciatica presence: without sciatica Qualified Code(s): M54.5 - Low back pain (5) Depression Code(s): F32.9 - MAJOR DEPRESSIVE DISORDER, SINGLE EPISODE, UNSPECIFIED Qualifiers: Depression Type: other depression Qualified Code(s): F32.89 - Other specified depressive episodes (6) Diabetes mellitus Code(s): E11.9 - TYPE 2 DIABETES MELLITUS WITHOUT COMPLICATIONS Qualifiers: Diabetes mellitus type: type 2 (7) Musculoskeletal pain Code(s): M79.1 - MYALGIA Assessment/Plan DISCONTINUE SSRI AND TRAZADONE START WELLBUTRIN NA+ LEVELS IMPROVING SNF PLACEMENT FOR COMPLIANCE AND CONDITIONING
[2017-06-04 19:41] LABS: ANION GAP 9 (8-16); CO2 26 mmol/L (21-32); CREATININE 0.6 mg/dL (0.55-1.02); GLUCOSE,RANDOM 199 mg/dL (74-106)
[2017-06-04] MEDS: SENNOSIDES 8.6MG TABLET (FP) PO SCH (23:03)
[2017-06-04] MEDS: MONTELUKAST NA 10 MG TABLET PO SCH (23:03)
[2017-06-05] MEDS: oxyCODONE HCL 5 MG TABLET PO PRN ×2 (01:12→21:50)
[2017-06-05] MEDS ORDERED: PT OWN MED DRAWER 7, Y5N ONE ×4 (06:10→21:40)
[2017-06-05] MEDS: GABAPENTIN 300 MG CAPSULE (FP) PO SCH ×3 (06:54→21:49)
[2017-06-05] MEDS: LEVOTHYROXINE NA 50 MCG TABLET (FP) PO SCH (06:55)
[2017-06-05] MEDS: sitaGLIPtin PHOSPHATE 100 MG TABLET (FP) PO SCH (06:55)
[2017-06-05] MEDS: GLIMEPIRIDE 4 MG TABLET (FP) PO SCH (06:55)
[2017-06-05] MEDS: SODIUM CHLORIDE 1,000 ML IV SCH ×2 (06:57→10:56)
[2017-06-05 07:40] LABS: ANION GAP 8 (8-16); CALCIUM 8.6 mg/dL (8.5-10.1); CO2 24 mmol/L (21-32); CREATININE 0.7 mg/dL (0.55-1.02); GLUCOSE,RANDOM 263 mg/dL (74-106)
--- NOTE | 2017-06-05 10:19 | PN ---
Problem List - Problems (1) Abdominal pain Code(s): R10.9 - UNSPECIFIED ABDOMINAL PAIN Qualifiers: Abdominal location: left lower quadrant Qualified Code(s): R10.32 - Left lower quadrant pain (2) Dizziness Code(s): R42 - DIZZINESS AND GIDDINESS (3) Hyponatremia Code(s): E87.1 - HYPO-OSMOLALITY AND HYPONATREMIA (4) Back pain Code(s): M54.9 - DORSALGIA, UNSPECIFIED Qualifiers: Back pain location: low back pain Chronicity: chronic Back pain laterality: left Sciatica presence: without sciatica Qualified Code(s): M54.5 - Low back pain (5) Depression Code(s): F32.9 - MAJOR DEPRESSIVE DISORDER, SINGLE EPISODE, UNSPECIFIED Qualifiers: Depression Type: other depression Qualified Code(s): F32.89 - Other specified depressive episodes (6) Diabetes mellitus Code(s): E11.9 - TYPE 2 DIABETES MELLITUS WITHOUT COMPLICATIONS Qualifiers: Diabetes mellitus type: type 2 (7) Musculoskeletal pain Code(s): M79.1 - MYALGIA
[2017-06-05] MEDS: METOPROLOL SUCCINATE 25 MG TAB.SR.24H (FP) PO SCH (10:56)
[2017-06-05] MEDS: amLODIPine BESYLATE 10 MG TABLET (FP) PO SCH (10:57)
[2017-06-05] MEDS: ACETAMINOPHEN 325 MG TABLET (FP) PO PRN (10:57)
[2017-06-05] MEDS: ASPIRIN COATED 81 MG TABLET.EC PO SCH (10:59)
--- NOTE | 2017-06-05 12:50 | PN ---
Progress Note, Physician Chief Complaint: ASLEEP COMFORTABLE NA+ LEVEL IMPROVED - Current Medication List Current Medications: Active Medications Acetaminophen (Tylenol -) 650 mg PO Q6H PRN PRN Reason: FEVER OR PAIN Last Admin: 06/05/17 10:57 Dose: 650 mg Amlodipine Besylate (Norvasc -) 10 mg PO DAILY [facility] Last Admin: 06/05/17 10:57 Dose: 10 mg Aspirin (Ecotrin -) 81 mg PO DAILY [facility] Last Admin: 06/05/17 10:59 Dose: 81 mg Bupropion HCl (Wellbutrin Xl -) 150 mg PO DAILY [facility] Last Admin: 06/05/17 10:57 Dose: 150 mg Gabapentin (Neurontin -) 600 mg PO TID [facility] Last Admin: 06/05/17 06:54 Dose: 600 mg Glimepiride (Amaryl -) 4 mg PO DAILY@0700 [facility] Last Admin: 06/05/17 06:55 Dose: 4 mg Sodium Chloride (Normal Saline -) 1,000 mls @ 75 mls/hr IV ASDIR [facility] Last Admin: 06/05/17 10:56 Dose: 75 mls/hr Levothyroxine Sodium (Synthroid -) 50 mcg PO DAILY@0700 [facility] Last Admin: 06/05/17 06:55 Dose: 50 mcg Metoprolol Succinate (Toprol Xl -) 25 mg PO DAILY [facility] Last Admin: 06/05/17 10:56 Dose: 25 mg Montelukast Sodium (Singulair -) 10 mg PO [facility] Last Admin: 06/04/17 23:03 Dose: 10 mg Oxycodone HCl (Roxicodone -) 5 mg PO Q6H PRN PRN Reason: PAIN Last Admin: 06/05/17 01:12 Dose: 5 mg Senna (Senna -) 1 tab PO [facility] Last Admin: 06/04/17 23:03 Dose: 1 tab Sitagliptin Phosphate (Januvia -) 100 mg PO DAILY@0700 [facility] Last Admin: 06/05/17 06:55 Dose: 100 mg - Objective Vital Signs: Vital Signs Temperature 99 F 06/05/17 10:00 Pulse Rate 66 06/05/17 10:00 Respiratory Rate 18 06/05/17 10:00 Blood Pressure 133/66 06/05/17 10:00 O2 Sat by Pulse Oximetry (%) 98 06/04/17 21:00 Constitutional: Yes: Mild Distress Eyes: Yes: WNL HENT: Yes: WNL Neck: Yes: WNL Cardiovascular: Yes: WNL Respiratory: Yes: WNL Gastrointestinal: Yes: WNL Genitourinary: Yes: WNL Musculoskeletal: Yes: Back Pain, Muscle Weakness Extremities: Yes: WNL Edema: No Peripheral Pulses WNL: Yes Integumentary: Yes: WNL Wound/Incision: Yes: Clean/Dry Neurological: Yes: Pre-Existing Deficit ...Motor Strength: LLE, RLE Psychiatric: Yes: Other Labs: CBC, BMP 06/04/17 06:00 06/05/17 06:10 INR, PTT INR 1.19 (0.82-1.09) H 06/03/17 08:00 Problem List - Problems (1) Abdominal pain Code(s): R10.9 - UNSPECIFIED ABDOMINAL PAIN Qualifiers: Abdominal location: left lower quadrant Qualified Code(s): R10.32 - Left lower quadrant pain (2) Dizziness Code(s): R42 - DIZZINESS AND GIDDINESS (3) Hyponatremia Code(s): E87.1 - HYPO-OSMOLALITY AND HYPONATREMIA (4) Back pain Code(s): M54.9 - DORSALGIA, UNSPECIFIED Qualifiers: Back pain location: low back pain Chronicity: chronic Back pain laterality: left Sciatica presence: without sciatica Qualified Code(s): M54.5 - Low back pain (5) Depression Code(s): F32.9 - MAJOR DEPRESSIVE DISORDER, SINGLE EPISODE, UNSPECIFIED Qualifiers: Depression Type: other depression Qualified Code(s): F32.89 - Other specified depressive episodes (6) Diabetes mellitus Code(s): E11.9 - TYPE 2 DIABETES MELLITUS WITHOUT COMPLICATIONS Qualifiers: Diabetes mellitus type: type 2 (7) Musculoskeletal pain Code(s): M79.1 - MYALGIA Assessment/Plan MONITOR NA+ LEVELS STOP ALL SSRI/PPI INDUCING HYPONATREMIA LABS REVIEED [facility]
--- NOTE | 2017-06-05 13:07 | PN ---
Progress Note (short form) - Note Progress Note: Renal Follow up for Hyponatremia Pt seen and examined at the bedside awake and alert no acute complaints no N/V/D, confusion, lethargy, seizures on IVF Vital Signs Temperature 99 F 06/05/17 10:00 Pulse Rate 66 06/05/17 10:00 Respiratory Rate 18 06/05/17 10:00 Blood Pressure 133/66 06/05/17 10:00 O2 Sat by Pulse Oximetry (%) 98 06/04/17 21:00 Intake & Output 06/02/17 06/03/17 06/04/17 06/05/17 23:59 23:59 23:59 23:59 Intake Total 880 1020 1050 Balance 880 1020 1050 Weight 165 lb Gen: NAD, awake and alert HEENT: Dry MM CVS: RRR, No M/R Lungs: CTA, no rales or wheeze Abd: soft NT/ND Ext: No edema, clubbing or cyanosis CBC, BMP 06/04/17 06:00 06/05/17 06:10 Current Medications Acetaminophen (Tylenol -) 650 mg PO Q6H PRN PRN Reason: FEVER OR PAIN Last Admin: 06/05/17 10:57 Dose: 650 mg Amlodipine Besylate (Norvasc -) 10 mg PO DAILY [facility] Last Admin: 06/05/17 10:57 Dose: 10 mg Aspirin (Ecotrin -) 81 mg PO DAILY [facility] Last Admin: 06/05/17 10:59 Dose: 81 mg Bupropion HCl (Wellbutrin Xl -) 150 mg PO DAILY [facility] Last Admin: 06/05/17 10:57 Dose: 150 mg Gabapentin (Neurontin -) 600 mg PO TID [facility] Last Admin: 06/05/17 06:54 Dose: 600 mg Glimepiride (Amaryl -) 4 mg PO DAILY@0700 [facility] Last Admin: 06/05/17 06:55 Dose: 4 mg Levothyroxine Sodium (Synthroid -) 50 mcg PO DAILY@0700 [facility] Last Admin: 06/05/17 06:55 Dose: 50 mcg Metoprolol Succinate (Toprol Xl -) 25 mg PO DAILY [facility] Last Admin: 06/05/17 10:56 Dose: 25 mg Montelukast Sodium (Singulair -) 10 mg PO HS [facility] Last Admin: 06/04/17 23:03 Dose: 10 mg Oxycodone HCl (Roxicodone -) 5 mg PO Q6H PRN PRN Reason: PAIN Last Admin: 06/05/17 01:12 Dose: 5 mg Senna (Senna -) 1 tab PO HS [facility] Last Admin: 06/04/17 23:03 Dose: 1 tab Sitagliptin Phosphate (Januvia -) 100 mg PO DAILY@0700 [facility] Last Admin: 06/05/17 06:55 Dose: 100 mg Sodium Chloride (Sodium Chloride Tablet -) 1 gm PO BID [facility] A/p 71 year old woman with PMhx of Chronic Hyponatremia, Depression, Hypertension, Peripheral Neuropathy who presented from home s/p fall and found to have Na of 119. #Hyponatremia Serum Na improved with isotonic saline pt w/o any acute symptoms from hyponatemia at the present time d/c IVF, start salt tabs BID, fluid restriction of 1L daily off SSRI's, on Wellburtin now #Hypertension Continue Amlodipne and Metoprolol Goal BP < 140/90 Stable for D/c form renal perspective Austen Degroot DO
[2017-06-05] MEDS: SODIUM CHLORIDE 1 GM TABLET PO SCH ×2 (15:43→21:50)
[2017-06-05] MEDS: SENNOSIDES 8.6MG TABLET (FP) PO SCH (21:50)
[2017-06-05] MEDS: MONTELUKAST NA 10 MG TABLET PO SCH (21:56)
[2017-06-06 06:21] VITALS: BP 160/79; PULSE 76; TEMP 98.2
[2017-06-06] MEDS: GLIMEPIRIDE 4 MG TABLET (FP) PO SCH (06:25)
[2017-06-06] MEDS: sitaGLIPtin PHOSPHATE 100 MG TABLET (FP) PO SCH (06:25)
[2017-06-06] MEDS: GABAPENTIN 300 MG CAPSULE (FP) PO SCH (06:25)
[2017-06-06] MEDS: LEVOTHYROXINE NA 50 MCG TABLET (FP) PO SCH (06:25)
[2017-06-06 08:25] LABS: ANION GAP 6 (8-16); CALCIUM 9.1 mg/dL (8.5-10.1); CO2 27 mmol/L (21-32); CREATININE 0.6 mg/dL (0.55-1.02); GLUCOSE,RANDOM 269 mg/dL (74-106)
--- NOTE | 2017-06-06 09:56 | DS ---
Physical Examination Vital Signs: Vital Signs Temperature 98.2 F 06/06/17 06:20 Pulse Rate 76 06/06/17 06:20 Respiratory Rate 16 06/06/17 06:20 Blood Pressure 160/79 06/06/17 06:20 O2 Sat by Pulse Oximetry (%) 98 06/05/17 21:00 Constitutional: Yes: Mild Distress Eyes: Yes: WNL HENT: Yes: WNL Neck: Yes: WNL Cardiovascular: Yes: WNL Respiratory: Yes: WNL Gastrointestinal: Yes: WNL Renal/: Yes: WNL Musculoskeletal: Yes: Muscle Weakness Extremities: Yes: WNL Edema: No Peripheral Pulses WNL: Yes Integumentary: Yes: WNL Wound/Incision: Yes: Clean/Dry Neurological: Yes: Pre-Existing Deficit, Unsteady Gait, Weakness ...Motor Strength: LLE, RLE Psychiatric: Yes: Other Labs: CBC, BMP 06/04/17 06:00 06/06/17 07:00 Discharge Summary Reason For Visit: HYPONATREMIA Current Active Problems Abdominal pain (Acute) Diarrhea (Acute) Dizziness (Acute) Hypomagnesemia (Acute) Hyponatremia (Acute) Procedures: Principal: labs Hospital Course: admitted acute on chronic hyponatremia, monitor levels every 2 days na+ should be above 128 Condition: Stable - Instructions Diet, Activity, Other Instructions: diabetic diet check Na+ levels every 2 days [facility] - Home Medications Comprehensive Discharge Medication List: Ambulatory Orders Gabapentin 600 mg PO ASDIR MDD Take at 12nn 05/29/17 Acetaminophen [Tylenol .Regular Strength -] 650 mg PO Q6H PRN #0 tablet Levothyroxine [Synthroid -] 50 mcg PO DAILY@0700 tablet 05/30/17 Metoprolol Succinate [Toprol XL -] 25 mg PO DAILY tab 05/30/17 Acetaminophen [Tylenol .Regular Strength -] 650 mg PO Q6H PRN #0 tablet Amlodipine Besylate [Norvasc -] 10 mg PO DAILY tablet 06/06/17 Aspirin Coated [Ecotrin -] 81 mg PO DAILY tab 06/06/17 Aspirin [ASA -] 81 mg PO DAILY #0 tab 06/06/17 Bupropion HCl [Wellbutrin Xl -] 150 mg PO DAILY tab 06/06/17 Calcium (Oyster Shell) [Os-Pasquale 500MG -] 500 mg PO BID #0 cap 06/06/17 Gabapentin 1,200 mg PO HS #0 cap 06/06/17 Gabapentin [Neurontin -] 600 mg PO DAILY #0 cap 06/06/17 Gabapentin [Neurontin -] 600 mg PO TID cap 06/06/17 Glimepiride [Amaryl -] 4 mg PO BID #0 tab 06/06/17 Glimepiride [Amaryl -] 4 mg PO DAILY@0700 tablet 06/06/17 Levothyroxine [Synthroid -] 50 mcg PO DAILY@0700 tablet 06/06/17 Metoprolol Succinate [Toprol XL -] 25 mg PO DAILY tab 06/06/17 Montelukast Na [Singulair -] 10 mg IVPUSH ACHS #0 tab 06/06/17 Montelukast Na [Singulair -] 10 mg PO HS tablet 06/06/17 [place]-3 Acid Ethyl Esters 1 gm PO TID #0 cap 06/06/17 Oxycodone HCl [Roxicodone -] 5 mg PO Q6H PRN #0 tablet MDD 4 06/06/17 Sennosides [Senna -] 1 tab PO HS tablet 06/06/17 Sennosides [Senna -] 2 tab PO DAILY #0 tab 06/06/17 Sitagliptin Phosphate [Januvia -] 100 mg PO DAILY@0700 tab 06/06/17 Sitagliptin Phosphate [Januvia] 100 mg PO DAILY #0 tab 06/06/17 Sodium Chloride Tablet - 1 gm PO BID tablet 06/06/17
[2017-06-06] MEDS ORDERED: PT OWN MED DRAWER 7, Y5N ONE (10:44)
[2017-06-06] MEDS: SODIUM CHLORIDE 1 GM TABLET PO SCH (10:49)
[2017-06-06] MEDS: ASPIRIN COATED 81 MG TABLET.EC PO SCH (10:49)
[2017-06-06] MEDS: METOPROLOL SUCCINATE 25 MG TAB.SR.24H (FP) PO SCH (10:49)
[2017-06-06] MEDS: amLODIPine BESYLATE 10 MG TABLET (FP) PO SCH (10:49)
--- NOTE | 2017-06-06 11:39 | PN ---
Progress Note (short form) - Note Progress Note: Renal Follow up for Hyponatremia Pt seen and examined at the bedside awake and alert no acute complaints no NAQVI, confusion, lethargy, weakness, seizures Vital Signs Temperature 98.2 F 06/06/17 06:20 Pulse Rate 76 06/06/17 06:20 Respiratory Rate 16 06/06/17 06:20 Blood Pressure 160/79 06/06/17 06:20 O2 Sat by Pulse Oximetry (%) 98 06/05/17 21:00 Intake & Output 06/03/17 06/04/17 06/05/17 06/06/17 23:59 23:59 23:59 23:59 Intake Total 880 1020 2050 500 Balance 880 1020 2050 500 Weight 165 lb Gen: NAD, awake and alert HEENT: Dry MM CVS: RRR, No M/R Lungs: CTA, no rales or wheeze Abd: soft NT/ND Ext: No edema, clubbing or cyanosis CBC, BMP 06/04/17 06:00 06/06/17 07:00 A/p 71 year old woman with PMhx of Chronic Hyponatremia, Depression, Hypertension, Peripheral Neuropathy who presented from home s/p fall and found to have Na of 119. #Hyponatremia secondary to total body salt and water depeltion with chronic component of hyponatremia likely due to SIADH (was prevously on SSRI's) Serum Na is now improved and stable no acute symptoms of hyponatremia at this time continue salt tabs 1g BID and fluid restriction of 1L daily discussed importance of maintaining a good diet/solute intake would monitor Na levels as a outpatient would recommend follow up in our office in 1-2 weeks Pt will need Rehab Thank you for allowing us to take part in the care of this patient Austen Degroot DO
--- NOTE | 2017-06-11 20:30 | EKG ---
Test Reason : Blood Pressure : / mmHG Vent. Rate : 071 BPM Atrial Rate : 071 BPM P-R Int : 166 ms QRS Dur : 082 ms QT Int : 452 ms P-R-T Axes : 046 009 044 degrees QTc Int : 491 ms NORMAL SINUS RHYTHM PROLONGED QT ABNORMAL ECG WHEN COMPARED WITH ECG OF 28-MAY-2017 13:52, NO SIGNIFICANT CHANGE WAS FOUND SUBMITTED NO CLINICAL INFORMATION IS AVAILABLE REPEAT EKG IF CLINICALLY INDICATED Confirmed by AMILCAR ESQUEDA MD ([id number]) on 06/11/2017 8:30:21 PM Referred By: Confirmed By:AMILCAR ESQUEDA MD
== END 2017-06-06 13:19 | DRG 645 ==
LOC: JER 06:41 → JERBED 11:30 → J4S 13:05
PROVIDERS: ADMIT Family Medicine; ATTEND Family Medicine
DX: E22.2 Syndrome of inappropriate secretion of antidiuretic hormone (principal); E83.42 Hypomagnesemia; E11.9 Type 2 diabetes mellitus without complications; Z79.4 Long term (current) use of insulin; I10 Essential (primary) hypertension; J45.909 Unspecified asthma, uncomplicated; E78.00 Pure hypercholesterolemia, unspecified; F03.90 Unspecified dementia, unspecified severity, without behavioral disturbance, psychotic disturbance, mood disturbance, and anxiety; F32.9 Major depressive disorder, single episode, unspecified; I69.398 Other sequelae of cerebral infarction; G62.9 Polyneuropathy, unspecified; G89.29 Other chronic pain; M54.5 Low back pain; R42 Dizziness and giddiness
CPT/HCPCS: 36415; 70450-TC; 71010-TC; 72100-TC; 73030-TC-LT; 76700-TC; 80048; 80053; 81003; 83735; 83930; 83935; 84100; 84295; 84443; 84484; 84550; 85025; 85027; 85610; 85730; 87086; 93005; 93010; 97116-GP; 97161-GP; 99283-25

== ENCOUNTER 2018-01-31 13:52 | Observation (INO) | payer OTHER ==
--- NOTE | 2018-01-31 15:02 | PDOC ---
History of Present Illness - General Chief Complaint: Urinary Problem Stated Complaint: UTI - History of Present Illness Initial Comments: Patient is a 72 year old female, with a significant past medical history of HTN , DM2 and hyponatremia, who presents to the emergency department complaining of suprapubic and L flank pain and inability to urinate since this AM. Pt states she has difficulty urinating over last two months, with poor flow and straining. Since this AM, pt unable to urinate despite urge. Endorses suprapubic pain and L flank pain as well. Pt with no urologic procedure, but hx of renal stones in past. Pt with no dysuria, hematuria, pyuria. Denies f/c/n/v/d , NAQVI, dizziness, cp, cough, sob, LE edema, rashes. Allergies: None Past surgical history: prior urethral dilation for urethral stricture ( urologist unknown) Social History: Denies toxic habits PMD: Dr. Tinoco 01/31/18 15:02 Past History - Past Medical History Allergies/Adverse Reactions: Allergies Allergy/AdvReac Type Severity Reaction Status Date / Time No Known Drug Allergies Allergy Verified 01/31/18 14:00 Home Medications: Ambulatory Orders Gabapentin 600 mg PO ASDIR MDD Take at 12nn / Acetaminophen [Tylenol .Regular Strength -] 650 mg PO Q6H PRN #0 tablet Levothyroxine [Synthroid -] 50 mcg PO DAILY@0700 tablet 05/30/17 Metoprolol Succinate [Toprol XL -] 25 mg PO DAILY tab 05/30/17 Acetaminophen [Tylenol .Regular Strength -] 650 mg PO Q6H PRN #0 tablet Amlodipine Besylate [Norvasc -] 10 mg PO DAILY tablet 06/06/17 Aspirin Coated [Ecotrin -] 81 mg PO DAILY tab 06/06/17 Aspirin [ASA -] 81 mg PO DAILY #0 tab 06/06/17 Bupropion HCl [Wellbutrin Xl -] 150 mg PO DAILY tab 06/06/17 Calcium (Oyster Shell) [Os-Pasquale 500MG -] 500 mg PO BID #0 cap 06/06/17 Gabapentin 1,200 mg PO HS #0 cap 06/06/17 Gabapentin [Neurontin -] 600 mg PO DAILY #0 cap 06/06/17 Gabapentin [Neurontin -] 600 mg PO TID cap 06/06/17 Glimepiride [Amaryl -] 4 mg PO BID #0 tab 06/06/17 Glimepiride [Amaryl -] 4 mg PO DAILY@0700 tablet 06/06/17 Levothyroxine [Synthroid -] 50 mcg PO DAILY@0700 tablet 06/06/17 Metoprolol Succinate [Toprol XL -] 25 mg PO DAILY tab 06/06/17 Montelukast Na [Singulair -] 10 mg IVPUSH ACHS #0 tab 06/06/17 Montelukast Na [Singulair -] 10 mg PO HS tablet 06/06/17 [place]-3 Acid Ethyl Esters 1 gm PO TID #0 cap 06/06/17 Sennosides [Senna -] 1 tab PO HS tablet 06/06/17 Sennosides [Senna -] 2 tab PO DAILY #0 tab 06/06/17 Sitagliptin Phosphate [Januvia -] 100 mg PO DAILY@0700 tab 06/06/17 Sitagliptin Phosphate [Januvia] 100 mg PO DAILY #0 tab 06/06/17 Sodium Chloride Tablet - 1 gm PO BID tablet 06/06/17 oxyCODONE HCL [Roxicodone -] 5 mg PO Q6H PRN #0 tablet MDD 4 06/06/17 Anemia: No Asthma: Yes Cancer: No Cardiac Disorders: No CVA: Yes (2013,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") COPD: No CHF: No Dementia: No Diabetes: Yes GI Disorders: No Disorders: No HTN: Yes Hypercholesterolemia: Yes Liver Disease: No Psychiatric Problems: Yes (dementia, depression) Seizures: Yes Thyroid Disease: Yes - Surgical History Abdominal Surgery: No Appendectomy: No Cardiac Surgery: No Cholecystectomy: No Lung Surgery: No Neurologic Surgery: No Orthopedic Surgery: Yes ("BACK SURGERY" STATED BY PT) - Reproductive History Therapeutic (s) & number: No - Suicide/Smoking/Psychosocial Hx Smoking Status: No Smoking History: Never smoked Have you smoked in the past 12 months: No Number of Cigarettes Smoked Daily: 0 Hx Alcohol Use: No Drug/Substance Use Hx: No Substance Use Type: None Hx Substance Use Treatment: No Review of Systems - Review of Systems Comments:: GENERAL/CONSTITUTIONAL: No fever or chills. No weakness. HEAD, EYES, EARS, NOSE AND THROAT: No change in vision. No ear pain or discharge. No sore throat. CARDIOVASCULAR: No chest pain or shortness of breath RESPIRATORY: No cough, wheezing, or hemoptysis. GASTROINTESTINAL: No nausea, vomiting, diarrhea or constipation. GENITOURINARY: +inability to urinate, suprapubic pain and L flank pain. No dysuria, frequency. MUSCULOSKELETAL: No joint or muscle swelling or pain. No neck or back pain. SKIN: No rash NEUROLOGIC: No headache, vertigo, loss of consciousness, or change in strength/ sensation. ENDOCRINE: No increased thirst. No abnormal weight change HEMATOLOGIC/LYMPHATIC: No anemia, easy bleeding, or history of blood clots. ALLERGIC/IMMUNOLOGIC: No hives or skin allergy. 01/31/18 15:02 *Physical Exam - Vital Signs Last Vital Signs Temp Pulse Resp BP Pulse Ox 97.7 F 101 H 16 166/77 99 01/31/18 13:59 01/31/18 13:59 01/31/18 13:59 01/31/18 13:59 01/31/18 13:59 - Physical Exam Comments: GENERAL: Elderly woman, Awake, alert, and fully oriented, in mild distress HEAD: No signs of trauma, normocephalic, atraumatic EYES: PERRLA, EOMI, sclera anicteric, conjunctiva clear ENT: Auricles normal inspection, hearing grossly normal, nares patent, oropharynx clear without exudates. Moist mucosa NECK: Normal ROM, supple, no lymphadenopathy, JVD, or masses LUNGS: No distress, speaks full sentences, clear to auscultation bilaterally HEART: Regular rate and rhythm, normal S1 and S2, no murmurs, rubs or gallops, peripheral pulses normal and equal bilaterally. ABDOMEN: + suprabic tenderness, L flank pain. normoactive bowel sounds. No guarding, no rebound. No masses EXTREMITIES : Normal inspection, Normal range of motion, no edema. No clubbing or cyanosis. NEUROLOGICAL: Cranial nerves II through XII grossly intact. Normal speech, normal gait, no focal sensorimotor deficits SKIN: Warm, Dry, normal turgor, no rashes or lesions noted 01/31/18 15:03 ED Treatment Course - LABORATORY CBC & Chemistry Diagram: 01/31/18 15:30 01/31/18 15:30 Medical Decision Making - Medical Decision Making 72 year old female, with a significant past medical history of HTN, DM2 and hyponatremia, who presents to the emergency department complaining of suprapubic and L flank pain and inability to urinate since this AM. Plan: - cbc, cmp, UA, PT/inr - Bladder scan; f/u CT ab/pelvis - Lock placement 01/31/18 15:38 Pt urinary symptoms resolved, able to urinate. abdominal pain resolved. UA normal. Renal U/S with no hydro. 01/31/18 19:28 Will admit to [facility]. Case discussed with CELENA Martinez. See admission details below. 01/31/18 20:31 *DC/Admit/Observation/Transfer Diagnosis at time of Disposition: Urinary retention, Hyponatremia - Discharge Dispostion Condition at time of disposition: Fair Decision to Admit order: Yes Decision to Admit order Date/Time: BMP notable for Na 119. Urine lytes, serum osm ordered. [facility] microblogged, discussed case with CELENA Martinez, will admit to [facility]. Tylenol ordered for back pain. Pt currently freely urinating. May attempt to place lock if retaining. If unable to pass lock, consult urology as inpatient. 01/31/18 20:28 - Referrals Referrals: Gladys Tinoco MD [Primary Care Provider] - 1 week Donny Castillo MD [Staff Physician] - 1 week - Patient Instructions Additional Instructions: During your visit to the [facility] ED, you were evaluated for urinary retention. You received imaging of your bladder and kidneys, in addition to blood tests, which were all relatively unremarkable. Since the start of your visit, your urinary symptoms have corrected and your abdominal pain has improved. You are being discharged home with outpatient follow-up with your primary care provider and are being provided a referral to see our Urology, Dr. Castillo. You are being provided a referral for follow-up with Dr. Castillo, our urologist for further evaluation of your chronic urinary retention. Please call the number provided in this packet to schedule an appointment within one week. If you experience any of the following symptoms, please return to the ED: - fevers/chills >3 days - Inability to urinate, pain with urination, or blood in your urine - Worsening, persistent pain in your belly or back - Any new or concerning symptoms - Post Discharge Activity
--- NOTE | 2018-01-31 15:27 | PDOC ---
Attending Attestation - Resident Resident Name: Napoleon Roberts - ED Attending Attestation I have performed the following: I have examined & evaluated the patient, The case was reviewed & discussed with the resident, I agree w/resident's findings & plan, Exceptions are as noted - HPI HPI: 01/31/18 15:31 72y F hx of HTN, DM2, hyponatremia presents with several days of difficulty urinating /hesitancy w/o dysuria, foul smelling urine, fever/chills, n/v. Patient endorses mild suprapubic pain. Patient denies any nausea, vomiting, back pain, chest pain, shortness of breath, diaphoresis. On exam the patient is well-appearing, no acute distress, GENERAL: The patient is awake, alert, and fully oriented, Nontoxic - in no acute distress. HEAD: Normocephalic, atraumatic. EYES: extraocular movements intact, sclera anicteric, conjunctiva clear. ENT: Normal voice, Moist mucous membranes. NECK: Normal range of motion, supple LUNGS: Breath sounds equal, clear to auscultation bilaterally. No wheezes, no rhonchi, no rales. HEART: Regular rate and rhythm, normal S1 and S2 without murmur, rub or gallop. ABDOMEN: Soft, mild suprapubic tenderness, No guarding, no rebound. No CVA tenderness EXTREMITIES: Normal range of motion, no edema. NEUROLOGICAL: No facial assymetry, Normal speech, PSYCH: Normal mood, normal affect. SKIN: Warm, Dry, normal turgor, suspect ppossible UTI - Physicial Exam PE: 02/01/18 20:41 see above - Medical Decision Making 01/31/18 17:38 Patient's labs were reviewed, CMP pending UA inconsistent with UTI Patient was able to urinate states she is feeling much better. If CMP is negative anticipate discharging patient with PMD follow-up.
[2018-01-31 16:00] LABS: BASO % 0.4 % (0-2.0); EOS % 1.7 % (0-4.5); HEMATOCRIT 36.7 % (32.4-45.2); HEMOGLOBIN 13.3 GM/dL (10.7-15.3); LYMPH % 13.3 % (8-40); MCH 30.4 pg (25.7-33.7); MCHC 36.2 g/dl (32.0-36.0); MEAN CELL VOLUME 83.9 fl (80-96); MEAN PLT VOLUME 8.7 fl (7.5-11.1); MONO % 6.2 % (3.8-10.2); NEUT % 78.4 % (42.8-82.8); PLATELET COUNT 205 K/MM3 (134-434); RBC 4.38 M/mm3 (3.60-5.2); RDW 14.8 % (11.6-15.6); WHITE BLOOD COUNT 12.8 K/mm3 (4.0-10.0)
[2018-01-31 16:18] LABS: INR 1.19 (0.82-1.09); PROTHROMBIN TIME (PATIENT) 13.4 SEC (9.7-13.0)
[2018-01-31 17:00] LABS: ALBUMIN 4.7 g/dl (3.4-5.0); BLOOD UREA NITROGEN 9 mg/dL (7-18); CALCIUM 9.6 mg/dL (8.5-10.1); CHLORIDE 84 mmol/L (98-107); CO2 25 mmol/L (21-32); GLUCOSE,RANDOM 161 mg/dL (74-106)
[2018-01-31 17:11] LABS: URINE APPEARANCE CLEAR; URINE BILIRUBIN NEGATIVE (<2.0 mg/dL); URINE COLOR STRAW; URINE GLUCOSE (UA) NEGATIVE (NEGATIVE); URINE KETONE TRACE (NEGATIVE); URINE LEUK ESTERASE NEGATIVE (NEGATIVE); URINE NITRITE NEGATIVE (NEGATIVE); URINE UROBILINOGEN NEGATIVE mg/dL (0.2-1.0)
[2018-01-31 17:21] LABS: URINE PROTEIN 2+ (NEGATIVE)
[2018-01-31 17:24] LABS: EPI CELLS RARE /HPF (FEW); URINE BACTERIA RARE /hpf (NONE SEEN)
[2018-01-31 18:49] LABS: ALK PHOS 118 U/L (45-117); CREATININE 0.8 mg/dL (0.55-1.02)
[2018-01-31 19:14] LABS: ANION GAP 10 (8-16)
[2018-01-31 19:18] LABS: BILIRUBIN,TOTAL 0.8 mg/dL (0.2-1.0); SGPT/ALT 28 U/L (12-78)
[2018-01-31 19:32] LABS: POTASSIUM 4.2 mmol/L (3.5-5.1); SGOT/AST 29 U/L (15-37)
[2018-01-31 19:33] LABS: SODIUM 119 mmol/L (136-145)
[2018-01-31] MEDS ORDERED: ACETAMINOPHEN 325 MG TABLET (FP) PO ONE (19:42)
[2018-01-31 19:46] LABS: TOT PROT 8.5 g/dl (6.4-8.2)
[2018-01-31] MEDS ORDERED: SODIUM CHLORIDE 1,000 ML IV SCH (20:00)
--- NOTE | 2018-01-31 21:18 | HP ---
CHIEF COMPLAINT: Difficulty urinating PCP: Alejandrina HISTORY OF PRESENT ILLNESS: This is a 72 year old female with a significant past medical history of urethral stricture s/p dilation and hyponatremia who presented to the ED with inability to urinate since this am and intermittent difficulty urinating for months. Pt was able to urinate in the ED but only "a little bit" and she still feels uncomfortable. She reports left flank and LLQ pain. ER course was notable for: (1) sodium 119 (2) WBC 12.8 Recent Travel: pt denies PAST MEDICAL HISTORY: HTN, HTN, CVA, HLD, DM, hyponatremia, renal stone, urethral stricture, depression PAST SURGICAL HISTORY: back surgery urethral dilation Social History: Smoking: pt denies Alcohol: pt denies Drugs: pt denies Allergies No Known Drug Allergies Allergy (Verified 01/31/18 14:00) HOME MEDICATIONS: 3 Medication Instructions Recorded Levothyroxine [Synthroid -] 50 mcg PO DAILY@0700 tablet 05/30/17 Metoprolol Succinate [Toprol XL 25 mg PO DAILY tab 05/30/17 Amlodipine Besylate [Norvasc -] 10 mg PO DAILY tablet 06/06/17 Calcium (Oyster Shell) [Os-Pasquale 500 mg PO BID #0 cap 06/06/17 500MG -] Glimepiride [Amaryl -] 4 mg PO DAILY@0700 tablet 06/06/17 Sitagliptin Phosphate [Januvia 100 mg PO DAILY@0700 tab 06/06/17 Atorvastatin Ca [Lipitor] 10 mg PO HS 01/31/18 Buspirone HCl [Buspar -] 5 mg PO BID 01/31/18 Insulin Glargine,Hum.rec.anlog 20 unit SQ DAILY 01/31/18 [Lantus] Cetirizine HCl 10 mg PO DAILY 01/31/18 Gabapentin [Neurontin -] 300 mg PO TID 01/31/18 Metformin HCl 500 mg PO BID 01/31/18 [place]-3 Acid Ethyl Esters 1 gm PO DAILY 01/31/18 REVIEW OF SYSTEMS CONSTITUTIONAL: Absent: fever, chills, diaphoresis, generalized weakness, malaise, loss of appetite, weight change HEENT: Absent: rhinorrhea, nasal congestion, throat pain, throat swelling, difficulty swallowing, mouth swelling, ear pain, eye pain, visual changes CARDIOVASCULAR: Absent: chest pain, syncope, palpitations, irregular heart rate, lightheadedness , peripheral edema RESPIRATORY: Absent: cough, shortness of breath, dyspnea with exertion, orthopnea, wheezing, stridor, hemoptysis GASTROINTESTINAL: Present: abdominal pain Absent: abdominal distension, nausea, vomiting, diarrhea, constipation, melena, hematochezia GENITOURINARY: Present: hesitancy, flank pain Absent: dysuria, frequency, urgency, hematuria, genital pain MUSCULOSKELETAL: Absent: myalgia, arthralgia, joint swelling, back pain, neck pain SKIN: Absent: rash, itching, pallor HEMATOLOGIC/IMMUNOLOGIC: Absent: easy bleeding, easy bruising, lymphadenopathy, frequent infections ENDOCRINE: Absent: unexplained weight gain, unexplained weight loss, heat intolerance, cold intolerance NEUROLOGIC: Absent: headache, focal weakness or paresthesias, dizziness, unsteady gait, seizure, mental status changes, bladder or bowel incontinence PSYCHIATRIC: Absent: anxiety, depression, suicidal or homicidal ideation, hallucinations. PHYSICAL EXAMINATION Vital Signs - 24 hr 3 01/31/18 01/31/18 13:59 18:50 Temperature 97.7 F 97.8 F Pulse Rate 101 H Pulse Rate [ 99 H Apical] Respiratory 16 20 Rate Blood Pressure 166/77 Blood Pressure 144/78 [Right Arm] O2 Sat by Pulse 99 100 Oximetry (%) GENERAL: Awake, alert, and fully oriented, in no acute distress. HEAD: Normal with no signs of trauma. EYES: Pupils equal, round and reactive to light, extraocular movements intact, sclera anicteric, conjunctiva clear. No lid lag. EARS, NOSE, THROAT: Ears normal, nares patent, oropharynx clear without exudates. Moist mucous membranes. NECK: Normal range of motion, supple without lymphadenopathy, JVD, or masses. LUNGS: Breath sounds equal, clear to auscultation bilaterally. No wheezes, and no crackles. No accessory muscle use. HEART: Regular rate and rhythm, normal S1 and S2 without murmur, rub or gallop. ABDOMEN: Soft, nontender, distended, normoactive bowel sounds, no guarding, no rebound, no masses. No hepatomegaly or splenomegaly. MUSCULOSKELETAL: Normal range of motion at all joints. No bony deformities or tenderness. Left CVA tenderness. UPPER EXTREMITIES: 2+ pulses, warm, well-perfused. No cyanosis. No clubbing. No peripheral edema. LOWER EXTREMITIES: 2+ pulses, warm, well-perfused. No calf tenderness. No peripheral edema. NEUROLOGICAL: Cranial nerves II-XII intact. Normal speech. Normal gait. PSYCHIATRIC: Cooperative. Good eye contact. Appropriate mood and affect. SKIN: Warm, dry, normal turgor, no rashes or lesions noted, normal capillary refill. Laboratory Results - last 24 hr 3 01/31/18 01/31/18 01/31/18 15:30 15:30 15:30 WBC 12.8 H D RBC 4.38 Hgb 13.3 Hct 36.7 MCV 83.9 MCH 30.4 MCHC 36.2 H RDW 14.8 Plt Count 205 D MPV 8.7 Neutrophils % 78.4 Lymphocytes % 13.3 D Monocytes % 6.2 Eosinophils % 1.7 Basophils % 0.4 PT with INR 13.40 H INR 1.19 H Sodium 119 L* Potassium 4.2 Chloride 84 L Carbon Dioxide 25 Anion Gap 10 BUN 9 Creatinine 0.8 Creat Clearance w eGFR > 60 Random Glucose 161 H Calcium 9.6 Total Bilirubin 0.8 AST 29 ALT 28 Alkaline Phosphatase 118 H Total Protein 8.5 H Albumin 4.7 Urine Color Urine Appearance Urine pH Ur Specific [place] Urine Protein Urine Glucose (UA) Urine Ketones Urine Blood Urine Nitrite Urine Bilirubin Urine Urobilinogen Ur Leukocyte Esterase Urine WBC (Auto) Urine RBC (Auto) Ur Epithelial Cells Urine Bacteria 3 01/31/18 16:49 WBC RBC Hgb Hct MCV MCH MCHC RDW Plt Count MPV Neutrophils % Lymphocytes % Monocytes % Eosinophils % Basophils % PT with INR INR Sodium Potassium Chloride Carbon Dioxide Anion Gap BUN Creatinine Creat Clearance w eGFR Random Glucose Calcium Total Bilirubin AST ALT Alkaline Phosphatase Total Protein Albumin Urine Color Straw Urine Appearance Clear Urine pH 7.0 Ur Specific [place] 1.006 Urine Protein 2+ H Urine Glucose (UA) Negative Urine Ketones Trace H Urine Blood Negative Urine Nitrite Negative Urine Bilirubin Negative Urine Urobilinogen Negative Ur Leukocyte Esterase Negative Urine WBC (Auto) 1 Urine RBC (Auto) <1 Ur Epithelial Cells Rare Urine Bacteria Rare ECG NSR vent rate 94, QTC [address]/T changes ASSESSMENT/PLAN: 72yF with PMH HTN, CVA, HLD, DM, hyponatremia, renal stone, urethral stricture, depression presented to the ED with difficulty urinating. Urinary retention - FC placed, 700mL in bladder - urology consult - u/s renal/bladder hyponatremia - H/o same, responded well in past to IVF as per renal note - start NS @ 75cc.hr, bmp in 4 hours - fluid restriction 1000mL - dc glimepiride as can cause SIADH - urine lytes, osmo, serum osmo pending - pt was DC from here on sodium tabs on 06/06/17, pt states she is still taking but not on present med list that dtr has from MD office - pt states she does not drink much water at home due to her sodium DM - hold home po meds - would NOT restart glimepiride on dc - home lantus changed to formulary levemir - Novolog SS AC/HS HTN/HLD - cont home meds depression/anxiety - previously was on wellbutrin, not on current home meds - cont home buspar Insomnia - pt requesting something to help her sleep - trial melatonin DVT ppx - heparin deferred at present, start if LOS >48h FEN - NS @ 75cc/hr - bmp in 4 hours and in am - diabetic diet as tolerated Dispo: pt currently requires further observation for management of her emergent condition. Visit type - Emergency Visit Emergency Visit: Yes ED Registration Date: 01/31/18 Care time: The patient presented to the Emergency Department on the above date and was hospitalized for further evaluation of their emergent condition. - New Patient This patient is new to me today: Yes Date on this admission: 01/31/18 - Critical Care Critical Care patient: No Hospitalist Screening - Colonoscopy Questionnaire Colonoscopy Questionnaire: Colonoscopy Questionnaire - Patient: 50 - 75 years old and never had a screening colonoscopy: Unknown History of colon or rectal polyps, or CA: No History of IBD, Crohn's disease or UC: No History of abdominal radiation therapy as a child: No - Relative: 1 with colon or rectal CA, or polyps at age 60 or younger: Unknown Colon or rectal CA diagnosed at age 45 or younger: Unknown Multiple relatives with colon or rectal CA: Unknown - Outcome: Screening Result: Negative Screen
[2018-01-31] MEDS: INSULIN SLIDING SCALE (NOVOLOG) 1 VIAL SQ SCH (22:10)
[2018-01-31] MEDS ORDERED: GABAPENTIN 100 MG CAPSULE (FP) ONE (22:13)
[2018-01-31] MEDS ORDERED: busPIRone HCL 5 MG TABLET ONE (22:13)
[2018-01-31] MEDS ORDERED: INSULIN (NOVOLOG) ASPART 100 UNITS/ML 10ML VIAL ONE (22:14)
[2018-01-31] MEDS: busPIRone HCL 5 MG TABLET PO SCH (22:20)
[2018-01-31] MEDS: GABAPENTIN 300 MG CAPSULE (FP) PO SCH (22:20)
[2018-01-31 23:28] VITALS: BMI 25.2
[2018-01-31] MEDS: CALCIUM (OYSTER SHELL) 500 MG TABLET (FP) PO SCH (23:31)
[2018-01-31] MEDS: ATORVASTATIN CA 10 MG TABLET (FP) PO SCH (23:31)
[2018-01-31] MEDS: MELATONIN 5 MG TABLETS PO PRN (23:31)
[2018-02-01] MEDS: INSULIN (LEVEMIR) 100 UNITS/ML UNITS SQ SCH (06:37)
[2018-02-01] MEDS: GABAPENTIN 300 MG CAPSULE (FP) PO SCH ×3 (06:38→22:48)
[2018-02-01] MEDS: LEVOTHYROXINE NA 50 MCG TABLET (FP) PO SCH (06:38)
[2018-02-01] MEDS: INSULIN SLIDING SCALE (NOVOLOG) 1 VIAL SQ SCH ×4 (06:38→22:49)
[2018-02-01 07:49] LABS: CHLORIDE 91 mmol/L (98-107); POTASSIUM 3.6 mmol/L (3.5-5.1); SODIUM 125 mmol/L (136-145)
[2018-02-01 07:59] LABS: BASO % 0.7 % (0-2.0); HEMATOCRIT 34.3 % (32.4-45.2); HEMOGLOBIN 12.5 GM/dL (10.7-15.3); LYMPH % 21.5 % (8-40); MCHC 36.6 g/dl (32.0-36.0); MONO % 7.8 % (3.8-10.2); PLATELET COUNT 194 K/MM3 (134-434); RBC 4.18 M/mm3 (3.60-5.2); RDW 14.8 % (11.6-15.6); WHITE BLOOD COUNT 8.9 K/mm3 (4.0-10.0)
[2018-02-01 08:11] LABS: ANION GAP 9 (8-16); BLOOD UREA NITROGEN 8 mg/dL (7-18); CALCIUM 9.4 mg/dL (8.5-10.1); CO2 25 mmol/L (21-32); CREATININE 0.5 mg/dL (0.55-1.02); GLUCOSE,RANDOM 157 mg/dL (74-106); MAGNESIUM 1.7 mg/dL (1.8-2.4); PHOSPHOROUS 5.1 mg/dL (2.5-4.9)
[2018-02-01] MEDS ORDERED: PT OWN MED DRAWER 7, Y5N ONE ×2 (09:43→22:44)
[2018-02-01] MEDS: busPIRone HCL 5 MG TABLET PO SCH ×2 (09:46→22:48)
[2018-02-01] MEDS: amLODIPine BESYLATE 10 MG TABLET (FP) PO SCH (09:46)
[2018-02-01] MEDS: OMEGA-3 ACID ETHYL ESTERS (FATTY-ACIDS) 1 GM CAPSULE (FP) PO SCH (09:46)
[2018-02-01] MEDS: CALCIUM (OYSTER SHELL) 500 MG TABLET (FP) PO SCH ×2 (09:46→22:48)
[2018-02-01] MEDS: metoPROLOL SUCCINATE 25 MG TAB.SR.24H (FP) PO SCH (09:46)
[2018-02-01] MEDS: LORATADINE 10 MG TABLET PO SCH (09:46)
[2018-02-01] MEDS ORDERED: INSULIN (NOVOLOG) ASPART 100 UNITS/ML 10ML VIAL ONE (11:20)
--- NOTE | 2018-02-01 11:24 | CON.GU ---
Consult Consult Specialty:: Referred by:: Juan Reason for Consultation:: urinary retention - History of Present Illness Chief Complaint: difficulty urinating History of Present Illness: 72 year old female with a significant past medical history of urethral stricture s/p dilation and hyponatremia who presented to the ED with inability to urinate since this am and intermittent difficulty urinating for months. Pt was able to urinate in the ED but only "a little bit" and she still feels uncomfortable. She reports left flank and LLQ pain. Pt found to have urinary retention and lock inserted w 700 ml residual and cons req. Pt has a hx urethral stricture. ER course was notable for: (1) sodium 119 (2) WBC 12.8 - Past Medical History [employer]: Yes: CVA, Dementia Cardio/Vascular: Yes: HTN Pulmonary: Yes: Asthma Gastrointestinal: Yes: GERD Renal/: Yes: Other (hyponatremia) Psych: Yes: Anxiety, Depression Endocrine: Yes: Diabetes Mellitus, Hypothyroidism - Alcohol/Substance Use Hx Alcohol Use: No History of Substance Use: reports: None - Smoking History Smoking history: Never smoked Have you smoked in the past 12 months: No Aproximately how many cigarettes per day: 0 - Social History Usual Living Arrangement: With Significant Other ADL: Independent History of Recent Travel: No Home Medications - Allergies Allergies/Adverse Reactions: Allergies Allergy/AdvReac Type Severity Reaction Status Date / Time No Known Drug Allergies Allergy Verified 01/31/18 14:00 - Home Medications Home Medications: Ambulatory Orders Levothyroxine [Synthroid -] 50 mcg PO DAILY@0700 tablet 05/30/17 Metoprolol Succinate [Toprol XL -] 25 mg PO DAILY tab 05/30/17 Amlodipine Besylate [Norvasc -] 10 mg PO DAILY tablet 06/06/17 Calcium (Oyster Shell) [Os-Pasquale 500MG -] 500 mg PO BID #0 cap 06/06/17 Glimepiride [Amaryl -] 4 mg PO DAILY@0700 tablet 06/06/17 Sitagliptin Phosphate [Januvia -] 100 mg PO DAILY@0700 tab 06/06/17 Atorvastatin Ca [Lipitor] 10 mg PO HS 01/31/18 Buspirone HCl [Buspar -] 5 mg PO BID 01/31/18 Cetirizine HCl 10 mg PO DAILY 01/31/18 Gabapentin [Neurontin -] 300 mg PO TID 01/31/18 Insulin Glargine,Hum.rec.anlog [Lantus] 20 unit SQ DAILY 01/31/18 Metformin HCl 500 mg PO BID 01/31/18 [place]-3 Acid Ethyl Esters 1 gm PO DAILY 01/31/18 Review of Systems - Review of Systems Genitourinary: reports: Other (difficulty voiding) Physical Exam- Vital Signs: Vital Signs Temperature 98.0 F 02/01/18 08:00 Pulse Rate 89 02/01/18 08:00 Respiratory Rate 18 02/01/18 08:00 Blood Pressure 149/76 02/01/18 08:00 O2 Sat by Pulse Oximetry (%) 100 02/01/18 09:00 Renal/: Yes: Lock Present Labs: CBC, BMP 02/01/18 06:30 02/01/18 06:30 Problem List - Problems (1) Hyponatremia Code(s): E87.1 - HYPO-OSMOLALITY AND HYPONATREMIA (2) Urinary retention Assessment/Plan: cont ashvin, f/u in my office for cystoscopy and urethral dilation Code(s): R33.9 - RETENTION OF URINE, UNSPECIFIED (3) Abdominal pain Code(s): R10.9 - UNSPECIFIED ABDOMINAL PAIN Qualifiers: Abdominal location: left lower quadrant Qualified Code(s): R10.32 - Left lower quadrant pain (4) Urethral stricture Code(s): N35.9 - URETHRAL STRICTURE, UNSPECIFIED
--- NOTE | 2018-02-01 12:10 | CONSULT ---
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 Carter catheter inserted by urology. Pt reports compliance with salt tabs and fluid restriction at home. Given IVF on admission with improvement in Na to 125. Denies any confusion, lethargy, weakness, abd pain, N/V/D. Reports good appetite. PMhx: as above Allergies: NKDA Family Hx: NC Social hx: No T/A/D ROS: As per HPI Vital Signs Temperature 98.0 F 02/01/18 08:00 Pulse Rate 89 02/01/18 08:00 Respiratory Rate 18 02/01/18 08:00 Blood Pressure 149/76 02/01/18 08:00 O2 Sat by Pulse Oximetry (%) 100 02/01/18 09:00 Intake & Output 01/29/18 01/30/18 01/31/18 02/01/18 23:59 23:59 23:59 23:59 Intake Total 200 600 Output Total 1600 1700 Balance -1400 -1100 Weight 64.501 kg NAD awake and alert MMM, No JVD RRR, No M/R CTA soft, NT/ND Carter catheter in place No LE edema CBC, BMP 02/01/18 06:30 02/01/18 06:30 Current Medications Amlodipine Besylate (Norvasc -) 10 mg PO DAILY [facility] Last Admin: 02/01/18 09:46 Dose: 10 mg Atorvastatin Calcium (Lipitor -) 10 mg PO HS [facility] Last Admin: 01/31/18 23:31 Dose: 10 mg Buspirone HCl (Buspar -) 5 mg PO BID [facility] Last Admin: 02/01/18 09:46 Dose: 5 mg Calcium Carbonate (Os-Pasquale 500mg -) 500 mg PO BID [facility] Last Admin: 02/01/18 09:46 Dose: 500 mg Gabapentin (Neurontin -) 300 mg PO TID [facility] Last Admin: 02/01/18 06:38 Dose: 300 mg Sodium Chloride (Normal Saline -) 1,000 mls @ 75 mls/hr IV ASDIR [facility] Last Admin: 05/18/18 22:01 Dose: 75 mls/hr Insulin Aspart (Novolog Vial Sliding Scale -) 1 vial SQ HS [facility] PRN Reason: Protocol Last Admin: 01/31/18 22:10 Dose: 3 units Insulin Aspart (Novolog Vial Sliding Scale -) 1 vial SQ TIDAC [facility] PRN Reason: Protocol Last Admin: 02/01/18 11:22 Dose: 3 units Insulin Detemir (Levemir Vial) 20 units SQ ACBK [facility] Last Admin: 02/01/18 06:37 Dose: 20 units Levothyroxine Sodium (Synthroid -) 50 mcg PO DAILY@0700 [facility] Last Admin: 02/01/18 06:38 Dose: 50 mcg Loratadine (Claritin -) 10 mg PO DAILY [facility] Last Admin: 02/01/18 09:46 Dose: 10 mg Melatonin (Melatonin) 5 mg PO HS PRN PRN Reason: INSOMNIA Last Admin: 01/31/18 23:31 Dose: 5 mg Metoprolol Succinate (Toprol Xl -) 25 mg PO DAILY [facility] Last Admin: 02/01/18 09:46 Dose: 25 mg [id number] Ethyl Esters (Lovaza -) 1 gm PO DAILY [facility] Last Admin: 02/01/18 09:46 Dose: 1 gm 72 year old woman with PMhx of hyponatremia (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 #Hyponatremia (Hypovolemic +/- SIADH) #Urinary retention #Hypertension #Hypothyrodisim #DM Type 2 Urine studies consistent with ADH release, pt appears evolemic and thus will not give any further IVF start sodium chloride tabs BID and 1L fluid restriction check TSH, Cortisol Carter catheter in place urology follow up continue amlodipine with goal BP < 140/90 repeat BMP this evening Thank you Austen Degroot DO
--- NOTE | 2018-02-01 12:44 | PN ---
Progress Note, Physician History of Present Illness: 72yF with PMH HTN, CVA, HLD, DM, hyponatremia, renal stone, urethral stricture, depression presented to the ED with difficulty urinating. - Current Medication List Current Medications: Active Medications Amlodipine Besylate (Norvasc -) 10 mg PO DAILY [facility] Last Admin: 02/01/18 09:46 Dose: 10 mg Atorvastatin Calcium (Lipitor -) 10 mg PO HS [facility] Last Admin: 01/31/18 23:31 Dose: 10 mg Buspirone HCl (Buspar -) 5 mg PO BID [facility] Last Admin: 02/01/18 09:46 Dose: 5 mg Calcium Carbonate (Os-Pasquale 500mg -) 500 mg PO BID [facility] Last Admin: 02/01/18 09:46 Dose: 500 mg Gabapentin (Neurontin -) 300 mg PO TID [facility] Last Admin: 02/01/18 06:38 Dose: 300 mg Insulin Aspart (Novolog Vial Sliding Scale -) 1 vial SQ HS [facility] PRN Reason: Protocol Last Admin: 01/31/18 22:10 Dose: 3 units Insulin Aspart (Novolog Vial Sliding Scale -) 1 vial SQ TIDAC [facility] PRN Reason: Protocol Last Admin: 02/01/18 11:22 Dose: 3 units Insulin Detemir (Levemir Vial) 20 units SQ ACBK [facility] Last Admin: 02/01/18 06:37 Dose: 20 units Levothyroxine Sodium (Synthroid -) 50 mcg PO DAILY@0700 [facility] Last Admin: 02/01/18 06:38 Dose: 50 mcg Loratadine (Claritin -) 10 mg PO DAILY [facility] Last Admin: 02/01/18 09:46 Dose: 10 mg Melatonin (Melatonin) 5 mg PO HS PRN PRN Reason: INSOMNIA Last Admin: 01/31/18 23:31 Dose: 5 mg Metoprolol Succinate (Toprol Xl -) 25 mg PO DAILY [facility] Last Admin: 02/01/18 09:46 Dose: 25 mg [id number] Ethyl Esters (Lovaza -) 1 gm PO DAILY [facility] Last Admin: 02/01/18 09:46 Dose: 1 gm Sodium Chloride (Sodium Chloride Tablet -) 1 gm PO BID [facility] - Objective Vital Signs: Vital Signs Temperature 98.0 F 02/01/18 08:00 Pulse Rate 89 02/01/18 08:00 Respiratory Rate 18 02/01/18 08:00 Blood Pressure 149/76 02/01/18 08:00 O2 Sat by Pulse Oximetry (%) 100 02/01/18 09:00 Cardiovascular: Yes: S1, S2 Respiratory: Yes: Regular, CTA Bilaterally Gastrointestinal: Yes: Normal Bowel Sounds, Soft. No: Tenderness Labs: CBC, BMP 02/01/18 06:30 02/01/18 06:30 INR, PTT INR 1.19 (0.82-1.09) H 01/31/18 15:30 Problem List - Problems (1) Hyponatremia Assessment/Plan: - H/o same, responded well in past to IVF as per renal note - start NS @ 75cc.hr, bmp in 4 hours - fluid restriction 1000mL - dc glimepiride as can cause SIADH - urine lytes, osmo, serum osmo pending - pt was DC from here on sodium tabs on 06/06/17, pt states she is still taking but not on present med list that dtr has from MD office - pt states she does not drink much water at home due to her sodium Code(s): E87.1 - HYPO-OSMOLALITY AND HYPONATREMIA (2) Urinary retention Assessment/Plan: - FC placed, 700mL in bladder - urology consult - u/s renal/bladder Code(s): R33.9 - RETENTION OF URINE, UNSPECIFIED (3) Depression Assessment/Plan: - previously was on wellbutrin, not on current home meds - cont home buspar - Insomnia - pt requesting something to help her sleep - trial melatonin Code(s): F32.9 - MAJOR DEPRESSIVE DISORDER, SINGLE EPISODE, UNSPECIFIED Qualifiers: Depression Type: other depression Qualified Code(s): F32.89 - Other specified depressive episodes (4) Diabetes mellitus Assessment/Plan: DM - hold home po meds - would NOT restart glimepiride on dc - home lantus changed to formulary levemir - Novolog [facility]/HS - NS @ 75cc/hr - bmp - diabetic diet as tolerated Code(s): E11.9 - TYPE 2 DIABETES MELLITUS WITHOUT COMPLICATIONS Qualifiers: Diabetes mellitus type: type 2
[2018-02-01] MEDS: SODIUM CHLORIDE 1 GM TABLET PO SCH ×2 (16:03→23:01)
[2018-02-01 18:45] LABS: ANION GAP 7 (8-16); BLOOD UREA NITROGEN 8 mg/dL (7-18); CHLORIDE 93 mmol/L (98-107); CO2 27 mmol/L (21-32); CREATININE 0.8 mg/dL (0.55-1.02); GLUCOSE,RANDOM 242 mg/dL (74-106); POTASSIUM 4.1 mmol/L (3.5-5.1); SODIUM 127 mmol/L (136-145)
[2018-02-01] MEDS: ATORVASTATIN CA 10 MG TABLET (FP) PO SCH (22:48)
[2018-02-01] MEDS: ZOLPIDEM TARTRATE 5 MG TABLET PO PRN (22:48)
[2018-02-02] MEDS: LEVOTHYROXINE NA 50 MCG TABLET (FP) PO SCH (06:18)
[2018-02-02] MEDS: GABAPENTIN 300 MG CAPSULE (FP) PO SCH ×3 (06:18→22:24)
[2018-02-02] MEDS: INSULIN (LEVEMIR) 100 UNITS/ML UNITS SQ SCH (06:19)
[2018-02-02] MEDS: INSULIN SLIDING SCALE (NOVOLOG) 1 VIAL SQ SCH ×4 (06:19→22:24)
[2018-02-02 07:49] LABS: CALCIUM 9.2 mg/dL (8.5-10.1); CHLORIDE 96 mmol/L (98-107); POTASSIUM 3.9 mmol/L (3.5-5.1); SODIUM 130 mmol/L (136-145)
[2018-02-02 07:53] LABS: ANION GAP 8 (8-16); BLOOD UREA NITROGEN 10 mg/dL (7-18); CO2 26 mmol/L (21-32); CREATININE 0.6 mg/dL (0.55-1.02); GLUCOSE,RANDOM 186 mg/dL (74-106); MAGNESIUM 1.8 mg/dL (1.8-2.4); PHOSPHOROUS 4.5 mg/dL (2.5-4.9)
[2018-02-02] MEDS ORDERED: PT OWN MED DRAWER 7, Y5N ONE ×3 (10:05→22:23)
[2018-02-02] MEDS: amLODIPine BESYLATE 10 MG TABLET (FP) PO SCH (10:07)
[2018-02-02] MEDS: MELATONIN 5 MG TABLETS PO PRN (10:07)
[2018-02-02] MEDS: OMEGA-3 ACID ETHYL ESTERS (FATTY-ACIDS) 1 GM CAPSULE (FP) PO SCH (10:07)
[2018-02-02] MEDS: LORATADINE 10 MG TABLET PO SCH (10:07)
[2018-02-02] MEDS: metoPROLOL SUCCINATE 25 MG TAB.SR.24H (FP) PO SCH (10:07)
[2018-02-02] MEDS: SODIUM CHLORIDE 1 GM TABLET PO SCH ×2 (10:09→22:24)
[2018-02-02] MEDS: CALCIUM (OYSTER SHELL) 500 MG TABLET (FP) PO SCH ×2 (10:09→22:25)
--- NOTE | 2018-02-02 10:52 | PN ---
Progress Note, Physician History of Present Illness: 72yF with PMH HTN, CVA, HLD, DM, hyponatremia, renal stone, urethral stricture, depression presented to the ED with difficulty urinating. - Current Medication List Current Medications: Active Medications Amlodipine Besylate (Norvasc -) 10 mg PO DAILY [facility] Last Admin: 02/02/18 10:07 Dose: 10 mg Atorvastatin Calcium (Lipitor -) 10 mg PO HS [facility] Last Admin: 02/01/18 22:48 Dose: 10 mg Buspirone HCl (Buspar -) 5 mg PO BID [facility] Last Admin: 02/01/18 22:48 Dose: 5 mg Calcium Carbonate (Os-Pasquale 500mg -) 500 mg PO BID [facility] Last Admin: 02/02/18 10:09 Dose: 500 mg Gabapentin (Neurontin -) 300 mg PO TID [facility] Last Admin: 02/02/18 06:18 Dose: 300 mg Insulin Aspart (Novolog Vial Sliding Scale -) 1 vial SQ HS [facility] PRN Reason: Protocol Last Admin: 02/01/18 22:49 Dose: Not Given Insulin Aspart (Novolog Vial Sliding Scale -) 1 vial SQ TIDAC [facility] PRN Reason: Protocol Last Admin: 02/02/18 06:19 Dose: 2 units Insulin Detemir (Levemir Vial) 20 units SQ ACBK [facility] Last Admin: 02/02/18 06:19 Dose: 20 units Levothyroxine Sodium (Synthroid -) 50 mcg PO DAILY@0700 [facility] Last Admin: 02/02/18 06:18 Dose: 50 mcg Loratadine (Claritin -) 10 mg PO DAILY [facility] Last Admin: 02/02/18 10:07 Dose: 10 mg Melatonin (Melatonin) 5 mg PO HS PRN PRN Reason: INSOMNIA Last Admin: 02/02/18 10:07 Dose: 5 mg Metoprolol Succinate (Toprol Xl -) 25 mg PO DAILY [facility] Last Admin: 02/02/18 10:07 Dose: 25 mg Puhla-5-Mqub Ethyl Esters (Lovaza -) 1 gm PO DAILY [facility] Last Admin: 02/02/18 10:07 Dose: 1 gm Sodium Chloride (Sodium Chloride Tablet -) 1 gm PO BID [facility] Last Admin: 02/02/18 10:09 Dose: 1 gm Zolpidem Tartrate (Ambien -) 5 mg PO HS PRN PRN Reason: INSOMNIA Last Admin: 02/01/18 22:48 Dose: 5 mg - Objective Vital Signs: Vital Signs Temperature 97.6 F 02/02/18 06:16 Pulse Rate 65 02/02/18 06:16 Respiratory Rate 20 02/02/18 06:16 Blood Pressure 119/70 02/02/18 06:16 O2 Sat by Pulse Oximetry (%) 100 02/02/18 01:00 Cardiovascular: Yes: S1, S2 Respiratory: Yes: Regular, CTA Bilaterally Gastrointestinal: Yes: Normal Bowel Sounds, Soft Labs: CBC, BMP 02/01/18 06:30 02/02/18 06:00 INR, PTT INR 1.19 (0.82-1.09) H 01/31/18 15:30 Problem List - Problems (1) Hyponatremia Assessment/Plan: - H/o same, responded well in past to IVF as per renal note - start NS @ 75cc.hr, bmp in 4 hours - fluid restriction 1000mL - dc glimepiride as can cause SIADH - urine lytes, osmo, serum osmo pending - pt was DC from here on sodium tabs on 06/06/17, pt states she is still taking but not on present med list that dtr has from MD office - pt states she does not drink much water at home due to her sodium Code(s): E87.1 - HYPO-OSMOLALITY AND HYPONATREMIA (2) Urinary retention Assessment/Plan: - FC placed, 700mL in bladder - urology consult noted--follow up - u/s renal/bladder Code(s): R33.9 - RETENTION OF URINE, UNSPECIFIED (3) Depression Assessment/Plan: - previously was on wellbutrin, not on current home meds - cont home buspar - Insomnia - pt requesting something to help her sleep - trial melatonin Code(s): F32.9 - MAJOR DEPRESSIVE DISORDER, SINGLE EPISODE, UNSPECIFIED Qualifiers: Depression Type: other depression Qualified Code(s): F32.89 - Other specified depressive episodes (4) Diabetes mellitus Assessment/Plan: DM - hold home po meds - would NOT restart glimepiride on dc - home lantus changed to formulary levemir - Novolog SS AC/HS - NS @ 75cc/hr - bmp - diabetic diet as tolerated Code(s): E11.9 - TYPE 2 DIABETES MELLITUS WITHOUT COMPLICATIONS Qualifiers: Diabetes mellitus type: type 2
[2018-02-02] MEDS ORDERED: INSULIN (NOVOLOG) ASPART 100 UNITS/ML 10ML VIAL ONE (11:49)
[2018-02-02] MEDS: busPIRone HCL 5 MG TABLET PO SCH ×2 (12:21→22:24)
[2018-02-02] MEDS: ATORVASTATIN CA 10 MG TABLET (FP) PO SCH (22:24)
[2018-02-02] MEDS: ZOLPIDEM TARTRATE 5 MG TABLET PO PRN (22:24)
[2018-02-03] MEDS: GABAPENTIN 300 MG CAPSULE (FP) PO SCH ×3 (05:58→22:14)
[2018-02-03] MEDS: INSULIN (LEVEMIR) 100 UNITS/ML UNITS SQ SCH (05:59)
[2018-02-03] MEDS: INSULIN SLIDING SCALE (NOVOLOG) 1 VIAL SQ SCH ×4 (06:00→22:19)
[2018-02-03] MEDS: LEVOTHYROXINE NA 50 MCG TABLET (FP) PO SCH (06:00)
[2018-02-03] MEDS ORDERED: PT OWN MED DRAWER 7, Y5N ONE ×2 (09:09→22:13)
[2018-02-03] MEDS: busPIRone HCL 5 MG TABLET PO SCH ×2 (09:13→22:15)
[2018-02-03] MEDS: metoPROLOL SUCCINATE 25 MG TAB.SR.24H (FP) PO SCH (09:13)
[2018-02-03] MEDS: OMEGA-3 ACID ETHYL ESTERS (FATTY-ACIDS) 1 GM CAPSULE (FP) PO SCH (09:13)
[2018-02-03] MEDS: LORATADINE 10 MG TABLET PO SCH (09:13)
[2018-02-03] MEDS: SODIUM CHLORIDE 1 GM TABLET PO SCH ×2 (09:13→22:15)
[2018-02-03] MEDS: amLODIPine BESYLATE 10 MG TABLET (FP) PO SCH (09:13)
[2018-02-03] MEDS: CALCIUM (OYSTER SHELL) 500 MG TABLET (FP) PO SCH ×2 (09:13→22:15)
--- NOTE | 2018-02-03 11:10 | DS ---
Physical Examination Vital Signs: Vital Signs Temperature 98.1 F 02/03/18 06:00 Pulse Rate 82 02/03/18 06:00 Respiratory Rate 20 02/03/18 06:00 Blood Pressure 140/77 02/03/18 06:00 O2 Sat by Pulse Oximetry (%) 100 02/02/18 22:00 Constitutional: Yes: Well Nourished, No Distress, Calm Cardiovascular: Yes: Regular Rate and Rhythm Respiratory: Yes: Regular Gastrointestinal: Yes: Normal Bowel Sounds, Soft Renal/: Yes: Carter Present Musculoskeletal: Yes: WNL Extremities: Yes: WNL Edema: No Peripheral Pulses WNL: Yes Neurological: Yes: Alert, Oriented Psychiatric: Yes: Alert, Oriented Labs: CBC, BMP 02/01/18 06:30 02/02/18 06:00 Discharge Summary Reason For Visit: HYPONATREMIA,RETENTION OF URINE Current Active Problems Hyponatremia (Acute) Urethral stricture (Acute) Urinary retention (Acute) Hospital Course: This is a 72 year old female with a significant past medical history of urethral stricture s/p dilation and hyponatremia who presented to the ED with inability to urinate since this am and intermittent difficulty urinating for months. Pt was able to urinate in the ED but only "a little bit" and she still feels uncomfortable. She reports left flank and LLQ pain. Carter was inserted She was evaluated by urology and was instructed to follow up with Carlos Kirkland outpatient Condition: Stable - Instructions Diet, Activity, Other Instructions: During your visit to the [facility] ED, you were evaluated for urinary retention. You received imaging of your bladder and kidneys, in addition to blood tests, which were all relatively unremarkable. Since the start of your visit, your urinary symptoms have corrected and your abdominal pain has improved. You are being discharged home with outpatient follow-up with your primary care provider and are being provided a referral to see our Urology, Dr. Castillo. You are being provided a referral for follow-up with Dr. Castillo, our urologist for further evaluation of your chronic urinary retention. Please call the number provided in this packet to schedule an appointment within one week. If you experience any of the following symptoms, please return to the ED: - fevers/chills >3 days - Inability to urinate, pain with urination, or blood in your urine - Worsening, persistent pain in your belly or back - Any new or concerning symptoms PLEASE FOLLOW UP WITH CARLOS COY MD- UROLOGY Referrals: Carlos Castillo MD [Staff Physician] - 1 week Gladys Tinoco MD [Primary Care Provider] - 1 week Disposition: VNS/HOME HEALTH CARE - Home Medications Comprehensive Discharge Medication List: Ambulatory Orders Levothyroxine [Synthroid -] 50 mcg PO DAILY@0700 tablet 05/30/17 Metoprolol Succinate [Toprol XL -] 25 mg PO DAILY tab 05/30/17 Amlodipine Besylate [Norvasc -] 10 mg PO DAILY tablet 06/06/17 Calcium (Oyster Shell) [Os-Pasquale 500MG -] 500 mg PO BID #0 cap 06/06/17 Glimepiride [Amaryl -] 4 mg PO DAILY@0700 tablet 06/06/17 Sitagliptin Phosphate [Januvia -] 100 mg PO DAILY@0700 tab 06/06/17 Atorvastatin Ca [Lipitor] 10 mg PO HS 01/31/18 Buspirone HCl [Buspar -] 5 mg PO BID 01/31/18 Cetirizine HCl 10 mg PO DAILY 01/31/18 Gabapentin [Neurontin -] 300 mg PO TID 01/31/18 Insulin Glargine,Hum.rec.anlog [Lantus] 20 unit SQ DAILY 01/31/18 Metformin HCl 500 mg PO BID 01/31/18 Tyaskin-3 Acid Ethyl Esters 1 gm PO DAILY 01/31/18 Sodium Chloride Tablet - 1 gm PO BID #60 tablet 02/03/18
[2018-02-03] MEDS: TAMSULOSIN HCL 0.4 MG CAP.ER.24H (FP) PO SCH (12:18)
--- NOTE | 2018-02-03 13:49 | PN ---
Progress Note, Physician Chief Complaint: Urinary retention Hyponatremia History of Present Illness: NAD, in bed seen by urology over the weekend, lock inserted Plan was to discharge home with lock and f/u with urology outpatient- changed. - Current Medication List Current Medications: Active Medications Amlodipine Besylate (Norvasc -) 10 mg PO DAILY [facility] Last Admin: 02/03/18 09:13 Dose: 10 mg Atorvastatin Calcium (Lipitor -) 10 mg PO HS [facility] Last Admin: 02/02/18 22:24 Dose: 10 mg Buspirone HCl (Buspar -) 5 mg PO BID [facility] Last Admin: 02/03/18 09:13 Dose: 5 mg Calcium Carbonate (Os-Pasquale 500mg -) 500 mg PO BID [facility] Last Admin: 02/03/18 09:13 Dose: 500 mg Gabapentin (Neurontin -) 300 mg PO TID [facility] Last Admin: 02/03/18 05:58 Dose: 300 mg Insulin Aspart (Novolog Vial Sliding Scale -) 1 vial SQ HS [facility] PRN Reason: Protocol Last Admin: 02/02/18 22:24 Dose: Not Given Insulin Aspart (Novolog Vial Sliding Scale -) 1 vial SQ TIDAC [facility] PRN Reason: Protocol Last Admin: 02/03/18 11:06 Dose: 3 units Insulin Detemir (Levemir Vial) 20 units SQ ACBK [facility] Last Admin: 02/03/18 05:59 Dose: 20 units Levothyroxine Sodium (Synthroid -) 50 mcg PO DAILY@0700 [facility] Last Admin: 02/03/18 06:00 Dose: 50 mcg Loratadine (Claritin -) 10 mg PO DAILY [facility] Last Admin: 02/03/18 09:13 Dose: 10 mg Melatonin (Melatonin) 5 mg PO HS PRN PRN Reason: INSOMNIA Last Admin: 01/31/18 23:31 Dose: 5 mg Metoprolol Succinate (Toprol Xl -) 25 mg PO DAILY [facility] Last Admin: 02/03/18 09:13 Dose: 25 mg Jappj-2-Wvbh Ethyl Esters (Lovaza -) 1 gm PO DAILY [facility] Last Admin: 02/03/18 09:13 Dose: 1 gm Sodium Chloride (Sodium Chloride Tablet -) 1 gm PO BID [facility] Last Admin: 02/03/18 09:13 Dose: 1 gm Tamsulosin HCl (Flomax -) 0.4 mg PO DAILY@0830 [facility] Last Admin: 02/03/18 12:18 Dose: 0.4 mg Zolpidem Tartrate (Ambien -) 5 mg PO HS PRN PRN Reason: INSOMNIA Last Admin: 02/02/18 22:24 Dose: 5 mg - Objective Vital Signs: Vital Signs Temperature 98.1 F 02/03/18 13:45 Pulse Rate 85 02/03/18 13:45 Respiratory Rate 20 02/03/18 08:00 Blood Pressure 152/65 02/03/18 08:00 O2 Sat by Pulse Oximetry (%) 100 02/03/18 08:00 Constitutional: Yes: Well Nourished, No Distress, Calm Cardiovascular: Yes: Regular Rate and Rhythm Respiratory: Yes: Regular Genitourinary: Yes: Lock Present Musculoskeletal: Yes: WNL Extremities: Yes: WNL Edema: No Peripheral Pulses WNL: Yes Neurological: Yes: Alert, Oriented Psychiatric: Yes: Alert, Oriented Labs: CBC, BMP 02/01/18 06:30 02/02/18 06:00 INR, PTT INR 1.19 (0.82-1.09) H 01/31/18 15:30 Problem List - Problems (1) Hyponatremia Assessment/Plan: -chronic -states she didn't take her salt tabs for at least a week prior to admission because she ran out of medication. -restarted on Nacl tabs 1 gm BID -Na gradually improving -BMP in am Code(s): E87.1 - HYPO-OSMOLALITY AND HYPONATREMIA (2) Urinary retention Assessment/Plan: -Lock inserted by Urology instrumentation chemist over the weekend -Start Tamsulosin 0.4 mg 1 cap po daily -Voiding trial in AM -Dr Castillo to see the pt. Code(s): R33.9 - RETENTION OF URINE, UNSPECIFIED (3) SIADH (syndrome of inappropriate ADH production) Assessment/Plan: -Nephrology consult appreciated -Restarted on NaCl 1 g BID -BMP in AM Assessment/Plan see problem list DVT prophylaxis
[2018-02-03] MEDS ORDERED: INSULIN (NOVOLOG) ASPART 100 UNITS/ML 10ML VIAL ONE (16:56)
--- NOTE | 2018-02-03 17:26 | PN ---
Progress Note (short form) - Note Progress Note: Renal follow up for Hyponatremia Pt seen and examined at the bedside has some discomfort from her bladder catheter making urine no NAQVI, confusion, seizure activity Vital Signs Temperature 98.1 F 02/03/18 13:45 Pulse Rate 85 02/03/18 13:45 Respiratory Rate 20 02/03/18 08:00 Blood Pressure 126/55 02/03/18 13:49 O2 Sat by Pulse Oximetry (%) 100 02/03/18 08:00 Vital Signs Temperature 98.1 F 02/03/18 13:45 Pulse Rate 85 02/03/18 13:45 Respiratory Rate 20 02/03/18 08:00 Blood Pressure 126/55 02/03/18 13:49 O2 Sat by Pulse Oximetry (%) 100 02/03/18 08:00 NAD awake and alert no LE edema CBC, BMP 02/01/18 06:30 02/02/18 06:00 Current Medications Amlodipine Besylate (Norvasc -) 10 mg PO DAILY [facility] Last Admin: 02/03/18 09:13 Dose: 10 mg Atorvastatin Calcium (Lipitor -) 10 mg PO HS [facility] Last Admin: 02/02/18 22:24 Dose: 10 mg Buspirone HCl (Buspar -) 5 mg PO BID [facility] Last Admin: 02/03/18 09:13 Dose: 5 mg Calcium Carbonate (Os-Pasquale 500mg -) 500 mg PO BID [facility] Last Admin: 02/03/18 09:13 Dose: 500 mg Gabapentin (Neurontin -) 300 mg PO TID [facility] Last Admin: 02/03/18 14:41 Dose: 300 mg Heparin Sodium (Porcine) (Heparin -) 5,000 unit SQ BID [facility] Insulin Aspart (Novolog Vial Sliding Scale -) 1 vial SQ HS [facility] PRN Reason: Protocol Last Admin: 02/02/18 22:24 Dose: Not Given Insulin Aspart (Novolog Vial Sliding Scale -) 1 vial SQ TIDAC [facility] PRN Reason: Protocol Last Admin: 02/03/18 16:59 Dose: 3 units Insulin Detemir (Levemir Vial) 20 units SQ ACBK [facility] Last Admin: 02/03/18 05:59 Dose: 20 units Levothyroxine Sodium (Synthroid -) 50 mcg PO DAILY@0700 [facility] Last Admin: 02/03/18 06:00 Dose: 50 mcg Loratadine (Claritin -) 10 mg PO DAILY [facility] Last Admin: 02/03/18 09:13 Dose: 10 mg Melatonin (Melatonin) 5 mg PO HS PRN PRN Reason: INSOMNIA Last Admin: 01/31/18 23:31 Dose: 5 mg Metoprolol Succinate (Toprol Xl -) 25 mg PO DAILY [facility] Last Admin: 02/03/18 09:13 Dose: 25 mg Eddbi-2-Fzkp Ethyl Esters (Lovaza -) 1 gm PO DAILY [facility] Last Admin: 02/03/18 09:13 Dose: 1 gm Sodium Chloride (Sodium Chloride Tablet -) 1 gm PO BID [facility] Last Admin: 02/03/18 09:13 Dose: 1 gm Tamsulosin HCl (Flomax -) 0.4 mg PO DAILY@0830 [facility] Last Admin: 02/03/18 12:18 Dose: 0.4 mg Zolpidem Tartrate (Ambien -) 5 mg PO HS PRN PRN Reason: INSOMNIA Last Admin: 02/02/18 22:24 Dose: 5 mg 72 year old woman with PMhx of hyponatremia (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 #Hyponatremia (Hypovolemic +/- SIADH) #Urinary retention #Hypertension #Hypothyrodisim #DM Type 2 No serum na recorded today check BM daily continue fluid restriction and salt tabs BID Urology follow up for management of urinary retention Thank you Austen Degroot DO
[2018-02-03] MEDS ORDERED: POLYETHYLENE GLYCOL 3350 119 GM BTL PO ONE (18:59)
[2018-02-03] MEDS: ATORVASTATIN CA 10 MG TABLET (FP) PO SCH (22:14)
[2018-02-03] MEDS: HEPARIN NA (PORCINE) 5,000 UNITS/ML 1ML VIAL SQ SCH (22:15)
[2018-02-03] MEDS: ZOLPIDEM TARTRATE 5 MG TABLET PO PRN (22:22)
--- NOTE | 2018-02-04 00:39 | EKG ---
Test Reason : Blood Pressure : / mmHG Vent. Rate : 094 BPM Atrial Rate : 094 BPM P-R Int : 192 ms QRS Dur : 080 ms QT Int : 382 ms P-R-T Axes : 070 013 048 degrees QTc Int : 477 ms NORMAL SINUS RHYTHM NORMAL ECG WHEN COMPARED WITH ECG OF 03-JUN-2017 10:31, NO SIGNIFICANT CHANGE WAS FOUND Confirmed by DIANA PALM MD ([id number]) on 02/04/2018 12:39:38 AM Referred By: Confirmed By:DIANA PALM MD
[2018-02-04] MEDS: GABAPENTIN 300 MG CAPSULE (FP) PO SCH (05:44)
[2018-02-04] MEDS: INSULIN SLIDING SCALE (NOVOLOG) 1 VIAL SQ SCH (06:14)
[2018-02-04] MEDS: LEVOTHYROXINE NA 50 MCG TABLET (FP) PO SCH (06:15)
[2018-02-04] MEDS: INSULIN (LEVEMIR) 100 UNITS/ML UNITS SQ SCH (06:15)
[2018-02-04] MEDS ORDERED: INSULIN (NOVOLOG) ASPART 100 UNITS/ML 10ML VIAL ONE (06:36)
[2018-02-04 06:42] VITALS: PULSE 84
[2018-02-04 08:44] LABS: CHLORIDE 97 mmol/L (98-107); POTASSIUM 4.5 mmol/L (3.5-5.1); SODIUM 132 mmol/L (136-145)
--- NOTE | 2018-02-04 09:19 | PN ---
Progress Note (short form) - Note Progress Note: ashvin d/felix this am voiding spontaneously may d/c home with flomax outpt f/u
[2018-02-04 09:51] LABS: ANION GAP 10 (8-16); BLOOD UREA NITROGEN 8 mg/dL (7-18); CO2 25 mmol/L (21-32); CREATININE 0.7 mg/dL (0.55-1.02); GLUCOSE,RANDOM 198 mg/dL (74-106)
[2018-02-04] MEDS ORDERED: PT OWN MED DRAWER 7, Y5N ONE (10:01)
[2018-02-04] MEDS: amLODIPine BESYLATE 10 MG TABLET (FP) PO SCH (10:02)
[2018-02-04] MEDS: TAMSULOSIN HCL 0.4 MG CAP.ER.24H (FP) PO SCH (10:02)
[2018-02-04] MEDS: metoPROLOL SUCCINATE 25 MG TAB.SR.24H (FP) PO SCH (10:02)
[2018-02-04] MEDS: HEPARIN NA (PORCINE) 5,000 UNITS/ML 1ML VIAL SQ SCH (10:02)
[2018-02-04] MEDS: LORATADINE 10 MG TABLET PO SCH (10:02)
[2018-02-04] MEDS: OMEGA-3 ACID ETHYL ESTERS (FATTY-ACIDS) 1 GM CAPSULE (FP) PO SCH (10:02)
[2018-02-04] MEDS: SODIUM CHLORIDE 1 GM TABLET PO SCH (10:03)
[2018-02-04] MEDS: CALCIUM (OYSTER SHELL) 500 MG TABLET (FP) PO SCH (10:03)
[2018-02-04] MEDS: busPIRone HCL 5 MG TABLET PO SCH (10:03)
--- NOTE | 2018-02-04 10:40 | PN ---
Progress Note, Physician Chief Complaint: Urinary retention Hyponatremia History of Present Illness: NAD, in bed seen by urology over the weekend, lock inserted Plan was to discharge home with lock and f/u with urology outpatient- changed. - Current Medication List Current Medications: Active Medications Amlodipine Besylate (Norvasc -) 10 mg PO DAILY [facility] Last Admin: 02/04/18 10:02 Dose: 10 mg Atorvastatin Calcium (Lipitor -) 10 mg PO HS [facility] Last Admin: 02/03/18 22:14 Dose: 10 mg Buspirone HCl (Buspar -) 5 mg PO BID [facility] Last Admin: 02/04/18 10:03 Dose: 5 mg Calcium Carbonate (Os-Pasquale 500mg -) 500 mg PO BID [facility] Last Admin: 02/04/18 10:03 Dose: 500 mg Gabapentin (Neurontin -) 300 mg PO TID [facility] Last Admin: 02/04/18 05:44 Dose: 300 mg Heparin Sodium (Porcine) (Heparin -) 5,000 unit SQ BID [facility] Last Admin: 02/04/18 10:02 Dose: 5,000 unit Insulin Aspart (Novolog Vial Sliding Scale -) 1 vial SQ HS [facility] PRN Reason: Protocol Last Admin: 02/03/18 22:19 Dose: 2 units Insulin Aspart (Novolog Vial Sliding Scale -) 1 vial SQ TIDAC [facility] PRN Reason: Protocol Last Admin: 02/04/18 06:14 Dose: 3 units Insulin Detemir (Levemir Vial) 20 units SQ ACBK [facility] Last Admin: 02/04/18 06:15 Dose: 20 units Levothyroxine Sodium (Synthroid -) 50 mcg PO DAILY@0700 [facility] Last Admin: 02/04/18 06:15 Dose: 50 mcg Loratadine (Claritin -) 10 mg PO DAILY [facility] Last Admin: 02/04/18 10:02 Dose: 10 mg Melatonin (Melatonin) 5 mg PO HS PRN PRN Reason: INSOMNIA Last Admin: 01/31/18 23:31 Dose: 5 mg Metoprolol Succinate (Toprol Xl -) 25 mg PO DAILY [facility] Last Admin: 02/04/18 10:02 Dose: 25 mg Vbeab-2-Svhe Ethyl Esters (Lovaza -) 1 gm PO DAILY [facility] Last Admin: 02/04/18 10:02 Dose: 1 gm Sodium Chloride (Sodium Chloride Tablet -) 1 gm PO BID [facility] Last Admin: 02/04/18 10:03 Dose: 1 gm Tamsulosin HCl (Flomax -) 0.4 mg PO DAILY@0830 [facility] Last Admin: 02/04/18 10:02 Dose: 0.4 mg Zolpidem Tartrate (Ambien -) 5 mg PO HS PRN PRN Reason: INSOMNIA Last Admin: 02/03/18 22:22 Dose: 5 mg - Objective Vital Signs: Vital Signs Temperature 97.8 F 02/04/18 05:00 Pulse Rate 84 02/04/18 05:00 Respiratory Rate 18 02/04/18 05:00 Blood Pressure 133/52 02/04/18 05:00 O2 Sat by Pulse Oximetry (%) 100 02/03/18 21:00 Constitutional: Yes: Well Nourished, No Distress, Calm Cardiovascular: Yes: Regular Rate and Rhythm Respiratory: Yes: Regular Gastrointestinal: Yes: Normal Bowel Sounds, Soft Musculoskeletal: Yes: WNL Extremities: Yes: WNL Edema: No Peripheral Pulses WNL: Yes Neurological: Yes: Alert, Oriented Psychiatric: Yes: Alert, Oriented Labs: CBC, BMP 02/01/18 06:30 02/04/18 07:25 INR, PTT INR 1.19 (0.82-1.09) H 01/31/18 15:30 Problem List - Problems (1) Hyponatremia Assessment/Plan: -chronic -improved -states she didn't take her salt tabs for at least a week prior to admission because she ran out of medication. -restarted on Nacl tabs 1 gm BID -Na gradually improving -CMP outpatient Code(s): E87.1 - HYPO-OSMOLALITY AND HYPONATREMIA (2) Urinary retention Assessment/Plan: -Lock removed -Start Tamsulosin 0.4 mg 1 cap po daily, new script called in -Passed Voiding trial -Pt to follow up with Dr Castillo outpatient Code(s): R33.9 - RETENTION OF URINE, UNSPECIFIED (3) SIADH (syndrome of inappropriate ADH production) Assessment/Plan: -Nephrology consult appreciated -Restarted on NaCl 1 g BID Assessment/Plan see problem list
[2018-02-04 10:46] VITALS: BP 147/70; TEMP 97.9
== END 2018-02-04 11:50 | disposition home health service (06) ==
LOC: JER 13:52 → JERBED 20:33 → INTOOBSV 20:33 → J6S 23:04
PROVIDERS: ADMIT Internal Medicine; ATTEND Family Medicine
PROC: 0T9B70Z Drainage of Bladder with Drainage Device, Via Natural or Artificial Opening (ICD-10-PCS; principal; 2018-01-31)
PROC: 3E0337Z Introduction of Electrolytic and Water Balance Substance into Peripheral Vein, Percutaneous Approach (ICD-10-PCS; 2018-01-31)
PROC: 3E013VG Introduction of Insulin into Subcutaneous Tissue, Percutaneous Approach (ICD-10-PCS; 2018-01-31)
PROC: 3E013GC Introduction of Other Therapeutic Substance into Subcutaneous Tissue, Percutaneous Approach (ICD-10-PCS; 2018-01-31)
DX: E87.1 Hypo-osmolality and hyponatremia (principal); R33.9 Retention of urine, unspecified; I10 Essential (primary) hypertension; E11.9 Type 2 diabetes mellitus without complications; E78.5 Hyperlipidemia, unspecified; N35.9 Urethral stricture, unspecified; E03.9 Hypothyroidism, unspecified; J45.909 Unspecified asthma, uncomplicated; I69.398 Other sequelae of cerebral infarction; F03.90 Unspecified dementia, unspecified severity, without behavioral disturbance, psychotic disturbance, mood disturbance, and anxiety; F32.9 Major depressive disorder, single episode, unspecified; F41.9 Anxiety disorder, unspecified; G40.909 Epilepsy, unspecified, not intractable, without status epilepticus; G47.00 Insomnia, unspecified; Z79.82 Long term (current) use of aspirin; Z79.84 Long term (current) use of oral hypoglycemic drugs; Z79.4 Long term (current) use of insulin
CPT/HCPCS: 36415; 51702; 76775-TC; 76856-TC; 80048; 80053; 81003; 81015; 82436; 82533; 82570; 82962; 83036; 83735; 83930; 83935; 84100; 84133; 84300; 84443; 85025; 85610; 93005; 93010; 96372; 97116-GP; 97161-GP; 99282-25; G0378; J1644; J7030

== ENCOUNTER 2019-06-03 09:55 | Inpatient (IN) | payer OTHER ==
[2019-06-03 10:58] LABS: BASO % 0.4 % (0-2.0); EOS % 2.7 % (0-4.5); HEMATOCRIT 38.2 % (32.4-45.2); HEMOGLOBIN 13.6 GM/dL (10.7-15.3); LYMPH % 14.2 % (8-40); MCH 31.1 pg (25.7-33.7); MCHC 35.6 g/dl (32.0-36.0); MEAN CELL VOLUME 87.5 fl (80-96); MEAN PLT VOLUME 8.4 fl (7.5-11.1); MONO % 8.6 % (3.8-10.2); NEUT % 74.1 % (42.8-82.8); PLATELET COUNT 206 K/MM3 (134-434); RBC 4.37 M/mm3 (3.60-5.2); WHITE BLOOD COUNT 6.7 K/mm3 (4.0-10.0)
[2019-06-03 11:26] LABS: ALBUMIN 4.8 g/dl (3.4-5.0); BILIRUBIN,TOTAL 0.4 mg/dL (0.2-1); BLOOD UREA NITROGEN 8.7 mg/dL (7-18); CALCIUM 9.8 mg/dL (8.5-10.1); CREATININE 0.7 mg/dL (0.55-1.3); POTASSIUM 4.3 mmol/L (3.5-5.1); TOT PROT 8.3 g/dl (6.4-8.2)
[2019-06-03 11:45] LABS: EPI CELLS 0.4 /HPF (0-5/HPF); HYALINE CASTS 0 /lpf (0-8); PH,URINE 7.5 (5.0-8.0); URINE APPEARANCE CLEAR; URINE BACTERIA 0.2 /hpf (NEGATIVE); URINE BILIRUBIN NEGATIVE (NEGATIVE); URINE COLOR YELLOW; URINE GLUCOSE (UA) TRACE (NEGATIVE); URINE KETONE NEGATIVE (NEGATIVE); URINE LEUK ESTERASE NEGATIVE (NEGATIVE); URINE NITRITE NEGATIVE (NEGATIVE); URINE PROTEIN 1+ (NEGATIVE); URINE RBC 1 /hpf (0-4); URINE UROBILINOGEN 0.2 mg/dL (0.2-1.0); URINE WBC 2 /hpf (0-5)
--- NOTE | 2019-06-03 13:08 | PDOC ---
Documentation entered by Jennifer Cortes SCRIBE, acting as scribe for Deana Acosta MD. Deana Acosta MD: This documentation has been prepared by the Sebastian mejía Adrianna, SCRIBE, under my direction and personally reviewed by me in its entirety. I confirm that the documentation accurately reflects all work, treatment, procedures, and medical decision making performed by me. History of Present Illness - General Chief Complaint: Urinary Problem Stated Complaint: ABD PAIN Time Seen by Provider: 06/03/19 10:17 History Source: Patient Exam Limitations: No Limitations - History of Present Illness Initial Comments: The patient is a 73 year old female, with a significant PMH of HTN, HLD, DMII, asthma, CVA (residual balance issues and slow walking, requires walker), dementia, depression, and hyponatremia, who presents to the ED for evaluation of urinary retention for 2 days. Patient notes she developed sudden onset urinary retention last night, describing it as feeling the need to urinate but cannot when she tries. She endorses associated diffuse lower abdominal pain and distention secondary to being unable to urinate. Patient notes a history of similar symptoms years ago, where she had to have a surgical procedure to remove a blockage and once more required a catheter. Patient was placed on an antibiotic by her PCP (is on day 3). Denies fever, chills, nausea, vomit, diarrhea, constipation, hematuria. Allergies: NKA, NKDA Surgical History: Orthopedic back surgery Social History: Denies EtOH, tobacco, or illicit drug use PCP: Dr. Tinoco Urologist: Dr. Brock Is this a multiple visit Asthma Patient?: No Past History - Past Medical History Allergies/Adverse Reactions: Allergies Allergy/AdvReac Type Severity Reaction Status Date / Time No Known Drug Allergies Allergy Verified 01/31/18 14:00 Home Medications: Ambulatory Orders Levothyroxine [Synthroid -] 50 mcg PO DAILY@0700 tablet 05/30/17 Metoprolol Succinate [Toprol XL -] 25 mg PO DAILY tab 05/30/17 Amlodipine Besylate [Norvasc -] 10 mg PO DAILY tablet 06/06/17 Calcium (Oyster Shell) [Os-Pasquale 500MG -] 500 mg PO BID #0 cap 06/06/17 Glimepiride [Amaryl -] 4 mg PO DAILY@0700 tablet 06/06/17 Atorvastatin Ca [Lipitor] 10 mg PO HS 01/31/18 Buspirone HCl [Buspar -] 5 mg PO BID 01/31/18 Cetirizine HCl 10 mg PO DAILY 01/31/18 Gabapentin [Neurontin -] 600 mg PO BID 01/31/18 Insulin Glargine,Hum.rec.anlog [Lantus] 20 unit SQ DAILY 01/31/18 Ward-3 Acid Ethyl Esters 1 gm PO DAILY 01/31/18 metFORMIN HCL [Metformin HCl] 500 mg PO BID 01/31/18 Nitrofurantoin Macrocrystal [Nitrofurantoin] 100 mg PO BID 06/03/19 Anemia: No Asthma: Yes Cancer: No Cardiac Disorders: No CVA: Yes (2013,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") COPD: No CHF: No Dementia: No Diabetes: Yes GI Disorders: No Disorders: No HTN: Yes Hypercholesterolemia: Yes Liver Disease: No Psychiatric Problems: Yes (dementia, depression) Seizures: Yes Thyroid Disease: Yes - Surgical History Abdominal Surgery: No Appendectomy: No Cardiac Surgery: No Cholecystectomy: No Lung Surgery: No Neurologic Surgery: No Orthopedic Surgery: Yes (BACK SURGERY) - Reproductive History Therapeutic (s) & number: No - Suicide/Smoking/Psychosocial Hx Smoking Status: No Smoking History: Never smoked Have you smoked in the past 12 months: No Number of Cigarettes Smoked Daily: 0 Information on smoking cessation initiated: No Hx Alcohol Use: No Drug/Substance Use Hx: No Substance Use Type: None Hx Substance Use Treatment: No Review of Systems - Review of Systems Comments:: GENERAL/CONSTITUTIONAL: No fever or chills. No weakness. HEAD, EYES, EARS, NOSE AND THROAT: No change in vision. No ear pain or discharge. No sore throat. CARDIOVASCULAR: No chest pain or shortness of breath. RESPIRATORY: No cough, wheezing, or hemoptysis. GASTROINTESTINAL: +Diffuse lower abdominal pain. +Abdominal distention. No nausea, vomiting, diarrhea or constipation. GENITOURINARY: +Urinary retention. No dysuria, frequency. MUSCULOSKELETAL: No joint or muscle swelling. No neck or back pain. SKIN: No rash NEUROLOGIC: No headache, vertigo, loss of consciousness, or change in strength/ sensation. ENDOCRINE: No increased thirst. No abnormal weight change. HEMATOLOGIC/LYMPHATIC: No anemia, easy bleeding, or history of blood clots. ALLERGIC/IMMUNOLOGIC: No hives or skin allergy. *Physical Exam - Vital Signs Last Vital Signs Temp Pulse Resp BP Pulse Ox 97.6 F 92 H 18 155/82 98 06/03/19 10:06 06/03/19 10:06 06/03/19 10:06 06/03/19 10:06 06/03/19 10:06 - Physical Exam Comments: GENERAL: The patient is in no acute distress. HEAD: Normal with no signs of trauma. EYES: PERRLA, EOMI, sclera anicteric, conjunctiva clear. ENT: Ears normal, nares patent, oropharynx clear without exudates. Moist mucous membranes. NECK: Normal range of motion, supple without lymphadenopathy, JVD, or masses. LUNGS: Breath sounds equal, clear to auscultation bilaterally. No wheezes, and no crackles. HEART:Regular rate and rhythm, normal S1 and S2 without murmur, rub or gallop. ABDOMEN: +Abdominal distention. +Diffuse lower abdominal tenderness to palpation. Normoactive bowel sounds. No guarding, no rebound. No masses palpable. EXTREMITIES: Normal range of motion, no edema. No clubbing or cyanosis. No erythema, or tenderness. NEUROLOGICAL: Cranial nerves II through XII grossly intact. Normal speech. No focal neurological deficits. MUSCULOSKELETAL: Back non-tender to palpation, no CVA tenderness SKIN: Warm, Dry, normal turgor, no rashes or lesions noted. ED Treatment Course - LABORATORY CBC & Chemistry Diagram: 06/05/19 06:50 06/05/19 06:50 - ADDITIONAL ORDERS Additional order review: 06/03/19 10:48 RBC 4.37 MCV 87.5 MCHC 35.6 RDW 13.0 D MPV 8.4 Neutrophils % 74.1 Lymphocytes % 14.2 D Monocytes % 8.6 Eosinophils % 2.7 Basophils % 0.4 Medical Decision Making - Medical Decision Making hawa Vu is a 73 yo M presenting with urinary retention and possible UTI No fevers or chills Carter cathether placed Return of 500cc urine 06/03/19 13:35 EKG - NSR rate of 90 bpm, axis nml, intervals nml, no st elevation or depression Laboratory Tests 02/04/18 06/03/19 06/03/19 07:25 10:48 10:48 WBC 6.7 Hgb 13.6 Hct 38.2 Plt Count 206 Sodium 132 L 123 L Potassium 4.5 4.3 Chloride 97 L 90 L Anion Gap 10 8 Creatinine 0.7 0.7 Urine Nitrite Urine Bilirubin Ur Leukocyte Esterase 06/03/19 11:36 WBC Hgb Hct Plt Count Sodium Potassium Chloride Anion Gap Creatinine Urine Nitrite Negative Urine Bilirubin Negative Ur Leukocyte Esterase Negative 06/03/19 13:38 Labs reveal hyponatremia NS hyration started Case reviewed with CELENA Reis Will admit for significant hyponatremia 06/03/19 14:23 *DC/Admit/Observation/Transfer Diagnosis at time of Disposition: Hyponatremia - Discharge Dispostion Condition at time of disposition: Stable Decision to Admit order: Yes - Referrals - Patient Instructions - Post Discharge Activity
[2019-06-03] MEDS ORDERED: SODIUM CHLORIDE 1,000 ML IV STA (13:18)
--- NOTE | 2019-06-03 14:01 | HP ---
Admitting History and Physical - Primary Care Physician PCP: Gladys Tinoco - Admission Chief Complaint: Urine retention and abdominal pain History of Present Illness: Patient is a 74 y/o female with past medical history of HTN, HLD, DM, asthma, CVA, Dementia, Depression, and Hyponatremia. Patient presented to ER with complaints of lower abdominal pressure and difficulty urinating that started last night. Denies hematuria or dysuria. Patient denies any alleviating or exacerbating factors to lower abdominal pressure. Patient was seen by PMD a few days ago and was placed on Macrobid. 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 Cardiovascular: Yes: HTN Pulmonary: Yes: Asthma Gastrointestinal: Yes: GERD Renal/: Yes: Other (hyponatremia) Psych: Yes: Anxiety, Depression Endocrine: Yes: Diabetes Mellitus, Hypothyroidism - Smoking History Smoking history: Never smoked Have you smoked in the past 12 months: No Aproximately how many cigarettes per day: 0 - Alcohol/Substance Use Hx Alcohol Use: No History of Substance Use: reports: None - Social History Usual Living Arrangement: 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, 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) ADL: Independent History of Recent Travel: No Home Medications - Allergies Allergies/Adverse Reactions: Allergies Allergy/AdvReac Type Severity Reaction Status Date / Time No Known Drug Allergies Allergy Verified 01/31/18 14:00 - Home Medications Home Medications: Ambulatory Orders Levothyroxine [Synthroid -] 50 mcg PO DAILY@0700 tablet 05/30/17 Metoprolol Succinate [Toprol XL -] 25 mg PO DAILY tab 05/30/17 Amlodipine Besylate [Norvasc -] 10 mg PO DAILY tablet 06/06/17 Calcium (Oyster Shell) [Os-Pasquale 500MG -] 500 mg PO BID #0 cap 06/06/17 Glimepiride [Amaryl -] 4 mg PO DAILY@0700 tablet 06/06/17 Atorvastatin Ca [Lipitor] 10 mg PO HS 01/31/18 Buspirone HCl [Buspar -] 5 mg PO BID 01/31/18 Cetirizine HCl 10 mg PO DAILY 01/31/18 Gabapentin [Neurontin -] 600 mg PO BID 01/31/18 Insulin Glargine,Hum.rec.anlog [Lantus] 20 unit SQ DAILY 01/31/18 Brooks-3 Acid Ethyl Esters 1 gm PO DAILY 01/31/18 metFORMIN HCL [Metformin HCl] 500 mg PO BID 01/31/18 Acetaminophen [Tylenol .Regular Strength -] 650 mg PO Q6H PRN tablet 06/08/19 Heparin - 5,000 unit SQ BID vial 06/08/19 Insulin Sliding Scale [Novolog Vial Sliding Scale -] 1 vial SQ ACHS units 06/08 Losartan Potassium [Cozaar -] 25 mg PO DAILY tablet 06/08/19 Polyethylene Glycol 3350 [Miralax 119 gm Btl -] 17 gm PO DAILY bottle 06/08/19 Quetiapine Fumarate [Seroquel -] 25 mg PO HS tablet 06/08/19 Sodium Chloride Tablet - 1 gm PO BID tablet 06/08/19 Bupropion HCl [Wellbutrin Xl -] 150 mg PO DAILY tab.sr.24h 06/10/19 Nitrofurantoin Macrocrystal [Nitrofurantoin] 100 mg PO BID #6 cap 06/10/19 Tamsulosin HCl [Flomax -] 0.4 mg PO DAILY@0830 cap.er.24h 06/10/19 Review of Systems - Review of Systems Constitutional: reports: No Symptoms Eyes: reports: No Symptoms HENT: reports: No Symptoms Neck: reports: No Symptoms Cardiovascular: reports: No Symptoms Respiratory: reports: No Symptoms Gastrointestinal: reports: Abdominal Pain (pressure) Genitourinary: reports: Other (urine retention) Breasts: reports: No Symptoms Reported Musculoskeletal: reports: No Symptoms Integumentary: reports: No Symptoms Neurological: reports: No Symptoms Endocrine: reports: No Symptoms Hematology/Lymphatic: reports: No Symptoms Psychiatric: reports: No Symptoms Physical Examination Vital Signs: Vital Signs Temperature 97.6 F 06/03/19 10:06 Pulse Rate 92 H 06/03/19 10:06 Respiratory Rate 18 06/03/19 10:06 Blood Pressure 155/82 06/03/19 10:06 O2 Sat by Pulse Oximetry (%) 98 06/03/19 10:06 Constitutional: Yes: No Distress, Calm Eyes: Yes: Conjunctiva Clear HENT: Yes: Atraumatic Neck: Yes: Supple Cardiovascular: Yes: Regular Rate and Rhythm Respiratory: Yes: Regular, CTA Bilaterally Gastrointestinal: Yes: Normal Bowel Sounds, Soft Renal/: Yes: Carter Present (clear urine) Musculoskeletal: Yes: Muscle Weakness Extremities: Yes: WNL Edema: No Neurological: Yes: Alert Psychiatric: Yes: Alert, Oriented Labs: CBC, BMP 06/03/19 10:48 06/03/19 10:48 Imaging - Results Chest X-ray: Report Reviewed EKG: Report Reviewed Problem List - Problems (1) Hyponatremia Assessment/Plan: -Na 123 -Renal consult -IV hydration -monitor Na level daily Code(s): E87.1 - HYPO-OSMOLALITY AND HYPONATREMIA (2) Depression Assessment/Plan: -Buspar, Seroquel, and Viibryd Code(s): F32.9 - MAJOR DEPRESSIVE DISORDER, SINGLE EPISODE, UNSPECIFIED Qualifiers: Depression Type: other depression Qualified Code(s): F32.89 - Other specified depressive episodes (3) Diabetes mellitus Assessment/Plan: -Amaryl and Metformin -ISS -Diabetic/low Na diet -HgA1c Code(s): E11.9 - TYPE 2 DIABETES MELLITUS WITHOUT COMPLICATIONS Qualifiers: Diabetes mellitus type: type 2 (4) HTN (hypertension) Assessment/Plan: -Amlodipine, Losartan -low Na diet Code(s): I10 - ESSENTIAL (PRIMARY) HYPERTENSION (5) Hypothyroidism Assessment/Plan: -Levothyroxine Code(s): E03.9 - HYPOTHYROIDISM, UNSPECIFIED Qualifiers: Hypothyroidism type: unspecified Qualified Code(s): E03.9 - Hypothyroidism , unspecified (6) Urinary retention Assessment/Plan: -FC placed -Urology on board -UA neg, pending UC Code(s): R33.9 - RETENTION OF URINE, UNSPECIFIED (7) Urinary tract infection Assessment/Plan: -No leukocytosis -afebrile -ID consult -UA neg, urine culture pending -Macrobid Code(s): N39.0 - URINARY TRACT INFECTION, SITE NOT SPECIFIED Assessment/Plan see problem list dvt ppx
--- NOTE | 2019-06-03 15:03 | EKG ---
Test Reason : Blood Pressure : / mmHG Vent. Rate : 090 BPM Atrial Rate : 090 BPM P-R Int : 162 ms QRS Dur : 080 ms QT Int : 374 ms P-R-T Axes : 051 004 034 degrees QTc Int : 457 ms NORMAL SINUS RHYTHM NORMAL ECG WHEN COMPARED WITH ECG OF 31-JAN-2018 20:33, NO SIGNIFICANT CHANGE WAS FOUND Confirmed by MARV VIDAL MD ([id number]) on 06/03/2019 3:02:54 PM Referred By: Confirmed By:MARV VIDAL MD
--- NOTE | 2019-06-03 15:18 | CON.GU ---
Consult Consult Specialty:: Reason for Consultation:: urinary retention - History of Present Illness Chief Complaint: difficulty urinating History of Present Illness: 73 year old female, with a significant PMH of HTN, HLD, DMII, asthma, CVA ( residual balance issues and slow walking, requires walker), dementia, depression , and hyponatremia, who presents to the ED for evaluation of urinary retention for 2 days. Patient notes she developed sudden onset urinary retention last night, describing it as feeling the need to urinate but cannot when she tries. She endorses associated diffuse lower abdominal pain and distention secondary to being unable to urinate. Patient notes a history of similar symptoms years ago, where she had to have a surgical procedure to remove a blockage and once more required a catheter. Patient was placed on an antibiotic by her PCP (is on day 3). She was found to have uti and urinary retention and cons req. Denies fever, chills, nausea, vomit, diarrhea, constipation, hematuria. Allergies: NKA, NKDA Surgical History: Orthopedic back surgery Social History: Denies EtOH, tobacco, or illicit drug use PCP: Dr. Tinoco Urologist: Dr. 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 Cardio/Vascular: Yes: HTN Pulmonary: Yes: Asthma Gastrointestinal: Yes: GERD Renal/: Yes: Other (hyponatremia) Psych: Yes: Anxiety, Depression Endocrine: Yes: Diabetes Mellitus, Hypothyroidism - Alcohol/Substance Use Hx Alcohol Use: No History of Substance Use: reports: None - Smoking History Smoking history: Never smoked Have you smoked in the past 12 months: No Aproximately how many cigarettes per day: 0 - Social History Usual Living Arrangement: With Significant Other ADL: Independent History of Recent Travel: No Home Medications - Allergies Allergies/Adverse Reactions: Allergies Allergy/AdvReac Type Severity Reaction Status Date / Time No Known Drug Allergies Allergy Verified 01/31/18 14:00 - Home Medications Home Medications: Ambulatory Orders Levothyroxine [Synthroid -] 50 mcg PO DAILY@0700 tablet 05/30/17 Metoprolol Succinate [Toprol XL -] 25 mg PO DAILY tab 05/30/17 Amlodipine Besylate [Norvasc -] 10 mg PO DAILY tablet 06/06/17 Calcium (Oyster Shell) [Os-Pasquale 500MG -] 500 mg PO BID #0 cap 06/06/17 Glimepiride [Amaryl -] 4 mg PO DAILY@0700 tablet 06/06/17 Atorvastatin Ca [Lipitor] 10 mg PO HS 01/31/18 Buspirone HCl [Buspar -] 5 mg PO BID 01/31/18 Cetirizine HCl 10 mg PO DAILY 01/31/18 Gabapentin [Neurontin -] 600 mg PO BID 01/31/18 Insulin Glargine,Hum.rec.anlog [Lantus] 20 unit SQ DAILY 01/31/18 Rochelle-3 Acid Ethyl Esters 1 gm PO DAILY 01/31/18 metFORMIN HCL [Metformin HCl] 500 mg PO BID 01/31/18 Nitrofurantoin Macrocrystal [Nitrofurantoin] 100 mg PO BID 06/03/19 Review of Systems - Review of Systems Genitourinary: reports: Dysuria, Other (hesitancy) Physical Exam- Vital Signs: Vital Signs Temperature 97.8 F 06/03/19 14:10 Pulse Rate 92 H 06/03/19 14:10 Respiratory Rate 18 06/03/19 14:10 Blood Pressure 159/84 06/03/19 14:10 O2 Sat by Pulse Oximetry (%) 98 06/03/19 14:10 Constitutional: Yes: Well Nourished, No Distress, Calm Respiratory: Yes: WNL Gastrointestinal: Yes: WNL, Normal Bowel Sounds, Soft Labs: CBC, BMP 06/03/19 10:48 06/03/19 10:48 Problem List - Problems (1) Urinary retention Assessment/Plan: cont lock, f/u in my office after disch Code(s): R33.9 - RETENTION OF URINE, UNSPECIFIED (2) Urinary tract infection Assessment/Plan: ur cx, iv abxs Code(s): N39.0 - URINARY TRACT INFECTION, SITE NOT SPECIFIED
[2019-06-03 16:44] VITALS: BMI 22.7
[2019-06-03] MEDS: INSULIN SLIDING SCALE (NOVOLOG) 1 VIAL SQ SCH ×2 (16:53→21:08)
[2019-06-03] MEDS: metFORMIN HCL 500 MG TABLET (FP) PO SCH (16:53)
[2019-06-03] MEDS ORDERED: INSULIN (NOVOLOG) ASPART 100 UNITS/ML 10ML VIAL ONE (20:39)
[2019-06-03] MEDS: QUEtiapine FUMARATE 25 MG TABLET (FP) PO SCH (21:08)
[2019-06-03] MEDS: busPIRone HCL 5 MG TABLET PO SCH (21:08)
[2019-06-03] MEDS: GABAPENTIN 300 MG CAPSULE (FP) PO SCH (21:08)
[2019-06-03] MEDS: ATORVASTATIN CA 10 MG TABLET (FP) PO SCH (21:08)
[2019-06-03] MEDS: HEPARIN NA (PORCINE) 5,000 UNITS/ML 1ML VIAL SQ SCH (21:09)
[2019-06-03] MEDS ORDERED: busPIRone HCL 5 MG TABLET PO SCH (22:00)
[2019-06-03] MEDS ORDERED: ACETAMINOPHEN 325 MG TABLET (FP) PO ONE (22:21)
[2019-06-03] MEDS: NITROFURANTOIN MACROCRYSTAL 50 MG CAPSULE (FP) PO SCH (23:08)
[2019-06-04] MEDS: LEVOTHYROXINE NA 50 MCG TABLET (FP) PO SCH (06:36)
[2019-06-04] MEDS: NITROFURANTOIN MACROCRYSTAL 50 MG CAPSULE (FP) PO SCH ×4 (06:36→23:43)
[2019-06-04] MEDS: busPIRone HCL 5 MG TABLET PO SCH ×3 (06:36→23:44)
[2019-06-04] MEDS: metFORMIN HCL 500 MG TABLET (FP) PO SCH ×2 (06:36→17:33)
[2019-06-04] MEDS: INSULIN SLIDING SCALE (NOVOLOG) 1 VIAL SQ SCH ×4 (06:37→23:44)
[2019-06-04] MEDS: GLIMEPIRIDE 4 MG TABLET (FP) PO SCH (06:37)
[2019-06-04] MEDS ORDERED: INSULIN (LEVEMIR) 100 UNITS/ML UNITS SQ SCH (07:00)
[2019-06-04 08:38] LABS: BASO % 0.5 % (0-2.0); LYMPH % 20.5 % (8-40); MEAN CELL VOLUME 86.1 fl (80-96); MEAN PLT VOLUME 8.4 fl (7.5-11.1); MONO % 9.2 % (3.8-10.2); NEUT % 65.8 % (42.8-82.8); PLATELET COUNT 215 K/MM3 (134-434); RBC 4.18 M/mm3 (3.60-5.2); RDW 13.2 % (11.6-15.6); WHITE BLOOD COUNT 7.2 K/mm3 (4.0-10.0)
[2019-06-04 09:15] LABS: ALBUMIN 4.2 g/dl (3.4-5.0); BILIRUBIN,TOTAL 0.7 mg/dL (0.2-1); BLOOD UREA NITROGEN 7.8 mg/dL (7-18); CALCIUM 9.3 mg/dL (8.5-10.1); CREATININE 0.6 mg/dL (0.55-1.3); MAGNESIUM 1.7 mg/dL (1.8-2.4); POTASSIUM 3.7 mmol/L (3.5-5.1); TOT PROT 7.3 g/dl (6.4-8.2)
[2019-06-04] MEDS ORDERED: PATIENT'S OWN MEDICATION (NON-FORMULARY) (Cetirizine Hcl [Cetirizine Hcl] 10 MG) PO SCH (10:00)
[2019-06-04] MEDS ORDERED: PATIENT'S OWN MEDICATION (NON-FORMULARY) (Insulin Glargine,Hum.Rec.Anlog [Lantus] 20 UNIT) SQ SCH (10:00)
[2019-06-04] MEDS ORDERED: LORATADINE 10 MG TABLET PO SCH (10:00)
[2019-06-04] MEDS: HEPARIN NA (PORCINE) 5,000 UNITS/ML 1ML VIAL SQ SCH ×2 (10:44→23:44)
[2019-06-04] MEDS: GABAPENTIN 300 MG CAPSULE (FP) PO SCH ×2 (10:44→23:43)
[2019-06-04] MEDS: LOSARTAN POTASSIUM 25 MG TABLET PO SCH (10:44)
[2019-06-04] MEDS: amLODIPine BESYLATE 10 MG TABLET (FP) PO SCH (10:44)
[2019-06-04] MEDS: OMEGA-3 ACID ETHYL ESTERS (FATTY-ACIDS) 1 GM CAPSULE (FP) PO SCH (10:44)
[2019-06-04] MEDS: metoPROLOL SUCCINATE 25 MG TAB.SR.24H (FP) PO SCH (10:44)
--- NOTE | 2019-06-04 10:51 | PN ---
Progress Note, Physician Chief Complaint: Urine Retention Hyponatremia History of Present Illness: Previous notes and events reviewed awake and alert NAD complain of constipation noted still with low Na - Current Medication List Current Medications: Active Medications Amlodipine Besylate (Norvasc -) 10 mg PO DAILY [facility] Last Admin: 06/04/19 10:44 Dose: 10 mg Atorvastatin Calcium (Lipitor -) 10 mg PO HS [facility] Last Admin: 06/03/19 21:08 Dose: 10 mg Buspirone HCl (Buspar -) 10 mg PO TID [facility] Last Admin: 06/04/19 06:36 Dose: 10 mg Gabapentin (Neurontin -) 600 mg PO BID [facility] Last Admin: 06/04/19 10:44 Dose: 600 mg Glimepiride (Amaryl -) 4 mg PO DAILY@0700 [facility] Last Admin: 06/04/19 06:37 Dose: 4 mg Heparin Sodium (Porcine) (Heparin -) 5,000 unit SQ BID [facility] Last Admin: 06/04/19 10:44 Dose: 5,000 unit Insulin Aspart (Novolog Vial Sliding Scale -) 1 vial SQ [facility]; Protocol Last Admin: 06/04/19 06:37 Dose: Not Given Levothyroxine Sodium (Synthroid -) 50 mcg PO DAILY@0700 [facility] Last Admin: 06/04/19 06:36 Dose: 50 mcg Losartan Potassium (Cozaar -) 25 mg PO DAILY [facility] Last Admin: 06/04/19 10:44 Dose: 25 mg Metformin HCl (Glucophage -) 500 mg PO BIDI [facility] Last Admin: 06/04/19 06:36 Dose: 500 mg Metoprolol Succinate (Toprol Xl -) 25 mg PO DAILY [facility] Last Admin: 06/04/19 10:44 Dose: 25 mg Nitrofurantoin Macrocrystals (Macrodantin -) 50 mg PO Q6HPO [facility] Last Admin: 06/04/19 06:36 Dose: 50 mg Nqnyf-[id number] Ethyl Esters (Lovaza -) 1 gm PO DAILY [facility] Last Admin: 06/04/19 10:44 Dose: 1 gm Quetiapine Fumarate (Seroquel -) 25 mg PO HS [facility] Last Admin: 06/03/19 21:08 Dose: 25 mg Vilazodone HCl (Viibryd -) 20 mg PO DAILY@1200 [facility] - Objective Vital Signs: Vital Signs Temperature 98.2 F 06/04/19 09:20 Pulse Rate 85 06/04/19 09:20 Respiratory Rate 17 06/04/19 09:20 Blood Pressure 139/64 06/04/19 09:20 O2 Sat by Pulse Oximetry (%) 99 06/03/19 16:22 Constitutional: Yes: No Distress, Calm Eyes: Yes: Conjunctiva Clear HENT: Yes: Atraumatic Cardiovascular: Yes: Regular Rate and Rhythm Respiratory: Yes: Regular, CTA Bilaterally Gastrointestinal: Yes: Normal Bowel Sounds, Soft Genitourinary: Yes: Carter Present Musculoskeletal: Yes: Muscle Weakness Extremities: Yes: WNL Edema: No Neurological: Yes: Alert, Oriented Psychiatric: Yes: Alert, Oriented Labs: CBC, BMP 06/04/19 08:05 06/04/19 08:05 Microbiology 06/03/19 11:36 Urine - Urine Carter Urine Culture - Final NO GROWTH OBTAINED Problem List - Problems (1) Hyponatremia Assessment/Plan: -Na 124 -Renal consult -IV hydration -monitor Na level daily Code(s): E87.1 - HYPO-OSMOLALITY AND HYPONATREMIA (2) Depression Assessment/Plan: -Buspar, Seroquel, and Viibryd Code(s): F32.9 - MAJOR DEPRESSIVE DISORDER, SINGLE EPISODE, UNSPECIFIED Qualifiers: Depression Type: other depression Qualified Code(s): F32.89 - Other specified depressive episodes (3) Diabetes mellitus Assessment/Plan: -Amaryl and Metformin -ISS -Diabetic/low Na diet -HgA1c Code(s): E11.9 - TYPE 2 DIABETES MELLITUS WITHOUT COMPLICATIONS Qualifiers: Diabetes mellitus type: type 2 (4) HTN (hypertension) Assessment/Plan: -Amlodipine, Losartan -low Na diet Code(s): I10 - ESSENTIAL (PRIMARY) HYPERTENSION (5) Hypothyroidism Assessment/Plan: -Levothyroxine Code(s): E03.9 - HYPOTHYROIDISM, UNSPECIFIED Qualifiers: Hypothyroidism type: unspecified Qualified Code(s): E03.9 - Hypothyroidism , unspecified (6) Urinary retention Assessment/Plan: -FC placed -Urology on board -UA neg, pending UC Code(s): R33.9 - RETENTION OF URINE, UNSPECIFIED (7) Urinary tract infection Assessment/Plan: -No leukocytosis -afebrile -ID consult -UA neg, urine culture pending -Macrobid Code(s): N39.0 - URINARY TRACT INFECTION, SITE NOT SPECIFIED Assessment/Plan see problem list dvt ppx
[2019-06-04] MEDS ORDERED: PT OWN MED DRAWER 7, Y5N ONE ×3 (11:48→21:14)
[2019-06-04] MEDS: POLYETHYLENE GLYCOL 3350 119 GM BTL PO SCH (11:50)
[2019-06-04] MEDS: VILAZODONE HYDROCHLORIDE 20 MG TABLET PO SCH (11:51)
--- NOTE | 2019-06-04 12:49 | PN ---
Progress Note (short form) - Note Progress Note: ID CONSULT DICTATED UTI URINARY RETENTION CONTINUE NITROFURANTOIN COMPLETE 7D COURSE
--- NOTE | 2019-06-04 13:38 | CONS ---
DATE OF CONSULTATION: 06/03/2019 The patient is a 73-year-old female who is evaluated for urinary tract infection. History was obtained from the chart, as she suffers from dementia and cannot give a history. According to the notes, she had been complaining of lower abdominal pain for 2 days prior to admission and was noted to have acute urinary retention. She apparently has had a history of this in the past and had required a urological procedure. She was seen by her primary care physician and was prescribed nitrofurantoin for a urinary tract infection. She is now admitted for further evaluation. At the present time, she is awake but she is confused. She offers no focal complaint. She is in no acute distress. She has been afebrile with a normal white blood cell count. Urinalysis showed 2 white cells. Urine culture is negative. Past medical history positive for dementia, hypertension, hyperlipidemia, diabetes mellitus, asthma, stroke, hyponatremia. No known allergies. MEDICATIONS: Synthroid, Toprol, Norvasc, Amaryl, Lipitor, BuSpar, Neurontin. SOCIAL HISTORY: Resides in the community. Suffers from dementia. No active tobacco or alcohol use. SYSTEMS REVIEW: Neurologic: Positive for dementia and stroke. Cardiac: Negative chest pain or palpitations. Respiratory: Negative cough or sputum production. Gastrointestinal: Negative vomiting or diarrhea. Genitourinary: As per HPI. LABORATORY DATA: White count 7.2, hematocrit 36.0, platelet count 215, creatinine 0.6, sodium 124. Liver enzymes normal. Chest x-ray negative. PHYSICAL EXAMINATION: General: She is an elderly female, suffers from dementia. Vital Signs: Temperature 98.2. Blood pressure 139/64. Pulse 85, regular. Respirations 17 per minute. Eyes: Sclerae anicteric. Heart Sounds: S1, S2. Lungs: Clear. Abdomen: Soft. No suprapubic tenderness. Extremities: 1+ edema. Genitourinary: A Carter catheter is in place. Urine is slightly concentrated but clear. IMPRESSION: 1. Urinary tract infection. 2. Acute urinary retention. 3. History of stroke. 4. Dementia. 5. Diabetes mellitus. Continue nitrofurantoin for treatment of urinary tract infection in the setting of urinary retention, complete 7-day course. Urology evaluation. Thank you for the kind referral. NIRALI HUDSON M.D. [id number]
[2019-06-04] MEDS ORDERED: SODIUM CHLORIDE 1 GM TABLET PO SCH (15:00)
--- NOTE | 2019-06-04 15:23 | CONSULT ---
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 Pt was seen by our service on prior admission and Na had improved to 132 on D/ C. She denies any confusion, lethargy, weakness or seizures. Denies any sob, cp , abd pain, fever or chills. Carter was inserted. Making urine. Pt currently on IVF. PMhx: as above Allergies: NKDA Family hx: NC Social Hx: No T/A/D ROS: as per HPI, all other pertinent ros negative Home Medications Medication Instructions Recorded Levothyroxine [Synthroid -] 50 mcg PO DAILY@0700 tablet 05/30/17 Metoprolol Succinate [Toprol XL -] 25 mg PO DAILY tab 05/30/17 Amlodipine Besylate [Norvasc -] 10 mg PO DAILY tablet 06/06/17 Calcium (Oyster Shell) [Os-Pasquale 500 mg PO BID #0 cap 06/06/17 500MG -] Glimepiride [Amaryl -] 4 mg PO DAILY@0700 tablet 06/06/17 Atorvastatin Ca [Lipitor] 10 mg PO HS 01/31/18 Buspirone HCl [Buspar -] 5 mg PO BID 01/31/18 Cetirizine HCl 10 mg PO DAILY 01/31/18 Gabapentin [Neurontin -] 600 mg PO BID 01/31/18 Insulin Glargine,Hum.rec.anlog 20 unit SQ DAILY 01/31/18 [Lantus] Fischer-3 Acid Ethyl Esters 1 gm PO DAILY 01/31/18 metFORMIN HCL [Metformin HCl] 500 mg PO BID 01/31/18 Nitrofurantoin Macrocrystal 100 mg PO BID 06/03/19 [Nitrofurantoin] Vital Signs Temperature 98.2 F 06/04/19 09:20 Pulse Rate 85 06/04/19 09:20 Respiratory Rate 17 06/04/19 09:20 Blood Pressure 139/64 06/04/19 09:20 O2 Sat by Pulse Oximetry (%) 99 06/03/19 16:22 Intake & Output 06/01/19 06/02/19 06/03/19 06/04/19 23:59 23:59 23:59 23:59 Intake Total 600 500 Output Total 2550 700 Balance -1950 -200 Weight 56.359 kg 56.331 kg NAD awake and alert neck supple, no JVD RRR, no M/R CTA, no rales or wheeze soft NT/ND No LE edema, clubbing or cyanosis CBC, BMP 06/04/19 08:05 06/04/19 08:05 Current Medications Amlodipine Besylate (Norvasc -) 10 mg PO DAILY [facility] Last Admin: 06/04/19 10:44 Dose: 10 mg Atorvastatin Calcium (Lipitor -) 10 mg PO HS [facility] Last Admin: 06/03/19 21:08 Dose: 10 mg Buspirone HCl (Buspar -) 10 mg PO TID [facility] Last Admin: 06/04/19 14:24 Dose: 10 mg Gabapentin (Neurontin -) 600 mg PO BID [facility] Last Admin: 06/04/19 10:44 Dose: 600 mg Glimepiride (Amaryl -) 4 mg PO DAILY@0700 [facility] Last Admin: 06/04/19 06:37 Dose: 4 mg Heparin Sodium (Porcine) (Heparin -) 5,000 unit SQ BID [facility] Last Admin: 06/04/19 10:44 Dose: 5,000 unit Insulin Aspart (Novolog Vial Sliding Scale -) 1 vial SQ [facility]; Protocol Last Admin: 06/04/19 11:46 Dose: Not Given Levothyroxine Sodium (Synthroid -) 50 mcg PO DAILY@0700 [facility] Last Admin: 06/04/19 06:36 Dose: 50 mcg Losartan Potassium (Cozaar -) 25 mg PO DAILY [facility] Last Admin: 06/04/19 10:44 Dose: 25 mg Metformin HCl (Glucophage -) 500 mg PO BIDI [facility] Last Admin: 06/04/19 06:36 Dose: 500 mg Metoprolol Succinate (Toprol Xl -) 25 mg PO DAILY [facility] Last Admin: 06/04/19 10:44 Dose: 25 mg Nitrofurantoin Macrocrystals (Macrodantin -) 50 mg PO Q6HPO [facility] Last Admin: 06/04/19 11:50 Dose: 50 mg Vxgom-2-Djxk Ethyl Esters (Lovaza -) 1 gm PO DAILY [facility] Last Admin: 06/04/19 10:44 Dose: 1 gm Polyethylene Glycol (Miralax (For Daily Use) -) 17 gm PO DAILY [facility] Last Admin: 06/04/19 11:50 Dose: 17 grams Quetiapine Fumarate (Seroquel -) 25 mg PO HS [facility] Last Admin: 06/03/19 21:08 Dose: 25 mg Sodium Chloride (Sodium Chloride Tablet -) 1 gm PO BID [facility] Vilazodone HCl (Viibryd -) 20 mg PO DAILY@1200 [facility] Last Admin: 06/04/19 11:51 Dose: 20 mg 73 year old woman with history of 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 1. Hyponatremia likely from SIADH 2. Urinary retention 3. Hypertension 4. Depression 5. Hyperlipidemia Urine studies consistent with SIADH no acute indication for 3% saline D/c IVF Check BMP at 4pm if serum na is unchanged or lower start NaCl tabs 1g BID Continue fluid restriction of 1L Austen Degroot DO
[2019-06-04 18:30] LABS: BLOOD UREA NITROGEN 11.1 mg/dL (7-18); CALCIUM 9.3 mg/dL (8.5-10.1); CREATININE 0.7 mg/dL (0.55-1.3); POTASSIUM 4.3 mmol/L (3.5-5.1)
[2019-06-04] MEDS ORDERED: SODIUM CHLORIDE 1 GM TABLET PO ONE (18:50)
[2019-06-04] MEDS: ACETAMINOPHEN 325 MG TABLET (FP) PO PRN (19:07)
[2019-06-04] MEDS: ATORVASTATIN CA 10 MG TABLET (FP) PO SCH (23:45)
[2019-06-04] MEDS: QUEtiapine FUMARATE 25 MG TABLET (FP) PO SCH (23:45)
[2019-06-04] MEDS: SODIUM CHLORIDE 1 GM TABLET PO SCH (23:45)
[2019-06-05] MEDS: busPIRone HCL 5 MG TABLET PO SCH ×3 (06:46→21:42)
[2019-06-05] MEDS: NITROFURANTOIN MACROCRYSTAL 50 MG CAPSULE (FP) PO SCH ×5 (06:46→21:41)
[2019-06-05] MEDS: LEVOTHYROXINE NA 50 MCG TABLET (FP) PO SCH (06:46)
[2019-06-05] MEDS: INSULIN SLIDING SCALE (NOVOLOG) 1 VIAL SQ SCH ×4 (06:46→21:43)
[2019-06-05] MEDS: metFORMIN HCL 500 MG TABLET (FP) PO SCH ×2 (06:46→16:55)
[2019-06-05] MEDS: GLIMEPIRIDE 4 MG TABLET (FP) PO SCH (06:46)
[2019-06-05] MEDS ORDERED: PT OWN MED DRAWER 7, Y5N ONE ×3 (07:02→12:33)
[2019-06-05 07:07] LABS: HEMATOCRIT 34.6 % (32.4-45.2); HEMOGLOBIN 12.3 GM/dL (10.7-15.3); MCH 30.9 pg (25.7-33.7); MCHC 35.6 g/dl (32.0-36.0); MEAN CELL VOLUME 86.9 fl (80-96); MEAN PLT VOLUME 8.5 fl (7.5-11.1); PLATELET COUNT 211 K/MM3 (134-434); RBC 3.98 M/mm3 (3.60-5.2)
[2019-06-05 07:44] LABS: BILIRUBIN,TOTAL 0.6 mg/dL (0.2-1); BLOOD UREA NITROGEN 12.5 mg/dL (7-18); CALCIUM 9.2 mg/dL (8.5-10.1); CREATININE 0.6 mg/dL (0.55-1.3); MAGNESIUM 1.8 mg/dL (1.8-2.4); PHOSPHOROUS 3.5 mg/dL (2.5-4.9); POTASSIUM 3.9 mmol/L (3.5-5.1); TOT PROT 6.8 g/dl (6.4-8.2)
[2019-06-05] MEDS: GABAPENTIN 300 MG CAPSULE (FP) PO SCH ×2 (11:03→21:42)
[2019-06-05] MEDS: SODIUM CHLORIDE 1 GM TABLET PO SCH ×2 (11:04→21:42)
[2019-06-05] MEDS: OMEGA-3 ACID ETHYL ESTERS (FATTY-ACIDS) 1 GM CAPSULE (FP) PO SCH (11:04)
[2019-06-05] MEDS: amLODIPine BESYLATE 10 MG TABLET (FP) PO SCH (11:04)
[2019-06-05] MEDS: HEPARIN NA (PORCINE) 5,000 UNITS/ML 1ML VIAL SQ SCH ×2 (11:05→21:42)
[2019-06-05] MEDS: LOSARTAN POTASSIUM 25 MG TABLET PO SCH (11:05)
[2019-06-05] MEDS: metoPROLOL SUCCINATE 25 MG TAB.SR.24H (FP) PO SCH (11:05)
[2019-06-05] MEDS: POLYETHYLENE GLYCOL 3350 119 GM BTL PO SCH (11:06)
[2019-06-05] MEDS: VILAZODONE HYDROCHLORIDE 20 MG TABLET PO SCH (12:17)
--- NOTE | 2019-06-05 13:30 | PN ---
Progress Note, Physician Chief Complaint: Urine Retention Hyponatremia History of Present Illness: Previous notes and events reviewed awake and alert NAD complain of difficulty sleeping last night Na level low but improving - Current Medication List Current Medications: Active Medications Acetaminophen (Tylenol -) 650 mg PO Q6H PRN PRN Reason: PAIN LEVEL 4 - 6 Last Admin: 06/04/19 19:07 Dose: 650 mg Amlodipine Besylate (Norvasc -) 10 mg PO DAILY [facility] Last Admin: 06/05/19 11:04 Dose: 10 mg Atorvastatin Calcium (Lipitor -) 10 mg PO HS [facility] Last Admin: 06/04/19 23:45 Dose: 10 mg Buspirone HCl (Buspar -) 10 mg PO TID [facility] Last Admin: 06/05/19 06:46 Dose: 10 mg Gabapentin (Neurontin -) 600 mg PO BID [facility] Last Admin: 06/05/19 11:03 Dose: 600 mg Glimepiride (Amaryl -) 4 mg PO DAILY@0700 [facility] Last Admin: 06/05/19 06:46 Dose: 4 mg Heparin Sodium (Porcine) (Heparin -) 5,000 unit SQ BID [facility] Last Admin: 06/05/19 11:05 Dose: 5,000 unit Insulin Aspart (Novolog Vial Sliding Scale -) 1 vial SQ [facility]; Protocol Last Admin: 06/05/19 11:54 Dose: 2 units Levothyroxine Sodium (Synthroid -) 50 mcg PO DAILY@0700 [facility] Last Admin: 06/05/19 06:46 Dose: 50 mcg Losartan Potassium (Cozaar -) 25 mg PO DAILY [facility] Last Admin: 06/05/19 11:05 Dose: 25 mg Metformin HCl (Glucophage -) 500 mg PO BIDI [facility] Last Admin: 06/05/19 06:46 Dose: 500 mg Metoprolol Succinate (Toprol Xl -) 25 mg PO DAILY [facility] Last Admin: 06/05/19 11:05 Dose: 25 mg Nitrofurantoin Macrocrystals (Macrodantin -) 100 mg PO QID [facility] Last Admin: 06/05/19 12:16 Dose: 100 mg Frfsw-0-Apez Ethyl Esters (Lovaza -) 1 gm PO DAILY [facility] Last Admin: 06/05/19 11:04 Dose: 1 gm Polyethylene Glycol (Miralax (For Daily Use) -) 17 gm PO DAILY [facility] Last Admin: 06/05/19 11:06 Dose: 17 grams Quetiapine Fumarate (Seroquel -) 25 mg PO HS [facility] Last Admin: 06/04/19 23:45 Dose: 25 mg Sodium Chloride (Sodium Chloride Tablet -) 1 gm PO BID [facility] Last Admin: 06/05/19 11:04 Dose: 1 gm Vilazodone HCl (Viibryd -) 20 mg PO DAILY@1200 [facility] Last Admin: 06/05/19 12:17 Dose: 20 mg - Objective Vital Signs: Vital Signs Temperature 98.1 F 06/05/19 01:26 Pulse Rate 78 06/05/19 06:00 Respiratory Rate 18 06/05/19 06:00 Blood Pressure 138/63 06/05/19 06:00 O2 Sat by Pulse Oximetry (%) 100 06/05/19 09:00 Constitutional: Yes: No Distress, Calm Eyes: Yes: Conjunctiva Clear HENT: Yes: Atraumatic Cardiovascular: Yes: Regular Rate and Rhythm Respiratory: Yes: Regular, CTA Bilaterally Gastrointestinal: Yes: Normal Bowel Sounds, Soft Genitourinary: Yes: Carter Present Musculoskeletal: Yes: Muscle Weakness Extremities: Yes: WNL Edema: No Neurological: Yes: Alert, Pre-Existing Deficit Psychiatric: Yes: Alert, Oriented Labs: CBC, BMP 06/05/19 06:50 06/05/19 06:50 Microbiology 06/03/19 11:36 Urine - Urine Carter Urine Culture - Final NO GROWTH OBTAINED Problem List - Problems (1) Hyponatremia Assessment/Plan: -Na 126 -Renal consult -Sodium Chloride tabs -monitor Na level daily Code(s): E87.1 - HYPO-OSMOLALITY AND HYPONATREMIA (2) Depression Assessment/Plan: -Buspar, Seroquel, and Viibryd Code(s): F32.9 - MAJOR DEPRESSIVE DISORDER, SINGLE EPISODE, UNSPECIFIED Qualifiers: Depression Type: other depression Qualified Code(s): F32.89 - Other specified depressive episodes (3) Diabetes mellitus Assessment/Plan: -Amaryl and Metformin -ISS -Diabetic/low Na diet -HgA1c Code(s): E11.9 - TYPE 2 DIABETES MELLITUS WITHOUT COMPLICATIONS Qualifiers: Diabetes mellitus type: type 2 (4) HTN (hypertension) Assessment/Plan: -Amlodipine, Losartan -low Na diet Code(s): I10 - ESSENTIAL (PRIMARY) HYPERTENSION (5) Hypothyroidism Assessment/Plan: -Levothyroxine Code(s): E03.9 - HYPOTHYROIDISM, UNSPECIFIED Qualifiers: Hypothyroidism type: unspecified Qualified Code(s): E03.9 - Hypothyroidism , unspecified (6) Urinary retention Assessment/Plan: -FC placed -Urology on board -UA neg, UC neg Code(s): R33.9 - RETENTION OF URINE, UNSPECIFIED (7) Urinary tract infection Assessment/Plan: -No leukocytosis -afebrile -ID consult -UA neg, urine culture neg -Macrobid Code(s): N39.0 - URINARY TRACT INFECTION, SITE NOT SPECIFIED Assessment/Plan see problem list dvt ppx
[2019-06-05] MEDS: ACETAMINOPHEN 325 MG TABLET (FP) PO PRN ×2 (14:06→21:45)
--- NOTE | 2019-06-05 15:24 | PN ---
Progress Note (short form) - Note Progress Note: Renal follow up for hyponatremia Seen and examined at the bedside no acute complaints no confusion, lethargy, weakness, N/V denies any sob, cp has lock in place Vital Signs Temperature 98.1 F 06/05/19 01:26 Pulse Rate 78 06/05/19 06:00 Respiratory Rate 18 06/05/19 06:00 Blood Pressure 138/63 06/05/19 06:00 O2 Sat by Pulse Oximetry (%) 100 06/05/19 09:00 Intake & Output 06/02/19 06/03/19 06/04/19 06/05/19 23:59 23:59 23:59 23:59 Intake Total 600 1300 Output Total 2550 3900 1400 Balance -1950 -2600 -1400 Weight 56.359 kg 56.331 kg NAD no LE edema CBC, BMP 06/05/19 06:50 06/05/19 06:50 Current Medications Acetaminophen (Tylenol -) 650 mg PO Q6H PRN PRN Reason: PAIN LEVEL 4 - 6 Last Admin: 06/05/19 14:06 Dose: 650 mg Amlodipine Besylate (Norvasc -) 10 mg PO DAILY [facility] Last Admin: 06/05/19 11:04 Dose: 10 mg Atorvastatin Calcium (Lipitor -) 10 mg PO HS [facility] Last Admin: 06/04/19 23:45 Dose: 10 mg Buspirone HCl (Buspar -) 10 mg PO TID [facility] Last Admin: 06/05/19 14:06 Dose: 10 mg Gabapentin (Neurontin -) 600 mg PO BID [facility] Last Admin: 06/05/19 11:03 Dose: 600 mg Glimepiride (Amaryl -) 4 mg PO DAILY@0700 [facility] Last Admin: 06/05/19 06:46 Dose: 4 mg Heparin Sodium (Porcine) (Heparin -) 5,000 unit SQ BID [facility] Last Admin: 06/05/19 11:05 Dose: 5,000 unit Insulin Aspart (Novolog Vial Sliding Scale -) 1 vial SQ [facility]; Protocol Last Admin: 06/05/19 11:54 Dose: 2 units Levothyroxine Sodium (Synthroid -) 50 mcg PO DAILY@0700 [facility] Last Admin: 06/05/19 06:46 Dose: 50 mcg Losartan Potassium (Cozaar -) 25 mg PO DAILY [facility] Last Admin: 06/05/19 11:05 Dose: 25 mg Metformin HCl (Glucophage -) 500 mg PO BIDI [facility] Last Admin: 06/05/19 06:46 Dose: 500 mg Metoprolol Succinate (Toprol Xl -) 25 mg PO DAILY [facility] Last Admin: 06/05/19 11:05 Dose: 25 mg Nitrofurantoin Macrocrystals (Macrodantin -) 100 mg PO QID [facility] Last Admin: 06/05/19 12:16 Dose: 100 mg Exalw-6-Enlt Ethyl Esters (Lovaza -) 1 gm PO DAILY [facility] Last Admin: 06/05/19 11:04 Dose: 1 gm Polyethylene Glycol (Miralax (For Daily Use) -) 17 gm PO DAILY [facility] Last Admin: 06/05/19 11:06 Dose: 17 grams Quetiapine Fumarate (Seroquel -) 25 mg PO HS [facility] Last Admin: 06/04/19 23:45 Dose: 25 mg Sodium Chloride (Sodium Chloride Tablet -) 1 gm PO BID [facility] Last Admin: 06/05/19 11:04 Dose: 1 gm Vilazodone HCl (Viibryd -) 20 mg PO DAILY@1200 [facility] Last Admin: 06/05/19 12:17 Dose: 20 mg 73 year old woman with history of 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 1. Hyponatremia likely from SIADH 2. Urinary retention 3. Hypertension 4. Depression 5. Hyperlipidemia Urine studies consistent with SIADH serum Na improved with fluid restriction and salt tabs BID can consider outpatient psych eval to see if Vilazodone can be changed to another agent as it may be a contributor to SIADH prior imaging studies of Chest/Abd/Pelvis are without significant pathology Trend Na going into tomorrow morning if Na ~130 can discharge on salt tabs and fluid restriction Austen Degroot DO
[2019-06-05] MEDS: ATORVASTATIN CA 10 MG TABLET (FP) PO SCH (21:42)
[2019-06-05] MEDS: QUEtiapine FUMARATE 25 MG TABLET (FP) PO SCH (21:42)
[2019-06-06] MEDS ORDERED: PT OWN MED DRAWER 7, Y5N ONE ×3 (06:41→10:03)
[2019-06-06] MEDS: metFORMIN HCL 500 MG TABLET (FP) PO SCH ×2 (06:57→18:03)
[2019-06-06] MEDS: LEVOTHYROXINE NA 50 MCG TABLET (FP) PO SCH (06:57)
[2019-06-06] MEDS: GLIMEPIRIDE 4 MG TABLET (FP) PO SCH (06:57)
[2019-06-06] MEDS: INSULIN SLIDING SCALE (NOVOLOG) 1 VIAL SQ SCH ×4 (07:00→21:50)
[2019-06-06 07:07] LABS: HEMATOCRIT 35.4 % (32.4-45.2); HEMOGLOBIN 12.7 GM/dL (10.7-15.3); MCH 31.1 pg (25.7-33.7); MCHC 35.9 g/dl (32.0-36.0); MEAN CELL VOLUME 86.7 fl (80-96); MEAN PLT VOLUME 8.6 fl (7.5-11.1); PLATELET COUNT 222 K/MM3 (134-434); RBC 4.09 M/mm3 (3.60-5.2); WHITE BLOOD COUNT 6.4 K/mm3 (4.0-10.0)
[2019-06-06 07:24] LABS: ALBUMIN 4.1 g/dl (3.4-5.0); BILIRUBIN,TOTAL 0.5 mg/dL (0.2-1); BLOOD UREA NITROGEN 14.6 mg/dL (7-18); CALCIUM 9.6 mg/dL (8.5-10.1); CREATININE 0.8 mg/dL (0.55-1.3); POTASSIUM 4.4 mmol/L (3.5-5.1); TOT PROT 6.9 g/dl (6.4-8.2)
[2019-06-06] MEDS: NITROFURANTOIN MACROCRYSTAL 50 MG CAPSULE (FP) PO SCH ×4 (10:04→21:46)
[2019-06-06] MEDS: OMEGA-3 ACID ETHYL ESTERS (FATTY-ACIDS) 1 GM CAPSULE (FP) PO SCH (10:04)
[2019-06-06] MEDS: amLODIPine BESYLATE 10 MG TABLET (FP) PO SCH (10:04)
[2019-06-06] MEDS: GABAPENTIN 300 MG CAPSULE (FP) PO SCH ×2 (10:05→21:46)
[2019-06-06] MEDS: metoPROLOL SUCCINATE 25 MG TAB.SR.24H (FP) PO SCH (10:05)
[2019-06-06] MEDS: HEPARIN NA (PORCINE) 5,000 UNITS/ML 1ML VIAL SQ SCH ×2 (10:06→21:49)
[2019-06-06] MEDS: busPIRone HCL 5 MG TABLET PO SCH ×3 (10:06→21:46)
[2019-06-06] MEDS: LOSARTAN POTASSIUM 25 MG TABLET PO SCH (10:06)
[2019-06-06] MEDS: SODIUM CHLORIDE 1 GM TABLET PO SCH ×2 (10:06→21:51)
[2019-06-06] MEDS: POLYETHYLENE GLYCOL 3350 119 GM BTL PO SCH (10:07)
[2019-06-06] MEDS: VILAZODONE HYDROCHLORIDE 20 MG TABLET PO SCH (13:15)
[2019-06-06] MEDS: ACETAMINOPHEN 325 MG TABLET (FP) PO PRN ×2 (14:32→20:26)
--- NOTE | 2019-06-06 15:29 | PN ---
Progress Note, Physician Chief Complaint: AWAKE CONFUSED PASTRANA INTACT - Current Medication List Current Medications: Active Medications Acetaminophen (Tylenol -) 650 mg PO Q6H PRN PRN Reason: PAIN LEVEL 4 - 6 Last Admin: 06/06/19 14:32 Dose: 650 mg Amlodipine Besylate (Norvasc -) 10 mg PO DAILY [facility] Last Admin: 06/06/19 10:04 Dose: 10 mg Atorvastatin Calcium (Lipitor -) 10 mg PO [facility] Last Admin: 06/05/19 21:42 Dose: 10 mg Buspirone HCl (Buspar -) 10 mg PO TID [facility] Last Admin: 06/06/19 13:15 Dose: 10 mg Gabapentin (Neurontin -) 600 mg PO BID [facility] Last Admin: 06/06/19 10:05 Dose: 600 mg Glimepiride (Amaryl -) 4 mg PO DAILY@0700 [facility] Last Admin: 06/06/19 06:57 Dose: 4 mg Heparin Sodium (Porcine) (Heparin -) 5,000 unit SQ BID [facility] Last Admin: 06/06/19 10:06 Dose: 5,000 unit Insulin Aspart (Novolog Vial Sliding Scale -) 1 vial SQ [facility]; Protocol Last Admin: 06/06/19 13:13 Dose: Not Given Levothyroxine Sodium (Synthroid -) 50 mcg PO DAILY@0700 [facility] Last Admin: 06/06/19 06:57 Dose: 50 mcg Losartan Potassium (Cozaar -) 25 mg PO DAILY [facility] Last Admin: 06/06/19 10:06 Dose: 25 mg Metformin HCl (Glucophage -) 500 mg PO BIDI [facility] Last Admin: 06/06/19 06:57 Dose: 500 mg Metoprolol Succinate (Toprol Xl -) 25 mg PO DAILY [facility] Last Admin: 06/06/19 10:05 Dose: 25 mg Nitrofurantoin Macrocrystals (Macrodantin -) 100 mg PO QID [facility] Last Admin: 06/06/19 13:17 Dose: 100 mg Wmhip-6-Tlut Ethyl Esters (Lovaza -) 1 gm PO DAILY [facility] Last Admin: 06/06/19 10:04 Dose: 1 gm Polyethylene Glycol (Miralax (For Daily Use) -) 17 gm PO DAILY [facility] Last Admin: 06/06/19 10:07 Dose: 17 grams Quetiapine Fumarate (Seroquel -) 25 mg PO [facility] Last Admin: 06/05/19 21:42 Dose: 25 mg Sodium Chloride (Sodium Chloride Tablet -) 1 gm PO BID [facility] Last Admin: 06/06/19 10:06 Dose: 1 gm Vilazodone HCl (Viibryd -) 20 mg PO DAILY@1200 [facility] Last Admin: 06/06/19 13:15 Dose: 20 mg - Objective Vital Signs: Vital Signs Temperature 98.0 F 06/06/19 06:00 Pulse Rate 81 06/06/19 06:00 Respiratory Rate 18 06/06/19 06:00 Blood Pressure 133/62 06/06/19 06:00 O2 Sat by Pulse Oximetry (%) 98 06/05/19 21:00 Constitutional: Yes: No Distress Cardiovascular: Yes: Regular Rate and Rhythm Respiratory: Yes: WNL Gastrointestinal: Yes: Soft Genitourinary: Yes: Pastrana Present Edema: No Integumentary: Yes: WNL Wound/Incision: Yes: Clean/Dry Neurological: Yes: Confusion, Pre-Existing Deficit Psychiatric: Yes: Other Labs: CBC, BMP 06/06/19 06:20 06/06/19 06:20 Problem List - Problems (1) Hyponatremia Code(s): E87.1 - HYPO-OSMOLALITY AND HYPONATREMIA (2) Abdominal pain Code(s): R10.9 - UNSPECIFIED ABDOMINAL PAIN Qualifiers: Abdominal location: left lower quadrant Qualified Code(s): R10.32 - Left lower quadrant pain (3) Depression Code(s): F32.9 - MAJOR DEPRESSIVE DISORDER, SINGLE EPISODE, UNSPECIFIED Qualifiers: Depression Type: other depression Qualified Code(s): F32.89 - Other specified depressive episodes (4) Diabetes mellitus Code(s): E11.9 - TYPE 2 DIABETES MELLITUS WITHOUT COMPLICATIONS Qualifiers: Diabetes mellitus type: type 2 (5) HTN (hypertension) Code(s): I10 - ESSENTIAL (PRIMARY) HYPERTENSION (6) Urinary retention Code(s): R33.9 - RETENTION OF URINE, UNSPECIFIED Assessment/Plan WILL NEED SNF PLACEMENT ASSISTING HER WITH PASTRANA CATHETER WHICH PER WILL NEED TO STAY IN OUTPATIENT AND F/U WITH DR SANNA JOE IV ABX
--- NOTE | 2019-06-06 16:45 | PN ---
Progress Note, Physician History of Present Illness: Pt seen and examined at bedside. She is awake and alert. She denies shortness of breath. - Current Medication List Current Medications: Active Medications Acetaminophen (Tylenol -) 650 mg PO Q6H PRN PRN Reason: PAIN LEVEL 4 - 6 Last Admin: 06/06/19 14:32 Dose: 650 mg Amlodipine Besylate (Norvasc -) 10 mg PO DAILY [facility] Last Admin: 06/06/19 10:04 Dose: 10 mg Atorvastatin Calcium (Lipitor -) 10 mg PO HS [facility] Last Admin: 06/05/19 21:42 Dose: 10 mg Buspirone HCl (Buspar -) 10 mg PO TID [facility] Last Admin: 06/06/19 13:15 Dose: 10 mg Gabapentin (Neurontin -) 600 mg PO BID [facility] Last Admin: 06/06/19 10:05 Dose: 600 mg Glimepiride (Amaryl -) 4 mg PO DAILY@0700 [facility] Last Admin: 06/06/19 06:57 Dose: 4 mg Heparin Sodium (Porcine) (Heparin -) 5,000 unit SQ BID [facility] Last Admin: 06/06/19 10:06 Dose: 5,000 unit Insulin Aspart (Novolog Vial Sliding Scale -) 1 vial SQ [facility]; Protocol Last Admin: 06/06/19 13:13 Dose: Not Given Levothyroxine Sodium (Synthroid -) 50 mcg PO DAILY@0700 [facility] Last Admin: 06/06/19 06:57 Dose: 50 mcg Losartan Potassium (Cozaar -) 25 mg PO DAILY [facility] Last Admin: 06/06/19 10:06 Dose: 25 mg Metformin HCl (Glucophage -) 500 mg PO BIDI [facility] Last Admin: 06/06/19 06:57 Dose: 500 mg Metoprolol Succinate (Toprol Xl -) 25 mg PO DAILY [facility] Last Admin: 06/06/19 10:05 Dose: 25 mg Nitrofurantoin Macrocrystals (Macrodantin -) 100 mg PO QID [facility] Last Admin: 06/06/19 13:17 Dose: 100 mg Oyfeg-3-Lfdq Ethyl Esters (Lovaza -) 1 gm PO DAILY [facility] Last Admin: 06/06/19 10:04 Dose: 1 gm Polyethylene Glycol (Miralax (For Daily Use) -) 17 gm PO DAILY [facility] Last Admin: 06/06/19 10:07 Dose: 17 grams Quetiapine Fumarate (Seroquel -) 25 mg PO HS [facility] Last Admin: 06/05/19 21:42 Dose: 25 mg Sodium Chloride (Sodium Chloride Tablet -) 1 gm PO BID [facility] Last Admin: 06/06/19 10:06 Dose: 1 gm Vilazodone HCl (Viibryd -) 20 mg PO DAILY@1200 [facility] Last Admin: 06/06/19 13:15 Dose: 20 mg - Objective Vital Signs: Vital Signs Temperature 97.5 F L 06/06/19 14:35 Pulse Rate 89 06/06/19 14:35 Respiratory Rate 18 06/06/19 14:35 Blood Pressure 131/66 06/06/19 14:35 O2 Sat by Pulse Oximetry (%) 98 06/05/19 21:00 Constitutional: Yes: Calm Eyes: Yes: Conjunctiva Clear HENT: Yes: Atraumatic Neck: Yes: Supple Cardiovascular: Yes: S1, S2 Respiratory: Yes: CTA Bilaterally Gastrointestinal: Yes: Soft Genitourinary: Yes: Carter Present Edema: LLE: Trace, RLE: Trace Neurological: Yes: Oriented Psychiatric: Yes: Oriented Labs: CBC, BMP 06/06/19 06:20 06/06/19 06:20 Assessment/Plan Current Medications Generic Name Dose Route Start Last Admin Trade Name Rochelle PRN Reason Stop Dose Admin Acetaminophen 650 mg 06/04/19 18:45 06/06/19 14:32 Tylenol - PO 650 mg Q6H PRN Administration PAIN LEVEL 4 - 6 Amlodipine Besylate 10 mg 06/04/19 10:00 06/06/19 10:04 Norvasc - PO 10 mg DAILY [facility] Administration Atorvastatin Calcium 10 mg 06/03/19 22:00 06/05/19 21:42 Lipitor - PO 10 mg HS [facility] Administration Buspirone HCl 10 mg 06/03/19 22:00 06/06/19 13:15 Buspar - PO 10 mg TID [facility] Administration Gabapentin 600 mg 06/03/19 22:00 06/06/19 10:05 Neurontin - PO 600 mg BID [facility] Administration Glimepiride 4 mg 06/04/19 07:00 06/06/19 06:57 Amaryl - PO 4 mg DAILY@0700 [facility] Administration Heparin Sodium (Porcine) 5,000 unit 06/03/19 22:00 06/06/19 10:06 Heparin - SQ 5,000 unit BID [facility] Administration Insulin Aspart 1 vial 06/03/19 16:30 06/06/19 13:13 Novolog Vial Sliding Scale - SQ Not Given [facility] Protocol Levothyroxine Sodium 50 mcg 06/04/19 07:00 06/06/19 06:57 Synthroid - PO 50 mcg DAILY@0700 [facility] Administration Losartan Potassium 25 mg 06/04/19 10:00 06/06/19 10:06 Cozaar - PO 25 mg DAILY [facility] Administration Metformin HCl 500 mg 06/03/19 16:30 06/06/19 06:57 Glucophage - PO 500 mg BIDI [facility] Administration Metoprolol Succinate 25 mg 06/04/19 10:00 06/06/19 10:05 Toprol Xl - PO 25 mg DAILY [facility] Administration Nitrofurantoin Macrocrystals 100 mg 06/05/19 10:00 06/06/19 13:17 Macrodantin - PO 100 mg QID [facility] Administration Rwrpv-7-Htpp Ethyl Esters 1 gm 06/04/19 10:00 06/06/19 10:04 Lovaza - PO 1 gm DAILY [facility] Administration Polyethylene Glycol 17 gm 06/04/19 11:15 06/06/19 10:07 Miralax (For Daily Use) - PO 17 grams DAILY [facility] Administration Quetiapine Fumarate 25 mg 06/03/19 22:00 06/05/19 21:42 Seroquel - PO 25 mg HS [facility] Administration Sodium Chloride 1 gm 06/04/19 22:00 06/06/19 10:06 Sodium Chloride Tablet - PO 1 gm BID [facility] Administration Vilazodone HCl 20 mg 06/04/19 12:00 06/06/19 13:15 Viibryd - PO 20 mg DAILY@1200 [facility] Administration 1. Hyponatremia likely from SIADH 2. Urinary retention 3. Hypertension 4. Depression 5. Hyperlipidemia Plan - cont with salt tabs - monitor sodium - restrict free water - psych eval to change vilazodone to another agent
[2019-06-06] MEDS: QUEtiapine FUMARATE 25 MG TABLET (FP) PO SCH (21:46)
[2019-06-06] MEDS: ATORVASTATIN CA 10 MG TABLET (FP) PO SCH (21:46)
[2019-06-07] MEDS ORDERED: PT OWN MED DRAWER 7, Y5N ONE (05:55)
[2019-06-07] MEDS: LEVOTHYROXINE NA 50 MCG TABLET (FP) PO SCH (06:23)
[2019-06-07] MEDS: busPIRone HCL 5 MG TABLET PO SCH ×3 (06:23→22:13)
[2019-06-07] MEDS: metFORMIN HCL 500 MG TABLET (FP) PO SCH ×2 (06:24→18:01)
[2019-06-07] MEDS: INSULIN SLIDING SCALE (NOVOLOG) 1 VIAL SQ SCH ×4 (06:37→22:18)
[2019-06-07] MEDS: GLIMEPIRIDE 4 MG TABLET (FP) PO SCH (06:52)
[2019-06-07 07:34] LABS: CALCIUM 9.6 mg/dL (8.5-10.1); CREATININE 0.7 mg/dL (0.55-1.3); POTASSIUM 4.1 mmol/L (3.5-5.1)
--- NOTE | 2019-06-07 10:24 | DS ---
Physical Examination Vital Signs: Vital Signs Temperature 97.3 F L 06/07/19 06:00 Pulse Rate 79 06/07/19 06:00 Respiratory Rate 18 06/07/19 06:00 Blood Pressure 149/81 06/07/19 06:00 O2 Sat by Pulse Oximetry (%) 99 06/06/19 21:00 Findings/Remarks: AWAKE LABILE PASTRANA INTACT Constitutional: Yes: No Distress Cardiovascular: Yes: Regular Rate and Rhythm Respiratory: Yes: WNL Gastrointestinal: Yes: WNL Renal/: Yes: Pastrana Present Musculoskeletal: Yes: Muscle Weakness Edema: No Wound/Incision: Yes: Clean/Dry Neurological: Yes: WNL ...Motor Strength: WNL Psychiatric: Yes: Other Labs: CBC, BMP 06/06/19 06:20 06/07/19 06:35 Discharge Summary Reason For Visit: HYPONATREMIA Current Active Problems Hyponatremia (Acute) URINARY RETENTION Procedures: Principal: SONO/LABS Hospital Course: HYPONATREMIA RESOLVING, PASTRANA INTACT MONITOR BMP SODIUM LEVELS WEEKLY PT EVAL OOB TO CHAIR NEEDS PSYCHIATRY TO ADDRESS MEDICATIONS FOR HPONATREMIA SIDE EFFECT NEEDS FOLLOW UP WITH DR MARY SNYDER OR [facility] FOR PASTRANA REMOVAL AND BLADDER RETENTION TREATMENT Condition: Stable - Instructions Disposition: NURSING HOME FACILITY - Home Medications Comprehensive Discharge Medication List: Ambulatory Orders Levothyroxine [Synthroid -] 50 mcg PO DAILY@0700 tablet 05/30/17 Metoprolol Succinate [Toprol XL -] 25 mg PO DAILY tab 05/30/17 Amlodipine Besylate [Norvasc -] 10 mg PO DAILY tablet 06/06/17 Calcium (Oyster Shell) [Os-Pasquale 500MG -] 500 mg PO BID #0 cap 06/06/17 Glimepiride [Amaryl -] 4 mg PO DAILY@0700 tablet 06/06/17 Atorvastatin Ca [Lipitor] 10 mg PO HS 01/31/18 Buspirone HCl [Buspar -] 5 mg PO BID 01/31/18 Cetirizine HCl 10 mg PO DAILY 01/31/18 Gabapentin [Neurontin -] 600 mg PO BID 01/31/18 Insulin Glargine,Hum.rec.anlog [Lantus] 20 unit SQ DAILY 01/31/18 Avon-3 Acid Ethyl Esters 1 gm PO DAILY 01/31/18 metFORMIN HCL [Metformin HCl] 500 mg PO BID 01/31/18 Nitrofurantoin Macrocrystal [Nitrofurantoin] 100 mg PO BID 06/03/19
[2019-06-07] MEDS: HEPARIN NA (PORCINE) 5,000 UNITS/ML 1ML VIAL SQ SCH ×2 (11:35→22:16)
[2019-06-07] MEDS: GABAPENTIN 300 MG CAPSULE (FP) PO SCH ×2 (11:36→22:12)
[2019-06-07] MEDS: OMEGA-3 ACID ETHYL ESTERS (FATTY-ACIDS) 1 GM CAPSULE (FP) PO SCH (11:36)
[2019-06-07] MEDS: SODIUM CHLORIDE 1 GM TABLET PO SCH ×2 (11:36→22:16)
[2019-06-07] MEDS: NITROFURANTOIN MACROCRYSTAL 50 MG CAPSULE (FP) PO SCH ×4 (11:36→22:14)
[2019-06-07] MEDS: amLODIPine BESYLATE 10 MG TABLET (FP) PO SCH (11:36)
[2019-06-07] MEDS: metoPROLOL SUCCINATE 25 MG TAB.SR.24H (FP) PO SCH (11:36)
[2019-06-07] MEDS: LOSARTAN POTASSIUM 25 MG TABLET PO SCH (11:36)
[2019-06-07] MEDS: POLYETHYLENE GLYCOL 3350 119 GM BTL PO SCH (11:37)
[2019-06-07] MEDS: VILAZODONE HYDROCHLORIDE 20 MG TABLET PO SCH (13:39)
[2019-06-07] MEDS: ACETAMINOPHEN 325 MG TABLET (FP) PO PRN (18:06)
--- NOTE | 2019-06-07 18:08 | PN ---
Progress Note, Physician History of Present Illness: Pt seen and examined at bedside. She is awake and alert. She denies shortness of breath. - Current Medication List Current Medications: Active Medications Acetaminophen (Tylenol -) 650 mg PO Q6H PRN PRN Reason: PAIN LEVEL 4 - 6 Last Admin: 06/06/19 20:26 Dose: 650 mg Amlodipine Besylate (Norvasc -) 10 mg PO DAILY [facility] Last Admin: 06/07/19 11:36 Dose: 10 mg Atorvastatin Calcium (Lipitor -) 10 mg PO HS [facility] Last Admin: 06/06/19 21:46 Dose: 10 mg Buspirone HCl (Buspar -) 10 mg PO TID [facility] Last Admin: 06/07/19 14:40 Dose: 10 mg Gabapentin (Neurontin -) 600 mg PO BID [facility] Last Admin: 06/07/19 11:36 Dose: 600 mg Glimepiride (Amaryl -) 4 mg PO DAILY@0700 [facility] Last Admin: 06/07/19 06:52 Dose: 4 mg Heparin Sodium (Porcine) (Heparin -) 5,000 unit SQ BID [facility] Last Admin: 06/07/19 11:35 Dose: 5,000 unit Insulin Aspart (Novolog Vial Sliding Scale -) 1 vial SQ [facility]; Protocol Last Admin: 06/07/19 18:02 Dose: Not Given Levothyroxine Sodium (Synthroid -) 50 mcg PO DAILY@0700 [facility] Last Admin: 06/07/19 06:23 Dose: 50 mcg Losartan Potassium (Cozaar -) 25 mg PO DAILY [facility] Last Admin: 06/07/19 11:36 Dose: 25 mg Metformin HCl (Glucophage -) 500 mg PO BIDI [facility] Last Admin: 06/07/19 18:01 Dose: 500 mg Metoprolol Succinate (Toprol Xl -) 25 mg PO DAILY [facility] Last Admin: 06/07/19 11:36 Dose: 25 mg Nitrofurantoin Macrocrystals (Macrodantin -) 100 mg PO QID [facility] Last Admin: 06/07/19 18:01 Dose: 100 mg Kmbbk-6-Lfyn Ethyl Esters (Lovaza -) 1 gm PO DAILY [facility] Last Admin: 06/07/19 11:36 Dose: 1 gm Polyethylene Glycol (Miralax (For Daily Use) -) 17 gm PO DAILY [facility] Last Admin: 06/07/19 11:37 Dose: 17 grams Quetiapine Fumarate (Seroquel -) 25 mg PO HS [facility] Last Admin: 06/06/19 21:46 Dose: 25 mg Sodium Chloride (Sodium Chloride Tablet -) 1 gm PO BID [facility] Last Admin: 06/07/19 11:36 Dose: 1 gm Vilazodone HCl (Viibryd -) 20 mg PO DAILY@1200 [facility] Last Admin: 06/07/19 13:39 Dose: 20 mg - Objective Vital Signs: Vital Signs Temperature 98.6 F 06/07/19 14:45 Pulse Rate 94 H 06/07/19 14:45 Respiratory Rate 18 06/07/19 14:45 Blood Pressure 156/56 L 06/07/19 14:45 O2 Sat by Pulse Oximetry (%) 99 06/07/19 09:00 Constitutional: Yes: Calm Eyes: Yes: Conjunctiva Clear HENT: Yes: Atraumatic Neck: Yes: Supple Cardiovascular: Yes: S1, S2 Gastrointestinal: Yes: Soft Genitourinary: Yes: Carter Present Edema: Yes Edema: LLE: Trace, RLE: Trace Neurological: Yes: Oriented Psychiatric: Yes: Oriented Labs: CBC, BMP 06/06/19 06:20 06/07/19 06:35 Assessment/Plan Current Medications Generic Name Dose Route Start Last Admin Trade Name Rochelle PRN Reason Stop Dose Admin Acetaminophen 650 mg 06/04/19 18:45 06/07/19 18:06 Tylenol - PO 650 mg Q6H PRN Administration PAIN LEVEL 4 - 6 Amlodipine Besylate 10 mg 06/04/19 10:00 06/07/19 11:36 Norvasc - PO 10 mg DAILY [facility] Administration Atorvastatin Calcium 10 mg 06/03/19 22:00 06/06/19 21:46 Lipitor - PO 10 mg HS [facility] Administration Buspirone HCl 10 mg 06/03/19 22:00 06/07/19 14:40 Buspar - PO 10 mg TID [facility] Administration Gabapentin 600 mg 06/03/19 22:00 06/07/19 11:36 Neurontin - PO 600 mg BID [facility] Administration Glimepiride 4 mg 06/04/19 07:00 06/07/19 06:52 Amaryl - PO 4 mg DAILY@0700 [facility] Administration Heparin Sodium (Porcine) 5,000 unit 06/03/19 22:00 06/07/19 11:35 Heparin - SQ 5,000 unit BID [facility] Administration Insulin Aspart 1 vial 06/03/19 16:30 06/07/19 18:02 Novolog Vial Sliding Scale - SQ Not Given [facility] Protocol Levothyroxine Sodium 50 mcg 06/04/19 07:00 06/07/19 06:23 Synthroid - PO 50 mcg DAILY@0700 [facility] Administration Losartan Potassium 25 mg 06/04/19 10:00 06/07/19 11:36 Cozaar - PO 25 mg DAILY [facility] Administration Metformin HCl 500 mg 06/03/19 16:30 06/07/19 18:01 Glucophage - PO 500 mg BIDI [facility] Administration Metoprolol Succinate 25 mg 06/04/19 10:00 06/07/19 11:36 Toprol Xl - PO 25 mg DAILY [facility] Administration Nitrofurantoin Macrocrystals 100 mg 06/05/19 10:00 06/07/19 18:01 Macrodantin - PO 100 mg QID [facility] Administration Beemg-3-Hynz Ethyl Esters 1 gm 06/04/19 10:00 06/07/19 11:36 Lovaza - PO 1 gm DAILY [facility] Administration Polyethylene Glycol 17 gm 06/04/19 11:15 06/07/19 11:37 Miralax (For Daily Use) - PO 17 grams DAILY [facility] Administration Quetiapine Fumarate 25 mg 06/03/19 22:00 06/06/19 21:46 Seroquel - PO 25 mg HS [facility] Administration Sodium Chloride 1 gm 06/04/19 22:00 06/07/19 11:36 Sodium Chloride Tablet - PO 1 gm BID [facility] Administration Vilazodone HCl 20 mg 06/04/19 12:00 06/07/19 13:39 Viibryd - PO 20 mg DAILY@1200 [facility] Administration 1. Hyponatremia likely from SIADH 2. Urinary retention 3. Hypertension 4. Depression 5. Hyperlipidemia Plan - sodium improving - cont with salt tabs - restrict free water - psych eval to change vilazodone to another agent - monitor sodium levels - pt is at risk to fall
[2019-06-07] MEDS: QUEtiapine FUMARATE 25 MG TABLET (FP) PO SCH (22:15)
[2019-06-07] MEDS: ATORVASTATIN CA 10 MG TABLET (FP) PO SCH (22:15)
[2019-06-08] MEDS: busPIRone HCL 5 MG TABLET PO SCH ×3 (06:36→21:28)
[2019-06-08] MEDS ORDERED: PT OWN MED DRAWER 7, Y5N ONE ×5 (06:45→17:15)
[2019-06-08] MEDS: GLIMEPIRIDE 4 MG TABLET (FP) PO SCH (06:47)
[2019-06-08] MEDS: metFORMIN HCL 500 MG TABLET (FP) PO SCH ×2 (06:47→17:23)
[2019-06-08] MEDS: INSULIN SLIDING SCALE (NOVOLOG) 1 VIAL SQ SCH ×4 (06:49→21:26)
[2019-06-08] MEDS: LEVOTHYROXINE NA 50 MCG TABLET (FP) PO SCH (07:08)
[2019-06-08] MEDS: LOSARTAN POTASSIUM 25 MG TABLET PO SCH (10:17)
[2019-06-08] MEDS: metoPROLOL SUCCINATE 25 MG TAB.SR.24H (FP) PO SCH (10:17)
[2019-06-08] MEDS: NITROFURANTOIN MACROCRYSTAL 50 MG CAPSULE (FP) PO SCH ×4 (10:17→21:27)
[2019-06-08] MEDS: GABAPENTIN 300 MG CAPSULE (FP) PO SCH ×2 (10:17→21:26)
[2019-06-08] MEDS: amLODIPine BESYLATE 10 MG TABLET (FP) PO SCH (10:18)
[2019-06-08] MEDS: SODIUM CHLORIDE 1 GM TABLET PO SCH ×2 (10:18→21:27)
[2019-06-08] MEDS: OMEGA-3 ACID ETHYL ESTERS (FATTY-ACIDS) 1 GM CAPSULE (FP) PO SCH (10:18)
[2019-06-08] MEDS: HEPARIN NA (PORCINE) 5,000 UNITS/ML 1ML VIAL SQ SCH ×2 (11:55→21:28)
[2019-06-08] MEDS: POLYETHYLENE GLYCOL 3350 119 GM BTL PO SCH (11:55)
--- NOTE | 2019-06-08 12:25 | PN ---
Progress Note (short form) - Note Progress Note: Renal follow up for hyponatremia Seen and examined at the bedside awake and alert upset about having lock no sob, cp, abd pain no confusion or lethargy Vital Signs Temperature 97.7 F 06/08/19 10:00 Pulse Rate 73 06/08/19 10:00 Respiratory Rate 18 06/08/19 10:00 Blood Pressure 134/58 L 06/08/19 10:00 O2 Sat by Pulse Oximetry (%) 100 06/08/19 09:00 Intake & Output 06/05/19 06/06/19 06/07/19 06/08/19 23:59 23:59 23:59 23:59 Intake Total 1300 800 600 Output Total 2800 1500 1350 800 Balance -1500 -700 -750 -800 Weight 55.934 kg NAD no LE edema CBC, BMP 06/06/19 06:20 06/07/19 06:35 Current Medications Acetaminophen (Tylenol -) 650 mg PO Q6H PRN PRN Reason: PAIN LEVEL 4 - 6 Last Admin: 06/07/19 18:06 Dose: 650 mg Amlodipine Besylate (Norvasc -) 10 mg PO DAILY [facility] Last Admin: 06/08/19 10:18 Dose: 10 mg Atorvastatin Calcium (Lipitor -) 10 mg PO HS [facility] Last Admin: 06/07/19 22:15 Dose: 10 mg Buspirone HCl (Buspar -) 10 mg PO TID [facility] Last Admin: 06/08/19 06:36 Dose: 10 mg Gabapentin (Neurontin -) 600 mg PO BID [facility] Last Admin: 06/08/19 10:17 Dose: 600 mg Glimepiride (Amaryl -) 4 mg PO DAILY@0700 [facility] Last Admin: 06/08/19 06:47 Dose: 4 mg Heparin Sodium (Porcine) (Heparin -) 5,000 unit SQ BID [facility] Last Admin: 06/08/19 11:55 Dose: 5,000 unit Insulin Aspart (Novolog Vial Sliding Scale -) 1 vial SQ ACHS [facility]; Protocol Last Admin: 06/08/19 11:58 Dose: Not Given Levothyroxine Sodium (Synthroid -) 50 mcg PO DAILY@0700 [facility] Last Admin: 06/08/19 07:08 Dose: 50 mcg Losartan Potassium (Cozaar -) 25 mg PO DAILY [facility] Last Admin: 06/08/19 10:17 Dose: 25 mg Metformin HCl (Glucophage -) 500 mg PO BIDI [facility] Last Admin: 06/08/19 06:47 Dose: 500 mg Metoprolol Succinate (Toprol Xl -) 25 mg PO DAILY [facility] Last Admin: 06/08/19 10:17 Dose: 25 mg Nitrofurantoin Macrocrystals (Macrodantin -) 100 mg PO QID [facility] Last Admin: 06/08/19 10:17 Dose: 100 mg Vvckd-9-Ceaj Ethyl Esters (Lovaza -) 1 gm PO DAILY [facility] Last Admin: 06/08/19 10:18 Dose: 1 gm Polyethylene Glycol (Miralax (For Daily Use) -) 17 gm PO DAILY [facility] Last Admin: 06/08/19 11:55 Dose: 17 grams Quetiapine Fumarate (Seroquel -) 25 mg PO HS [facility] Last Admin: 06/07/19 22:15 Dose: 25 mg Sodium Chloride (Sodium Chloride Tablet -) 1 gm PO BID [facility] Last Admin: 06/08/19 10:18 Dose: 1 gm Vilazodone HCl (Viibryd -) 20 mg PO DAILY@1200 [facility] Last Admin: 06/07/19 13:39 Dose: 20 mg 73 year old woman with history of 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 1. Hyponatremia likely from SIADH 2. Urinary retention 3. Hypertension 4. Depression 5. Hyperlipidemia Urine studies consistent with SIADH Serum Na is stable on salt tabs and fluid restriction can consider outpatient psych eval to see if Vilazodone can be changed to another agent as it may be a contributor to SIADH prior imaging studies of Chest/Abd/Pelvis are without significant pathology Trend Na going into tomorrow morning Lock management as per urology Austen Degroot DO
[2019-06-08] MEDS: VILAZODONE HYDROCHLORIDE 20 MG TABLET PO SCH (12:53)
[2019-06-08] MEDS: ACETAMINOPHEN 325 MG TABLET (FP) PO PRN (13:55)
[2019-06-08] MEDS ORDERED: buPROPion HCL 100 MG TABLET PO ONE (15:17)
--- NOTE | 2019-06-08 15:23 | CON.PSY ---
Psychiatry Consult Chief Complaint: 73 [id number] female seen for Psych eval for Hyponatremia from Vilazadone anti depressant. Long history of Major Depression and being seen by a Psych in the community. Symptoms: reports: Anhedonia - Previous Psychiatric Treatment Outpatient: Less than 6 mos ago Inpatient: None - Previous Substance Abuse Treatment Outpatient: None Inpatient: None - Reason for Previous Treatment Reason for Previous Treatment: Major Depression - Current Medications Current Medications: Active Medications Acetaminophen (Tylenol -) 650 mg PO Q6H PRN PRN Reason: PAIN LEVEL 4 - 6 Last Admin: 06/08/19 13:55 Dose: 650 mg Amlodipine Besylate (Norvasc -) 10 mg PO DAILY [facility] Last Admin: 06/08/19 10:18 Dose: 10 mg Atorvastatin Calcium (Lipitor -) 10 mg PO HS [facility] Last Admin: 06/07/19 22:15 Dose: 10 mg Buspirone HCl (Buspar -) 10 mg PO TID [facility] Last Admin: 06/08/19 13:53 Dose: 10 mg Gabapentin (Neurontin -) 600 mg PO BID [facility] Last Admin: 06/08/19 10:17 Dose: 600 mg Glimepiride (Amaryl -) 4 mg PO DAILY@0700 [facility] Last Admin: 06/08/19 06:47 Dose: 4 mg Heparin Sodium (Porcine) (Heparin -) 5,000 unit SQ BID [facility] Last Admin: 06/08/19 11:55 Dose: 5,000 unit Insulin Aspart (Novolog Vial Sliding Scale -) 1 vial SQ ACHS [facility]; Protocol Last Admin: 06/08/19 11:58 Dose: Not Given Levothyroxine Sodium (Synthroid -) 50 mcg PO DAILY@0700 [facility] Last Admin: 06/08/19 07:08 Dose: 50 mcg Losartan Potassium (Cozaar -) 25 mg PO DAILY [facility] Last Admin: 06/08/19 10:17 Dose: 25 mg Metformin HCl (Glucophage -) 500 mg PO BIDI [facility] Last Admin: 06/08/19 06:47 Dose: 500 mg Metoprolol Succinate (Toprol Xl -) 25 mg PO DAILY [facility] Last Admin: 06/08/19 10:17 Dose: 25 mg Nitrofurantoin Macrocrystals (Macrodantin -) 100 mg PO QID [facility] Last Admin: 06/08/19 14:00 Dose: 100 mg Ogyml-8-Gwje Ethyl Esters (Lovaza -) 1 gm PO DAILY [facility] Last Admin: 06/08/19 10:18 Dose: 1 gm Polyethylene Glycol (Miralax (For Daily Use) -) 17 gm PO DAILY [facility] Last Admin: 06/08/19 11:55 Dose: 17 grams Sodium Chloride (Sodium Chloride Tablet -) 1 gm PO BID [facility] Last Admin: 06/08/19 10:18 Dose: 1 gm - Allergies Allergies: Allergies Allergy/AdvReac Type Severity Reaction Status Date / Time No Known Drug Allergies Allergy Verified 01/31/18 14:00 - Current Living Status Usual Living Arrangement: With Spouse - Current Mental Status Evaluation Appearance: Well Groomed Attitude: Cooperative - Affect Affect: Constrictive Appropriateness: Appropriate to Content - Mood Mood: Euthymic - Speech/Language Expressive: Coherent - Psychomotor Activity Psychomotor Activity: Slowed - Thought Process Thought Process: Intact - Thought Content Hallucinations: Absent Delusions: Absent - Self Perception Self Perception: No Impairment - Cognition Attention: Alert Orientation: Time Memory, Immediate Recall: Intact Memory, Short Term: 3/3 Memory, Remote with Promptin/3 - Concentration Serial Sevens Intact: No Simple Calculations Intact: Yes - Abstraction Proverb Interpretation: Intact Judgement: Intact - Insight Insight: Intact - Impulse Control Impulse Control: Good Control - Suicidal Ideation Suicidal Ideation: No - Homicidal Ideation Homicidal Ideation: No Assessment/Plan 1)/caleb calhoun. 2) Start Wellbutrin 100 mtg po od for Depression. 3) follow up with her OP Psych in [facility].
--- NOTE | 2019-06-08 20:49 | PN ---
Progress Note (short form) - Note Progress Note: PATIENT ASKED FOR 2ND UROLOGY OPINION FOR HER URINE RETENTION AND DOES NOT WANT A PASTRANA PLACED FOR EXTENDED TIME. TO BE DISCHARGED TO SNF AFTERWARDS. Problem List - Problems (1) Hyponatremia Code(s): E87.1 - HYPO-OSMOLALITY AND HYPONATREMIA (2) Abdominal pain Code(s): R10.9 - UNSPECIFIED ABDOMINAL PAIN Qualifiers: Abdominal location: left lower quadrant Qualified Code(s): R10.32 - Left lower quadrant pain (3) Depression Code(s): F32.9 - MAJOR DEPRESSIVE DISORDER, SINGLE EPISODE, UNSPECIFIED Qualifiers: Depression Type: other depression Qualified Code(s): F32.89 - Other specified depressive episodes (4) Diabetes mellitus Code(s): E11.9 - TYPE 2 DIABETES MELLITUS WITHOUT COMPLICATIONS Qualifiers: Diabetes mellitus type: type 2 (5) HTN (hypertension) Code(s): I10 - ESSENTIAL (PRIMARY) HYPERTENSION (6) Urinary retention Code(s): R33.9 - RETENTION OF URINE, UNSPECIFIED
[2019-06-08] MEDS: ATORVASTATIN CA 10 MG TABLET (FP) PO SCH (21:27)
[2019-06-09] MEDS ORDERED: MELATONIN 1 MG TABLET PO ONE (01:35)
[2019-06-09] MEDS: busPIRone HCL 5 MG TABLET PO SCH ×3 (06:05→21:43)
[2019-06-09] MEDS: GLIMEPIRIDE 4 MG TABLET (FP) PO SCH (06:06)
[2019-06-09] MEDS: INSULIN SLIDING SCALE (NOVOLOG) 1 VIAL SQ SCH ×4 (06:06→21:44)
[2019-06-09] MEDS: metFORMIN HCL 500 MG TABLET (FP) PO SCH ×2 (06:07→17:52)
[2019-06-09] MEDS: LEVOTHYROXINE NA 50 MCG TABLET (FP) PO SCH (06:07)
[2019-06-09 07:23] LABS: BLOOD UREA NITROGEN 10.2 mg/dL (7-18); CALCIUM 9.5 mg/dL (8.5-10.1); CREATININE 0.6 mg/dL (0.55-1.3); POTASSIUM 4.1 mmol/L (3.5-5.1)
--- NOTE | 2019-06-09 08:57 | PN ---
Progress Note, Physician Chief Complaint: AWAKE ALERT EATING BREAKFAST - Current Medication List Current Medications: Active Medications Acetaminophen (Tylenol -) 650 mg PO Q6H PRN PRN Reason: PAIN LEVEL 4 - 6 Last Admin: 06/08/19 13:55 Dose: 650 mg Amlodipine Besylate (Norvasc -) 10 mg PO DAILY [facility] Last Admin: 06/08/19 10:18 Dose: 10 mg Atorvastatin Calcium (Lipitor -) 10 mg PO [facility] Last Admin: 06/08/19 21:27 Dose: 10 mg Buspirone HCl (Buspar -) 10 mg PO TID [facility] Last Admin: 06/09/19 06:05 Dose: 10 mg Gabapentin (Neurontin -) 600 mg PO BID [facility] Last Admin: 06/08/19 21:26 Dose: 600 mg Glimepiride (Amaryl -) 4 mg PO DAILY@0700 [facility] Last Admin: 06/09/19 06:06 Dose: 4 mg Heparin Sodium (Porcine) (Heparin -) 5,000 unit SQ BID [facility] Last Admin: 06/08/19 21:28 Dose: 5,000 unit Insulin Aspart (Novolog Vial Sliding Scale -) 1 vial SQ [facility]; Protocol Last Admin: 06/09/19 06:06 Dose: Not Given Levothyroxine Sodium (Synthroid -) 50 mcg PO DAILY@0700 [facility] Last Admin: 06/09/19 06:07 Dose: 50 mcg Losartan Potassium (Cozaar -) 25 mg PO DAILY [facility] Last Admin: 06/08/19 10:17 Dose: 25 mg Melatonin (Melatonin) 3 mg PO [facility] Metformin HCl (Glucophage -) 500 mg PO BIDI [facility] Last Admin: 06/09/19 06:07 Dose: 500 mg Metoprolol Succinate (Toprol Xl -) 25 mg PO DAILY [facility] Last Admin: 06/08/19 10:17 Dose: 25 mg Nitrofurantoin Macrocrystals (Macrodantin -) 100 mg PO QID [facility] Last Admin: 06/08/19 21:27 Dose: 100 mg Dyxbp-8-Cazp Ethyl Esters (Lovaza -) 1 gm PO DAILY [facility] Last Admin: 06/08/19 10:18 Dose: 1 gm Polyethylene Glycol (Miralax (For Daily Use) -) 17 gm PO DAILY [facility] Last Admin: 06/08/19 11:55 Dose: 17 grams Sodium Chloride (Sodium Chloride Tablet -) 1 gm PO BID [facility] Last Admin: 06/08/19 21:27 Dose: 1 gm - Objective Vital Signs: Vital Signs Temperature 98.3 F 06/09/19 06:00 Pulse Rate 81 06/09/19 06:00 Respiratory Rate 18 06/09/19 06:00 Blood Pressure 136/69 06/09/19 06:00 O2 Sat by Pulse Oximetry (%) 100 06/08/19 21:00 Constitutional: Yes: Mild Distress Eyes: Yes: WNL HENT: Yes: WNL Neck: Yes: WNL Cardiovascular: Yes: WNL Respiratory: Yes: WNL Gastrointestinal: Yes: WNL Genitourinary: Yes: [place] Present Musculoskeletal: Yes: Muscle Weakness Edema: No Psychiatric: Yes: Other Labs: CBC, BMP 06/06/19 06:20 06/09/19 05:30 Problem List - Problems (1) Hyponatremia Code(s): E87.1 - HYPO-OSMOLALITY AND HYPONATREMIA (2) Abdominal pain Code(s): R10.9 - UNSPECIFIED ABDOMINAL PAIN Qualifiers: Abdominal location: left lower quadrant Qualified Code(s): R10.32 - Left lower quadrant pain (3) Depression Code(s): F32.9 - MAJOR DEPRESSIVE DISORDER, SINGLE EPISODE, UNSPECIFIED Qualifiers: Depression Type: other depression Qualified Code(s): F32.89 - Other specified depressive episodes (4) Diabetes mellitus Code(s): E11.9 - TYPE 2 DIABETES MELLITUS WITHOUT COMPLICATIONS Qualifiers: Diabetes mellitus type: type 2 (5) HTN (hypertension) Code(s): I10 - ESSENTIAL (PRIMARY) HYPERTENSION (6) Urinary retention Code(s): R33.9 - RETENTION OF URINE, UNSPECIFIED Assessment/Plan STARTED WELBUTRIN STOP VYBRIID PASTRANA STILL IN PLACE AWAITING UROLOGY 2ND OPINION PT LUIS FELIPE OOB TO CHAIR SODIUM 127 IMPROVING
[2019-06-09] MEDS: LOSARTAN POTASSIUM 25 MG TABLET PO SCH (09:59)
[2019-06-09] MEDS: HEPARIN NA (PORCINE) 5,000 UNITS/ML 1ML VIAL SQ SCH ×2 (10:00→21:43)
[2019-06-09] MEDS: OMEGA-3 ACID ETHYL ESTERS (FATTY-ACIDS) 1 GM CAPSULE (FP) PO SCH (10:01)
[2019-06-09] MEDS: NITROFURANTOIN MACROCRYSTAL 50 MG CAPSULE (FP) PO SCH ×4 (10:01→21:44)
[2019-06-09] MEDS: GABAPENTIN 300 MG CAPSULE (FP) PO SCH ×2 (10:02→21:44)
[2019-06-09] MEDS: POLYETHYLENE GLYCOL 3350 119 GM BTL PO SCH (10:02)
[2019-06-09] MEDS: SODIUM CHLORIDE 1 GM TABLET PO SCH ×2 (10:03→21:43)
[2019-06-09] MEDS: metoPROLOL SUCCINATE 25 MG TAB.SR.24H (FP) PO SCH (10:03)
[2019-06-09] MEDS: amLODIPine BESYLATE 10 MG TABLET (FP) PO SCH (10:03)
--- NOTE | 2019-06-09 10:50 | CON.GU ---
Consult Consult Specialty:: Urology Referred by:: Dr Tinoco Reason for Consultation:: AUR - History of Present Illness Chief Complaint: AUR History of Present Illness: 73 yo female w lock to [place] for one week now Pt wants lock removed at this time - History Source History Provided By: Patient, Medical Record - Past Medical History FACE BURLER: Yes: CVA, Dementia Cardio/Vascular: Yes: HTN Pulmonary: Yes: Asthma Gastrointestinal: Yes: GERD Renal/: Yes: Other (hyponatremia) Psych: Yes: Anxiety, Depression Endocrine: Yes: Diabetes Mellitus, Hypothyroidism - Alcohol/Substance Use Hx Alcohol Use: No History of Substance Use: reports: None - Smoking History Smoking history: Never smoked Have you smoked in the past 12 months: No Aproximately how many cigarettes per day: 0 - Social History Usual Living Arrangement: With Spouse ADL: Independent History of Recent Travel: No Home Medications - Allergies Allergies/Adverse Reactions: Allergies Allergy/AdvReac Type Severity Reaction Status Date / Time No Known Drug Allergies Allergy Verified 01/31/18 14:00 - Home Medications Home Medications: Ambulatory Orders Levothyroxine [Synthroid -] 50 mcg PO DAILY@0700 tablet 05/30/17 Metoprolol Succinate [Toprol XL -] 25 mg PO DAILY tab 05/30/17 Amlodipine Besylate [Norvasc -] 10 mg PO DAILY tablet 06/06/17 Calcium (Oyster Shell) [Os-Pasquale 500MG -] 500 mg PO BID #0 cap 06/06/17 Glimepiride [Amaryl -] 4 mg PO DAILY@0700 tablet 06/06/17 Atorvastatin Ca [Lipitor] 10 mg PO HS 01/31/18 Buspirone HCl [Buspar -] 5 mg PO BID 01/31/18 Cetirizine HCl 10 mg PO DAILY 01/31/18 Gabapentin [Neurontin -] 600 mg PO BID 01/31/18 Insulin Glargine,Hum.rec.anlog [Lantus] 20 unit SQ DAILY 01/31/18 [place]-3 Acid Ethyl Esters 1 gm PO DAILY 01/31/18 metFORMIN HCL [Metformin HCl] 500 mg PO BID 01/31/18 Nitrofurantoin Macrocrystal [Nitrofurantoin] 100 mg PO BID 06/03/19 Acetaminophen [Tylenol .Regular Strength -] 650 mg PO Q6H PRN tablet 06/08/19 Heparin - 5,000 unit SQ BID vial 06/08/19 Insulin Sliding Scale [Novolog Vial Sliding Scale -] 1 vial SQ ACHS units 06/08 Losartan Potassium [Cozaar -] 25 mg PO DAILY tablet 06/08/19 Nitrofurantoin Macrocrystal [Macrodantin -] 100 mg PO QID capsule 06/08/19 Polyethylene Glycol 3350 [Miralax 119 gm Btl -] 17 gm PO DAILY bottle 06/08/19 Quetiapine Fumarate [Seroquel -] 25 mg PO HS tablet 06/08/19 Sodium Chloride Tablet - 1 gm PO BID tablet 06/08/19 Physical Exam- Vital Signs: Vital Signs Temperature 98.6 F 06/09/19 09:49 Pulse Rate 81 06/09/19 09:49 Respiratory Rate 14 06/09/19 09:49 Blood Pressure 134/63 06/09/19 09:49 O2 Sat by Pulse Oximetry (%) 100 06/08/19 21:00 Labs: CBC, BMP 06/06/19 06:20 06/09/19 05:30 Imaging - Results Ultrasound: Report Reviewed Problem List - Problems (1) Urinary retention Assessment/Plan: 73 yo female in AUR s/p failed voiding trial one week ago now w lock to [place] Start flomax 0.4 mg daily Tx constipation prn voiding trial in am Follw 5 mm renal stone consider elective ESWL Code(s): R33.9 - RETENTION OF URINE, UNSPECIFIED Assessment/Plan AUR Renal docot
[2019-06-09] MEDS: TAMSULOSIN HCL 0.4 MG CAP PO SCH (12:18)
--- NOTE | 2019-06-09 12:53 | PN ---
Progress Note (short form) - Note Progress Note: Renal follow up for hyponatremia Seen and examined at the bedside awake and alert no acute complaints no sob, cp, abd pain no confusion or lethargy Vital Signs Temperature 98.6 F 06/09/19 09:49 Pulse Rate 81 06/09/19 09:49 Respiratory Rate 14 06/09/19 09:49 Blood Pressure 134/63 06/09/19 09:49 O2 Sat by Pulse Oximetry (%) 100 06/08/19 21:00 Intake & Output 06/06/19 06/07/19 06/08/19 06/09/19 23:59 23:59 23:59 23:59 Intake Total 800 600 360 120 Output Total 1500 1350 1400 1200 Balance -700 -750 -1040 -1080 Weight 55.934 kg 55.055 kg NAD no LE edema CBC, BMP 06/06/19 06:20 06/09/19 05:30 Current Medications Acetaminophen (Tylenol -) 650 mg PO Q6H PRN PRN Reason: PAIN LEVEL 4 - 6 Last Admin: 06/08/19 13:55 Dose: 650 mg Amlodipine Besylate (Norvasc -) 10 mg PO DAILY [facility] Last Admin: 06/09/19 10:03 Dose: 10 mg Atorvastatin Calcium (Lipitor -) 10 mg PO HS [facility] Last Admin: 06/08/19 21:27 Dose: 10 mg Buspirone HCl (Buspar -) 10 mg PO TID [facility] Last Admin: 06/09/19 06:05 Dose: 10 mg Gabapentin (Neurontin -) 600 mg PO BID [facility] Last Admin: 06/09/19 10:02 Dose: 600 mg Glimepiride (Amaryl -) 4 mg PO DAILY@0700 [facility] Last Admin: 06/09/19 06:06 Dose: 4 mg Heparin Sodium (Porcine) (Heparin -) 5,000 unit SQ BID [facility] Last Admin: 06/09/19 10:00 Dose: 5,000 unit Insulin Aspart (Novolog Vial Sliding Scale -) 1 vial SQ ACHS [facility]; Protocol Last Admin: 06/09/19 11:17 Dose: Not Given Levothyroxine Sodium (Synthroid -) 50 mcg PO DAILY@0700 [facility] Last Admin: 06/09/19 06:07 Dose: 50 mcg Losartan Potassium (Cozaar -) 25 mg PO DAILY [facility] Last Admin: 06/09/19 09:59 Dose: 25 mg Melatonin (Melatonin) 3 mg PO HS [facility] Metformin HCl (Glucophage -) 500 mg PO BIDI [facility] Last Admin: 06/09/19 06:07 Dose: 500 mg Metoprolol Succinate (Toprol Xl -) 25 mg PO DAILY [facility] Last Admin: 06/09/19 10:03 Dose: 25 mg Nitrofurantoin Macrocrystals (Macrodantin -) 100 mg PO QID [facility] Last Admin: 06/09/19 10:01 Dose: 100 mg Buiep-6-Azkl Ethyl Esters (Lovaza -) 1 gm PO DAILY [facility] Last Admin: 06/09/19 10:01 Dose: 1 gm Polyethylene Glycol (Miralax (For Daily Use) -) 17 gm PO DAILY [facility] Last Admin: 06/09/19 10:02 Dose: 17 grams Sodium Chloride (Sodium Chloride Tablet -) 1 gm PO BID [facility] Last Admin: 06/09/19 10:03 Dose: 1 gm Tamsulosin HCl (Flomax -) 0.4 mg PO DAILY@0830 [facility] Last Admin: 06/09/19 12:18 Dose: 0.4 mg 73 year old woman with history of 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 1. Hyponatremia likely from SIADH 2. Urinary retention 3. Hypertension 4. Depression 5. Hyperlipidemia Urine studies consistent with SIADH Serum Na is stable on salt tabs and fluid restriction prior imaging studies of Chest/Abd/Pelvis are without significant pathology Carter management as per urology, for trial of void in AM. On Flomax. Austen Degroot DO
[2019-06-09] MEDS: MELATONIN 1 MG TABLET PO SCH (21:43)
[2019-06-09] MEDS: ATORVASTATIN CA 10 MG TABLET (FP) PO SCH (21:43)
[2019-06-09] MEDS ORDERED: MELATONIN 1 MG TABLET PO SCH (22:00)
[2019-06-09] MEDS: ACETAMINOPHEN 325 MG TABLET (FP) PO PRN (22:43)
[2019-06-10] MEDS: GLIMEPIRIDE 4 MG TABLET (FP) PO SCH (06:51)
[2019-06-10] MEDS: metFORMIN HCL 500 MG TABLET (FP) PO SCH ×2 (06:51→17:37)
[2019-06-10] MEDS: LEVOTHYROXINE NA 50 MCG TABLET (FP) PO SCH (06:51)
[2019-06-10] MEDS: INSULIN SLIDING SCALE (NOVOLOG) 1 VIAL SQ SCH ×4 (06:52→21:52)
[2019-06-10] MEDS: busPIRone HCL 5 MG TABLET PO SCH ×3 (06:52→21:39)
[2019-06-10] MEDS: TAMSULOSIN HCL 0.4 MG CAP PO SCH (08:24)
[2019-06-10] MEDS: ACETAMINOPHEN 325 MG TABLET (FP) PO PRN ×2 (09:06→21:52)
[2019-06-10] MEDS: metoPROLOL SUCCINATE 25 MG TAB.SR.24H (FP) PO SCH (09:41)
[2019-06-10] MEDS: OMEGA-3 ACID ETHYL ESTERS (FATTY-ACIDS) 1 GM CAPSULE (FP) PO SCH (09:41)
[2019-06-10] MEDS: NITROFURANTOIN MACROCRYSTAL 50 MG CAPSULE (FP) PO SCH ×4 (09:41→21:39)
[2019-06-10] MEDS: LOSARTAN POTASSIUM 25 MG TABLET PO SCH (09:41)
[2019-06-10] MEDS: SODIUM CHLORIDE 1 GM TABLET PO SCH ×2 (09:41→21:38)
[2019-06-10] MEDS: HEPARIN NA (PORCINE) 5,000 UNITS/ML 1ML VIAL SQ SCH (09:42)
[2019-06-10] MEDS: GABAPENTIN 300 MG CAPSULE (FP) PO SCH ×2 (09:42→21:39)
[2019-06-10] MEDS: amLODIPine BESYLATE 10 MG TABLET (FP) PO SCH (09:42)
--- NOTE | 2019-06-10 10:49 | PN ---
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 Urinary retention Hypertension Depression Hyperlipidemia Diabetes Mellitus II - Current Medication List Current Medications: Active Medications Acetaminophen (Tylenol -) 650 mg PO Q6H PRN PRN Reason: PAIN LEVEL 4 - 6 Last Admin: 06/10/19 09:06 Dose: 650 mg Amlodipine Besylate (Norvasc -) 10 mg PO DAILY [facility] Last Admin: 06/10/19 09:42 Dose: 10 mg Atorvastatin Calcium (Lipitor -) 10 mg PO HS [facility] Last Admin: 06/09/19 21:43 Dose: 10 mg Buspirone HCl (Buspar -) 10 mg PO TID [facility] Last Admin: 06/10/19 06:52 Dose: 10 mg Gabapentin (Neurontin -) 600 mg PO BID [facility] Last Admin: 06/10/19 09:42 Dose: 600 mg Glimepiride (Amaryl -) 4 mg PO DAILY@0700 [facility] Last Admin: 06/10/19 06:51 Dose: 4 mg Heparin Sodium (Porcine) (Heparin -) 5,000 unit SQ BID [facility] Last Admin: 06/10/19 09:42 Dose: 5,000 unit Insulin Aspart (Novolog Vial Sliding Scale -) 1 vial SQ [facility]; Protocol Last Admin: 06/10/19 06:52 Dose: Not Given Levothyroxine Sodium (Synthroid -) 50 mcg PO DAILY@0700 [facility] Last Admin: 06/10/19 06:51 Dose: 50 mcg Losartan Potassium (Cozaar -) 25 mg PO DAILY [facility] Last Admin: 06/10/19 09:41 Dose: 25 mg Melatonin (Melatonin) 3 mg PO [facility] Last Admin: 06/09/19 21:43 Dose: 3 mg Metformin HCl (Glucophage -) 500 mg PO BIDI [facility] Last Admin: 06/10/19 06:51 Dose: 500 mg Metoprolol Succinate (Toprol Xl -) 25 mg PO DAILY [facility] Last Admin: 06/10/19 09:41 Dose: 25 mg Nitrofurantoin Macrocrystals (Macrodantin -) 100 mg PO QID [facility] Last Admin: 06/10/19 09:41 Dose: 100 mg [id number] Ethyl Esters (Lovaza -) 1 gm PO DAILY [facility] Last Admin: 06/10/19 09:41 Dose: 1 gm Polyethylene Glycol (Miralax (For Daily Use) -) 17 gm PO DAILY [facility] Last Admin: 06/09/19 10:02 Dose: 17 grams Sodium Chloride (Sodium Chloride Tablet -) 1 gm PO BID [facility] Last Admin: 06/10/19 09:41 Dose: 1 gm Tamsulosin HCl (Flomax -) 0.4 mg PO DAILY@0830 [facility] Last Admin: 06/10/19 08:24 Dose: 0.4 mg - Objective Vital Signs: Vital Signs Temperature 97.9 F 06/10/19 09:40 Pulse Rate 78 06/10/19 09:40 Respiratory Rate 20 06/10/19 09:40 Blood Pressure 139/67 06/10/19 09:40 O2 Sat by Pulse Oximetry (%) 96 06/09/19 21:00 Constitutional: Yes: Well Nourished, No Distress, Calm Cardiovascular: Yes: Regular Rate and Rhythm Respiratory: Yes: Regular Gastrointestinal: Yes: WNL Musculoskeletal: Yes: Muscle Weakness Extremities: Yes: WNL Edema: No Peripheral Pulses WNL: Yes Neurological: Yes: Alert, Oriented Psychiatric: Yes: Alert, Oriented Labs: CBC, BMP 06/06/19 06:20 06/09/19 05:30 Problem List - Problems (1) Hyponatremia Assessment/Plan: -Seen by nephrology -chronically hyponatremic -On NaCl tabs BID -Monitor trend o/p Code(s): E87.1 - HYPO-OSMOLALITY AND HYPONATREMIA (2) Depression Assessment/Plan: -Vibryd discontinued -Started on Buspirone 10 mg po tid -Will start Bupropion XL 150 mg po daily Code(s): F32.9 - MAJOR DEPRESSIVE DISORDER, SINGLE EPISODE, UNSPECIFIED Qualifiers: Depression Type: other depression Qualified Code(s): F32.89 - Other specified depressive episodes (3) Diabetes mellitus Assessment/Plan: -BGM AC HS -diabetic low sodium diet -Levemir 20 U in AM -ISS Code(s): E11.9 - TYPE 2 DIABETES MELLITUS WITHOUT COMPLICATIONS Qualifiers: Diabetes mellitus type: type 2 (5) Urinary retention Assessment/Plan: -Seen by urology -Started on Tamsulosin -D/C lock today for voiding trial -Bladder scan in 8 hours if pt doesn't urinate, if retaining >300 ml, re-insert lock -If pt urinates, will dc home Code(s): R33.9 - RETENTION OF URINE, UNSPECIFIED Assessment/Plan see problem list
[2019-06-10] MEDS: POLYETHYLENE GLYCOL 3350 119 GM BTL PO SCH (14:28)
--- NOTE | 2019-06-10 14:30 | PN ---
Progress Note (short form) - Note Progress Note: Renal follow up for hyponatremia Seen and examined at the bedside awake and alert very axious foely removed this am, awaiting first void. no chest pain, sob, confusion, or seizures. Vital Signs Temperature 97.6 F 06/10/19 14:19 Pulse Rate 87 06/10/19 14:19 Respiratory Rate 20 06/10/19 14:19 Blood Pressure 102/53 L 06/10/19 14:19 O2 Sat by Pulse Oximetry (%) 96 06/09/19 21:00 Intake & Output 06/07/19 06/08/19 06/09/19 06/10/19 23:59 23:59 23:59 23:59 Intake Total 600 360 500 580 Output Total 1350 1400 1850 595 Balance -750 -1040 -1350 -15 Weight 55.055 kg NAD no LE edema CBC, BMP 06/06/19 06:20 06/09/19 05:30 Current Medications Acetaminophen (Tylenol -) 650 mg PO Q6H PRN PRN Reason: PAIN LEVEL 4 - 6 Last Admin: 06/10/19 09:06 Dose: 650 mg Amlodipine Besylate (Norvasc -) 10 mg PO DAILY [facility] Last Admin: 06/10/19 09:42 Dose: 10 mg Atorvastatin Calcium (Lipitor -) 10 mg PO HS [facility] Last Admin: 06/09/19 21:43 Dose: 10 mg Bupropion HCl (Wellbutrin Xl -) 150 mg PO DAILY [facility] Last Admin: 06/10/19 14:27 Dose: 150 mg Buspirone HCl (Buspar -) 10 mg PO TID [facility] Last Admin: 06/10/19 14:27 Dose: 10 mg Gabapentin (Neurontin -) 600 mg PO BID [facility] Last Admin: 06/10/19 09:42 Dose: 600 mg Glimepiride (Amaryl -) 4 mg PO DAILY@0700 [facility] Last Admin: 06/10/19 06:51 Dose: 4 mg Heparin Sodium (Porcine) (Heparin -) 5,000 unit SQ BID [facility] Last Admin: 06/10/19 09:42 Dose: 5,000 unit Insulin Aspart (Novolog Vial Sliding Scale -) 1 vial SQ [facility]; Protocol Last Admin: 06/10/19 11:35 Dose: Not Given Levothyroxine Sodium (Synthroid -) 50 mcg PO DAILY@0700 [facility] Last Admin: 06/10/19 06:51 Dose: 50 mcg Losartan Potassium (Cozaar -) 25 mg PO DAILY [facility] Last Admin: 06/10/19 09:41 Dose: 25 mg Melatonin (Melatonin) 3 mg PO HS [facility] Last Admin: 06/09/19 21:43 Dose: 3 mg Metformin HCl (Glucophage -) 500 mg PO BIDI [facility] Last Admin: 06/10/19 06:51 Dose: 500 mg Metoprolol Succinate (Toprol Xl -) 25 mg PO DAILY [facility] Last Admin: 06/10/19 09:41 Dose: 25 mg Nitrofurantoin Macrocrystals (Macrodantin -) 100 mg PO QID [facility] Last Admin: 06/10/19 14:27 Dose: 100 mg [id number] Ethyl Esters (Lovaza -) 1 gm PO DAILY [facility] Last Admin: 06/10/19 09:41 Dose: 1 gm Polyethylene Glycol (Miralax (For Daily Use) -) 17 gm PO DAILY [facility] Last Admin: 06/10/19 14:28 Dose: 17 grams Sodium Chloride (Sodium Chloride Tablet -) 1 gm PO BID [facility] Last Admin: 06/10/19 09:41 Dose: 1 gm Tamsulosin HCl (Flomax -) 0.4 mg PO DAILY@0830 [facility] Last Admin: 06/10/19 08:24 Dose: 0.4 mg 73 year old woman with history of 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 1. Hyponatremia likely from SIADH 2. Urinary retention 3. Hypertension 4. Depression 5. Hyperlipidemia No new labs today but clinically stable Urine studies consistent with SIADH Continue salt tabs and fluid restriction prior imaging studies of Chest/Abd/Pelvis are without significant pathology Carter management as per urology, for trial of void in AM. On Flomax. off of SSRI as per psych if discharged pt should follow up with our office as an outpatient for monitoring of serum Na levels Austen Degroot DO
[2019-06-10] MEDS: ATORVASTATIN CA 10 MG TABLET (FP) PO SCH (21:38)
[2019-06-10] MEDS: MELATONIN 1 MG TABLET PO SCH (21:38)
[2019-06-11] MEDS ORDERED: PT OWN MED DRAWER 7, Y5N ONE ×2 (06:20→09:51)
[2019-06-11] MEDS: INSULIN SLIDING SCALE (NOVOLOG) 1 VIAL SQ SCH ×4 (06:45→22:26)
[2019-06-11] MEDS: LEVOTHYROXINE NA 50 MCG TABLET (FP) PO SCH (06:46)
[2019-06-11] MEDS: metFORMIN HCL 500 MG TABLET (FP) PO SCH ×2 (06:46→16:53)
[2019-06-11] MEDS: GLIMEPIRIDE 4 MG TABLET (FP) PO SCH (06:46)
[2019-06-11] MEDS: busPIRone HCL 5 MG TABLET PO SCH ×3 (06:46→22:18)
[2019-06-11] MEDS: TAMSULOSIN HCL 0.4 MG CAP PO SCH (08:58)
[2019-06-11] MEDS: SODIUM CHLORIDE 1 GM TABLET PO SCH ×2 (10:00→22:17)
[2019-06-11] MEDS: NITROFURANTOIN MACROCRYSTAL 50 MG CAPSULE (FP) PO SCH ×4 (10:00→22:17)
[2019-06-11] MEDS: metoPROLOL SUCCINATE 25 MG TAB.SR.24H (FP) PO SCH (10:00)
[2019-06-11] MEDS: OMEGA-3 ACID ETHYL ESTERS (FATTY-ACIDS) 1 GM CAPSULE (FP) PO SCH (10:00)
[2019-06-11] MEDS: GABAPENTIN 300 MG CAPSULE (FP) PO SCH ×2 (10:00→22:17)
[2019-06-11] MEDS: amLODIPine BESYLATE 10 MG TABLET (FP) PO SCH (10:00)
[2019-06-11] MEDS: LOSARTAN POTASSIUM 25 MG TABLET PO SCH (10:00)
[2019-06-11] MEDS: POLYETHYLENE GLYCOL 3350 119 GM BTL PO SCH (10:08)
--- NOTE | 2019-06-11 11:41 | DS ---
Physical Examination Vital Signs: Vital Signs Temperature 97.9 F 06/11/19 09:58 Pulse Rate 83 06/11/19 09:58 Respiratory Rate 20 06/11/19 09:58 Blood Pressure 140/72 06/11/19 09:58 O2 Sat by Pulse Oximetry (%) 99 06/10/19 10:15 Findings/Remarks: Laboratory Tests 06/03/19 06/03/19 06/03/19 10:48 10:48 11:36 WBC 6.7 RBC 4.37 Hgb 13.6 Hct 38.2 MCV 87.5 MCH 31.1 MCHC 35.6 RDW 13.0 D Plt Count 206 MPV 8.4 Absolute Neuts (auto) 4.9 Neutrophils % 74.1 Lymphocytes % 14.2 D Monocytes % 8.6 Eosinophils % 2.7 Basophils % 0.4 Nucleated RBC % 0 Sodium 123 L Potassium 4.3 Chloride 90 L Carbon Dioxide 25 Anion Gap 8 BUN 8.7 Creatinine 0.7 Est GFR (CKD-EPI)AfAm 98.23 Est GFR (CKD-EPI)NonAf 84.75 POC Glucometer Random Glucose 195 H Serum Osmolality 269 L Calcium 9.8 Phosphorus Magnesium Total Bilirubin 0.4 AST 20 ALT 38 Alkaline Phosphatase 124 H Total Protein 8.3 H Albumin 4.8 TSH Cortisol AM Sample Urine Color Yellow Urine Appearance Clear Urine pH 7.5 Ur Specific [place] 1.008 L Urine Protein 1+ H Urine Glucose (UA) Trace Urine Ketones Negative Urine Blood Negative Urine Nitrite Negative Urine Bilirubin Negative Urine Urobilinogen 0.2 Ur Leukocyte Esterase Negative Urine WBC (Auto) 2 Urine RBC (Auto) 1 Urine Casts (Auto) 0 U Epithel Cells (Auto) 0.4 Urine Bacteria (Auto) 0.2 Urine Osmolality Ur Random Sodium 06/03/19 06/03/19 06/03/19 15:30 15:30 16:48 WBC RBC Hgb Hct MCV MCH MCHC RDW Plt Count MPV Absolute Neuts (auto) Neutrophils % Lymphocytes % Monocytes % Eosinophils % Basophils % Nucleated RBC % Sodium Potassium Chloride Carbon Dioxide Anion Gap BUN Creatinine Est GFR (CKD-EPI)AfAm Est GFR (CKD-EPI)NonAf POC Glucometer 203 Random Glucose Serum Osmolality Calcium Phosphorus Magnesium Total Bilirubin AST ALT Alkaline Phosphatase Total Protein Albumin TSH Cortisol AM Sample Urine Color Urine Appearance Urine pH Ur Specific [place] Urine Protein Urine Glucose (UA) Urine Ketones Urine Blood Urine Nitrite Urine Bilirubin Urine Urobilinogen Ur Leukocyte Esterase Urine WBC (Auto) Urine RBC (Auto) Urine Casts (Auto) U Epithel Cells (Auto) Urine Bacteria (Auto) Urine Osmolality 355 Ur Random Sodium 119 06/03/19 06/04/19 06/04/19 21:06 06:33 08:05 WBC 7.2 RBC 4.18 Hgb 13.0 Hct 36.0 MCV 86.1 MCH 31.0 MCHC 36.0 RDW 13.2 Plt Count 215 MPV 8.4 Absolute Neuts (auto) 4.7 Neutrophils % 65.8 Lymphocytes % 20.5 D Monocytes % 9.2 Eosinophils % 4.0 Basophils % 0.5 Nucleated RBC % 0 Sodium Potassium Chloride Carbon Dioxide Anion Gap BUN Creatinine Est GFR (CKD-EPI)AfAm Est GFR (CKD-EPI)NonAf POC Glucometer 204 130 Random Glucose Serum Osmolality Calcium Phosphorus Magnesium Total Bilirubin AST ALT Alkaline Phosphatase Total Protein Albumin TSH Cortisol AM Sample Urine Color Urine Appearance Urine pH Ur Specific [place] Urine Protein Urine Glucose (UA) Urine Ketones Urine Blood Urine Nitrite Urine Bilirubin Urine Urobilinogen Ur Leukocyte Esterase Urine WBC (Auto) Urine RBC (Auto) Urine Casts (Auto) U Epithel Cells (Auto) Urine Bacteria (Auto) Urine Osmolality Ur Random Sodium 06/04/19 06/04/19 06/04/19 08:05 08:05 11:45 WBC RBC Hgb Hct MCV MCH MCHC RDW Plt Count MPV Absolute Neuts (auto) Neutrophils % Lymphocytes % Monocytes % Eosinophils % Basophils % Nucleated RBC % Sodium 124 L Potassium 3.7 Chloride 89 L Carbon Dioxide 25 Anion Gap 10 BUN 7.8 Creatinine 0.6 Est GFR (CKD-EPI)AfAm 103.34 Est GFR (CKD-EPI)NonAf 89.16 POC Glucometer 168 Random Glucose 135 H Serum Osmolality Calcium 9.3 Phosphorus 4.0 Magnesium 1.7 L Total Bilirubin 0.7 AST 16 ALT 30 Alkaline Phosphatase 100 Total Protein 7.3 Albumin 4.2 TSH 1.76 Cortisol AM Sample 21.6 H Urine Color Urine Appearance Urine pH Ur Specific [place] Urine Protein Urine Glucose (UA) Urine Ketones Urine Blood Urine Nitrite Urine Bilirubin Urine Urobilinogen Ur Leukocyte Esterase Urine WBC (Auto) Urine RBC (Auto) Urine Casts (Auto) U Epithel Cells (Auto) Urine Bacteria (Auto) Urine Osmolality Ur Random Sodium 06/04/19 06/04/19 06/04/19 17:27 17:30 21:06 WBC RBC Hgb Hct MCV MCH MCHC RDW Plt Count MPV Absolute Neuts (auto) Neutrophils % Lymphocytes % Monocytes % Eosinophils % Basophils % Nucleated RBC % Sodium 120 L Potassium 4.3 Chloride 86 L Carbon Dioxide 23 Anion Gap 11 BUN 11.1 Creatinine 0.7 Est GFR (CKD-EPI)AfAm 98.23 Est GFR (CKD-EPI)NonAf 84.75 POC Glucometer 203 181 Random Glucose 222 H Serum Osmolality Calcium 9.3 Phosphorus Magnesium Total Bilirubin AST ALT Alkaline Phosphatase Total Protein Albumin TSH Cortisol AM Sample Urine Color Urine Appearance Urine pH Ur Specific [place] Urine Protein Urine Glucose (UA) Urine Ketones Urine Blood Urine Nitrite Urine Bilirubin Urine Urobilinogen Ur Leukocyte Esterase Urine WBC (Auto) Urine RBC (Auto) Urine Casts (Auto) U Epithel Cells (Auto) Urine Bacteria (Auto) Urine Osmolality Ur Random Sodium 06/05/19 06/05/19 06/05/19 05:53 06:50 06:50 WBC 6.0 RBC 3.98 Hgb 12.3 Hct 34.6 MCV 86.9 MCH 30.9 MCHC 35.6 RDW 13.0 Plt Count 211 MPV 8.5 Absolute Neuts (auto) Neutrophils % Lymphocytes % Monocytes % Eosinophils % Basophils % Nucleated RBC % Sodium 126 L Potassium 3.9 Chloride 92 L Carbon Dioxide 25 Anion Gap 10 BUN 12.5 Creatinine 0.6 Est GFR (CKD-EPI)AfAm 103.34 Est GFR (CKD-EPI)NonAf 89.16 POC Glucometer 136 Random Glucose 145 H Serum Osmolality Calcium 9.2 Phosphorus 3.5 Magnesium 1.8 Total Bilirubin 0.6 AST 14 L ALT 28 Alkaline Phosphatase 106 Total Protein 6.8 Albumin 4.0 TSH Cortisol AM Sample Urine Color Urine Appearance Urine pH Ur Specific [place] Urine Protein Urine Glucose (UA) Urine Ketones Urine Blood Urine Nitrite Urine Bilirubin Urine Urobilinogen Ur Leukocyte Esterase Urine WBC (Auto) Urine RBC (Auto) Urine Casts (Auto) U Epithel Cells (Auto) Urine Bacteria (Auto) Urine Osmolality Ur Random Sodium 06/05/19 06/05/19 06/05/19 11:40 16:52 21:03 WBC RBC Hgb Hct MCV MCH MCHC RDW Plt Count MPV Absolute Neuts (auto) Neutrophils % Lymphocytes % Monocytes % Eosinophils % Basophils % Nucleated RBC % Sodium Potassium Chloride Carbon Dioxide Anion Gap BUN Creatinine Est GFR (CKD-EPI)AfAm Est GFR (CKD-EPI)NonAf POC Glucometer 208 145 174 Random Glucose Serum Osmolality Calcium Phosphorus Magnesium Total Bilirubin AST ALT Alkaline Phosphatase Total Protein Albumin TSH Cortisol AM Sample Urine Color Urine Appearance Urine pH Ur Specific [place] Urine Protein Urine Glucose (UA) Urine Ketones Urine Blood Urine Nitrite Urine Bilirubin Urine Urobilinogen Ur Leukocyte Esterase Urine WBC (Auto) Urine RBC (Auto) Urine Casts (Auto) U Epithel Cells (Auto) Urine Bacteria (Auto) Urine Osmolality Ur Random Sodium 06/06/19 06/06/19 06/06/19 06:20 06:20 06:32 WBC 6.4 RBC 4.09 Hgb 12.7 Hct 35.4 MCV 86.7 MCH 31.1 MCHC 35.9 RDW 13.0 Plt Count 222 MPV 8.6 Absolute Neuts (auto) Neutrophils % Lymphocytes % Monocytes % Eosinophils % Basophils % Nucleated RBC % Sodium 125 L Potassium 4.4 Chloride 90 L Carbon Dioxide 27 Anion Gap 8 BUN 14.6 Creatinine 0.8 Est GFR (CKD-EPI)AfAm 83.59 Est GFR (CKD-EPI)NonAf 72.12 POC Glucometer 160 Random Glucose 156 H Serum Osmolality Calcium 9.6 Phosphorus Magnesium Total Bilirubin 0.5 AST 24 ALT 38 Alkaline Phosphatase 101 Total Protein 6.9 Albumin 4.1 TSH Cortisol AM Sample Urine Color Urine Appearance Urine pH Ur Specific [place] Urine Protein Urine Glucose (UA) Urine Ketones Urine Blood Urine Nitrite Urine Bilirubin Urine Urobilinogen Ur Leukocyte Esterase Urine WBC (Auto) Urine RBC (Auto) Urine Casts (Auto) U Epithel Cells (Auto) Urine Bacteria (Auto) Urine Osmolality Ur Random Sodium 06/06/19 06/06/19 06/07/19 12:28 21:44 06:35 WBC RBC Hgb Hct MCV MCH MCHC RDW Plt Count MPV Absolute Neuts (auto) Neutrophils % Lymphocytes % Monocytes % Eosinophils % Basophils % Nucleated RBC % Sodium 127 L Potassium 4.1 Chloride 91 L Carbon Dioxide 25 Anion Gap 11 BUN 11.0 Creatinine 0.7 Est GFR (CKD-EPI)AfAm 98.23 Est GFR (CKD-EPI)NonAf 84.75 POC Glucometer 155 135 Random Glucose 125 H Serum Osmolality Calcium 9.6 Phosphorus Magnesium Total Bilirubin AST ALT Alkaline Phosphatase Total Protein Albumin TSH Cortisol AM Sample Urine Color Urine Appearance Urine pH Ur Specific [place] Urine Protein Urine Glucose (UA) Urine Ketones Urine Blood Urine Nitrite Urine Bilirubin Urine Urobilinogen Ur Leukocyte Esterase Urine WBC (Auto) Urine RBC (Auto) Urine Casts (Auto) U Epithel Cells (Auto) Urine Bacteria (Auto) Urine Osmolality Ur Random Sodium 06/07/19 06/07/19 06/08/19 06:37 22:09 06:40 WBC RBC Hgb Hct MCV MCH MCHC RDW Plt Count MPV Absolute Neuts (auto) Neutrophils % Lymphocytes % Monocytes % Eosinophils % Basophils % Nucleated RBC % Sodium Potassium Chloride Carbon Dioxide Anion Gap BUN Creatinine Est GFR (CKD-EPI)AfAm Est GFR (CKD-EPI)NonAf POC Glucometer 133 102 120 Random Glucose Serum Osmolality Calcium Phosphorus Magnesium Total Bilirubin AST ALT Alkaline Phosphatase Total Protein Albumin TSH Cortisol AM Sample Urine Color Urine Appearance Urine pH Ur Specific [place] Urine Protein Urine Glucose (UA) Urine Ketones Urine Blood Urine Nitrite Urine Bilirubin Urine Urobilinogen Ur Leukocyte Esterase Urine WBC (Auto) Urine RBC (Auto) Urine Casts (Auto) U Epithel Cells (Auto) Urine Bacteria (Auto) Urine Osmolality Ur Random Sodium 06/08/19 06/08/19 06/08/19 11:39 17:18 21:22 WBC RBC Hgb Hct MCV MCH MCHC RDW Plt Count MPV Absolute Neuts (auto) Neutrophils % Lymphocytes % Monocytes % Eosinophils % Basophils % Nucleated RBC % Sodium Potassium Chloride Carbon Dioxide Anion Gap BUN Creatinine Est GFR (CKD-EPI)AfAm Est GFR (CKD-EPI)NonAf POC Glucometer 105 128 159 Random Glucose Serum Osmolality Calcium Phosphorus Magnesium Total Bilirubin AST ALT Alkaline Phosphatase Total Protein Albumin TSH Cortisol AM Sample Urine Color Urine Appearance Urine pH Ur Specific [place] Urine Protein Urine Glucose (UA) Urine Ketones Urine Blood Urine Nitrite Urine Bilirubin Urine Urobilinogen Ur Leukocyte Esterase Urine WBC (Auto) Urine RBC (Auto) Urine Casts (Auto) U Epithel Cells (Auto) Urine Bacteria (Auto) Urine Osmolality Ur Random Sodium 06/09/19 06/09/19 06/09/19 05:30 06:03 11:10 WBC RBC Hgb Hct MCV MCH MCHC RDW Plt Count MPV Absolute Neuts (auto) Neutrophils % Lymphocytes % Monocytes % Eosinophils % Basophils % Nucleated RBC % Sodium 127 L Potassium 4.1 Chloride 94 L Carbon Dioxide 23 Anion Gap 11 BUN 10.2 Creatinine 0.6 Est GFR (CKD-EPI)AfAm 103.34 Est GFR (CKD-EPI)NonAf 89.16 POC Glucometer 146 151 Random Glucose 133 H Serum Osmolality Calcium 9.5 Phosphorus Magnesium Total Bilirubin AST ALT Alkaline Phosphatase Total Protein Albumin TSH Cortisol AM Sample Urine Color Urine Appearance Urine pH Ur Specific [place] Urine Protein Urine Glucose (UA) Urine Ketones Urine Blood Urine Nitrite Urine Bilirubin Urine Urobilinogen Ur Leukocyte Esterase Urine WBC (Auto) Urine RBC (Auto) Urine Casts (Auto) U Epithel Cells (Auto) Urine Bacteria (Auto) Urine Osmolality Ur Random Sodium 06/09/19 06/09/19 06/10/19 17:35 21:42 06:50 WBC RBC Hgb Hct MCV MCH MCHC RDW Plt Count MPV Absolute Neuts (auto) Neutrophils % Lymphocytes % Monocytes % Eosinophils % Basophils % Nucleated RBC % Sodium Potassium Chloride Carbon Dioxide Anion Gap BUN Creatinine Est GFR (CKD-EPI)AfAm Est GFR (CKD-EPI)NonAf POC Glucometer 140 116 135 Random Glucose Serum Osmolality Calcium Phosphorus Magnesium Total Bilirubin AST ALT Alkaline Phosphatase Total Protein Albumin TSH Cortisol AM Sample Urine Color Urine Appearance Urine pH Ur Specific [place] Urine Protein Urine Glucose (UA) Urine Ketones Urine Blood Urine Nitrite Urine Bilirubin Urine Urobilinogen Ur Leukocyte Esterase Urine WBC (Auto) Urine RBC (Auto) Urine Casts (Auto) U Epithel Cells (Auto) Urine Bacteria (Auto) Urine Osmolality Ur Random Sodium 06/10/19 06/10/19 06/10/19 11:34 17:05 21:51 WBC RBC Hgb Hct MCV MCH MCHC RDW Plt Count MPV Absolute Neuts (auto) Neutrophils % Lymphocytes % Monocytes % Eosinophils % Basophils % Nucleated RBC % Sodium Potassium Chloride Carbon Dioxide Anion Gap BUN Creatinine Est GFR (CKD-EPI)AfAm Est GFR (CKD-EPI)NonAf POC Glucometer 157 127 136 Random Glucose Serum Osmolality Calcium Phosphorus Magnesium Total Bilirubin AST ALT Alkaline Phosphatase Total Protein Albumin TSH Cortisol AM Sample Urine Color Urine Appearance Urine pH Ur Specific [place] Urine Protein Urine Glucose (UA) Urine Ketones Urine Blood Urine Nitrite Urine Bilirubin Urine Urobilinogen Ur Leukocyte Esterase Urine WBC (Auto) Urine RBC (Auto) Urine Casts (Auto) U Epithel Cells (Auto) Urine Bacteria (Auto) Urine Osmolality Ur Random Sodium 06/11/19 06:45 WBC RBC Hgb Hct MCV MCH MCHC RDW Plt Count MPV Absolute Neuts (auto) Neutrophils % Lymphocytes % Monocytes % Eosinophils % Basophils % Nucleated RBC % Sodium Potassium Chloride Carbon Dioxide Anion Gap BUN Creatinine Est GFR (CKD-EPI)AfAm Est GFR (CKD-EPI)NonAf POC Glucometer 154 Random Glucose Serum Osmolality Calcium Phosphorus Magnesium Total Bilirubin AST ALT Alkaline Phosphatase Total Protein Albumin TSH Cortisol AM Sample Urine Color Urine Appearance Urine pH Ur Specific [place] Urine Protein Urine Glucose (UA) Urine Ketones Urine Blood Urine Nitrite Urine Bilirubin Urine Urobilinogen Ur Leukocyte Esterase Urine WBC (Auto) Urine RBC (Auto) Urine Casts (Auto) U Epithel Cells (Auto) Urine Bacteria (Auto) Urine Osmolality Ur Random Sodium Active Medications Generic Name Dose Route Start Last Admin Trade Name Freq PRN Reason Stop Dose Admin Acetaminophen 650 mg 06/04/19 18:45 06/10/19 21:52 Tylenol - PO 650 mg Q6H PRN Administration PAIN LEVEL 4 - 6 Amlodipine Besylate 10 mg 06/04/19 10:00 06/11/19 10:00 Norvasc - PO 10 mg DAILY SERGIO Administration Atorvastatin Calcium 10 mg 06/03/19 22:00 06/10/19 21:38 Lipitor - PO 10 mg HS SERGIO Administration Bupropion HCl 150 mg 06/10/19 11:00 06/11/19 10:00 Wellbutrin Xl - PO 150 mg DAILY SERGIO Administration Buspirone HCl 10 mg 06/03/19 22:00 06/11/19 06:46 Buspar - PO 10 mg TID SERGIO Administration Gabapentin 600 mg 06/03/19 22:00 06/11/19 10:00 Neurontin - PO 600 mg BID SERGIO Administration Glimepiride 4 mg 06/04/19 07:00 06/11/19 06:46 Amaryl - PO 4 mg DAILY@0700 SERGIO Administration Insulin Aspart 1 vial 06/03/19 16:30 06/11/19 06:45 Novolog Vial Sliding Scale - SQ Not Given ACHS [facility] Protocol Levothyroxine Sodium 50 mcg 06/04/19 07:00 06/11/19 06:46 Synthroid - PO 50 mcg DAILY@0700 SERGIO Administration Losartan Potassium 25 mg 06/04/19 10:00 06/11/19 10:00 Cozaar - PO 25 mg DAILY SERGIO Administration Melatonin 3 mg 06/08/19 23:36 06/10/19 21:38 Melatonin PO 3 mg HS SERGIO Administration Metformin HCl 500 mg 06/03/19 16:30 06/11/19 06:46 Glucophage - PO 500 mg BIDI SERGIO Administration Metoprolol Succinate 25 mg 06/04/19 10:00 06/10/19 09:41 Toprol Xl - PO 25 mg DAILY SERGIO Administration Nitrofurantoin Macrocrystals 100 mg 06/05/19 10:00 06/11/19 10:00 Macrodantin - PO 100 mg QID SERGIO Administration [id number] Ethyl Esters 1 gm 06/04/19 10:00 06/11/19 10:00 Lovaza - PO 1 gm DAILY SERGIO Administration Polyethylene Glycol 17 gm 06/04/19 11:15 06/11/19 10:08 Miralax (For Daily Use) - PO 17 grams DAILY SERGIO Administration Sodium Chloride 1 gm 06/04/19 22:00 06/11/19 10:00 Sodium Chloride Tablet - PO 1 gm BID SERGIO Administration Tamsulosin HCl 0.4 mg 06/09/19 11:30 06/11/19 08:58 Flomax - PO 0.4 mg DAILY@0830 SERGIO Administration Microbiology 06/03/19 11:36 Urine - Urine Carter Urine Culture - Final NO GROWTH OBTAINED Constitutional: Yes: No Distress, Calm Eyes: Yes: Conjunctiva Clear HENT: Yes: Atraumatic Cardiovascular: Yes: Regular Rate and Rhythm Respiratory: Yes: Regular, CTA Bilaterally Gastrointestinal: Yes: Normal Bowel Sounds, Soft Musculoskeletal: Yes: Muscle Weakness Extremities: Yes: WNL Edema: No Neurological: Yes: Alert, Oriented, Weakness Psychiatric: Yes: Alert, Oriented Labs: CBC, BMP 06/06/19 06:20 06/09/19 05:30 Discharge Summary Problems reviewed: Yes Reason For Visit: HYPONATREMIA Current Active Problems Hyponatremia (Acute) Hospital Course: Patient is a 74 y/o female with past medical history of HTN, HLD, DM, asthma, CVA, Dementia, Depression, and Hyponatremia. Patient presented to ER with complaints of lower abdominal pressure and difficulty urinating that started last night. Denies hematuria or dysuria. Patient denies any alleviating or exacerbating factors to lower abdominal pressure. Patient was seen by PMD a few days ago and was placed on Macrobid. Hypontremia has improved, will need nephrology follow up as outpatient. Followed by Urology and FC was placed. When FC discontinued patient voiding on own. will need follow up with urology as outpatient. Condition: Stable - Instructions Diet, Activity, Other Instructions: follow up with urology as outpatient continue with medication as prescribed CMP weekly to monitor Na level return to ER if develop AMS, hyponatremia, fever, respiratory distress, chest pain Referrals: Pk Garcia MD., [Staff Physician] - Leeann Sotelo MD [Staff Physician] - Disposition: VNS/HOME HEALTH CARE - Home Medications Comprehensive Discharge Medication List: Ambulatory Orders Levothyroxine [Synthroid -] 50 mcg PO DAILY@0700 tablet 05/30/17 Metoprolol Succinate [Toprol XL -] 25 mg PO DAILY tab 05/30/17 Amlodipine Besylate [Norvasc -] 10 mg PO DAILY tablet 06/06/17 Calcium (Oyster Shell) [Os-Pasquale 500MG -] 500 mg PO BID #0 cap 06/06/17 Glimepiride [Amaryl -] 4 mg PO DAILY@0700 tablet 06/06/17 Atorvastatin Ca [Lipitor] 10 mg PO HS 01/31/18 Buspirone HCl [Buspar -] 5 mg PO BID 01/31/18 Cetirizine HCl 10 mg PO DAILY 01/31/18 Gabapentin [Neurontin -] 600 mg PO BID 01/31/18 Insulin Glargine,Hum.rec.anlog [Lantus] 20 unit SQ DAILY 01/31/18 Bard-3 Acid Ethyl Esters 1 gm PO DAILY 01/31/18 metFORMIN HCL [Metformin HCl] 500 mg PO BID 01/31/18 Acetaminophen [Tylenol .Regular Strength -] 650 mg PO Q6H PRN tablet 06/08/19 Heparin - 5,000 unit SQ BID vial 06/08/19 Insulin Sliding Scale [Novolog Vial Sliding Scale -] 1 vial SQ ACHS units 06/08 Losartan Potassium [Cozaar -] 25 mg PO DAILY tablet 06/08/19 Polyethylene Glycol 3350 [Miralax 119 gm Btl -] 17 gm PO DAILY bottle 06/08/19 Quetiapine Fumarate [Seroquel -] 25 mg PO HS tablet 06/08/19 Sodium Chloride Tablet - 1 gm PO BID tablet 06/08/19 Bupropion HCl [Wellbutrin Xl -] 150 mg PO DAILY tab.sr.24h 06/10/19 Nitrofurantoin Macrocrystal [Nitrofurantoin] 100 mg PO BID #6 cap 06/10/19 Tamsulosin HCl [Flomax -] 0.4 mg PO DAILY@0830 cap.er.24h 06/10/19
[2019-06-11] MEDS: ACETAMINOPHEN 325 MG TABLET (FP) PO PRN ×2 (11:50→22:55)
--- NOTE | 2019-06-11 15:39 | PN ---
Progress Note (short form) - Note Progress Note: Renal follow up for hyponatremia Seen and examined at the bedside awake and alert no acute complaints denies any confusion, lethargy, or seizures Vital Signs Temperature 97.9 F 06/11/19 09:58 Pulse Rate 83 06/11/19 09:58 Respiratory Rate 20 06/11/19 09:58 Blood Pressure 140/72 06/11/19 09:58 O2 Sat by Pulse Oximetry (%) 99 06/10/19 10:15 Intake & Output 06/08/19 06/09/19 06/10/19 06/11/19 23:59 23:59 23:59 23:59 Intake Total 360 500 945 Output Total 1400 1850 945 Balance -1040 -1350 0 Weight 55.055 kg NAD no LE edema CBC, BMP 06/06/19 06:20 06/09/19 05:30 Current Medications Acetaminophen (Tylenol -) 650 mg PO Q6H PRN PRN Reason: PAIN LEVEL 4 - 6 Last Admin: 06/11/19 11:50 Dose: 650 mg Amlodipine Besylate (Norvasc -) 10 mg PO DAILY [facility] Last Admin: 06/11/19 10:00 Dose: 10 mg Atorvastatin Calcium (Lipitor -) 10 mg PO HS [facility] Last Admin: 06/10/19 21:38 Dose: 10 mg Bupropion HCl (Wellbutrin Xl -) 150 mg PO DAILY [facility] Last Admin: 06/11/19 10:00 Dose: 150 mg Buspirone HCl (Buspar -) 10 mg PO TID [facility] Last Admin: 06/11/19 14:03 Dose: 10 mg Gabapentin (Neurontin -) 600 mg PO BID [facility] Last Admin: 06/11/19 10:00 Dose: 600 mg Glimepiride (Amaryl -) 4 mg PO DAILY@0700 [facility] Last Admin: 06/11/19 06:46 Dose: 4 mg Insulin Aspart (Novolog Vial Sliding Scale -) 1 vial SQ [facility]; Protocol Last Admin: 06/11/19 11:49 Dose: Not Given Levothyroxine Sodium (Synthroid -) 50 mcg PO DAILY@0700 [facility] Last Admin: 06/11/19 06:46 Dose: 50 mcg Losartan Potassium (Cozaar -) 25 mg PO DAILY [facility] Last Admin: 06/11/19 10:00 Dose: 25 mg Melatonin (Melatonin) 3 mg PO HS [facility] Last Admin: 06/10/19 21:38 Dose: 3 mg Metformin HCl (Glucophage -) 500 mg PO BIDI [facility] Last Admin: 06/11/19 06:46 Dose: 500 mg Metoprolol Succinate (Toprol Xl -) 25 mg PO DAILY [facility] Last Admin: 06/11/19 10:00 Dose: 25 mg Nitrofurantoin Macrocrystals (Macrodantin -) 100 mg PO QID [facility] Last Admin: 06/11/19 14:03 Dose: 100 mg [id number] Ethyl Esters (Lovaza -) 1 gm PO DAILY [facility] Last Admin: 06/11/19 10:00 Dose: 1 gm Polyethylene Glycol (Miralax (For Daily Use) -) 17 gm PO DAILY [facility] Last Admin: 06/11/19 10:08 Dose: 17 grams Sodium Chloride (Sodium Chloride Tablet -) 1 gm PO BID [facility] Last Admin: 06/11/19 10:00 Dose: 1 gm Tamsulosin HCl (Flomax -) 0.4 mg PO DAILY@0830 [facility] Last Admin: 06/11/19 08:58 Dose: 0.4 mg 73 year old woman with history of 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 1. Hyponatremia likely from SIADH 2. Urinary retention 3. Hypertension 4. Depression 5. Hyperlipidemia No new labs today but clinically stable Urine studies consistent with SIADH Continue salt tabs and fluid restriction prior imaging studies of Chest/Abd/Pelvis are without significant pathology Carter management as per urology, for trial of void in AM. On Flomax. off of SSRI as per psych for discharge home today our office contact information provided to arrange outpatient follow up Austen Degroot DO
[2019-06-11] MEDS: ATORVASTATIN CA 10 MG TABLET (FP) PO SCH (22:17)
[2019-06-11] MEDS: MELATONIN 1 MG TABLET PO SCH (22:17)
[2019-06-12] MEDS: busPIRone HCL 5 MG TABLET PO SCH (05:34)
[2019-06-12] MEDS: LEVOTHYROXINE NA 50 MCG TABLET (FP) PO SCH (05:59)
[2019-06-12 07:01] VITALS: BP 139/65; PULSE 83; TEMP 97.6
[2019-06-12] MEDS: GABAPENTIN 300 MG CAPSULE (FP) PO SCH (09:13)
[2019-06-12] MEDS: OMEGA-3 ACID ETHYL ESTERS (FATTY-ACIDS) 1 GM CAPSULE (FP) PO SCH (09:14)
[2019-06-12] MEDS: amLODIPine BESYLATE 10 MG TABLET (FP) PO SCH (09:14)
[2019-06-12] MEDS: LOSARTAN POTASSIUM 25 MG TABLET PO SCH (09:14)
[2019-06-12] MEDS: metoPROLOL SUCCINATE 25 MG TAB.SR.24H (FP) PO SCH (09:14)
[2019-06-12] MEDS: TAMSULOSIN HCL 0.4 MG CAP PO SCH (09:14)
[2019-06-12] MEDS: SODIUM CHLORIDE 1 GM TABLET PO SCH (09:14)
[2019-06-12] MEDS: metFORMIN HCL 500 MG TABLET (FP) PO SCH (09:36)
[2019-06-12] MEDS: GLIMEPIRIDE 4 MG TABLET (FP) PO SCH (09:36)
[2019-06-12] MEDS: INSULIN SLIDING SCALE (NOVOLOG) 1 VIAL SQ SCH ×2 (10:20→12:21)
[2019-06-12] MEDS: POLYETHYLENE GLYCOL 3350 119 GM BTL PO SCH (10:20)
== END 2019-06-12 12:04 | DRG 644 ==
LOC: JER 09:55 → JERBED 13:38 → J5S 14:57
PROVIDERS: ADMIT Family Medicine; ATTEND Family Medicine
DX: E22.2 Syndrome of inappropriate secretion of antidiuretic hormone (principal); N39.0 Urinary tract infection, site not specified; R33.9 Retention of urine, unspecified; I10 Essential (primary) hypertension; E78.5 Hyperlipidemia, unspecified; E11.9 Type 2 diabetes mellitus without complications; K21.9 Gastro-esophageal reflux disease without esophagitis; E03.9 Hypothyroidism, unspecified; F41.8 Other specified anxiety disorders
CPT/HCPCS: 36415; 71045-TC-FY; 76775-TC; 76856-TC; 80048; 80053; 81003; 82533; 82962; 83735; 83930; 83935; 84100; 84300; 84436; 84443; 85025; 85027; 87086; 93005; 93010; 97116-GP; 97162-GP; 99284-25; J1644; J7030

== ENCOUNTER 2019-07-10 11:31 | Day surgery (SDC) | payer OTHER ==
[2019-07-09 16:50] VITALS: BMI 22.6
[2019-07-10] MEDS ORDERED: oxyCODONE HCL 5 MG TABLET PO PRN (13:25)
[2019-07-10] MEDS ORDERED: PROMETHAZINE HCL 25 MG/1 ML VIAL IVPB PRN (13:25)
[2019-07-10] MEDS ORDERED: ONDANSETRON 4 MG/2 ML VIAL IVPUSH PRN (13:25)
[2019-07-10] MEDS ORDERED: LACTATED RINGERS SOLUTION 1,000 ML IV SCH (13:30)
[2019-07-10] MEDS ORDERED: MIDAZOLAM HCL 2 MG/2 ML SINGLE DOSE VIAL ONE (13:43)
[2019-07-10] MEDS ORDERED: ceFAZolin SODIUM 1 GM VIAL IVPB ONE (13:48)
[2019-07-10] MEDS ORDERED: PROPOFOL 20 ML ONE (13:50)
[2019-07-10] MEDS ORDERED: ePHEDrine SULFATE 50 MG/1 ML AMPULE ONE ×2 (14:05→14:06)
[2019-07-10] MEDS ORDERED: EPHEDRINE SULFATE/0.9% NACL/PF 50 MG/10 ML SYRINGE NR ONE (14:10)
--- NOTE | 2019-07-10 17:25 | CONS ---
DATE OF CONSULTATION: DATE OF DICTATION: 07/10/2019 HISTORY OF PRESENT ILLNESS: The patient is a 73-year-old female with history of recurrent urinary tract infections and micturition disorder consisting of frequency, dribbling, and hesitancy. Patient has had a Carter catheter because of an inability to void. She has been placed on alpha blockers without any help. She has history of recurrent urinary tract infections. She also has history of diabetes and high blood pressure and dyslipidemia. She denies any allergies. She is G5, P5, status post total abdominal hysterectomy. She is on multiple medications including levothyroxine, Cozaar, Norvasc, a statin, gabapentin, and heparin. An ultrasound of her kidneys reveals normal upper tracts but a thickened bladder. PHYSICAL EXAMINATION: A dry vaginal introitus with atrophic vaginitis, a grade 2 cystocele and meatal scarring. 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 The plan is cystourethroscopy and optical internal urethrotomy. Procedure has been explained to patient as well as patient's daughter, and they both agree. Neo [id number]
[2019-07-10 18:39] VITALS: BP 138/68; PULSE 87; TEMP 97.8
--- NOTE | 2019-07-27 09:31 | OP ---
DATE OF OPERATION: 07/10/2019 PREOPERATIVE DIAGNOSIS: Urinary retention and recurrent urinary tract infection. POSTOPERATIVE DIAGNOSIS: Meatal stenosis, urethral stricture. OPERATIVE PROCEDURE: Cystourethroscopy and optical internal urethrotomy. ANESTHESIA: General. DESCRIPTION OF PROCEDURE: Under above-stated anesthesia, patient was prepped and draped in the usual sterile manner. She was placed in the dorsal lithotomy position. Inspection of the external genitalia revealed atrophic vaginitis with a grade 2 cystorectocele and a grade 1 rectocele. Meatus appeared to be dry and atrophic. A cystoscope was attempted, but the meatus was non-accommodating. Therefore, using straight Madison sounds, the meatus was dilated to 24-Barbadian without difficulty or bleeding. The scope was inserted. The urine was collected for culture and cytology. Inspection of the bladder revealed a grade 2 trabeculation. There were no lesions or calculi. Dome and lateral childers were clear. Ureteral orifices were within normal limits with efflux of clear urine. An optical urethrotome was inserted and the bladder neck was excised at the 12 o'clock position. No active bleeding was noted; therefore, the bladder was emptied. The scope was removed. A 20-Barbadian Carter was inserted and connected to a leg bag. The patient tolerated the procedure well. She returned to the recovery room in good condition. Neo [id number]
== END 2019-07-10 18:15 | disposition home or self-care (01) ==
LOC: JASU-SURG 11:31
PROVIDERS: ATTEND Urology
PROC: 0TND8ZZ Release Urethra, Via Natural or Artificial Opening Endoscopic (ICD-10-PCS; principal; 2019-07-10 12:00)
DX: N35.92 Unspecified urethral stricture, female (principal); N39.0 Urinary tract infection, site not specified; I10 Essential (primary) hypertension; E11.9 Type 2 diabetes mellitus without complications
CPT/HCPCS: 82962; 94760

== ENCOUNTER 2019-07-19 10:38 | Emergency (ER) | payer OTHER ==
--- NOTE | 2019-07-19 11:01 | PDOC ---
History of Present Illness - General Chief Complaint: Urinary Problem Stated Complaint: ABD PAIN Time Seen by Provider: 07/19/19 10:56 - History of Present Illness Initial Comments: 07/19/19 10:57 73 yo F with h/o HTN, DM, Dementia, hypernatremia, CVA, Urinary retention, recurrent UTI's who p/w urinary retention. Patient reports inability to urinate beginning 07/17/19, with dribbling of urine, and dysuria. Also endorses 05/26 suprpapubic/lower abdominal discomfort, unremitting. Denies hematuria. Patient admitted [facility] ( 06/03-06/12) urinary obstruction 2/ .Patient with meatal stenosis 2/ meatal scarring, s/p cystourethroscopy and internal urethrotomy . Reports lock catheter discontinuation 07/13/19. Patient denies NAQVI, vision change, palpitations, cough, wheezing, orthopena, PND, leg swelling/pain , N/V, F,C, CP, SOB, hematuria, BPR, diarrhea, constipation, lightheadedness, weakness, sensory changes. Patient lives at home alone. PMHx: as noted above PMD: Dr. Alford Surgical Total Abdominal Hysterectomy ROS: as noted SHx: Denies Etoh, IVDA, tobacco use Allergies: NKDA Past History - Past Medical History Allergies/Adverse Reactions: Allergies Allergy/AdvReac Type Severity Reaction Status Date / Time No Known Drug Allergies Allergy Verified 07/09/19 16:34 Home Medications: Ambulatory Orders Levothyroxine [Synthroid -] 50 mcg PO DAILY@0700 tablet 05/30/17 Metoprolol Succinate [Toprol XL -] 25 mg PO DAILY tab 05/30/17 Amlodipine Besylate [Norvasc -] 10 mg PO DAILY tablet 06/06/17 Calcium (Oyster Shell) [Os-Pasquale 500MG -] 500 mg PO BID #0 cap 06/06/17 Glimepiride [Amaryl -] 4 mg PO DAILY@0700 tablet 06/06/17 Atorvastatin Ca [Lipitor] 10 mg PO HS 01/31/18 Buspirone HCl [Buspar -] 5 mg PO BID 01/31/18 Cetirizine HCl 10 mg PO DAILY 01/31/18 Gabapentin [Neurontin -] 600 mg PO BID 01/31/18 Insulin Glargine,Hum.rec.anlog [Lantus] 20 unit SQ HS 01/31/18 [place]-3 Acid Ethyl Esters 1 gm PO DAILY 01/31/18 metFORMIN HCL [Metformin HCl] 500 mg PO BID 01/31/18 Acetaminophen [Tylenol .Regular Strength -] 650 mg PO Q6H PRN tablet 06/08/19 Quetiapine Fumarate [Seroquel -] 25 mg PO HS tablet 06/08/19 Bupropion HCl [Bupropion HCl Sr] 150 mg PO DAILY 07/19/19 Hydrochlorothiazide 12.5 mg PO DAILY 07/19/19 Sodium Chloride Tablet - 1 gm PO BID 07/19/19 Anemia: No Asthma: Yes Cancer: No Cardiac Disorders: No CVA: Yes (2013,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") COPD: No CHF: No Dementia: No Diabetes: Yes GI Disorders: No Disorders: No HTN: Yes Hypercholesterolemia: Yes Liver Disease: No Psychiatric Problems: Yes (dementia, depression) Seizures: Yes Thyroid Disease: Yes - Surgical History Abdominal Surgery: No Appendectomy: No Cardiac Surgery: No Cholecystectomy: No Lung Surgery: No Neurologic Surgery: No Orthopedic Surgery: Yes (BACK SURGERY) - Reproductive History Therapeutic (s) & number: No - Immunization History Immunization Up to Date: No - Psycho Social/Smoking Cessation Hx Smoking Status: No Smoking History: Never smoked Have you smoked in the past 12 months: No Number of Cigarettes Smoked Daily: 0 Information on smoking cessation initiated: No Hx Alcohol Use: No Drug/Substance Use Hx: No Substance Use Type: None Hx Substance Use Treatment: No Review of Systems - Review of Systems Comments:: 07/19/19 11:06 GENERAL/CONSTITUTIONAL: No fever or chills. No weakness. HEAD, EYES, EARS, NOSE AND THROAT: No change in vision. No ear pain or discharge. No sore throat. CARDIOVASCULAR: No chest pain or shortness of breath RESPIRATORY: No cough, wheezing, or hemoptysis. GASTROINTESTINAL: No nausea, vomiting, diarrhea or constipation. GENITOURINARY: + Urinary retention, dysuria, and decreased frequency. + Lower abdominal pain MUSCULOSKELETAL: No joint or muscle swelling or pain. No neck or back pain. SKIN: No rash NEUROLOGIC: No headache, vertigo, loss of consciousness, or change in strength/ sensation. ENDOCRINE: No increased thirst. No abnormal weight change HEMATOLOGIC/LYMPHATIC: No anemia, easy bleeding, or history of blood clots. ALLERGIC/IMMUNOLOGIC: No hives or skin allergy. *Physical Exam - Vital Signs Last Vital Signs Temp Pulse Resp BP Pulse Ox 98.9 F 92 H 20 130/63 100 07/19/19 10:46 07/19/19 10:46 07/19/19 10:46 07/19/19 10:46 07/19/19 10:46 - Physical Exam Comments: 07/19/19 11:06 GENERAL: Awake, alert, and fully oriented, in no acute distress HEAD: No signs of trauma, normocephalic, atraumatic EYES: PERRLA, EOMI, sclera anicteric, conjunctiva clear ENT: Auricles normal inspection, hearing grossly normal, nares patent, oropharynx clear without exudates. Moist mucosa NECK: Normal ROM, supple, no lymphadenopathy, JVD, or masses LUNGS: No distress, speaks full sentences, clear to auscultation bilaterally HEART: Regular rate and rhythm, normal S1 and S2, no murmurs, rubs or gallops, peripheral pulses normal and equal bilaterally. ABDOMEN: + Lower abdominal / suprpapubic ttp. Soft, normoactive bowel sounds. No guarding, no rebound. No masses. Neg CVA ttp. EXTREMITIES : Normal inspection, Normal range of motion, no edema. No clubbing or cyanosis NEUROLOGICAL: Cranial nerves II through XII grossly intact. Normal speech, normal gait, no focal sensorimotor deficits SKIN: Warm, Dry, normal turgor, no rashes or lesions noted ED Treatment Course - LABORATORY CBC & Chemistry Diagram: 07/19/19 11:22 07/19/19 11:22 Medical Decision Making - Medical Decision Making 07/19/19 11:56 73 yo F with h/o HTN, DM, Dementia, hypernatremia, CVA, Urinary retention, recurrent UTI's who p/w urinary retention, dysuria, crampy, lower abdominal pain x 2 days. Vitals wnl, AF, A&Ox3. Physical exam notable for suparpubic ttp. Will evaluate for urinary retention, obstructive uropathy, urinary tract infection. Will also asses for lectolyte abnml, metabolic and toxic derangements , and provide symptom relief. ED Course: 07/19/19 11:58 Bedside Renal/Bladder U/S: 650 cc bladder volume 07/19/19 12:02 07/19/19 12:[address] Jax Brock answering service [phone]. Awaiting call back to ED 07/19/19 12:31 Laboratory Tests 07/19/19 07/19/19 11:22 11:22 WBC 6.4 Hgb 11.3 Hct 31.9 L Plt Count 174 D Sodium 125 L BUN 6.9 L Creatinine 0.7 07/19/19 14:11 Patient voided spontaneously x 2 within ED stay, 700 cc measured UOP. 07/19/19 14:[address] Brock will place 16 Fr Lock, and follow up outpt. in office 07/20/19 1 : 00 PM. 07/19/19 14:52 Patient and patient daughter refuse lock 07/19/19 14:53 Laboratory Tests 07/19/19 14:10 Urine Color Yellow Urine Appearance Cloudy Urine pH 7.5 Urine Ketones Negative Urine Blood Negative Urine Nitrite Negative Ur Leukocyte Esterase 3+ H Urine WBC (Auto) 131 Urine RBC (Auto) 6 Urine Bacteria (Auto) 1416.8 Treat with Keflex for UTI Stable for d/c with return precautions Discharge - Discharge Information Clinical Impression/Diagnosis: Urinary (tract) obstruction Condition: Stable - Admission No - Follow up/Referral Referrals: Gladys Tinoco MD [Primary Care Provider] - Jax Brock MD [Staff Physician] - - Patient Discharge Instructions Patient Printed Discharge Instructions: DI for Urinary Tract Infection (UTI) Additional Instructions: Please return to the emergency department with any new or worsening symptoms or concerns. Please follow up with Dr. Brock in office 1: 00 PM tomorrow (07/20/19 ). - Post Discharge Activity
[2019-07-19 11:19] VITALS: BMI 21.9
[2019-07-19 11:57] LABS: ALBUMIN 4.1 g/dl (3.4-5.0); BILIRUBIN,TOTAL 0.6 mg/dL (0.2-1); BLOOD UREA NITROGEN 6.9 mg/dL (7-18); CALCIUM 8.9 mg/dL (8.5-10.1); CREATININE 0.7 mg/dL (0.55-1.3); POTASSIUM 4.5 mmol/L (3.5-5.1); TOT PROT 6.9 g/dl (6.4-8.2)
[2019-07-19] MEDS ORDERED: ACETAMINOPHEN 1000 MG/100 ML VIAL (NON FORMULARY) IVPB ONE (12:15)
[2019-07-19] MEDS ORDERED: ACETAMINOPHEN INJECTION 100 ML IVPB ONE (12:18)
[2019-07-19 12:23] LABS: BASO % 0.2 % (0-2.0); EOS % 1.4 % (0-4.5); HEMATOCRIT 31.9 % (32.4-45.2); HEMOGLOBIN 11.3 GM/dL (10.7-15.3); LYMPH % 11.1 % (8-40); MCH 31.7 pg (25.7-33.7); MCHC 35.3 g/dl (32.0-36.0); MEAN CELL VOLUME 89.7 fl (80-96); MONO % 8.9 % (3.8-10.2); NEUT % 78.4 % (42.8-82.8); PLATELET COUNT 174 K/MM3 (134-434); RDW 15.2 % (11.6-15.6); WHITE BLOOD COUNT 6.4 K/mm3 (4.0-10.0)
[2019-07-19 12:25] LABS: RBC 3.56 M/mm3 (3.60-5.2)
--- NOTE | 2019-07-19 14:13 | PDOC ---
Documentation entered by Jarad Mason SCRIBE, acting as scribe for Raffy Patino MD. Raffy Patino MD: This documentation has been prepared by the Marlon mejía Daniel, SCRIBE, under my direction and personally reviewed by me in its entirety. I confirm that the documentation accurately reflects all work, treatment, procedures, and medical decision making performed by me. Attending Attestation - Resident Resident Name: AlphonsoWoody - ED Attending Attestation I have performed the following: I have examined & evaluated the patient, The case was reviewed & discussed with the resident, I agree w/resident's findings & plan, Exceptions are as noted - HPI HPI: 07/19/19 12:32 The patient is a 73 year old female with a past medical history of HTN, diabetes , dementia, hypernatremia, CVA, urinary stricture s/p dilation, and recurrent UTI's here today for evaluation of 2 days of dysuria. The patient reports that she has had 2 days of dysuria and suprapubic pain. She states that her pain has gotten worse and was unable to urinate today which prompted her to come to the ED today. She states that her urine was normal in color but is unsure if there was any odor. Patient denies headache, lightheadedness. Denies fever, chills. Denies chest pain, shortness of breath. Denies nausea, vomiting, diarrhea. Allergies: penicillins PCP: Gladys Tinoco - Physicial Exam PE: 07/19/19 12:19 GENERAL: The patient is awake, alert, and fully oriented, Nontoxic - in no acute distress. HEAD: Normocephalic, atraumatic. ABDOMEN: Soft, mild distension of lower pelvis and tenderness, No guarding, no rebound. No CVA tenderness EXTREMITIES: Normal range of motion, no edema. NEUROLOGICAL: No facial assymetry, Normal speech, PSYCH: Normal mood, normal affect. SKIN: Warm, Dry, normal turgor, - Medical Decision Making 07/19/19 12:20 suspect urinary retention will discuss with urology regarding possible cathter - due o recent instrumentation/urethral surgery will ck labs to screen for renal failure 07/19/19 14:12 labs reviewed pt was able to uniate here stil large amont of urine in bladder - bekah polk - will dc with outpatient management 07/19/19 14:52 will start abx for uti
[2019-07-19 14:24] LABS: EPI CELLS 0 /HPF (0-5/HPF); HYALINE CASTS 4 /lpf (0-8); PH,URINE 7.5 (5.0-8.0); URINE APPEARANCE CLOUDY; URINE BACTERIA 1416.8 /hpf (NEGATIVE); URINE BILIRUBIN NEGATIVE (NEGATIVE); URINE COLOR YELLOW; URINE GLUCOSE (UA) 1+ (NEGATIVE); URINE KETONE NEGATIVE (NEGATIVE); URINE LEUK ESTERASE 3+ (NEGATIVE); URINE NITRITE NEGATIVE (NEGATIVE); URINE PROTEIN NEGATIVE (NEGATIVE); URINE RBC 6 /hpf (0-4); URINE UROBILINOGEN 0.2 mg/dL (0.2-1.0); URINE WBC 131 /hpf (0-5)
[2019-07-19] MEDS ORDERED: CEPHALEXIN MONOHYDRATE 500 MG CAPSULE (UD) PO ONE (14:52)
[2019-07-19] MEDS ORDERED: CEPHALEXIN MONOHYDRATE 500 MG CAPSULE (UD) ONE (14:56)
[2019-07-19 15:18] VITALS: BP 141/69; PULSE 94; TEMP 97.8
== END 2019-07-19 15:19 | disposition home or self-care (01) ==
LOC: JER 10:38
PROC: 3E033NZ Introduction of Analgesics, Hypnotics, Sedatives into Peripheral Vein, Percutaneous Approach (ICD-10-PCS; principal; 2019-07-19)
DX: N39.0 Urinary tract infection, site not specified (principal); B96.89 Other specified bacterial agents as the cause of diseases classified elsewhere; I10 Essential (primary) hypertension; E03.9 Hypothyroidism, unspecified; E11.9 Type 2 diabetes mellitus without complications; Z79.4 Long term (current) use of insulin; E78.00 Pure hypercholesterolemia, unspecified; F03.90 Unspecified dementia, unspecified severity, without behavioral disturbance, psychotic disturbance, mood disturbance, and anxiety; F32.9 Major depressive disorder, single episode, unspecified; G40.909 Epilepsy, unspecified, not intractable, without status epilepticus; I69.893 Ataxia following other cerebrovascular disease; J45.909 Unspecified asthma, uncomplicated
CPT/HCPCS: 36415; 80053; 81003; 85025; 87086; 87186; 96374; 99283-25; J0131

== ENCOUNTER 2019-11-05 08:54 | Day surgery (SDC) | payer OTHER ==
[2019-11-04 15:23] VITALS: BMI 23.0
[2019-11-05] MEDS ORDERED: PROPOFOL 20 ML ONE ×3 (09:58→12:00)
[2019-11-05] MEDS ORDERED: ceFAZolin SODIUM 1 GM VIAL ONE (09:59)
[2019-11-05] MEDS ORDERED: LIDOCAINE HCL/PF 2% SDV 5ML VIAL ONE (09:59)
[2019-11-05] MEDS ORDERED: MIDAZOLAM HCL 2 MG/2 ML SINGLE DOSE VIAL ONE (10:01)
[2019-11-05] MEDS ORDERED: PROTAMINE SULFATE 50 MG/5 ML VIAL ONE (10:04)
[2019-11-05] MEDS ORDERED: HEPARIN NA (PORCINE) 5,000 UNITS/ML 1ML VIAL ONE (10:04)
[2019-11-05] MEDS ORDERED: ONDANSETRON 4 MG/2 ML VIAL IVPUSH PRN (10:20)
[2019-11-05] MEDS ORDERED: oxyCODONE HCL 5 MG TABLET PO PRN (10:20)
[2019-11-05] MEDS ORDERED: LACTATED RINGERS SOLUTION 1,000 ML IV SCH (10:30)
--- NOTE | 2019-11-05 10:51 | HP ---
Admitting History and Physical - Admission Chief Complaint: left toe and heel ulcer . 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: CVA, Dementia Cardiovascular: Yes: HTN Pulmonary: Yes: Asthma Gastrointestinal: Yes: GERD Renal/: Yes: Other (hyponatremia) ...: No Psych: Yes: Anxiety, Depression Endocrine: Yes: Diabetes Mellitus, Hypothyroidism - Smoking History Smoking history: Never smoked Have you smoked in the past 12 months: No Aproximately how many cigarettes per day: 0 - Alcohol/Substance Use Hx Alcohol Use: No History of Substance Use: reports: None - Social History ADL: Independent History of Recent Travel: No Home Medications - Allergies Allergies/Adverse Reactions: Allergies Allergy/AdvReac Type Severity Reaction Status Date / Time No Known Drug Allergies Allergy Verified 11/05/19 09:38 - Home Medications Home Medications: Ambulatory Orders Levothyroxine [Synthroid -] 50 mcg PO DAILY@0700 tablet 05/30/17 Metoprolol Succinate [Toprol XL -] 25 mg PO DAILY tab 05/30/17 Amlodipine Besylate [Norvasc -] 10 mg PO DAILY tablet 06/06/17 Glimepiride [Amaryl -] 4 mg PO DAILY@0700 tablet 06/06/17 Atorvastatin Ca [Lipitor] 10 mg PO HS 01/31/18 Buspirone HCl [Buspar -] 5 mg PO BID 01/31/18 Gabapentin [Neurontin -] 600 mg PO BID 01/31/18 [place]-3 Acid Ethyl Esters 1 gm PO DAILY 01/31/18 metFORMIN HCL [Metformin HCl] 500 mg PO BID 01/31/18 Quetiapine Fumarate [Seroquel -] 25 mg PO HS tablet 06/08/19 Calcium (Oyster Shell) [Os-Pasquale 500MG -] 600 mg PO DAILY 10/05/19 Docusate Sodium [Colace] 1 cap PO DAILY 10/05/19 Losartan Potassium 1 tab PO DAILY 10/05/19 Nitrofurantoin Macrocrystal [Macrodantin] 1 tab PO BID 10/05/19 Plecanatide [Trulance] 1 tab PO HS 10/05/19 Pramipexole Di-HCl [Mirapex] 0.125 mg PO DAILY 10/05/19 Review of Systems - Review of Systems Constitutional: reports: No Symptoms Eyes: reports: No Symptoms HENT: reports: No Symptoms Neck: reports: No Symptoms Cardiovascular: reports: No Symptoms Respiratory: reports: No Symptoms Gastrointestinal: reports: No Symptoms Genitourinary: reports: No Symptoms Musculoskeletal: reports: No Symptoms Integumentary: reports: No Symptoms Neurological: reports: No Symptoms Endocrine: reports: No Symptoms Hematology/Lymphatic: reports: No Symptoms Psychiatric: reports: No Symptoms Physical Examination Vital Signs: Vital Signs Temperature 97.3 F L 11/05/19 09:34 Pulse Rate 88 11/05/19 09:34 Respiratory Rate 18 11/05/19 09:34 Blood Pressure 128/63 11/05/19 09:34 O2 Sat by Pulse Oximetry (%) 100 11/05/19 09:34 Constitutional: Yes: Well Nourished, No Distress, Calm Eyes: Yes: WNL, Conjunctiva Clear, EOM Intact HENT: Yes: WNL, Atraumatic, Normocephalic Neck: Yes: WNL, Supple, Trachea Midline Cardiovascular: Yes: WNL, Regular Rate and Rhythm Respiratory: Yes: WNL, Regular, CTA Bilaterally Gastrointestinal: Yes: WNL, Normal Bowel Sounds Musculoskeletal: Yes: WNL Extremities: Yes: WNL Edema: No Peripheral Pulses WNL: No Integumentary: Yes: WNL Neurological: Yes: WNL, Alert, Oriented ...Motor Strength: WNL Psychiatric: Yes: WNL Problem List - Problems (1) Foot ulcer, left Assessment/Plan: left lower extremity angiogram today Code(s): L97.529 - NON-PRESSURE CHRONIC ULCER OTH PRT LEFT FOOT W UNSP SEVERITY
[2019-11-05] MEDS ORDERED: ceFAZolin SODIUM 1 GM VIAL IVPB ONE (10:57)
[2019-11-05] MEDS ORDERED: LIDOCAINE HCL 1%, 10 MG/ML (20ML VIAL) INF ONE (11:21)
[2019-11-05] MEDS ORDERED: HEPARIN NA (PORCINE) 5,000 UNITS/ML 1ML VIAL SQ ONE (11:22)
[2019-11-05] MEDS ORDERED: CLOPIDOGREL BISULFATE 75 MG TABLET (FP) PO ONE (13:26)
--- NOTE | 2019-11-05 13:26 | OP ---
Operative Note - Note: Operative Date: 11/05/19 Pre-Operative Diagnosis: left heel ulcer Operation: Aortogram, LLE angiogram, Left sfa angioplasty , peroneal artery atherectomy with angioplasty Findings: left prox sfa -- 80% left distal sfa - 75% left peroneal - occluded Post-Operative Diagnosis: Same as Pre-op Surgeon: Tony Gonzalez Anesthesia: Fractional Estimated Blood Loss (mls): 50 Operative Report Dictated: Yes
[2019-11-05 15:35] VITALS: TEMP 97.7
[2019-11-05 15:42] VITALS: BP 130/60; PULSE 80
--- NOTE | 2019-11-18 23:32 | OP ---
DATE OF OPERATION: 11/05/2019 PREOPERATIVE DIAGNOSIS: Left heel ulcer. POSTOPERATIVE DIAGNOSIS: Left heel ulcer. PROCEDURE: Aortogram, left lower extremity angiogram. Left superficial femoral artery angioplasty. Peroneal artery atherectomy with angioplasty. FINDINGS: Left proximal SFA 80% stenosis, distal SFA stenosis 75%, peroneal artery occluded. SURGEON: Tony Valladares MD. ANESTHESIA: Fractional. BLOOD LOSS: 50 mL. INDICATION: The patient is a 74-year-old female that has a left heel ulcer. Preoperative ultrasound shows substantial stenotic disease in the SFA and in the tibial arteries. Patient was consented for the procedure understanding all risks, benefits, and alternatives, then taken to the operating room. DESCRIPTION OF PROCEDURE: Once in the operating room, she was laid on the operating table in a supine manner, and the area of the left and right groin are prepped and draped in a sterile surgical manner. We then injected 10 mL of lidocaine 1% over the right common femoral artery. We then took a Micropuncture needle and punctured the right common femoral artery. A Micropuncture wire was inserted, Micropuncture sheath was inserted, a 0.035 floppy guidewire was inserted into the aorta. We then inserted a 5 Spanish sheath. We then placed a Omniflush catheter open to the aorta. We then shot an aortogram by hand injection showing the aorta and the iliac arteries were without any disease. We then used our 0.035 floppy guidewire up and over to the left common femoral artery. We shot an angiogram of the left lower extremity showing that the common femoral artery, the profunda were patent, that the proximal SFA had an 80% stenosis, distal SFA had 75% stenosis. Patient had popliteal artery patent to the trunk was patent, but the peroneal artery was occluded, which was the main feeding artery . At this point, we placed our 0.035 stiff guidewire into the SFA. We then went ahead and removed our Omniflush catheter replaced with a 6 x 45 crossover sheath. 5000 units of IV heparin were administered to the patient. We then used a Quick-Cross catheter and crossed our proximal and distal SFA lesions, and we were able to get down to the peroneal artery and cross the occlusion and get the tip of the wire to the distal peroneal. We then, using our Quick-Cross catheter, we went ahead and exchanged for a Fiberwire. We then went ahead and orbital atherectomy and performed orbital atherectomy of the peroneal artery on low and medium. We then went ahead and used a 2.5 x 10 balloon and performed angioplasty of the peroneal artery. We then went ahead and used a 5 x 6 balloon and performed angioplasty of the distal SFA stenosis of 75% after performing angioplasty of the lesion, completion angiogram showed that the SFA was patent. There were no signs of any dissection there in the distal SFA. We then went to the proximal SFA and used a 5 x 6 balloon and performed angioplasty of the 80% lesion. Completion angiogram showed that the SFA was not patent. There was no dissection, and there was good brisk flow going into the foot now. The peroneal artery was the main artery feeding the foot, and giving off branches to the AT and PT. At this point, no more intervention was needed. We brought our sheath up and over. StarClose device was deployed into the right common femoral artery. Pressures were fine after this with normal bleeding. Areas were then dried and Dermabond was placed. Patient tolerated the procedure with no complications. Patient was transferred to PACU in stable condition. TONY VALLADARES DO [id number]
== END 2019-11-05 15:10 | disposition home or self-care (01) ==
LOC: JASU-SURG 08:54
PROVIDERS: ATTEND Surgery Vascular Surgery
PROC: 047T3Z1 Dilation of Right Peroneal Artery using Drug-Coated Balloon, Percutaneous Approach (ICD-10-PCS; principal; 2019-11-05 11:30)
DX: L97.418 Non-pressure chronic ulcer of right heel and midfoot with other specified severity (principal); I10 Essential (primary) hypertension; I25.10 Atherosclerotic heart disease of native coronary artery without angina pectoris; F03.90 Unspecified dementia, unspecified severity, without behavioral disturbance, psychotic disturbance, mood disturbance, and anxiety; J45.909 Unspecified asthma, uncomplicated; K21.9 Gastro-esophageal reflux disease without esophagitis; F32.9 Major depressive disorder, single episode, unspecified; F41.9 Anxiety disorder, unspecified; E11.9 Type 2 diabetes mellitus without complications; E03.9 Hypothyroidism, unspecified; Z79.84 Long term (current) use of oral hypoglycemic drugs
CPT/HCPCS: 37224; 37229; 37233; C2623; 76000-TC-FY; 82962; 94760; J1644

== ENCOUNTER 2020-12-18 10:01 | Emergency (ER) | payer OTHER ==
[2020-12-18 10:19] VITALS: TEMP 97.2; BMI 21.7
[2020-12-18 11:45] LABS: BASO % 0.5 % (0-2.0); EOS % 4.4 % (0-4.5); HEMATOCRIT 34.6 % (32.4-45.2); LYMPH % 20.6 % (8-40); MCH 30.5 pg (25.7-33.7); MCHC 34.7 g/dl (32.0-36.0); MEAN CELL VOLUME 87.8 fl (80-96); MEAN PLT VOLUME 8.2 fl (7.5-11.1); MONO % 12.2 % (3.8-10.2); NEUT % 62.3 % (42.8-82.8); PLATELET COUNT 212 K/MM3 (134-434); RBC 3.94 M/mm3 (3.60-5.2); RDW 14.8 % (11.6-15.6); WHITE BLOOD COUNT 4.5 K/mm3 (4.0-10.0)
[2020-12-18 11:46] LABS: PH,URINE 7.5 (5.0-8.0); URINE APPEARANCE CLEAR; URINE BILIRUBIN NEGATIVE (NEGATIVE); URINE COLOR YELLOW; URINE GLUCOSE (UA) NEGATIVE (NEGATIVE); URINE KETONE NEGATIVE (NEGATIVE); URINE LEUK ESTERASE NEGATIVE (NEGATIVE); URINE NITRITE NEGATIVE (NEGATIVE); URINE PROTEIN NEGATIVE (NEGATIVE); URINE UROBILINOGEN 0.2 mg/dL (0.2-1.0)
[2020-12-18 12:08] LABS: ALBUMIN 4.3 g/dl (3.4-5.0); CALCIUM 9.7 mg/dL (8.5-10.1)
[2020-12-18 12:09] LABS: BLOOD UREA NITROGEN 6.1 mg/dL (7-18)
[2020-12-18 12:12] LABS: CREATININE 0.6 mg/dL (0.55-1.3)
[2020-12-18 12:13] LABS: BILIRUBIN,TOTAL 0.7 mg/dL (0.2-1); TOT PROT 7.7 g/dl (6.4-8.2)
[2020-12-18 13:45] VITALS: BP 159/62; PULSE 82
== END 2020-12-18 14:37 | disposition home or self-care (01) ==
LOC: JER 10:01
DX: R33.9 Retention of urine, unspecified (principal)
CPT/HCPCS: 36415; 80053; 81003; 85025; 87086; 99284-25

== ENCOUNTER 2021-05-01 12:06 | Emergency (ER) | payer OTHER ==
[2021-05-01 13:13] VITALS: BMI 20.5
[2021-05-01] MEDS ORDERED: SODIUM CHLORIDE 0.9% 500 ML INFUS.BAG IV ONE ×2 (13:48→18:24)
[2021-05-01] MEDS ORDERED: SODIUM CHLORIDE IV ONE (13:58)
[2021-05-01 16:18] LABS: BASO % 0.1 % (0-2.0); EOS % 0.1 % (0-4.5); HEMATOCRIT 36.1 % (32.4-45.2); HEMOGLOBIN 12.5 GM/dL (10.7-15.3); LYMPH % 6.5 % (8-40); MCH 30.6 pg (25.7-33.7); MCHC 34.7 g/dl (32.0-36.0); MEAN CELL VOLUME 88.3 fl (80-96); MEAN PLT VOLUME 9.1 fl (7.5-11.1); MONO % 5.8 % (3.8-10.2); NEUT % 87.5 % (42.8-82.8); PLATELET COUNT 318 10^3/uL (134-434); RBC 4.09 M/mm3 (3.60-5.2); RDW 15.1 % (11.6-15.6)
[2021-05-01 16:30] LABS: INR 2.68 (0.83-1.09); PROTHROMBIN TIME (PATIENT) 31.5 SEC (9.7-13.0)
[2021-05-01 16:33] LABS: ACTIVATED PTT 44.5 SECONDS (25.2-36.5)
[2021-05-01 16:39] LABS: LACTIC ACID 2.3 mmol/L (0.4-2.0)
[2021-05-01 16:45] LABS: CHLORIDE 94 mmol/L (98-107); SODIUM 131 mmol/L (136-145)
[2021-05-01 16:57] LABS: ALBUMIN 3.8 g/dl (3.4-5.0); ALK PHOS 722 U/L (45-117); ANION GAP 11 MMOL/L (8-16); BILIRUBIN,TOTAL 6.2 mg/dL (0.2-1); CALCIUM 9.9 mg/dL (8.5-10.1); CO2 26 mmol/L (21-32); CREATININE 0.9 mg/dL (0.55-1.3); GLUCOSE,RANDOM 250 mg/dL (74-106); PHOSPHOROUS 3.7 mg/dL (2.5-4.9); SGOT/AST 338 U/L (15-37); SGPT/ALT 206 U/L (13-61)
[2021-05-01] MEDS ORDERED: CEFEPIME HCL/D5W 2 GM/50 ML BAG IVPB ONE (17:43)
[2021-05-01 17:55] LABS: URINE APPEARANCE Cloudy; URINE BILIRUBIN 3+ (NEGATIVE); URINE COLOR Orange; URINE GLUCOSE (UA) Trace (NEGATIVE); URINE KETONE 1+ (NEGATIVE); URINE LEUK ESTERASE 3+ (NEGATIVE); URINE NITRITE Positive (NEGATIVE); URINE PROTEIN 2+ (NEGATIVE)
[2021-05-01] MEDS ORDERED: CEFEPIME 2 GM/100 ML BAG IVPB ONE (18:08)
[2021-05-01] MEDS ORDERED: PIPERACILLIN/TAZOB 4.5 GM 4.5 GM in DEXTROSE 5%-WATER 100 ML IVPB ONE (18:19)
[2021-05-01] MEDS ORDERED: PIPERACILLIN/TAZOB 4.5 GM 4.5 GM/100 ML BAG IVPB ONE (18:22)
[2021-05-01 18:28] LABS: URINE WBC 50-100 (NEGATIVE)
[2021-05-01 18:29] LABS: URINE BACTERIA MANY /hpf (NEGATIVE)
[2021-05-01 18:47] LABS: LIPASE 5103 U/L (73-393)
[2021-05-01 21:24] VITALS: PULSE 97; TEMP 98.3
[2021-05-01 23:47] VITALS: BP 102/53
== END 2021-05-02 00:10 | disposition short-term general hospital (02) ==
LOC: JER 12:06
PROC: 3E03329 Introduction of Other Anti-infective into Peripheral Vein, Percutaneous Approach (ICD-10-PCS; principal; 2021-05-01)
PROC: 3E0337Z Introduction of Electrolytic and Water Balance Substance into Peripheral Vein, Percutaneous Approach (ICD-10-PCS; 2021-05-01)
DX: K83.09 Other cholangitis (principal)
CPT/HCPCS: 36415; 70450-TC; 71045-TC-FY; 76705-TC; 80053; 81003; 82010; 82962; 83605; 83690; 83735; 84100; 84436; 84443; 84481; 84484; 85025; 85610; 85730; 87040; 87086; 87186; 93005; 93010; 99285-25; C9803; U0003; U0005

== ENCOUNTER 2021-05-24 11:48 | Emergency (ER) | payer OTHER ==
[2021-05-24 12:06] VITALS: BMI 19.5
[2021-05-24] MEDS ORDERED: SODIUM CHLORIDE 0.9% 500 ML INFUS.BAG IV ONE (13:18)
[2021-05-24 13:33] LABS: BASO % 0.4 % (0-2.0); EOS % 3.8 % (0-4.5); HEMATOCRIT 35.6 % (32.4-45.2); HEMOGLOBIN 12.4 GM/dL (10.7-15.3); LYMPH % 20.7 % (8-40); MCH 29.2 pg (25.7-33.7); MCHC 34.9 g/dl (32.0-36.0); MEAN CELL VOLUME 83.7 fl (80-96); MEAN PLT VOLUME 8.5 fl (7.5-11.1); NEUT % 67.1 % (42.8-82.8); PLATELET COUNT 213 10^3/uL (134-434); RBC 4.26 M/mm3 (3.60-5.2); WHITE BLOOD COUNT 5.3 K/mm3 (4.0-10.0)
[2021-05-24 13:53] LABS: CHLORIDE 100 mmol/L (98-107); SODIUM 131 mmol/L (136-145)
[2021-05-24 13:56] LABS: ALBUMIN 3.3 g/dl (3.4-5.0); ANION GAP 9 MMOL/L (8-16); CO2 22 mmol/L (21-32); GLUCOSE,RANDOM 106 mg/dL (74-106)
[2021-05-24 13:59] LABS: CREATININE 0.5 mg/dL (0.55-1.3); SGOT/AST 25 U/L (15-37); SGPT/ALT 21 U/L (13-61)
[2021-05-24 14:00] LABS: BILIRUBIN,TOTAL 0.8 mg/dL (0.2-1); TOT PROT 6.8 g/dl (6.4-8.2)
[2021-05-24 14:02] LABS: ALK PHOS 134 U/L (45-117)
[2021-05-24 14:22] LABS: EPI CELLS 18 /uL (0-25.1); HYALINE CASTS 4 /uL (0-3.1); PH,URINE 5.5 (5.0-8.0); URINE APPEARANCE TURBID; URINE BACTERIA >9,000 /uL (0-1359); URINE BILIRUBIN NEGATIVE (NEGATIVE); URINE COLOR DK YELLOW; URINE GLUCOSE (UA) NEGATIVE (NEGATIVE); URINE KETONE NEGATIVE (NEGATIVE); URINE LEUK ESTERASE 3+ (NEGATIVE); URINE NITRITE NEGATIVE (NEGATIVE); URINE PROTEIN 2+ (NEGATIVE); URINE UROBILINOGEN 0.2 mg/dL (0.2-1.0); URINE WBC 7888 /uL (0-25.8)
[2021-05-24 14:33] LABS: BLOOD UREA NITROGEN 2.3 mg/dL (7-18)
[2021-05-24 14:36] LABS: URINE RBC 421.7 /uL (0-23.9)
[2021-05-24] MEDS ORDERED: CEFTRIAXONE 1 GM/50 ML BAG ONE (15:01)
[2021-05-24 15:12] LABS: LACTIC ACID 2.3 mmol/L (0.4-2.0)
[2021-05-25 09:30] VITALS: BP 157/72; PULSE 78; TEMP 98.4
== END 2021-05-25 09:50 | disposition home or self-care (01) ==
LOC: JER 11:48
DX: R19.7 Diarrhea, unspecified (principal); R53.1 Weakness; E87.1 Hypo-osmolality and hyponatremia
CPT/HCPCS: 36415; 71045-TC-FY; 80053; 81003; 82550; 82962; 83605; 83690; 84484; 85025; 87086; 87186; 93005; 93010; 99285-25; C9803; U0003; U0005